=== PATIENT | female | born 1930 | race Caucasian/White ===

== ENCOUNTER 2017-09-25 23:25 | Inpatient (IN) | payer MEDICARE, OTHER ==
[~2017-09-25] VITALS: Ht 172.7 cm; Wt 57.3 kg
[~2017-09-25 23:25] MED LIST: MULT-246 PO; PROP60CA8 PO
[2017-09-26 00:50] LABS: BASO % 1 % (0-3); EOS # 0.1 x10^3/uL (0.0-0.7); EOS % 2 % (0-3); HEMATOCRIT 37.6 % (36.0-47.0); HEMOGLOBIN 12.7 g/dL (12.0-15.5); LYMPH % 31 % (24-48); MEAN CORPUSCULAR HEMOGLOBIN 33 pg (25-35); MEAN CORPUSCULAR HGB CONC 34 g/dL (31-37); MEAN CORPUSCULAR VOLUME 99 fL (79-100); MONO # 0.6 x10^3/uL (0.0-1.1); MONO % 18 % (0-9); NEUT # 1.6 x10^3uL (1.8-7.7); NEUT % 48 % (31-73); PLATELET COUNT 86 x10^3/uL (140-400); RED BLOOD COUNT 3.81 x10^6/uL (3.50-5.40); RED CELL DISTRIBUTION WIDTH 14.5 % (11.5-14.5); WHITE BLOOD COUNT 3.3 x10^3/uL (4.0-11.0)
[2017-09-26 00:53] LABS: CALCIUM 8.8 mg/dL (8.5-10.1); CREATININE 1.3 mg/dL (0.6-1.0); GFR 38.9
[2017-09-26 00:57] LABS: CLARITY,URINE CLEAR; COLOR,URINE YELLOW
[2017-09-26] MEDS ORDERED: ALPRAZolam 0.25 MG TABLET ONE (00:57)
[2017-09-26 00:58] LABS: BACTERIA,URINE FEW /HPF (0-FEW); BILIRUBIN,URINE NEG (NEG); GLUCOSE,URINE NEG (NEG); NITRITE,URINE NEG (NEG); RBC,URINE 0 /HPF (0-2); SQUAMOUS EPITHELIAL CELL,UR FEW /LPF; UROBILINOGEN,URINE 0.2 mg/dL (0.2 mg/dL)
[2017-09-26] MEDS ORDERED: ALPRAZolam 0.25 MG TABLET PO ONE (01:30)
[2017-09-26] MEDS ORDERED: CEPHALEXIN 250 MG CAPSULE PO ONE (01:30)
--- NOTE | 2017-09-26 01:34 | PHYS DOC ---
Past History Past Medical History: Dementia, Hypertension Past Surgical History: Appendectomy, Cholecystectomy, Hip Replacement, Hysterectomy Smoking: Non-smoker Alcohol Use: None Drug Use: None Adult General Chief Complaint Chief Complaint: PSYCH EVALUATION HPI HPI 86-year-old female with a history of dementia and hypertension now sent to the emergency department for evaluation and medical clearance for psychiatric evaluation after exhibiting aggressive behaviors at [place] [facility]. Patient has not had any physical complaints or recent illness. Apparently she's been behaviorally difficult so she was referred to the emergency department for evaluation anticipating admission if possible to [facility] Review of Systems Review of Systems Constitutional: Denies fever or chills [] Eyes: Denies change in visual acuity, redness, or eye pain [] HENT: Denies nasal congestion or sore throat [] Respiratory: Denies cough or shortness of breath [] Cardiovascular: No additional information not addressed in HPI [] GI: Denies abdominal pain, nausea, vomiting, bloody stools or diarrhea [] : Denies dysuria or hematuria [] Musculoskeletal: Denies back pain or joint pain [] Integument: Denies rash or skin lesions [] Neurologic: Denies headache, focal weakness or sensory changes [] Endocrine: Denies polyuria or polydipsia [] All other systems were reviewed and found to be within normal limits, except as documented in this note. Current Medications Current Medications Current Medications Medications (Trade) Dose Ordered Sig/Aimee Start Time Stop Time Status Last Admin Dose Admin Alprazolam (Xanax) 0.25 mg STK-MED ONCE 09/26/17 00:57 09/26/17 00:58 DC Allergies Allergies Allergies Coded Allergies Type Severity Reaction Last Updated Verified Penicillins Allergy Intermediate rash 11/24/13 No Physical Exam Physical Exam Constitutional: Well developed, well nourished, no acute distress, non-toxic appearance. [] HENT: Normocephalic, atraumatic, bilateral external ears normal, oropharynx moist, no oral exudates, nose normal. [] Eyes: PERRLA, EOMI, conjunctiva normal, no discharge. [] Neck: Normal range of motion, no tenderness, supple, no stridor. [] Cardiovascular:Heart rate regular rhythm, no murmur [] Lungs & Thorax: Bilateral breath sounds clear to auscultation [] Abdomen: Bowel sounds normal, soft, no tenderness, no masses, no pulsatile masses. [] Skin: Warm, dry, no erythema, no rash. [] Back: No tenderness, no CVA tenderness. [] Extremities: No tenderness, no cyanosis, no clubbing, ROM intact, no edema. [] Neurologic: Alert and oriented X 3, normal motor function, normal sensory function, no focal deficits noted. [] Psychologic: Affect normal, judgement normal, mood normal. [] Current Patient Data Vital Signs Vital Signs Date Time Temp Pulse Resp B/P (MAP) Pulse Ox O2 Delivery O2 Flow Rate FiO2 09/25/17 23:50 98.3 67 16 96 Room Air Lab Results Laboratory Tests Test 09/26/17 00:14 09/26/17 00:22 Urine Collection Type Unknown Urine Color Yellow Urine Clarity Clear Urine pH 5.0 Urine Specific [place] 1.025 Urine Protein 100 mg/dl (NEG-TRACE) Urine Glucose (UA) Neg mg/dL (NEG) Urine Ketones (Stick) 15 mg/dL (NEG) Urine Blood Neg (NEG) Urine Nitrite Neg (NEG) Urine Bilirubin Neg (NEG) Urine Urobilinogen Dipstick 0.2 mg/dL (0.2 mg/dL) Urine Leukocyte Esterase Small (NEG) Urine RBC 0 /HPF (0-2) Urine WBC 11-20 /HPF (0-4) Urine Squamous Epithelial Cells Few /LPF Urine Bacteria Few /HPF (0-FEW) White Blood Count 3.3 x10^3/uL (4.0-11.0) L Red Blood Count 3.81 x10^6/uL (3.50-5.40) Hemoglobin 12.7 g/dL (12.0-15.5) Hematocrit 37.6 % (36.0-47.0) Mean Corpuscular Volume 99 fL (79-100) Mean Corpuscular Hemoglobin 33 pg (25-35) Mean Corpuscular Hemoglobin Concent 34 g/dL (31-37) Red Cell Distribution Width 14.5 % (11.5-14.5) Platelet Count 86 x10^3/uL (140-400) L Neutrophils (%) (Auto) 48 % (31-73) Lymphocytes (%) (Auto) 31 % (24-48) Monocytes (%) (Auto) 18 % (0-9) H Eosinophils (%) (Auto) 2 % (0-3) Basophils (%) (Auto) 1 % (0-3) Neutrophils # (Auto) 1.6 x10^3uL (1.8-7.7) L Lymphocytes # (Auto) 1.0 x10^3/uL (1.0-4.8) Monocytes # (Auto) 0.6 x10^3/uL (0.0-1.1) Eosinophils # (Auto) 0.1 x10^3/uL (0.0-0.7) Basophils # (Auto) 0.0 x10^3/uL (0.0-0.2) Sodium Level 142 mmol/L (136-145) Potassium Level 4.0 mmol/L (3.5-5.1) Chloride Level 105 mmol/L (98-107) Carbon Dioxide Level 28 mmol/L (21-32) Anion Gap 9 (6-14) Blood Urea Nitrogen 21 mg/dL (7-20) H Creatinine 1.3 mg/dL (0.6-1.0) H Estimated GFR (Cockcroft-Gault) 38.9 Glucose Level 85 mg/dL (70-99) Calcium Level 8.8 mg/dL (8.5-10.1) Magnesium Level 2.2 mg/dL (1.8-2.4) Troponin I Quantitative < 0.017 ng/mL (0-0.055) EKG EKG [] Radiology/Procedures Radiology/Procedures [] Course & Med Decision Making Course & Med Decision Making Pertinent Labs and Imaging studies reviewed. (See chart for details) Patient sent for evaluation of behavioral difficulties. Full workup shows urinalysis consistent with UTI. Treatment initiated and should be continued with antibiotic for10 days. Patient stable and medically cleared for psychiatric evaluation [] Dragon Disclaimer Dragon Disclaimer This electronic medical record was generated, in whole or in part, using a voice recognition dictation system. Departure Departure: Impression: Primary Impression: Dementia Additional Impressions: UTI (urinary tract infection) Aggressive behavior Disposition: ADMITTED INPATIENT Condition: STABLE Referrals: JORDAN RODRIGUEZ (PCP) Problem Qualifiers HIRAM BARBOUR MD September 26, 2017 01:34
[2017-09-26] MEDS ORDERED: METHYL SALICYLATE/MENTHOL TOPICAL OINTMENT 29GM TUBE. TP PRN (03:45)
[2017-09-26] MEDS ORDERED: MAGNESIUM HYDROXIDE 2,400 MG/30 ML ORAL.SUSP. PO PRN (03:45)
[2017-09-26] MEDS ORDERED: ACETAMINOPHEN 325 MG TABLET PO PRN (03:45)
[2017-09-26] MEDS ORDERED: MAG HYDROX/AL HYDROX/SIMETH 30 ML ORAL.SUSP PO PRN (03:45)
--- NOTE | 2017-09-26 03:46 | EKG ---
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
[2017-09-26 03:55] VITALS: BP 116/90
[2017-09-26 04:55] LABS: ALBUMIN 3.4 g/dL (3.4-5.0); TOTAL BILIRUBIN 0.3 mg/dL (0.2-1.0)
[2017-09-26 05:16] LABS: DIRECT BILIRUBIN 0.1 mg/dL (0.0-0.2); TOTAL PROTEIN 6.6 g/dL (6.4-8.2)
[2017-09-26] MEDS ORDERED: CYAN10002 IM (05:22)
[2017-09-26] MEDS ORDERED: POLY17PO5 PO (05:22)
[2017-09-26] MEDS ORDERED: ASPI-612 PO (05:22)
[2017-09-26] MEDS ORDERED: ERGO500027 PO (05:22)
[2017-09-26] MEDS ORDERED: MELA3TAB43 PO (05:22)
[2017-09-26] MEDS ORDERED: HYDR-2762 PO (05:22)
[2017-09-26] MEDS ORDERED: LORA10TA3 PO (05:22)
[2017-09-26] MEDS ORDERED: FLUT9.9S NS (13:06)
[2017-09-26] MEDS ORDERED: LEVE500T56 PO ×2 (13:08→13:09)
[2017-09-26] MEDS ORDERED: PROP40TA PO (13:13)
[2017-09-26] MEDS ORDERED: CYCL1DRO EACHEYE (13:14)
[2017-09-26 14:31] LABS: THYROID STIM HORMONE (TSH) 5.014 uIU/mL (0.358-3.740)
[2017-09-26] MEDS ORDERED: MELATONIN 3 MG TABLET PO PRN (16:15)
[2017-09-26] MEDS ORDERED: HYDROcodone/APAP 7.5/325MG 1 TAB TABLET PO PRN (16:15)
[2017-09-26 16:40] VITALS: BP 123/81
[2017-09-26 19:10] LABS: T3 TOTAL 85 ng/dL (71-180); THYROXINE 7.7 ug/dL (4.5-12.0)
[2017-09-26] MEDS: levETIRAcetam 250 MG TABLET PO SCH (19:58)
[2017-09-26] MEDS: ASPIRIN ENTERIC COATED 81 MG TABLET.DR. PO SCH (19:58)
[2017-09-26] MEDS: PROPRANOLOL 20 MG TABLET. PO SCH (19:58)
[2017-09-26] MEDS: cycloSPORINE 0.05% OPTH 1 DROP DROPERETTE OU SCH (19:59)
--- NOTE | 2017-09-26 20:49 | PDOC ---
Exam Note: Jorden Note: Please also refer to the separate dictated note~for this date of service dictated separately.~Patient seen individually. Discussed the patient with Nursing staff reviewed the chart.~Reviewed interim history and current functioning. Reviewed vital signs,~Labs/ Radiology~and current medications noted below. Continue current treatment with the changes noted in the dictated addendum note Assessment: Vital Signs: Vital Signs Date Time Temp Pulse Resp B/P (MAP) Pulse Ox O2 Delivery O2 Flow Rate FiO2 09/26/17 19:58 93 123/81 09/26/17 16:40 96.3 19 96 09/26/17 01:47 Room Air Labs: Laboratory Tests Test 09/26/17 00:14 09/26/17 00:22 Urine Collection Type Unknown Urine Color Yellow Urine Clarity Clear Urine pH 5.0 Urine Specific [place] 1.025 Urine Protein 100 mg/dl (NEG-TRACE) Urine Glucose (UA) Neg mg/dL (NEG) Urine Ketones (Stick) 15 mg/dL (NEG) Urine Blood Neg (NEG) Urine Nitrite Neg (NEG) Urine Bilirubin Neg (NEG) Urine Urobilinogen Dipstick 0.2 mg/dL (0.2 mg/dL) Urine Leukocyte Esterase Small (NEG) Urine RBC 0 /HPF (0-2) Urine WBC 11-20 /HPF (0-4) Urine Squamous Epithelial Cells Few /LPF Urine Bacteria Few /HPF (0-FEW) White Blood Count 3.3 x10^3/uL (4.0-11.0) L Red Blood Count 3.81 x10^6/uL (3.50-5.40) Hemoglobin 12.7 g/dL (12.0-15.5) Hematocrit 37.6 % (36.0-47.0) Mean Corpuscular Volume 99 fL (79-100) Mean Corpuscular Hemoglobin 33 pg (25-35) Mean Corpuscular Hemoglobin Concent 34 g/dL (31-37) Red Cell Distribution Width 14.5 % (11.5-14.5) Platelet Count 86 x10^3/uL (140-400) L Neutrophils (%) (Auto) 48 % (31-73) Lymphocytes (%) (Auto) 31 % (24-48) Monocytes (%) (Auto) 18 % (0-9) H Eosinophils (%) (Auto) 2 % (0-3) Basophils (%) (Auto) 1 % (0-3) Neutrophils # (Auto) 1.6 x10^3uL (1.8-7.7) L Lymphocytes # (Auto) 1.0 x10^3/uL (1.0-4.8) Monocytes # (Auto) 0.6 x10^3/uL (0.0-1.1) Eosinophils # (Auto) 0.1 x10^3/uL (0.0-0.7) Basophils # (Auto) 0.0 x10^3/uL (0.0-0.2) Sodium Level 142 mmol/L (136-145) Potassium Level 4.0 mmol/L (3.5-5.1) Chloride Level 105 mmol/L (98-107) Carbon Dioxide Level 28 mmol/L (21-32) Anion Gap 9 (6-14) Blood Urea Nitrogen 21 mg/dL (7-20) H Creatinine 1.3 mg/dL (0.6-1.0) H Estimated GFR (Cockcroft-Gault) 38.9 Glucose Level 85 mg/dL (70-99) Calcium Level 8.8 mg/dL (8.5-10.1) Magnesium Level 2.2 mg/dL (1.8-2.4) Iron Level 49 ug/dL (50-170) L Total Iron Binding Capacity 257 ug/dL (250-450) Iron Saturation 19 % (15-34) Total Bilirubin 0.3 mg/dL (0.2-1.0) Direct Bilirubin 0.1 mg/dL (0.0-0.2) Aspartate Amino Transferase (AST) 26 U/L (15-37) Alanine Aminotransferase (ALT) 26 U/L (14-59) Alkaline Phosphatase 152 U/L (46-116) H Troponin I Quantitative < 0.017 ng/mL (0-0.055) Total Protein 6.6 g/dL (6.4-8.2) Albumin 3.4 g/dL (3.4-5.0) Triglycerides Level 59 mg/dL (0-150) Cholesterol Level 153 mg/dL (0-200) LDL Cholesterol, Calculated 67 mg/dL (0-100) VLDL Cholesterol, Calculated 11 mg/dL (0-40) Non-HDL Cholesterol Calculated 78 mg/dL (0-129) HDL Cholesterol 75 mg/dL (40-60) H Cholesterol/HDL Ratio 2.0 Vitamin B12 Level 653 pg/mL (247-911) 25-Hydroxy Vitamin D Total 66.5 ng/mL (30-100) Thyroid Stimulating Hormone (TSH) 5.014 uIU/mL (0.358-3.740) Thyroxine (T4) 7.7 ug/dL (4.5-12.0) Total Triiodothyronine (TT3) 85 ng/dL (71-180) Rapid Plasma Reagin Pending Current Medications: Meds: Current Medications Alprazolam (Xanax) 0.5 mg 1X ONCE PO Last administered on 09/26/17at 01:35; Start 09/26/17 at 01:30; Stop 09/26/17 at 01:31; Status DC Alprazolam (Xanax) 0.25 mg STK-MED ONCE .ROUTE ; Start 09/26/17 at 00:57; Stop 09/26/17 at 00:58; Status DC Cephalexin HCl (Keflex) 500 mg 1X ONCE PO Last administered on 09/26/17at 01:34 ; Start 09/26/17 at 01:30; Stop 09/26/17 at 01:37; Status DC Acetaminophen (Tylenol) 650 mg PRN Q6HRS PRN PO PAIN / TEMP; Start 09/26/17 at 03:45 Multi-Ingredient Ointment (Analgesic Stuart) 1 axel PRN QID PRN TP MUSCLE PAIN; Start 09/26/17 at 03:45 Al Hydroxide/Mg Hydroxide (Mylanta Plus Xs) 15 ml PRN AFTMEALHC PRN PO DYSPEPSIA; Start 09/26/17 at 03:45 Magnesium Hydroxide (Milk Of Magnesia) 2,400 mg PRN QHS PRN PO CONSTIPATION; Start 09/26/17 at 03:45 Olanzapine (ZyPREXA ZYDIS) 2.5 mg PRN Q2HR PRN PO PSYCHOSIS Last administered on 09/26/17at 06:00; Start 09/26/17 at 04:00 Cyanocobalamin (Vitamin B-12) 1,000 mcg QMONTH IM ; Start 10/26/17 at 09:00 Cyclosporine (Restasis) 1 drop BID OU Last administered on 09/26/17at 19:59; Start 09/26/17 at 21:00 Acetaminophen/ Hydrocodone Bitart (Lortab 7.5/325) 1 tab PRN Q6HRS PRN PO PAIN ; Start 09/26/17 at 16:15 Propranolol HCl (Inderal La) 60 mg DAILY PO ; Start 09/27/17 at 09:00; Stop 05/05 at 09:00; Status DC Aspirin (Aspirin Enteric Coated) 81 mg BID PO Last administered on 09/26/17at 19 :58; Start 09/26/17 at 21:00 Vitamin D (Vitamin D3) 50,000 unit WEEKLY PO ; Start 10/03/17 at 09:00 Fluticasone Propionate (Flonase) 2 spray DAILY NS Last administered on 19:59; Start 09/27/17 at 09:00 Levetiracetam (Keppra) 250 mg BID PO Last administered on 09/26/17 19:58; Start 09/26/17 at 21:00 Cetirizine HCl (ZyrTEC) 10 mg DAILY PO ; Start 09/27/17 at 09:00 Melatonin 3 mg PRN QHS PRN PO INSOMNIA; Start 09/26/17 at 16:15 Polyethylene Glycol (miraLAX) 17 gm DAILY PO ; Start 09/27/17 at 09:00 Propranolol HCl (Inderal) 40 mg QHS PO Last administered on 09/26/17 19:58; Start 09/26/17 at 21:00 Propranolol HCl (Inderal) 20 mg DAILY PO ; Start 09/27/17 at 09:00 Mirtazapine (Remeron) 7.5 mg QHS PO ; Start 09/26/17 at 21:00; Status UNV Active Scripts Active Reported Restasis (Cyclosporine) 1 Each Droperette 1 Drop EACHEYE BID Propranolol Hcl 40 Mg Tablet 1 Tab PO QHS Keppra (Levetiracetam) 500 Mg Tablet 250 Tab PO QHS Keppra (Levetiracetam) 500 Mg Tablet 0.5 Tab PO DAILY08 Flonase Allergy Relief (Fluticasone Propionate) 9.9 Ml Portia.susp 2 Sprays NS DAILY Miralax (Polyethylene Glycol 3350) 17 Gm Powd.pack 17 Gm PO DAILY Melatonin 3 Mg Tab.rapdis 3 Mg PO QHS Loratadine 10 Mg Tablet 10 Mg PO DAILY Hydrocodone-Apap 7.5-325 (Hydrocodone Bit/Acetaminophen) 1 Each Tablet 1 Tab PO PRN Q6HRS PRN Vitamin D2 (Ergocalciferol (Vitamin D2)) 50,000 Unit Capsule 50,000 Unit PO [id number] Cyanocobalamin Injection (Cyanocobalamin (Vitamin B-12)) 1,000 Mcg/1 Ml Vial 1, 000 Mcg IM QMONTH Aspirin Ec (Aspirin) 81 Mg Tablet.dr 81 Mg PO BID Inderal La (Propranolol Hcl) 60 Mg Cap.sa.24h 20 Mg PO QAM I have reviewed the current psychotropics carefully including drug interactions. Risk benefit ratio favors no change other than as noted in my dictated progress note. Diagnosis: Problems: (1) Dementia (2) UTI (urinary tract infection) (3) Aggressive behavior LEYDA WHITLOCK MD September 26, 2017 20:49
[2017-09-26] MEDS: MIRTAZAPINE 7.5 MG TABLET. PO SCH (21:00)
[2017-09-27 00:11] LABS: HEMOGLOBIN A1C 4.6 % (4.8-5.6)
[2017-09-27 06:20] VITALS: BP 150/82
--- NOTE | 2017-09-27 08:58 | RAD ---
CT brain without contrast. HISTORY: Increased confusion, weakness CT scan of brain without without contrast. Comparison is made to study from November 2013. There is an old right occipital CVA which is more prominent than the old study but still appears old. There are old bilateral white matter CVAs in the posterior parietal lobes also noted on the prior study. There is diffuse decreased density in the white matter from chronic microvascular changes. There is an old CVA in the posterior frontal lobe on the right which is new compared to the prior study but the encephalomalacia suggests a chronic finding. Ventricles are mildly dilated probably from atrophy. There is no hemorrhage or mass or shift of the midline. MRI is more sensitive for an acute CVA. IMPRESSION: 1. 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 2. No intracranial hemorrhage. 3. MRI could be of benefit. PQRS Compliance Statement: One or more of the following individualized dose reduction techniques were utilized for this examination: 1. Automated exposure control 2. Adjustment of the mA and/or kV according to patient size 3. Use of iterative reconstruction technique Electronically signed by: Levi Patton MD (09/27/2017 8:55 AM) [facility]
[2017-09-27] MEDS ORDERED: FLUTICASONE 50MCG/NASAL SPRAY 16GM BOTTLE. NS SCH (09:00)
[2017-09-27] MEDS ORDERED: CETIRIZINE HCL 10 MG TABLET PO SCH (09:00)
[2017-09-27] MEDS ORDERED: PROPRANOLOL ER 60 MG CAP.SA.24H. PO SCH (09:00)
[2017-09-27] MEDS ORDERED: PROPRANOLOL 20 MG TABLET. PO SCH (09:00)
[2017-09-27] MEDS ORDERED: POLYETHYLENE GLYCOL 3350 17 GM PACKET. PO SCH (09:00)
--- NOTE | 2017-09-27 09:03 | CONS ---
DATE OF CONSULTATION: 09/26/2017 REASON FOR CONSULTATION: Medical management. HISTORY OF PRESENT ILLNESS: The patient is an 86-year-old female patient who was admitted with increased agitation, delusion about her spouse who has , convinced that he is cheating on her. All this in a background of dementia with delusions and behavioral disturbances. The patient was actually fell and underwent hip replacement about 8 weeks ago. She was discharged from [facility] only about a week ago. She lives currently with her daughter. PAST MEDICAL HISTORY: Significant for hypertension, seizure disorder, recurrent falls, claustrophobia. She has also osteoarthritis, osteoporosis, and thrombocytopenia as well as chronic kidney disease. PAST SURGICAL HISTORY: Significant for left total hip arthroplasty. ALLERGIES: She is allergic to PENICILLIN. MEDICATIONS: She is currently on following medications: She is on loratadine 10 mg once a day, propranolol 20 mg twice a day, aspirin 81 mg once a day, hydrocodone/APAP7.5/325 one tablet every 6 hours, Levetiracetam 250 mg twice a day, Flonase 2 sprays to each nostril once a day, cyclosporine or Restasis 1 drop to both eyes twice a day, polyethylene glycol 17 grams p.o. daily, cyanocobalamin 1000 mcg intramuscular once a month, ergocalciferol, vitamin D2 50,000 units every 2 weeks, melatonin 3 mg at bedtime for insomnia. REVIEW OF SYSTEMS: As per history of present illness. FAMILY HISTORY: Unremarkable. SOCIAL HISTORY: She is , lives with her daughter. She does not smoke, drink alcohol or recreational drugs. 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 PHYSICAL EXAMINATION: GENERAL: When I examined her, she looked well and was clearly in no apparent respiratory distress. She was pale, somewhat cachectic, but no jaundice, cyanosis, or thyromegaly. No jugular venous distension. No limb edema. VITAL SIGNS: Her heart rate was 67, blood pressure was 130/77, temperature was 98.3, respiratory rate was 16, and oxygen saturation was 96% on room air. HEAD, EYES, EARS, NOSE, AND THROAT: Showed she is normocephalic, atraumatic. NECK: Supple. HEART: Showed normal first and second heart sounds with no gallop, rub or murmur. CHEST: Clear to auscultation. No crepitation or rhonchi. ABDOMEN: Distended, soft, nontender. No guarding or rigidity. No organomegaly. Hernial orifice intact. Bowel sounds normal. NEUROLOGIC: She is demented, but without any lateralizing sign. All her cranial nerves intact. EXTREMITIES: She moves extremities without difficulty. She ambulates with a walker without assistance. LABORATORY DATA: On admission showed a white cell count of 3300, hemoglobin 12.7, hematocrit 37.6, MCV 99 and platelet count of 186,000 with normal manual differential. Her chemistry showed a serum sodium 142, potassium 4, chloride 105, bicarbonate 28, anion gap of 9. Her BUN 21, creatinine 1.3, estimated GFR was 39 mL per minute. Her glucose was 85 and calcium was 8.8. Her magnesium was 2.2. Her total bilirubin, AST, ALT, alkaline phosphatase were normal. Her total protein was 6.6, albumin was 3.4. Urinalysis showed the urine was yellow, clear with a pH of 5, specific gravity of 1.025. There is small amount of protein, negative for glucose, trace of ketones, negative for blood, nitrite there is a amount of leukocyte esterase with 0 rbc's, 11-20 wbc's and very few bacteria. IMPRESSION AND PLAN: In summary, this is an 86-year-old female patient who was admitted with increased agitation, delusions about her spouse fidelity. He is , but she thinks that he is cheating on her. All this in a background of dementia with delusions and behavioral disturbances. Medically, she is known to have hypertension, seizure disorder, osteoarthritis, osteoporosis, chronic kidney disease and thrombocytopenia. She has recently had undergone left total hip arthroplasty and was discharged from [facility] only about a week ago. All in all, the patient seems to be medically stable. All her vital signs are within acceptable range. Her lab work showed that she has mild thrombocytopenia as well as chronic kidney disease. I do not have anything to compare with her. We will obviously continue to monitor her lab work, in particular her platelet count. For the time being, she is not on any medication that might interfere with her platelet function. She is on a small dose of as aspirin 81 mg. Thank you, Dr. Marie for allowing me to participate in the care of this patient. DIANA CARTAGENA MD DR: QUENTIN/nato JOB#: [id number] / [id number]
[2017-09-27] MEDS: ASPIRIN ENTERIC COATED 81 MG TABLET.DR. PO SCH ×2 (09:26→19:42)
[2017-09-27] MEDS: cycloSPORINE 0.05% OPTH 1 DROP DROPERETTE OU SCH ×2 (09:26→19:42)
[2017-09-27] MEDS: levETIRAcetam 250 MG TABLET PO SCH ×2 (09:29→19:42)
[2017-09-27 16:08] VITALS: BP 130/81
[2017-09-27] MEDS: HYDROcodone/APAP 7.5/325MG 1 TAB TABLET PO SCH (17:31)
[2017-09-27] MEDS: MIRTAZAPINE 7.5 MG TABLET. PO SCH (19:42)
[2017-09-27] MEDS: PROPRANOLOL 20 MG TABLET. PO SCH (19:43)
--- NOTE | 2017-09-27 21:10 | HP ---
ADMIT DATE: 09/26/2017 PSYCHIATRIC ADMISSION HISTORY AND EVALUATION IDENTIFYING DATA: The patient is an 86-year-old female, who lives at home with her daughter, and the daughter brought her to the Emergency Room on account of increased agitation, delusions about her spouse cheating on her. In fact, the spouse is . She was recently at [facility] and was discharged home with her daughter. She has been fighting with the daughter, trying to elope from the Emergency Room after the emergency medical services brought her there. She has failed outpatient psychiatric interventions. Behaviors are deemed dangerous, unmanageable, referred for inpatient psychiatric stabilization. CHIEF COMPLAINT: "I don't know." The patient is quite confused. HISTORY OF PRESENT ILLNESS: The patient has a history of dementia, Alzheimer, vascular type. She has been living at home with her daughter, who is the power of naval aircrewman tactical helicopter and initiated this referral. Recently, the patient has been increasingly agitated, delusional as noted above, quite erratic in her sleep and appetite. She had a hip fracture about 8 weeks back and as noted above was at nursing home facility in [place], returned home back at the facility and then referred via the ER to us. No clear history of bipolar disorder or suicidal or homicidal ideation. Confusion has been even worse lately. PAST PSYCHIATRIC HISTORY: As above. PAST MEDICAL HISTORY: Hypertension, seizure disorder, frequent falls, status post hip replacement 8 weeks ago. In the ER on 09/26/2017, UA was positive. She was given a dosage of Keflex, and I will defer the rest of Dr. Patricio/Dr. Kaminski. DIET: Regular. DRUG ALLERGIES: PENICILLIN. CODE STATUS: She is a full code. Ambulates with walker. CURRENT PSYCHOTROPICS: At admission, Zyprexa was initiated for psychosis and agitation p.r.n. FAMILY HISTORY: Noncontributory. SOCIAL HISTORY: No alcohol, drug abuse, physical, sexual or elder abuse history is noted. She is not known to be a perpetrator. REACTION TO HOSPITALIZATION: The patient oblivious of this. ASSETS: Supportive family. REVIEW OF SYSTEMS: No CV, , pulmonary, eye, ENT system symptoms on review. Reliability poor. MENTAL STATUS EXAMINATION: Oriented to herself. Insight, judgment, recent and remote memory, attention, concentration, fund of knowledge poor, consistent with her diagnosis. No active suicidal or homicidal ideation. LABORATORY DATA: Reviewed. IMPRESSION: Major neurocognitive disorder, Alzheimer, vascular with depression, delusion, behavioral disturbance; anxiety disorder, unspecified; impulse control disorder, unspecified. Rest of the diagnoses as noted above. PLAN: Admit to Geropsychiatry Unit at [facility]. I will see the patient daily individually from a psychiatric standpoint. Medical followup per Dr. Patricio/Dr. Kaminski. We will also start the patient on Remeron 7.5 mg p.o. at bedtime to help with the insomnia and check a CT head if one has not been done recently. Estimated length of stay 10-12 days. DISPOSITION: Would be back perhaps either to home or [facility]. MAN Cornelius WHITLOCK MD DR: CRISTINA/nato JOB#: [id number] / [id number]
--- NOTE | 2017-09-27 22:52 | PDOC ---
Exam Note: Jorden Note: Please also refer to the separate dictated note~for this date of service dictated separately.~Patient seen individually. Discussed the patient with Nursing staff reviewed the chart.~Reviewed interim history and current functioning. Reviewed vital signs,~Labs/ Radiology~and current medications noted below. Continue current treatment with the changes noted in the dictated addendum note Assessment: Vital Signs: Vital Signs Date Time Temp Pulse Resp B/P (MAP) Pulse Ox O2 Delivery O2 Flow Rate FiO2 09/27/17 19:43 98 130/81 09/27/17 18:41 18 09/27/17 16:08 98.1 98 09/26/17 01:47 Room Air I&O Intake and Output 09/27/17 07:00 Intake Total 720 ml Balance 720 ml Intake Oral 720 ml Current Medications: Meds: Current Medications Alprazolam (Xanax) 0.5 mg 1X ONCE PO Last administered on 09/26/17at 01:35; Start 09/26/17 at 01:30; Stop 09/26/17 at 01:31; Status DC Alprazolam (Xanax) 0.25 mg STK-MED ONCE .ROUTE ; Start 09/26/17 at 00:57; Stop 09/26/17 at 00:58; Status DC Cephalexin HCl (Keflex) 500 mg 1X ONCE PO Last administered on 09/26/17at 01:34 ; Start 09/26/17 at 01:30; Stop 09/26/17 at 01:37; Status DC Acetaminophen (Tylenol) 650 mg PRN Q6HRS PRN PO PAIN / TEMP; Start 09/26/17 at 03:45 Multi-Ingredient Ointment (Analgesic Alloy) 1 axel PRN QID PRN TP MUSCLE PAIN; Start 09/26/17 at 03:45 Al Hydroxide/Mg Hydroxide (Mylanta Plus Xs) 15 ml PRN AFTMEALHC PRN PO DYSPEPSIA; Start 09/26/17 at 03:45 Magnesium Hydroxide (Milk Of Magnesia) 2,400 mg PRN QHS PRN PO CONSTIPATION; Start 09/26/17 at 03:45 Olanzapine (ZyPREXA ZYDIS) 2.5 mg PRN Q2HR PRN PO PSYCHOSIS Last administered on 09/26/17at 06:00; Start 09/26/17 at 04:00 Cyanocobalamin (Vitamin B-12) 1,000 mcg QMONTH IM ; Start 10/26/17 at 09:00 Cyclosporine (Restasis) 1 drop BID OU Last administered on 09/27/17 19:42; Start 09/26/17 at 21:00 Acetaminophen/ Hydrocodone Bitart (Lortab 7.5/325) 1 tab PRN Q6HRS PRN PO PAIN ; Start 09/26/17 at 16:15; Stop 09/27/17 at 17:10; Status DC Propranolol HCl (Inderal La) 60 mg DAILY PO ; Start 09/27/17 at 09:00; Stop 05/05 at 09:00; Status DC Aspirin (Aspirin Enteric Coated) 81 mg BID PO Last administered on 09/27/17 19 :42; Start 09/26/17 at 21:00 Vitamin D (Vitamin D3) 50,000 unit WEEKLY PO ; Start 10/03/17 at 09:00 Fluticasone Propionate (Flonase) 2 spray DAILY NS Last administered on 19:59; Start 09/27/17 at 09:00 Levetiracetam (Keppra) 250 mg BID PO Last administered on 09/27/17 19:42; Start 09/26/17 at 21:00 Cetirizine HCl (ZyrTEC) 10 mg DAILY PO Last administered on 09/27/17 09:29; Start 09/27/17 at 09:00 Melatonin 3 mg PRN QHS PRN PO INSOMNIA; Start 09/26/17 at 16:15 Polyethylene Glycol (miraLAX) 17 gm DAILY PO Last administered on 09/27/17 09: 29; Start 09/27/17 at 09:00 Propranolol HCl (Inderal) 40 mg QHS PO Last administered on 09/27/17 19:43; Start 09/26/17 at 21:00 Propranolol HCl (Inderal) 20 mg DAILY PO Last administered on 09/27/17 09:29; Start 09/27/17 at 09:00 Mirtazapine (Remeron) 7.5 mg QHS PO Last administered on 09/27/17 19:42; Start 09/26/17 at 21:00 Acetaminophen/ Hydrocodone Bitart (Lortab 7.5/325) 1 tab Q6HRS PO Last administered on 09/27/17at 17:31; Start 09/27/17 at 18:00 Duloxetine HCl (Cymbalta) 30 mg DAILY PO ; Start 09/28/17 at 09:00 Active Scripts Active Reported Restasis (Cyclosporine) 1 Each Droperette 1 Drop EACHEYE BID Propranolol Hcl 40 Mg Tablet 1 Tab PO QHS Keppra (Levetiracetam) 500 Mg Tablet 250 Tab PO QHS Keppra (Levetiracetam) 500 Mg Tablet 0.5 Tab PO DAILY08 Flonase Allergy Relief (Fluticasone Propionate) 9.9 Ml [place].susp 2 Sprays NS DAILY Miralax (Polyethylene Glycol 3350) 17 Gm Powd.pack 17 Gm PO DAILY Melatonin 3 Mg Tab.rapdis 3 Mg PO QHS Loratadine 10 Mg Tablet 10 Mg PO DAILY Hydrocodone-Apap 7.5-325 (Hydrocodone Bit/Acetaminophen) 1 Each Tablet 1 Tab PO PRN Q6HRS PRN Vitamin D2 (Ergocalciferol (Vitamin D2)) 50,000 Unit Capsule 50,000 Unit PO [id number] Cyanocobalamin Injection (Cyanocobalamin (Vitamin B-12)) 1,000 Mcg/1 Ml Vial 1, 000 Mcg IM QMONTH Aspirin Ec (Aspirin) 81 Mg Tablet.dr 81 Mg PO BID Inderal La (Propranolol Hcl) 60 Mg Cap.sa.24h 20 Mg PO QAM I have reviewed the current psychotropics carefully including drug interactions. Risk benefit ratio favors no change other than as noted in my dictated progress note. Diagnosis: Problems: (1) Dementia (2) Aggressive behavior LEYDA WHITLOCK MD September 27, 2017 22:52
[2017-09-28] MEDS: HYDROcodone/APAP 7.5/325MG 1 TAB TABLET PO SCH ×2 (00:21→06:00)
[2017-09-28 05:38] VITALS: BP 120/62
--- NOTE | 2017-09-28 07:26 | PN ---
DATE: 09/27/2017 PSYCHIATRIC PROGRESS NOTE This note covers elements not covered in my initial note 09/27/2017. SUBJECTIVE: The patient was seen evening of 09/27/2017. She slept 7-3/4 hours previous evening, received a dosage of Keflex in the ER, but preliminary growth is negative. She is quite confused the previous night, moving slowly, very obsessive, pulling her rope on and off repetitively. She was then smoothing out of bed repeatedly, quite fixated on minute details. She does have chronic back pain, on Lortab. Quite paranoid, delusional, believes her is cheating on her. REVIEW OF SYSTEMS: No CV, , pulmonary, eye, ENT system symptoms on review. Does complain of back pain. MENTAL STATUS EXAM: Oriented to herself. Insight, judgment, recent and remote memory, attention, concentration, fund of knowledge poor, consistent with her diagnosis mentioned in my initial note. IMPRESSION: Major neurocognitive disorder, Alzheimer, vascular with depression, delusion, behavioral disturbance. Rest unchanged; anxiety disorder, unspecified; impulse control disorder, unspecified, chronic back pain. PLAN: Continue Zyprexa p.r.n., Remeron 7.5 mg at bedtime, start Cymbalta 30 mg a day as an antidepressant and antianxiety agent should help with the back pain as well. MAN Cornelius WHITLOCK MD DR: CRISTINA/nato JOB#: [id number] / [id number]
[2017-09-28 08:05] VITALS: BP 120/64
[2017-09-28 08:20] VITALS: BP 125/65
[2017-09-28] MEDS ORDERED: ACETAMINOPHEN 650 MG SUPP.RECT. PR ONE ×2 (08:30)
[2017-09-28 08:38] LABS: BASO % 0 % (0-3); EOS % 0 % (0-3); HEMATOCRIT 35.8 % (36.0-47.0); LYMPH # 0.9 x10^3/uL (1.0-4.8); LYMPH % 9 % (24-48); MEAN CORPUSCULAR HEMOGLOBIN 33 pg (25-35); MEAN CORPUSCULAR HGB CONC 34 g/dL (31-37); MEAN CORPUSCULAR VOLUME 98 fL (79-100); MONO # 0.9 x10^3/uL (0.0-1.1); MONO % 9 % (0-9); NEUT # 7.7 x10^3uL (1.8-7.7); NEUT % 81 % (31-73); PLATELET COUNT 84 x10^3/uL (140-400); RED BLOOD COUNT 3.64 x10^6/uL (3.50-5.40); RED CELL DISTRIBUTION WIDTH 14.3 % (11.5-14.5); WHITE BLOOD COUNT 9.5 x10^3/uL (4.0-11.0)
[2017-09-28 08:50] LABS: ALBUMIN 2.7 g/dL (3.4-5.0); ALBUMIN/GLOBULIN RATIO 0.9 (1.0-1.7); CALCIUM 7.6 mg/dL (8.5-10.1); CREATININE 0.9 mg/dL (0.6-1.0); GFR 59.5; MAGNESIUM 1.8 mg/dL (1.8-2.4); POTASSIUM 3.5 mmol/L (3.5-5.1); TOTAL BILIRUBIN 0.7 mg/dL (0.2-1.0); TOTAL PROTEIN 5.7 g/dL (6.4-8.2)
[2017-09-28] MEDS ORDERED: DULoxetine HCL 30 MG CAPSULE.DR PO SCH (09:00)
--- NOTE | 2017-09-28 09:36 | RAD ---
AP chest. HISTORY: Cough and fever Portable AP view was taken of the chest. Heart is normal in size. Right lung is clear. Retrocardiac lung is poorly evaluated. An infiltrate or atelectasis is possible. A lateral view could be of benefit. IMPRESSION: 1. Possible retrocardiac atelectasis or infiltrate follow-up view or lateral view would be of benefit. Electronically signed by: Levi Patton MD (09/28/2017 9:33 AM) [facility] [place]
--- NOTE | 2017-09-28 18:49 | PDOC ---
Exam Note: Jorden Note: Please also refer to the separate dictated note~for this date of service dictated separately.~Patient seen individually. Discussed the patient with Nursing staff reviewed the chart.~Reviewed interim history and current functioning. Reviewed vital signs,~Labs/ Radiology~and current medications noted below. Continue current treatment with the changes noted in the dictated addendum note Assessment: Vital Signs: Vital Signs Date Time Temp Pulse Resp B/P (MAP) Pulse Ox O2 Delivery O2 Flow Rate FiO2 09/28/17 08:20 86 125/65 (85) 95 NonRebreather Mask 15.0 09/28/17 08:05 103.7 26 I&O Intake and Output 09/28/17 07:00 Intake Total 720 ml Balance 720 ml Intake Oral 720 ml Labs: Laboratory Tests Test 09/28/17 08:07 09/28/17 08:20 Glucose (Fingerstick) 108 mg/dL (70-99) H White Blood Count 9.5 x10^3/uL (4.0-11.0) # Red Blood Count 3.64 x10^6/uL (3.50-5.40) Hemoglobin 12.0 g/dL (12.0-15.5) Hematocrit 35.8 % (36.0-47.0) L Mean Corpuscular Volume 98 fL (79-100) Mean Corpuscular Hemoglobin 33 pg (25-35) Mean Corpuscular Hemoglobin Concent 34 g/dL (31-37) Red Cell Distribution Width 14.3 % (11.5-14.5) Platelet Count 84 x10^3/uL (140-400) L Neutrophils (%) (Auto) 81 % (31-73) H Lymphocytes (%) (Auto) 9 % (24-48) L Monocytes (%) (Auto) 9 % (0-9) Eosinophils (%) (Auto) 0 % (0-3) Basophils (%) (Auto) 0 % (0-3) Neutrophils # (Auto) 7.7 x10^3uL (1.8-7.7) Lymphocytes # (Auto) 0.9 x10^3/uL (1.0-4.8) L Monocytes # (Auto) 0.9 x10^3/uL (0.0-1.1) Eosinophils # (Auto) 0.0 x10^3/uL (0.0-0.7) Basophils # (Auto) 0.0 x10^3/uL (0.0-0.2) Sodium Level 140 mmol/L (136-145) Potassium Level 3.5 mmol/L (3.5-5.1) Chloride Level 104 mmol/L (98-107) Carbon Dioxide Level 26 mmol/L (21-32) Anion Gap 10 (6-14) Blood Urea Nitrogen 16 mg/dL (7-20) Creatinine 0.9 mg/dL (0.6-1.0) Estimated GFR (Cockcroft-Gault) 59.5 BUN/Creatinine Ratio 18 (6-20) Glucose Level 108 mg/dL (70-99) H Lactic Acid Level 1.1 mmol/L (0.4-2.0) Calcium Level 7.6 mg/dL (8.5-10.1) L Magnesium Level 1.8 mg/dL (1.8-2.4) Total Bilirubin 0.7 mg/dL (0.2-1.0) Aspartate Amino Transferase (AST) 24 U/L (15-37) Alanine Aminotransferase (ALT) 23 U/L (14-59) Alkaline Phosphatase 124 U/L (46-116) H Total Protein 5.7 g/dL (6.4-8.2) L Albumin 2.7 g/dL (3.4-5.0) L Albumin/Globulin Ratio 0.9 (1.0-1.7) L Current Medications: Meds: Current Medications Alprazolam (Xanax) 0.5 mg 1X ONCE PO Last administered on 09/26/17at 01:35; Start 09/26/17 at 01:30; Stop 09/26/17 at 01:31; Status DC Alprazolam (Xanax) 0.25 mg STK-MED ONCE .ROUTE ; Start 09/26/17 at 00:57; Stop 09/26/17 at 00:58; Status DC Cephalexin HCl (Keflex) 500 mg 1X ONCE PO Last administered on 09/26/17at 01:34 ; Start 09/26/17 at 01:30; Stop 09/26/17 at 01:37; Status DC Acetaminophen (Tylenol) 650 mg PRN Q6HRS PRN PO PAIN / TEMP; Start 09/26/17 at 03:45; Stop 09/28/17 at 09:50; Status DC Multi-Ingredient Ointment (Analgesic [place]) 1 axel PRN QID PRN TP MUSCLE PAIN; Start 09/26/17 at 03:45; Stop 09/28/17 at 09:50; Status DC Al Hydroxide/Mg Hydroxide (Mylanta Plus Xs) 15 ml PRN AFTMEALHC PRN PO DYSPEPSIA; Start 09/26/17 at 03:45; Stop 09/28/17 at 09:50; Status DC Magnesium Hydroxide (Milk Of Magnesia) 2,400 mg PRN QHS PRN PO CONSTIPATION; Start 09/26/17 at 03:45; Stop 09/28/17 at 09:50; Status DC Olanzapine (ZyPREXA ZYDIS) 2.5 mg PRN Q2HR PRN PO PSYCHOSIS Last administered on 09/26/17at 06:00; Start 09/26/17 at 04:00; Stop 09/28/17 at 09:50; Status DC Cyanocobalamin (Vitamin B-12) 1,000 mcg QMONTH IM ; Start 10/26/17 at 09:00; Stop 10/26/17 at 09:00; Status DC Cyclosporine (Restasis) 1 drop BID OU Last administered on 09/27/17at 19:42; Start 09/26/17 at 21:00; Stop 09/28/17 at 09:50; Status DC Acetaminophen/ Hydrocodone Bitart (Lortab 7.5/325) 1 tab PRN Q6HRS PRN PO PAIN ; Start 09/26/17 at 16:15; Stop 09/27/17 at 17:10; Status DC Propranolol HCl (Inderal La) 60 mg DAILY PO ; Start 09/27/17 at 09:00; Stop 05/05 at 09:00; Status DC Aspirin (Aspirin Enteric Coated) 81 mg BID PO Last administered on 09/27/17at 19 :42; Start 09/26/17 at 21:00; Stop 09/28/17 at 09:50; Status DC Vitamin D (Vitamin D3) 50,000 unit WEEKLY PO ; Start 10/03/17 at 09:00; Stop at 09:00; Status DC Fluticasone Propionate (Flonase) 2 spray DAILY NS Last administered on 19:59; Start 09/27/17 at 09:00; Stop 09/28/17 at 09:50; Status DC Levetiracetam (Keppra) 250 mg BID PO Last administered on 09/27/17 19:42; Start 09/26/17 at 21:00; Stop 09/28/17 at 09:50; Status DC Cetirizine HCl (ZyrTEC) 10 mg DAILY PO Last administered on 09/27/17at 09:29; Start 09/27/17 at 09:00; Stop 09/28/17 at 09:50; Status DC Melatonin 3 mg PRN QHS PRN PO INSOMNIA Last administered on 09/28/17at 00:23; Start 09/26/17 at 16:15; Stop 09/28/17 at 09:50; Status DC Polyethylene Glycol (miraLAX) 17 gm DAILY PO Last administered on 09/27/17 09: 29; Start 09/27/17 at 09:00; Stop 09/28/17 at 09:50; Status DC Propranolol HCl (Inderal) 40 mg QHS PO Last administered on 09/27/17 19:43; Start 09/26/17 at 21:00; Stop 09/28/17 at 09:50; Status DC Propranolol HCl (Inderal) 20 mg DAILY PO Last administered on 09/27/17 09:29; Start 09/27/17 at 09:00; Stop 09/28/17 at 09:50; Status DC Mirtazapine (Remeron) 7.5 mg QHS PO Last administered on 09/27/17 19:42; Start 09/26/17 at 21:00; Stop 09/28/17 at 09:50; Status DC Acetaminophen/ Hydrocodone Bitart (Lortab 7.5/325) 1 tab Q6HRS PO Last administered on 09/28/17at 00:21; Start 09/27/17 at 18:00; Stop 09/28/17 at 09:50 ; Status DC Duloxetine HCl (Cymbalta) 30 mg DAILY PO ; Start 09/28/17 at 09:00; Stop at 09:50; Status DC Acetaminophen (Tylenol) 1,000 mg 1X ONCE KS ; Start 09/28/17 at 08:30; Stop at 08:32; Status DC Acetaminophen (Tylenol) 650 mg 1X ONCE [place] Last administered on 09/28/17at 08:35 ; Start 09/28/17 at 08:30; Stop 09/28/17 at 08:31; Status DC Active Scripts Active Reported Restasis (Cyclosporine) 1 Each Droperette 1 Drop EACHEYE BID Propranolol Hcl 40 Mg Tablet 1 Tab PO QHS Keppra (Levetiracetam) 500 Mg Tablet 250 Tab PO BID Flonase Allergy Relief (Fluticasone Propionate) 9.9 Ml [place].susp 2 Sprays NS DAILY Miralax (Polyethylene Glycol 3350) 17 Gm Powd.pack 17 Gm PO DAILY Melatonin 3 Mg Tab.rapdis 3 Mg PO HS PRN Loratadine 10 Mg Tablet 10 Mg PO DAILY Hydrocodone-Apap 7.5-325 (Hydrocodone Bit/Acetaminophen) 1 Each Tablet 1 Tab PO Q6HRS Vitamin D2 (Ergocalciferol (Vitamin D2)) 50,000 Unit Capsule 50,000 Unit PO WEEKLY Cyanocobalamin Injection (Cyanocobalamin (Vitamin B-12)) 1,000 Mcg/1 Ml Vial 1, 000 Mcg IM QMONTH Aspirin Ec (Aspirin) 81 Mg Tablet.dr 81 Mg PO BID Inderal La (Propranolol Hcl) 60 Mg Cap.sa.24h 20 Mg PO QAM I have reviewed the current psychotropics carefully including drug interactions. Risk benefit ratio favors no change other than as noted in my dictated progress note. Diagnosis: Problems: (1) Anxiety disorder (2) Dementia in Alzheimer's disease with delusions (3) Dementia in Alzheimer's disease with depression (4) Dementia, vascular, with delusions (5) Dementia, vascular, with depression (6) Impulse control disorder LEYDA WHITLOCK MD September 28, 2017 18:49
--- NOTE | 2017-09-28 19:05 | DS ---
DATE OF DISCHARGE: 09/28/2017 This note covers the elements not covered in my initial note, 09/28/2017. REASON FOR ADMISSION: Please refer to the admission history for details. Briefly, the patient is an 86-year-old female who normally resides at home with her daughter and was admitted via the Emergency Room after the daughter brought her in on account of increased agitation, delusions about her spouse cheating on her. In fact, the spouse is . She was quite psychotic, agitated, unmanageable at home, potentially dangerous thus resulting in this inpatient stabilization. SIGNIFICANT FINDINGS AND CLINICAL COURSE: Following admission, the patient was seen daily individually by myself, followed medically per Dr. Patricio/Dr. Kaminski. She is quite confused, intermittently anxious, agitated, and psychotic. Adjustments were made in her psychotropics and from a psychiatric standpoint, she was started on Cymbalta 30 mg a day, Remeron 7.5 mg p.o. at bedtime and was on Zyprexa p.r.n. She is quite obsessive, repetitive. Additionally, she had chronic back pain for which we felt the Cymbalta would help as well. On 09/28/2017, a rapid response was called on her because of acute respiratory failure and she was transferred to the ICU per Dr. Kaminski. REVIEW OF SYSTEMS: Ambulation impaired with walker, shortness of breath. No CV, , GI system symptoms on review. MENTAL STATUS EXAM: Oriented to herself. Insight, judgment, recent and remote memory, attention, concentration, fund of knowledge poor, consistent with her diagnosis. FINAL DIAGNOSES: Major neurocognitive disorder, Alzheimer, vascular with delusion, depression, behavioral disturbance; anxiety disorder, unspecified; impulse control disorder, unspecified; acute respiratory failure. Rest unchanged from admission. DISCHARGE MEDICATIONS: Please refer to MRAD. DISCHARGE INSTRUCTIONS: We will reassess her if she needs to be readmitted to our unit once she is medically stable. MAN Cornelius WHITLOCK MD DR: CRISTINA/nato JOB#: [id number] / [id number]
[2017-09-28] MEDS ORDERED: BRIM5DRO3 OU (19:47)
[2017-10-03] MEDS ORDERED: CHOLECALCIFEROL (VITAMIN D3) 50,000 UNIT CAPSULE PO SCH (09:00)
[2017-10-26] MEDS ORDERED: CYANOCOBALAMIN (VITAMIN B-12) 1,000 MCG/ML VIAL IM SCH (09:00)
== END 2017-09-28 09:49 | disposition short-term general hospital (02) | DRG 56 ==
LOC: ER 23:25 → GEROPSY 09-26 03:17
PROVIDERS: ADMIT Psychiatry & Neurology Psychiatry; ATTEND Psychiatry & Neurology Psychiatry
DX: G30.9 Alzheimer's disease, unspecified (principal); J96.00 Acute respiratory failure, unspecified whether with hypoxia or hypercapnia; F01.51 Vascular dementia, unspecified severity, with behavioral disturbance; F02.81 Dementia in other diseases classified elsewhere, unspecified severity, with behavioral disturbance; N39.0 Urinary tract infection, site not specified; D69.6 Thrombocytopenia, unspecified; G40.909 Epilepsy, unspecified, not intractable, without status epilepticus; N18.9 Chronic kidney disease, unspecified; I12.9 Hypertensive chronic kidney disease with stage 1 through stage 4 chronic kidney disease, or unspecified chronic kidney disease; F32.9 Major depressive disorder, single episode, unspecified; F40.240 Claustrophobia; F63.9 Impulse disorder, unspecified; G89.29 Other chronic pain; M19.90 Unspecified osteoarthritis, unspecified site; M81.0 Age-related osteoporosis without current pathological fracture; Z96.642 Presence of left artificial hip joint; Z79.82 Long term (current) use of aspirin; Z90.49 Acquired absence of other specified parts of digestive tract; Z90.710 Acquired absence of both cervix and uterus; Z88.0 Allergy status to penicillin; Z79.899 Other long term (current) drug therapy
CPT/HCPCS: 36415; 70450; 71045; 80048; 80053; 80061; 80076; 81001; 82306; 82607; 82947; 83036; 83540; 83550; 83605; 83735; 84436; 84443; 84480; 84484; 85025; 86593; 87086; 93005; 99285-25

== ENCOUNTER 2017-09-28 08:48 | Inpatient (IN) | payer MEDICARE, OTHER ==
[~2017-09-28] VITALS: Ht 172.7 cm; Wt 60.0 kg
[2017-09-28] VITALS (13 sets, daily range): BP systolic 94–162; BP diastolic 50–80
[~2017-09-28 08:48] MED LIST changes: +ASPI-612 PO; +CYAN10002 IM; +CYCL1DRO EACHEYE; +ERGO500027 PO; +FLUT9.9S NS; +HYDR-2762 PO; +LEVE500T56 PO; +LORA10TA3 PO; +MELA3TAB43 PO; +POLY17PO5 PO; +PROP40TA PO
[2017-09-28] MEDS: IV NORMAL SALINE 1,000ML 1,000 ML IV SCH ×2 (11:42→21:04)
[2017-09-28] MEDS: HYDROcodone/APAP 7.5/325MG 1 TAB TABLET PO SCH ×3 (11:42→23:22)
[2017-09-28] MEDS ORDERED: VANCOMYCIN 1.5 GM in IV NORMAL SALINE 500ML 500 ML IV ONE (12:15)
[2017-09-28] MEDS: levETIRAcetam 250 MG TABLET PO SCH ×2 (12:22→21:01)
[2017-09-28] MEDS: MEROPENEM 1 GM in IV NORMAL SALINE 100ML 100 ML IV SCH ×2 (12:22→23:22)
[2017-09-28] MEDS ORDERED: diphenhydrAMINE HCL 25 MG CAPSULE PO PRN (12:30)
[2017-09-28] MEDS ORDERED: ELECTROLYTE (NON-ICU) PROTOCOL MC PRN (12:30)
[2017-09-28] MEDS ORDERED: 0.9 % SODIUM CHLORIDE 10 ML DISP.SYRIN. IV PRN (12:30)
[2017-09-28] MEDS ORDERED: CALCIUM CARBONATE 500 MG TAB.CHEW PO PRN (12:30)
[2017-09-28] MEDS ORDERED: PROCHLORPERAZINE 10 MG/2 ML VIAL. IV PRN (12:30)
[2017-09-28] MEDS ORDERED: diphenhydrAMINE 50 MG/ML VIAL IV PRN (12:30)
[2017-09-28] MEDS ORDERED: ALPRAZolam 0.25 MG TABLET PO PRN (12:30)
[2017-09-28] MEDS ORDERED: ONDANSETRON PF 4 MG/2 ML VIAL. IV PRN (12:30)
--- NOTE | 2017-09-28 12:58 | PDOC1 ---
History of Present Illness Reason for Visit: Fever, hypoxia History of Present Illness Pt is a pleasant 86 yo woman who just was discharged from [facility] on Friday. She had been there for 6 weeks after having a hip fracture and having surgery. She had broken her left hip. Her daughter says that Karina and her moved in with her in December, and Karina's a month later. She states pt's dementia has been getting progressively worse since then. In addition, pt sees a neurologist because she had a seizure last fall, and has had one since then. evening, her daughter brought her to [facility] due to her behaviors and pt was admitted to the [facility] unit. Her daughter reports that pt has been having a cough for a few days prior to presenting here in the hospital, and thought it was getting worse yesterday, but each time pt was evaluated, her lungs were clear. This morning, pt had a rapid response called because she was lethargic, tachypneic, and had an O2 sat of 79% on RA and a temperature of 103.9. She is currently much more alert and breathing normally. She says her only complaint is that her low back hurts (which is chronic). She denies vomiting, choking, diarrhea, abd pain, rash, dizziness, [place], vision changes. Pt's daughter says she had some leg swelling last week, but now it seems better. She was concerned about possible CHF, but pt does not have a hx of that. 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 See HPI for pertinent positives and negative responses, other curtis all other systems are negative, non pertinent or non contributory Medications Current Medications Sodium Chloride 1,000 ml @ 100 mls/hr Q10H IV Last administered on 09/28/17at 11:42; Start 09/28/17 at 11:15 Vancomycin HCl (Vanco Per Pharmacy) 1 each PRN DAILY PRN MC SEE COMMENTS; Start 09/28/17 at 11:15 Meropenem 1 gm/ Sodium Chloride 100 ml @ 200 mls/hr Q12H IV Last administered on 09/28/17at 12:22; Start 09/28/17 at 12:00 Acetaminophen/ Hydrocodone Bitart (Lortab 7.5/325) 1 tab Q6HRS PO Last administered on 09/28/17at 11:42; Start 09/28/17 at 12:00 Levetiracetam (Keppra) 250 mg BID PO Last administered on 09/28/17at 12:22; Start 09/28/17 at 12:00 Lactobacillus Rhamnosus (Culturelle) 1 cap BID PO ; Start 09/28/17 at 21:00 Vancomycin HCl 1.5 gm/Sodium Chloride 500 ml @ 250 mls/hr 1X ONCE IV ; Start 09/28/17 at 12:15; Stop 09/28/17 at 14:14 Vancomycin HCl (Vancomycin Trough Level) 1 each 1X ONCE MC ; Start 09/30/17 at 12:30; Stop 09/30/17 at 12:31 Vancomycin HCl 750 mg/Sodium Chloride 250 ml @ 250 mls/hr Q24H IV ; Start 09/29 at 13:00 Sodium Chloride (Normal Saline Flush) 3 ml PRN DAILY PRN IV AFTER MEDS AND BLOOD DRAWS; Start 09/28/17 at 12:30; Status UNV Acetaminophen (Tylenol) 650 mg PRN Q6HRS PRN PO Headaches, Temp > 101.5F; Start 09/28/17 at 12:30; Status UNV Docusate Sodium (Colace) 100 mg BID PO ; Start 09/28/17 at 21:00; Status UNV Calcium Carbonate/ Glycine (Tums) 500 mg PRN Q3HRS PRN PO HEARTBURN / GAS; Start 09/28/17 at 12:30; Status UNV Info (Non-Icu Electrolyte Protocol) 1 ea CONT PRN PRN MC SEE COMMENTS; Start at 12:30; Status UNV Heparin Sodium (Porcine) (Heparin Sq) 5,000 unit Q12HR SQ ; Start 09/28/17 at 21 :00; Status UNV Prochlorperazine Edisylate (Compazine) 10 mg PRN Q4HRS PRN IV NAUSEA/VOMITING; Start 09/28/17 at 12:30; Status UNV Ondansetron HCl (Zofran) 4 mg PRN Q8HRS PRN IV NAUSEA/VOMITING; Start 09/28/17 at 12:30; Status UNV Diphenhydramine HCl (Benadryl) 25 mg PRN Q6HRS PRN PO SEE COMMENTS; Start 09/28 at 12:30; Status UNV Diphenhydramine HCl (Benadryl) 25 mg PRN Q6HRS PRN IV SEE COMMENTS; Start 09/28 at 12:30; Status UNV Potassium Chloride (KCl Oral Soln) 40 meq 1X ONCE FT ; Start 09/28/17 at 12:30 ; Stop 09/28/17 at 12:31; Status UNV Cyanocobalamin (Vitamin B-12) 1,000 mcg QMONTH IM ; Start 10/28/17 at 09:00; Status UNV Cyclosporine (Restasis) 1 drop BID OU ; Start 09/28/17 at 21:00; Status UNV Propranolol HCl (Inderal La) 20 mg DAILY PO ; Start 09/29/17 at 09:00; Status UNV Non-Formulary Medication (Aspirin (Aspirin Ec)) 81 mg BID PO ; Start 09/28/17 at 21:00; Status UNV Non-Formulary Medication (Ergocalciferol (Vitamin D2) (Vitamin D2)) 50,000 unit WEEKLY PO ; Start 10/05/17 at 09:00; Status UNV Non-Formulary Medication (Fluticasone Propionate (Flonase Allergy Relief)) 2 sprays DAILY NS ; Start 09/29/17 at 09:00; Status UNV Non-Formulary Medication (Loratadine ) 10 mg DAILY PO ; Start 09/29/17 at 09:00 ; Status UNV Non-Formulary Medication (Melatonin ) 3 mg HS PRN PO INSOMNIA; Start 09/28/17 at 12:30; Status UNV Non-Formulary Medication (Polyethylene Glycol 3350 (Miralax)) 17 gm DAILY PO ; Start 09/29/17 at 09:00; Status UNV Alprazolam (Xanax) 0.125 mg PRN QHS PRN PO ANXIETY / AGITATION; Start 09/28/17 at 12:30; Status UNV Active Scripts Active Reported Restasis (Cyclosporine) 1 Each Droperette 1 Drop EACHEYE BID Propranolol Hcl 40 Mg Tablet 1 Tab PO QHS Keppra (Levetiracetam) 500 Mg Tablet 250 Tab PO BID Flonase Allergy Relief (Fluticasone Propionate) 9.9 Ml [place].susp 2 Sprays NS DAILY Miralax (Polyethylene Glycol 3350) 17 Gm Powd.pack 17 Gm PO DAILY Melatonin 3 Mg Tab.rapdis 3 Mg PO HS PRN Loratadine 10 Mg Tablet 10 Mg PO DAILY Hydrocodone-Apap 7.5-325 (Hydrocodone Bit/Acetaminophen) 1 Each Tablet 1 Tab PO Q6HRS Vitamin D2 (Ergocalciferol (Vitamin D2)) 50,000 Unit Capsule 50,000 Unit PO WEEKLY Cyanocobalamin Injection (Cyanocobalamin (Vitamin B-12)) 1,000 Mcg/1 Ml Vial 1, 000 Mcg IM QMONTH Aspirin Ec (Aspirin) 81 Mg Tablet.dr 81 Mg PO BID Inderal La (Propranolol Hcl) 60 Mg Cap.sa.24h 20 Mg PO QAM Exam Vital Signs Vital Signs Date Time Temp Pulse Resp B/P (MAP) Pulse Ox O2 Delivery O2 Flow Rate FiO2 09/28/17 11:42 24 92 NonRebreather Mask 10.0 09/28/17 10:35 76 124/72 (89) 09/28/17 09:35 99.3 General Appearance: Alert, Cooperative, No acute distress, Other (Oriented x 2 (person, place)) HEENT: Atraumatic, PERRLA, EOMI, Mucous membr. moist/pink, Other (Neck supple, full ROM, no JVD, no LAD) Respiratory: Other (Crackles LLL, non-labored, otherwise CTAB) Heart: Regular rate, Normal S1, Normal S2, No murmurs Abdominal: Normal bowel sounds, Soft, No tenderness, No hepatospenomegaly, No masses Extremities: No cyanosis, Normal pulses, No tenderness/swelling, Other (Trace BLE edema, Andrés's negative bilaterally) Skin: No rashes, No breakdown Neuro: Normal speech, Strength at 5/5 X4 ext, Normal tone, Cranial nerves 3-12 NL Psych/Mental Status: Mood NL, Other (Pt's mental status is at baseline per her family) Assessment/Plan Assessment/Plan 1. HCAP, organism unknown: Merrem and Vancomycin. Monitor CBC. O2 to keep sats >92%. Aspiration precautions. RATE. Consider CT if CXR continues to yield nonspecific results, or if pt worsens. Tylenol PRN for fever. Pt down from NRB to 4 liters already, resting comfortably. Lactate and WBC are normal. Pt does meet SIRS criteria, but no sign of overt sepsis. 2. CKD, stage 2: Creat is 1.0, which is baseline. Continue to monitor, avoid nephrotoxic medications. Will give small bolus as a precaution. 3. Seizure d/o: Keppra restarted. Seizure precautions. 4. Thrombocytopenia: Monitor. Stable now. 5. Dementia w/ behaviors: Consult Dr. Marie. Her daughter states she takes Xanax 0.25 mg 1/2 tab at bedtime PRN, I have ordered this. 6. HTN: BP stable, continue home meds. 7. Cough: Pt's cough is more upper airway. I will give a dysphagia diet in case there is a component of aspiration, but there is no evidence of that at this point, and staff have witnessed pt swallowing meds with no difficulty. 8. DVT proph: Heparin. 9. Acute hypoxic respiratory failure: Due to #1, see above. 10. Disp: Expect minimum 2 MN stay to treat this condition. ICU status for now. COURSE Allergies Coded Allergies Type Severity Reaction Last Updated Verified Penicillins Allergy Intermediate rash 11/24/13 No Current Medications Medications (Trade) Dose Ordered Sig/Aimee Route PRN Reason Start Time Stop Time Status Last Admin Dose Admin Sodium Chloride 1,000 ml @ 100 mls/hr Q10H IV 09/28/17 11:15 09/28/17 11:42 Vancomycin HCl (Vanco Per Pharmacy) 1 each PRN DAILY PRN MC SEE COMMENTS 09/28/17 11:15 Meropenem 1 gm/ Sodium Chloride 100 ml @ 200 mls/hr Q12H IV 09/28/17 12:00 09/28/17 12:22 Acetaminophen/ Hydrocodone Bitart (Lortab 7.5/325) 1 tab Q6HRS PO 09/28/17 12:00 09/28/17 11:42 Levetiracetam (Keppra) 250 mg BID PO 09/28/17 12:00 09/28/17 12:22 Lactobacillus Rhamnosus (Culturelle) 1 cap BID PO 09/28/17 21:00 Vancomycin HCl 1.5 gm/Sodium Chloride 500 ml @ 250 mls/hr 1X ONCE IV 09/28/17 12:15 09/28/17 14:14 Vancomycin HCl (Vancomycin Trough Level) 1 each 1X ONCE MC 09/30/17 12:30 09/30/17 12:31 Vancomycin HCl 750 mg/Sodium Chloride 250 ml @ 250 mls/hr Q24H IV 09/29/17 13:00 Sodium Chloride (Normal Saline Flush) 3 ml PRN DAILY PRN IV AFTER MEDS AND BLOOD DRAWS 09/28/17 12:30 UNV Acetaminophen (Tylenol) 650 mg PRN Q6HRS PRN PO Headaches, Temp > 101.5F 09/28/17 12:30 UNV Docusate Sodium (Colace) 100 mg BID PO 09/28/17 21:00 UNV Calcium Carbonate/ Glycine (Tums) 500 mg PRN Q3HRS PRN PO HEARTBURN / GAS 09/28/17 12:30 UNV Info (Non-Icu Electrolyte Protocol) 1 ea CONT PRN PRN MC SEE COMMENTS 09/28/17 12:30 UNV Heparin Sodium (Porcine) (Heparin Sq) 5,000 unit Q12HR SQ 09/28/17 21:00 UNV Prochlorperazine Edisylate (Compazine) 10 mg PRN Q4HRS PRN IV NAUSEA/VOMITING 09/28/17 12:30 UNV Ondansetron HCl (Zofran) 4 mg PRN Q8HRS PRN IV NAUSEA/VOMITING 09/28/17 12:30 UNV Diphenhydramine HCl (Benadryl) 25 mg PRN Q6HRS PRN PO SEE COMMENTS 09/28/17 12:30 UNV Diphenhydramine HCl (Benadryl) 25 mg PRN Q6HRS PRN IV SEE COMMENTS 09/28/17 12:30 UNV Potassium Chloride (KCl Oral Soln) 40 meq 1X ONCE FT 09/28/17 12:30 09/28/17 12:31 UNV Cyanocobalamin (Vitamin B-12) 1,000 mcg QMONTH IM 10/28/17 09:00 UNV Cyclosporine (Restasis) 1 drop BID OU 09/28/17 21:00 UNV Propranolol HCl (Inderal La) 20 mg DAILY PO 09/29/17 09:00 UNV Non-Formulary Medication (Aspirin (Aspirin Ec)) 81 mg BID PO 09/28/17 21:00 UNV Non-Formulary Medication (Ergocalciferol (Vitamin D2) (Vitamin D2)) 50,000 unit WEEKLY PO 10/05/17 09:00 UNV Non-Formulary Medication (Fluticasone Propionate (Flonase Allergy Relief)) 2 sprays DAILY NS 09/29/17 09:00 UNV Non-Formulary Medication (Loratadine ) 10 mg DAILY PO 09/29/17 09:00 UNV Non-Formulary Medication (Melatonin ) 3 mg HS PRN PO INSOMNIA 09/28/17 12:30 UNV Non-Formulary Medication (Polyethylene Glycol 3350 (Miralax)) 17 gm DAILY PO 09/29/17 09:00 UNV Alprazolam (Xanax) 0.125 mg PRN QHS PRN PO ANXIETY / AGITATION 09/28/17 12:30 UNV Vital Signs Date Time Temp Pulse Resp B/P (MAP) Pulse Ox O2 Delivery O2 Flow Rate FiO2 09/28/17 11:42 24 92 NonRebreather Mask 10.0 09/28/17 10:35 76 124/72 (89) 09/28/17 09:35 99.3 AP chest. HISTORY: Cough and fever Portable AP view was taken of the chest. Heart is normal in size. Right lung is clear. Retrocardiac lung is poorly evaluated. An infiltrate or atelectasis is possible. A lateral view could be of benefit. IMPRESSION: 1. Possible retrocardiac atelectasis or infiltrate follow-up view or lateral view would be of benefit. CT brain without contrast. HISTORY: Increased confusion, weakness CT scan of brain without without contrast. Comparison is made to study from November 2013. There is an old right occipital CVA which is more prominent than the old study but still appears old. There are old bilateral white matter CVAs in the posterior parietal lobes also noted on the prior study. There is diffuse decreased density in the white matter from chronic microvascular changes. There is an old CVA in the posterior frontal lobe on the right which is new compared to the prior study but the encephalomalacia suggests a chronic finding. Ventricles are mildly dilated probably from atrophy. There is no hemorrhage or mass or shift of the midline. MRI is more sensitive for an acute CVA. IMPRESSION: 1. 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 2. No intracranial hemorrhage. 3. MRI could be of benefit. PAMELA GANDHI MD September 28, 2017 12:58
[2017-09-28] MEDS ORDERED: POTASSIUM CHLORIDE 20 MEQ/15 ML ORAL LIQUID. FT ONE (13:00)
[2017-09-28] MEDS: VANCOMYCIN PER PHARMACY MC PRN (14:08)
[2017-09-28 14:35] LABS: BILIRUBIN,URINE NEG (NEG); CLARITY,URINE HAZY; COLOR,URINE AMBER; GLUCOSE,URINE NEG (NEG)
[2017-09-28 14:36] LABS: NITRITE,URINE NEG (NEG); UROBILINOGEN,URINE 0.2 mg/dL (0.2 mg/dL)
[2017-09-28 14:37] LABS: AMORPHOUS SEDIMENT,UR PRESENT /HPF; BACTERIA,URINE FEW /HPF (0-FEW); GRANULAR CASTS,URINE OCC /HPF; HYALINE CASTS, URINE OCC /HPF; RBC,URINE 0 /HPF (0-2); SQUAMOUS EPITHELIAL CELL,UR FEW /LPF
[2017-09-28] MEDS ORDERED: BRIM5DRO3 OU (19:47)
[2017-09-28] MEDS: cycloSPORINE 0.05% OPTH 1 DROP DROPERETTE OU SCH (21:00)
[2017-09-28] MEDS: ACETAMINOPHEN 325 MG TABLET PO PRN (21:00)
[2017-09-28] MEDS: DOCUSATE SODIUM 100 MG CAPSULE PO SCH (21:00)
[2017-09-28] MEDS: MELATONIN 3 MG TABLET PO PRN (21:00)
[2017-09-28] MEDS: LACTOBACILLUS RHAMNOSUS GG 1 CAPSULE. PO SCH (21:01)
[2017-09-28] MEDS: ASPIRIN ENTERIC COATED 81 MG TABLET.DR. PO SCH (21:01)
[2017-09-28] MEDS: HEPARIN PF for SUB-Q USE 5,000 UNIT/0.5 ML VIAL. SQ SCH (21:02)
[2017-09-29] VITALS (15 sets, daily range): BP systolic 93–144; BP diastolic 50–81
[2017-09-29 00:23] LABS: BASO % 0 % (0-3); EOS % 0 % (0-3); HEMATOCRIT 34.9 % (36.0-47.0); HEMOGLOBIN 11.7 g/dL (12.0-15.5); LYMPH # 0.6 x10^3/uL (1.0-4.8); LYMPH % 11 % (24-48); MEAN CORPUSCULAR HEMOGLOBIN 33 pg (25-35); MEAN CORPUSCULAR HGB CONC 34 g/dL (31-37); MEAN CORPUSCULAR VOLUME 99 fL (79-100); MONO # 0.3 x10^3/uL (0.0-1.1); MONO % 6 % (0-9); NEUT # 4.2 x10^3uL (1.8-7.7); NEUT % 82 % (31-73); PLATELET COUNT 66 x10^3/uL (140-400); RED BLOOD COUNT 3.52 x10^6/uL (3.50-5.40); RED CELL DISTRIBUTION WIDTH 14.3 % (11.5-14.5); WHITE BLOOD COUNT 5.1 x10^3/uL (4.0-11.0)
[2017-09-29 00:37] LABS: ALBUMIN 2.3 g/dL (3.4-5.0); ALBUMIN/GLOBULIN RATIO 0.7 (1.0-1.7); CALCIUM 7.8 mg/dL (8.5-10.1); CREATININE 1.1 mg/dL (0.6-1.0); GFR 47.2; POTASSIUM 4.3 mmol/L (3.5-5.1); TOTAL BILIRUBIN 0.8 mg/dL (0.2-1.0); TOTAL PROTEIN 5.4 g/dL (6.4-8.2)
[2017-09-29 00:51] LABS: % BANDS 47 % (0-9); % LYMPHS 13 % (24-48); % MONOS 7 % (0-10)
[2017-09-29 00:54] LABS: PLT ESTIMATE DECREASED (ADEQUATE)
[2017-09-29] MEDS: HYDROcodone/APAP 7.5/325MG 1 TAB TABLET PO SCH ×4 (05:50→23:08)
[2017-09-29] MEDS: IV NORMAL SALINE 1,000ML 1,000 ML IV SCH ×2 (07:15→15:34)
[2017-09-29] MEDS: POLYETHYLENE GLYCOL 3350 17 GM PACKET. PO SCH (07:42)
[2017-09-29] MEDS: DOCUSATE SODIUM 100 MG CAPSULE PO SCH ×2 (07:42→20:03)
--- NOTE | 2017-09-29 08:05 | RAD ---
Portable chest, 09/29/2017: HISTORY: Shortness of breath, pneumonia Comparison is made to yesterday's study. The heart size and pulmonary vascularity are normal. There is calcific plaquing of the aorta. The retrocardiac left basilar opacity has worsened with obscuration of the left hemidiaphragm. The appearance suggests infiltrate and possible pleural fluid. No right lung infiltrate is seen. IMPRESSION: Increasing left basilar infiltrate compatible with pneumonia. Electronically signed by: Kunal Austin MD (09/29/2017 8:02 AM) [facility]
[2017-09-29] MEDS: FLUTICASONE 50MCG/NASAL SPRAY 16GM BOTTLE. NS SCH (08:22)
[2017-09-29] MEDS: PROPRANOLOL 20 MG TABLET. PO SCH (08:22)
[2017-09-29] MEDS: levETIRAcetam 250 MG TABLET PO SCH ×2 (08:22→20:04)
[2017-09-29] MEDS: cycloSPORINE 0.05% OPTH 1 DROP DROPERETTE OU SCH ×2 (08:22→20:04)
[2017-09-29] MEDS: LACTOBACILLUS RHAMNOSUS GG 1 CAPSULE. PO SCH ×2 (08:23→20:04)
[2017-09-29] MEDS: ASPIRIN ENTERIC COATED 81 MG TABLET.DR. PO SCH ×2 (08:23→20:04)
[2017-09-29] MEDS: ACETAMINOPHEN 325 MG TABLET PO PRN (08:23)
[2017-09-29] MEDS: CETIRIZINE HCL 10 MG TABLET PO SCH (08:23)
[2017-09-29] MEDS: HEPARIN PF for SUB-Q USE 5,000 UNIT/0.5 ML VIAL. SQ SCH ×2 (08:24→20:10)
[2017-09-29] MEDS: MEROPENEM 1 GM in IV NORMAL SALINE 100ML 100 ML IV SCH ×2 (12:18→23:08)
[2017-09-29] MEDS ORDERED: IOHEXOL 300 MG/ML 75 ML VIAL. IV ONE (12:30)
[2017-09-29 12:36] LABS: HEMATOCRIT 37.1 % (36.0-47.0); HEMOGLOBIN 12.3 g/dL (12.0-15.5); RED BLOOD COUNT 3.74 x10^6/uL (3.50-5.40); RED CELL DISTRIBUTION WIDTH 14.5 % (11.5-14.5); WHITE BLOOD COUNT 6.7 x10^3/uL (4.0-11.0)
[2017-09-29 12:51] LABS: ALBUMIN 2.4 g/dL (3.4-5.0); ALBUMIN/GLOBULIN RATIO 0.7 (1.0-1.7); CALCIUM 8.4 mg/dL (8.5-10.1); CREATININE 1.3 mg/dL (0.6-1.0); GFR 38.9; POTASSIUM 4.2 mmol/L (3.5-5.1); TOTAL BILIRUBIN 0.7 mg/dL (0.2-1.0); TOTAL PROTEIN 5.8 g/dL (6.4-8.2)
[2017-09-29] MEDS: VANCOMYCIN 750 MG in IV NORMAL SALINE 250ML 250 ML IV SCH (13:35)
--- NOTE | 2017-09-29 13:38 | RAD ---
CTA chest with contrast Indication: hypoxia, short of breath, reduced dose given creat 1.1 gfr 46 . Comparison: No comparison is available. Technique: After bolus of intravenous contrast, CT imaging was performed of the chest. MIP reconstructions were obtained. Exposure: One or more of the following individualized dose reduction techniques were utilized for this examination: 1. Automated exposure control 2. Adjustment of the mA and/or kV according to patient size 3. Use of iterative reconstruction technique. Findings: Pulmonary arteries:No evidence of pulmonary embolism. Thoracic aorta: Mild pulsatility artifact at the ascending aorta. Ascending aorta is mildly ectatic. No evidence of aortic aneurysm or dissection. Great vessel origins:Patent Thyroid gland:Visualized aspect is unremarkable. Lymph nodes:No significant enlargement Heart: No significant pericadial effusion. Pleural spaces: No significant effusion Lungs: Large area of consolidation involving the left lower lobe. Milder consolidation or infiltrate in the right lower lobe. The trachea and central airways are patent. There is bronchial wall thickening. Bones: No destructive process Upper abdomen: Slices were obtained through the upper abdomen, but are of limited usefulness due to technique.No obvious acute findings. Impression: 1. Area of dense infiltrate or consolidation in the left lower lobe and to a lesser extent right lower lobe. Findings may represent pneumonia. However, recommend short-term CT chest follow-up to document resolution. 2. Negative for pulmonary embolism. Electronically signed by: Deonte Clarke MD (09/29/2017 1:35 PM) [id number]
[2017-09-29] MEDS: ALPRAZolam 0.25 MG TABLET PO PRN (15:32)
--- NOTE | 2017-09-29 18:46 | PDOC ---
Exam Note: Jorden Note: Please also refer to the separate dictated note~for this date of service dictated separately.~Patient seen individually. Discussed the patient with Nursing staff reviewed the chart.~Reviewed interim history and current functioning. Reviewed vital signs,~Labs/ Radiology~and current medications noted below. Continue current treatment with the changes noted in the dictated addendum note Assessment: Vital Signs: Vital Signs Date Time Temp Pulse Resp B/P (MAP) Pulse Ox O2 Delivery O2 Flow Rate FiO2 09/29/17 18:00 97 Nasal Cannula 2.5 09/29/17 17:53 98.5 76 20 133/65 (87) I&O Intake and Output 09/29/17 07:00 Intake Total 1520 ml Output Total 1300 ml Balance 220 ml Intake Oral 920 ml IV Total 600 ml Output Urine Total 1300 ml # Bowel Movements 2 Labs: Laboratory Tests Test 09/28/17 23:55 09/29/17 12:28 White Blood Count 5.1 x10^3/uL (4.0-11.0) 6.7 x10^3/uL (4.0-11.0) Red Blood Count 3.52 x10^6/uL (3.50-5.40) 3.74 x10^6/uL (3.50-5.40) Hemoglobin 11.7 g/dL (12.0-15.5) L 12.3 g/dL (12.0-15.5) Hematocrit 34.9 % (36.0-47.0) L 37.1 % (36.0-47.0) Mean Corpuscular Volume 99 fL (79-100) 99 fL (79-100) Mean Corpuscular Hemoglobin 33 pg (25-35) 33 pg (25-35) Mean Corpuscular Hemoglobin Concent 34 g/dL (31-37) 33 g/dL (31-37) Red Cell Distribution Width 14.3 % (11.5-14.5) 14.5 % (11.5-14.5) Platelet Count 66 x10^3/uL (140-400) L 72 x10^3/uL (140-400) L Neutrophils (%) (Auto) 82 % (31-73) H Lymphocytes (%) (Auto) 11 % (24-48) L Monocytes (%) (Auto) 6 % (0-9) Eosinophils (%) (Auto) 0 % (0-3) Basophils (%) (Auto) 0 % (0-3) Neutrophils # (Auto) 4.2 x10^3uL (1.8-7.7) Lymphocytes # (Auto) 0.6 x10^3/uL (1.0-4.8) L Monocytes # (Auto) 0.3 x10^3/uL (0.0-1.1) Eosinophils # (Auto) 0.0 x10^3/uL (0.0-0.7) Basophils # (Auto) 0.0 x10^3/uL (0.0-0.2) Segmented Neutrophils % 33 % (35-66) L Band Neutrophils % 47 % (0-9) H Lymphocytes % 13 % (24-48) L Monocytes % 7 % (0-10) Platelet Estimate Decreased (ADEQUATE) Sodium Level 140 mmol/L (136-145) 140 mmol/L (136-145) Potassium Level 4.3 mmol/L (3.5-5.1) 4.2 mmol/L (3.5-5.1) Chloride Level 107 mmol/L (98-107) 105 mmol/L (98-107) Carbon Dioxide Level 22 mmol/L (21-32) 27 mmol/L (21-32) Anion Gap 11 (6-14) 8 (6-14) Blood Urea Nitrogen 20 mg/dL (7-20) 26 mg/dL (7-20) H Creatinine 1.1 mg/dL (0.6-1.0) H 1.3 mg/dL (0.6-1.0) H Estimated GFR (Cockcroft-Gault) 47.2 38.9 BUN/Creatinine Ratio 18 (6-20) 20 (6-20) Glucose Level 128 mg/dL (70-99) H 113 mg/dL (70-99) H Lactic Acid Level 1.5 mmol/L (0.4-2.0) Calcium Level 7.8 mg/dL (8.5-10.1) L 8.4 mg/dL (8.5-10.1) L Total Bilirubin 0.8 mg/dL (0.2-1.0) 0.7 mg/dL (0.2-1.0) Aspartate Amino Transferase (AST) 28 U/L (15-37) 25 U/L (15-37) Alanine Aminotransferase (ALT) 24 U/L (14-59) 25 U/L (14-59) Alkaline Phosphatase 105 U/L (46-116) 107 U/L (46-116) Total Protein 5.4 g/dL (6.4-8.2) L 5.8 g/dL (6.4-8.2) L Albumin 2.3 g/dL (3.4-5.0) L 2.4 g/dL (3.4-5.0) L Albumin/Globulin Ratio 0.7 (1.0-1.7) L 0.7 (1.0-1.7) L Current Medications: Meds: Current Medications Sodium Chloride 1,000 ml @ 100 mls/hr Q10H IV Last administered on 09/29/17 15:34; Start 09/28/17 at 11:15 Vancomycin HCl (Vanco Per Pharmacy) 1 each PRN DAILY PRN MC SEE COMMENTS Last administered on 09/28/17at 14:08; Start 09/28/17 at 11:15 Meropenem 1 gm/ Sodium Chloride 100 ml @ 200 mls/hr Q12H IV Last administered on 09/29/17 12:18; Start 09/28/17 at 12:00 Acetaminophen/ Hydrocodone Bitart (Lortab 7.5/325) 1 tab Q6HRS PO Last administered on 09/29/17at 17:00; Start 09/28/17 at 12:00 Levetiracetam (Keppra) 250 mg BID PO Last administered on 09/29/17at 08:22; Start 09/28/17 at 12:00 Lactobacillus Rhamnosus (Culturelle) 1 cap BID PO Last administered on at 08:23; Start 09/28/17 at 21:00 Vancomycin HCl 1.5 gm/Sodium Chloride 500 ml @ 250 mls/hr 1X ONCE IV Last administered on 09/28/17at 13:43; Start 09/28/17 at 12:15; Stop 09/28/17 at 14:14 ; Status DC Vancomycin HCl (Vancomycin Trough Level) 1 each 1X ONCE MC ; Start 09/30/17 at 12:30; Stop 09/30/17 at 12:31 Vancomycin HCl 750 mg/Sodium Chloride 250 ml @ 250 mls/hr Q24H IV Last administered on 09/29/17at 13:35; Start 09/29/17 at 13:00 Sodium Chloride (Normal Saline Flush) 3 ml PRN DAILY PRN IV AFTER MEDS AND BLOOD DRAWS; Start 09/28/17 at 12:30 Acetaminophen (Tylenol) 650 mg PRN Q6HRS PRN PO Headaches, Temp > 101.5F Last administered on 09/29/17at 08:23; Start 09/28/17 at 12:30 Docusate Sodium (Colace) 100 mg BID PO ; Start 09/28/17 at 21:00 Calcium Carbonate/ Glycine (Tums) 500 mg PRN Q3HRS PRN PO HEARTBURN / GAS; Start 09/28/17 at 12:30 Info (Non-Icu Electrolyte Protocol) 1 ea CONT PRN PRN MC SEE COMMENTS; Start at 12:30 Heparin Sodium (Porcine) (Heparin Sq) 5,000 unit Q12HR SQ Last administered on 09/29/17at 08:24; Start 09/28/17 at 21:00 Prochlorperazine Edisylate (Compazine) 10 mg PRN Q4HRS PRN IV NAUSEA/VOMITING; Start 09/28/17 at 12:30 Ondansetron HCl (Zofran) 4 mg PRN Q8HRS PRN IV NAUSEA/VOMITING; Start 09/28/17 at 12:30 Diphenhydramine HCl (Benadryl) 25 mg PRN Q6HRS PRN PO SEE COMMENTS; Start 09/28 at 12:30 Diphenhydramine HCl (Benadryl) 25 mg PRN Q6HRS PRN IV SEE COMMENTS; Start 09/28 at 12:30 Potassium Chloride (KCl Oral Soln) 40 meq 1X ONCE FT Last administered on 09/28at 13:43; Start 09/28/17 at 13:00; Stop 09/28/17 at 13:01; Status DC Cyanocobalamin (Vitamin B-12) 1,000 mcg QMONTH IM ; Start 10/26/17 at 09:00 Cyclosporine (Restasis) 1 drop BID OU Last administered on 09/29/17at 08:22; Start 09/28/17 at 21:00 Propranolol HCl (Inderal) 20 mg DAILY PO Last administered on 09/29/17 08:22; Start 09/29/17 at 09:00 Aspirin (Aspirin Enteric Coated) 81 mg BID PO Last administered on 09/29/17at 08 :23; Start 09/28/17 at 21:00 Vitamin D (Vitamin D3) 50,000 unit WEEKLY PO ; Start 10/03/17 at 09:00 Fluticasone Propionate (Flonase) 2 spray DAILY NS Last administered on 08:22; Start 09/29/17 at 09:00 Cetirizine HCl (ZyrTEC) 10 mg DAILY PO Last administered on 09/29/17 08:23; Start 09/29/17 at 09:00 Melatonin 3 mg PRN QHS PRN PO INSOMNIA Last administered on 09/28/17at 21:00; Start 09/28/17 at 13:00 Polyethylene Glycol (miraLAX) 17 gm DAILY PO ; Start 09/29/17 at 09:00 Alprazolam (Xanax) 0.125 mg PRN QHS PRN PO ANXIETY / AGITATION Last administered on 09/29/17at 08:23; Start 09/28/17 at 12:30; Stop 09/29/17 at 15:24 ; Status DC Iohexol (Omnipaque 300 Mg/ml) 75 ml 1X ONCE IV ; Start 09/29/17 at 12:30; Stop 09/29/17 at 12:32; Status DC Alprazolam (Xanax) 0.125 mg PRN QID PRN PO ANXIETY / AGITATION Last administered on 09/29/17at 15:32; Start 09/29/17 at 15:30 Active Scripts Active Reported Alphagan P (Brimonidine Tartrate) 5 Ml Drops 1 Drop OU BID Restasis (Cyclosporine) 1 Each Droperette 1 Drop EACHEYE BID Propranolol Hcl 40 Mg Tablet 1 Tab PO QHS Keppra (Levetiracetam) 500 Mg Tablet 250 Tab PO BID Flonase Allergy Relief (Fluticasone Propionate) 9.9 Ml [place].susp 2 Sprays NS DAILY Miralax (Polyethylene Glycol 3350) 17 Gm Powd.pack 17 Gm PO DAILY Melatonin 3 Mg Tab.rapdis 3 Mg PO HS PRN Loratadine 10 Mg Tablet 10 Mg PO DAILY Hydrocodone-Apap 7.5-325 (Hydrocodone Bit/Acetaminophen) 1 Each Tablet 1 Tab PO Q6HRS Vitamin D2 (Ergocalciferol (Vitamin D2)) 50,000 Unit Capsule 50,000 Unit PO WEEKLY Cyanocobalamin Injection (Cyanocobalamin (Vitamin B-12)) 1,000 Mcg/1 Ml Vial 1, 000 Mcg IM QMONTH Aspirin Ec (Aspirin) 81 Mg Tablet.dr 81 Mg PO BID Inderal La (Propranolol Hcl) 60 Mg Cap.sa.24h 20 Mg PO QAM I have reviewed the current psychotropics carefully including drug interactions. Risk benefit ratio favors no change other than as noted in my dictated progress note. 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
[2017-09-29] MEDS: MELATONIN 3 MG TABLET PO PRN (20:04)
--- NOTE | 2017-09-30 01:14 | PN ---
DATE: 09/29/2017 SUBJECTIVE: The patient is resting, slightly propped up in bed, in no apparent distress. She is somewhat confused; however, on questioning her further, denied any chest pain, shortness of breath, cough, phlegm or hemoptysis. She spiked apparently her temperature yesterday while at [facility]. Temperature was up to 103 and she was basically transferred to ICU with pneumonia. Her white cell count was normal, though it has risen from 3.3-9.5 and was basically started on antibiotic including vancomycin as well as meropenem together with all other medication. She did have a repeat chest x-ray, which basically confirmed the clinical suspicion that the patient has increased left basilar infiltrate compatible with pneumonia. PHYSICAL EXAMINATION: GENERAL: When I saw her today, she was resting slightly propped up in bed, in no apparent respiratory distress, pale, somewhat cachectic, but no jaundice, cyanosis or thyromegaly. No jugular venous distension. No lower limb edema. VITAL SIGNS: Her heart rate was 68, blood pressure was 105/50. Her temperature was 98.7, respiratory rate was 22 and oxygen saturation was 94% on 3 liters oxygen by nasal cannula. HEAD, EYES, EARS, NOSE AND THROAT: Showed normocephalic, atraumatic. NECK: Supple. HEART: Showed normal first and second heart sounds with no gallop, rub or murmur. CHEST: Shows central trachea, equal bilateral expansion, air entry, vesicular sounds with crepitation mostly in the left side posteriorly. I could not appreciate any rhonchi. ABDOMEN: Distended, soft, nontender. No guarding or rigidity. No organomegaly. All hernial orifice intact. Bowel sounds normal. NEUROLOGIC: She is demented, but without any obvious lateralizing sign. All her cranial nerves are intact. She moves extremities without difficulty. She has recently underwent right hip arthroplasty and was discharged only recently from [facility]. LABORATORY DATA: As of yesterday was 5100, hemoglobin 11.7, hematocrit 35, MCV 99 and platelet count of 66,000. Her chemistry showed serum sodium of 140, potassium 4.3, chloride 107, bicarbonate 22, anion gap of 11, BUN 20, creatinine 1.1. Estimated GFR was 47 mL per minute. Her glucose 128. Calcium was 7.8. Total bilirubin, AST, ALT, alkaline phosphatase were normal. Her total protein was 5.4. Albumin 2.3. Urinalysis was essentially unremarkable. IMAGING: Her chest x-ray showed that the heart size and pulmonary vascularity are normal. There is calcific plaquing of the aorta. The retrocardiac left basilar opacity has worsened with obscuration of the left hemidiaphragm. The appearance suggests infiltrate and possible pleural fluid. No right lung infiltrate is seen. PLAN: My plan is to continue with IV antibiotic in the form of vancomycin as well as meropenem. Given degree of hypoxemia, the fact that she has no leukocytosis and also recent hip replacement, possibility of DVT and pulmonary emboli is high. I will arrange for her to have a CT scan of the chest with PE protocol if her GFR ____. DIANA CARTAGENA MD DR: QUENTIN/nato JOB#: [id number] / [id number]
[2017-09-30] MEDS: HYDROcodone/APAP 7.5/325MG 1 TAB TABLET PO SCH ×3 (05:46→19:34)
[2017-09-30 06:36] VITALS: BP 142/80
[2017-09-30 06:44] LABS: BASO % 0 % (0-3); EOS % 0 % (0-3); LYMPH # 0.8 x10^3/uL (1.0-4.8); LYMPH % 11 % (24-48); MEAN CORPUSCULAR HEMOGLOBIN 33 pg (25-35); MEAN CORPUSCULAR HGB CONC 34 g/dL (31-37); MEAN CORPUSCULAR VOLUME 98 fL (79-100); MONO # 0.5 x10^3/uL (0.0-1.1); MONO % 7 % (0-9); NEUT # 5.9 x10^3uL (1.8-7.7); NEUT % 82 % (31-73); PLATELET COUNT 81 x10^3/uL (140-400); RED BLOOD COUNT 3.68 x10^6/uL (3.50-5.40); RED CELL DISTRIBUTION WIDTH 14.2 % (11.5-14.5); WHITE BLOOD COUNT 7.2 x10^3/uL (4.0-11.0)
[2017-09-30 07:04] LABS: ALBUMIN 2.2 g/dL (3.4-5.0); ALBUMIN/GLOBULIN RATIO 0.6 (1.0-1.7); CALCIUM 8.6 mg/dL (8.5-10.1); CREATININE 0.9 mg/dL (0.6-1.0); GFR 59.5; TOTAL BILIRUBIN 0.6 mg/dL (0.2-1.0); TOTAL PROTEIN 5.6 g/dL (6.4-8.2)
[2017-09-30] MEDS: DOCUSATE SODIUM 100 MG CAPSULE PO SCH (08:30)
[2017-09-30] MEDS: FLUTICASONE 50MCG/NASAL SPRAY 16GM BOTTLE. NS SCH (08:30)
[2017-09-30] MEDS: LACTOBACILLUS RHAMNOSUS GG 1 CAPSULE. PO SCH ×2 (08:30→20:54)
[2017-09-30] MEDS: ASPIRIN ENTERIC COATED 81 MG TABLET.DR. PO SCH ×2 (08:30→20:54)
[2017-09-30] MEDS: cycloSPORINE 0.05% OPTH 1 DROP DROPERETTE OU SCH ×2 (08:30→20:54)
[2017-09-30] MEDS: CETIRIZINE HCL 10 MG TABLET PO SCH (08:31)
[2017-09-30] MEDS: POLYETHYLENE GLYCOL 3350 17 GM PACKET. PO SCH (08:31)
[2017-09-30] MEDS: HEPARIN PF for SUB-Q USE 5,000 UNIT/0.5 ML VIAL. SQ SCH ×2 (08:49→21:02)
[2017-09-30 09:49] LABS: % SEGS 33 % (35-66)
[2017-09-30] MEDS: PROPRANOLOL 20 MG TABLET. PO SCH (10:09)
[2017-09-30] MEDS: levETIRAcetam 250 MG TABLET PO SCH ×2 (10:09→20:54)
[2017-09-30 12:16] VITALS: BP 115/75
--- NOTE | 2017-09-30 12:47 | PN ---
DATE: 09/29/2017 PSYCHIATRIC PROGRESS NOTE This note covers elements not covered in my initial note 09/29/2017. SUBJECTIVE: I met with the patient in the evening of 09/29/2017. I also met with the patient's daughter, discussed with nursing staff, reviewed current past records. I have been asked to follow the patient from a psychiatric standpoint in the ICU/[address] [place] [address] where she [facility] for hospital-acquired pneumonia, acute respiratory failure while she was being stabilized on the geropsychiatry service on account of increased agitation, delusions within her progressive dementia while she was living at home with her daughter. From a psychiatric standpoint, she was showing improvement, but developed respiratory problems, transferred to the medical surgical floor. She has been transferred from the ICU to [address] [place] [address]. Daughter has been concerned that the patient may try to walk at night because she is not in direct sight of the nursing staff and has recently had a hip fracture. Additionally, the patient remains quite anxious, restless. She continues to have cognitive deficits consistent with her dementia. REVIEW OF SYSTEMS: No CV, , pulmonary, eye system symptoms on review. Does admit to being tired. Reliability poor. MENTAL STATUS EXAM: Oriented to herself, at times situation. Speech moderate latency, coherent. Abstraction fair, computation impaired, language function intact. Short term memory is impaired. No suicidal or homicidal ideation. LABORATORY DATA: Reviewed. She remains intermittently delusional regarding her cheating on her, even though the is . IMPRESSION: Major neurocognitive disorder, Alzheimer vascular with delusion, depression, behavioral disturbance; anxiety disorder, unspecified; impulse control disorder, unspecified, hospital-acquired pneumonia. PLAN: From a psychiatric standpoint continue Remeron 7.5 mg at bedtime, Cymbalta 30 mg a day, Zyprexa 1.25 mg q.2 hours p.r.n. psychosis, agitation. We will reassess whether she needs to be back in the geropsychiatry unit when she is medically stable, but more than likely she could transfer to the [facility] where the daughter is making arrangements. LEYDA WHITLOCK MD DR: CRISTINA/nato JOB#: [id number] / [id number]
[2017-09-30 12:59] LABS: VANC TR 11.3 mcg/mL (10.0-20.0)
[2017-09-30] MEDS: MEROPENEM 1 GM in IV NORMAL SALINE 100ML 100 ML IV SCH (13:05)
[2017-09-30] MEDS: VANCOMYCIN PER PHARMACY MC PRN (13:20)
[2017-09-30] MEDS: VANCOMYCIN 750 MG in IV NORMAL SALINE 250ML 250 ML IV SCH ×2 (13:45→14:38)
[2017-09-30 18:16] VITALS: BP 137/75
[2017-09-30 19:35] VITALS: BP 129/54
--- NOTE | 2017-09-30 20:12 | PDOC ---
Exam Note: Jorden Note: Please also refer to the separate dictated note~for this date of service dictated separately.~Patient seen individually. Discussed the patient with Nursing staff reviewed the chart.~Reviewed interim history and current functioning. Reviewed vital signs,~Labs/ Radiology~and current medications noted below. Continue current treatment with the changes noted in the dictated addendum note Assessment: Vital Signs: Vital Signs Date Time Temp Pulse Resp B/P (MAP) Pulse Ox O2 Delivery O2 Flow Rate FiO2 09/30/17 19:35 97.5 84 16 129/54 (79) 96 Room Air 09/30/17 19:34 2.5 I&O Intake and Output 09/30/17 07:00 Intake Total 2059 ml Balance 2059 ml Intake Oral 790 ml IV Total 1269 ml # Voids 1 Labs: Laboratory Tests Test 09/30/17 06:04 09/30/17 12:30 White Blood Count 7.2 x10^3/uL (4.0-11.0) Red Blood Count 3.68 x10^6/uL (3.50-5.40) Hemoglobin 12.0 g/dL (12.0-15.5) Hematocrit 36.0 % (36.0-47.0) Mean Corpuscular Volume 98 fL (79-100) Mean Corpuscular Hemoglobin 33 pg (25-35) Mean Corpuscular Hemoglobin Concent 34 g/dL (31-37) Red Cell Distribution Width 14.2 % (11.5-14.5) Platelet Count 81 x10^3/uL (140-400) L Neutrophils (%) (Auto) 82 % (31-73) H Lymphocytes (%) (Auto) 11 % (24-48) L Monocytes (%) (Auto) 7 % (0-9) Eosinophils (%) (Auto) 0 % (0-3) Basophils (%) (Auto) 0 % (0-3) Neutrophils # (Auto) 5.9 x10^3uL (1.8-7.7) Lymphocytes # (Auto) 0.8 x10^3/uL (1.0-4.8) L Monocytes # (Auto) 0.5 x10^3/uL (0.0-1.1) Eosinophils # (Auto) 0.0 x10^3/uL (0.0-0.7) Basophils # (Auto) 0.0 x10^3/uL (0.0-0.2) Sodium Level 141 mmol/L (136-145) Potassium Level 4.0 mmol/L (3.5-5.1) Chloride Level 107 mmol/L (98-107) Carbon Dioxide Level 27 mmol/L (21-32) Anion Gap 7 (6-14) Blood Urea Nitrogen 24 mg/dL (7-20) H Creatinine 0.9 mg/dL (0.6-1.0) Estimated GFR (Cockcroft-Gault) 59.5 BUN/Creatinine Ratio 27 (6-20) H Glucose Level 83 mg/dL (70-99) Calcium Level 8.6 mg/dL (8.5-10.1) Total Bilirubin 0.6 mg/dL (0.2-1.0) Aspartate Amino Transferase (AST) 20 U/L (15-37) Alanine Aminotransferase (ALT) 23 U/L (14-59) Alkaline Phosphatase 114 U/L (46-116) Total Protein 5.6 g/dL (6.4-8.2) L Albumin 2.2 g/dL (3.4-5.0) L Albumin/Globulin Ratio 0.6 (1.0-1.7) L Vancomycin Level Trough 11.3 mcg/mL (10.0-20.0) Vancomycin Last Dose Date 09/29/17 Vancomycin Last Dose Time 1300 Current Medications: Meds: Current Medications Sodium Chloride 1,000 ml @ 100 mls/hr Q10H IV Last administered on 09/29/17at 15:34; Start 09/28/17 at 11:15; Stop 09/30/17 at 03:58; Status DC Vancomycin HCl (Vanco Per Pharmacy) 1 each PRN DAILY PRN MC SEE COMMENTS Last administered on 09/30/17at 13:20; Start 09/28/17 at 11:15 Meropenem 1 gm/ Sodium Chloride 100 ml @ 200 mls/hr Q12H IV Last administered on 09/30/17at 13:05; Start 09/28/17 at 12:00 Acetaminophen/ Hydrocodone Bitart (Lortab 7.5/325) 1 tab Q6HRS PO Last administered on 09/30/17at 19:34; Start 09/28/17 at 12:00 Levetiracetam (Keppra) 250 mg BID PO Last administered on 09/30/17at 10:09; Start 09/28/17 at 12:00 Lactobacillus Rhamnosus (Culturelle) 1 cap BID PO Last administered on at 08:30; Start 09/28/17 at 21:00 Vancomycin HCl 1.5 gm/Sodium Chloride 500 ml @ 250 mls/hr 1X ONCE IV Last administered on 09/28/17at 13:43; Start 09/28/17 at 12:15; Stop 09/28/17 at 14:14 ; Status DC Vancomycin HCl (Vancomycin Trough Level) 1 each 1X ONCE MC Last administered on 09/30/17at 12:30; Start 09/30/17 at 12:30; Stop 09/30/17 at 12:31; Status DC Vancomycin HCl 750 mg/Sodium Chloride 250 ml @ 250 mls/hr Q24H IV Last administered on 09/30/17at 14:38; Start 09/29/17 at 13:00; Stop 09/30/17 at 17:39 ; Status DC Sodium Chloride (Normal Saline Flush) 3 ml PRN DAILY PRN IV AFTER MEDS AND BLOOD DRAWS; Start 09/28/17 at 12:30 Acetaminophen (Tylenol) 650 mg PRN Q6HRS PRN PO Headaches, Temp > 101.5F Last administered on 09/29/17at 08:23; Start 09/28/17 at 12:30 Docusate Sodium (Colace) 100 mg BID PO Last administered on 09/30/17at 08:30; Start 09/28/17 at 21:00; Stop 09/30/17 at 17:52; Status DC Calcium Carbonate/ Glycine (Tums) 500 mg PRN Q3HRS PRN PO HEARTBURN / GAS; Start 09/28/17 at 12:30 Info (Non-Icu Electrolyte Protocol) 1 ea CONT PRN PRN MC SEE COMMENTS; Start at 12:30 Heparin Sodium (Porcine) (Heparin Sq) 5,000 unit Q12HR SQ Last administered on 09/30/17at 08:49; Start 09/28/17 at 21:00 Prochlorperazine Edisylate (Compazine) 10 mg PRN Q4HRS PRN IV NAUSEA/VOMITING; Start 09/28/17 at 12:30 Ondansetron HCl (Zofran) 4 mg PRN Q8HRS PRN IV NAUSEA/VOMITING; Start 09/28/17 at 12:30 Diphenhydramine HCl (Benadryl) 25 mg PRN Q6HRS PRN PO SEE COMMENTS; Start 09/28 at 12:30 Diphenhydramine HCl (Benadryl) 25 mg PRN Q6HRS PRN IV SEE COMMENTS Last administered on 09/29/17at 21:52; Start 09/28/17 at 12:30 Potassium Chloride (KCl Oral Soln) 40 meq 1X ONCE FT Last administered on 09/28at 13:43; Start 09/28/17 at 13:00; Stop 09/28/17 at 13:01; Status DC Cyanocobalamin (Vitamin B-12) 1,000 mcg QMONTH IM ; Start 10/26/17 at 09:00 Cyclosporine (Restasis) 1 drop BID OU Last administered on 09/30/17 08:30; Start 09/28/17 at 21:00 Propranolol HCl (Inderal) 20 mg DAILY PO Last administered on 09/30/17 10:09; Start 09/29/17 at 09:00 Aspirin (Aspirin Enteric Coated) 81 mg BID PO Last administered on 09/30/17 08 :30; Start 09/28/17 at 21:00 Vitamin D (Vitamin D3) 50,000 unit WEEKLY PO ; Start 10/03/17 at 09:00 Fluticasone Propionate (Flonase) 2 spray DAILY NS Last administered on 08:30; Start 09/29/17 at 09:00 Cetirizine HCl (ZyrTEC) 10 mg DAILY PO Last administered on 09/30/17 08:31; Start 09/29/17 at 09:00 Melatonin 3 mg PRN QHS PRN PO INSOMNIA Last administered on 09/29/17 20:04; Start 09/28/17 at 13:00 Polyethylene Glycol (miraLAX) 17 gm DAILY PO Last administered on 09/30/17 08: 31; Start 09/29/17 at 09:00; Stop 09/30/17 at 17:52; Status DC Alprazolam (Xanax) 0.125 mg PRN QHS PRN PO ANXIETY / AGITATION Last administered on 09/29/17at 08:23; Start 09/28/17 at 12:30; Stop 09/29/17 at 15:24 ; Status DC Iohexol (Omnipaque 300 Mg/ml) 75 ml 1X ONCE IV ; Start 09/29/17 at 12:30; Stop 09/29/17 at 12:32; Status DC Alprazolam (Xanax) 0.125 mg PRN QID PRN PO ANXIETY / AGITATION Last administered on 09/29/17at 15:32; Start 09/29/17 at 15:30 Olanzapine (ZyPREXA ZYDIS) 1.25 mg PRN Q2HR PRN PO agitation/PSYCHOSIS Last administered on 09/29/17at 20:03; Start 09/29/17 at 19:45 Vancomycin HCl (Vancomycin Trough Level) 1 each 1X ONCE MC ; Start 10/02/17 at 12:30; Stop 10/02/17 at 12:30; Status DC Active Scripts Active Reported Alphagan P (Brimonidine Tartrate) 5 Ml Drops 1 Drop OU BID Restasis (Cyclosporine) 1 Each Droperette 1 Drop EACHEYE BID Propranolol Hcl 40 Mg Tablet 1 Tab PO QHS Keppra (Levetiracetam) 500 Mg Tablet 250 Tab PO BID Flonase Allergy Relief (Fluticasone Propionate) 9.9 Ml Milmine.susp 2 Sprays NS DAILY Miralax (Polyethylene Glycol 3350) 17 Gm Powd.pack 17 Gm PO DAILY Melatonin 3 Mg Tab.rapdis 3 Mg PO HS PRN Loratadine 10 Mg Tablet 10 Mg PO DAILY Hydrocodone-Apap 7.5-325 (Hydrocodone Bit/Acetaminophen) 1 Each Tablet 1 Tab PO Q6HRS Vitamin D2 (Ergocalciferol (Vitamin D2)) 50,000 Unit Capsule 50,000 Unit PO WEEKLY Cyanocobalamin Injection (Cyanocobalamin (Vitamin B-12)) 1,000 Mcg/1 Ml Vial 1, 000 Mcg IM QMONTH Aspirin Ec (Aspirin) 81 Mg Tablet.dr 81 Mg PO BID Inderal La (Propranolol Hcl) 60 Mg Cap.sa.24h 20 Mg PO QAM I have reviewed the current psychotropics carefully including drug interactions. Risk benefit ratio favors no change other than as noted in my dictated progress note. Diagnosis: Problems: (1) Anxiety disorder (2) Impulse control disorder (3) Dementia, vascular, with depression (4) Dementia, vascular, with delusions (5) HAP (hospital-acquired pneumonia) (6) Dementia in Alzheimer's disease with depression (7) Dementia in Alzheimer's disease with delusions LEYDA WHITLOCK MD September 30, 2017 20:12
--- NOTE | 2017-09-30 20:47 | PN ---
DATE: 09/30/2017 SUBJECTIVE: The patient is sitting comfortably in her chair, eating her supper. Her daughter is assisting her with that. Apparently, she has been complaining of her mid back and lower back and also right thigh pain. She has also recurrent bouts of diarrhea and stool was sent for C. diff. She continued to have cough that seem to be productive. PHYSICAL EXAMINATION: GENERAL: When I examined her, she looked well and was clearly in no apparent respiratory distress, pale, somewhat cachectic, but no jaundice, cyanosis or thyromegaly. No jugular venous distension. No lower limb edema. VITAL SIGNS: Her heart rate was 68, blood pressure was 115/75, temperature was 96, respiratory rate was 22 and oxygen saturation was 96% on 2.5 liters of oxygen. HEAD, EYES, EARS, NOSE AND THROAT: Showed normocephalic, atraumatic. NECK: Supple. HEART: Showed normal first and second heart sounds. No gallop, rub or murmur. CHEST: Clear to auscultation. No crepitation or rhonchi. ABDOMEN: Distended, soft, nontender. No guarding or rigidity. No organomegaly. Hernial orifice intact. Bowel sounds are normal. NEUROLOGIC: She was awake, alert, responding appropriately. Her daughter said that she has no more evidence of hallucination and delusions. All her cranial nerves are intact. She moves extremities without difficulty. She is able to ambulate with a walker and did walk with physical therapy today, although she complained that she is weak. She has been walking upstairs with a walker unassisted. Her intake over the last 24 hours was 1500, output 1300. LABORATORY DATA: This morning showed a serum sodium 141, potassium 4, chloride 107, bicarbonate 27, anion gap of 7, BUN 24, creatinine 0.9. Estimated GFR was 59 mL per minute. Her glucose was 83. Calcium was 8.6. Total bilirubin, AST, ALT, alkaline phosphatase were normal. Total protein was 5.6. Albumin 2.2. White cell count was 7200, hemoglobin 12, hematocrit 36, MCV 98 and platelet count of 81,000. Her blood cultures are so far negative after 2 days. ASSESSMENT: 1. Healthcare-associated pneumonia. She is currently on meropenem and vancomycin. Her blood culture has been negative after 48 hours and I discontinued her vancomycin. We will continue with meropenem. 2. Chronic kidney disease, [id number] kidney injuries are improving. 3. Seizure disorder, on Keppra. 4. Thrombocytopenia, chronic, stable. 5. Hypertension, well-controlled. 6. Acute hypoxic respiratory failure. She is currently on 2 liters of oxygen. PLAN: To continue with IV meropenem. Await the result of the stool for C. diff. I will discontinue all her laxatives and I will arrange for her to have a CT scan of the thoracic and lumbar spine and decide the further management accordingly. DIANA CARTAGENA MD DR: QUENTIN/nato JOB#: [id number] / [id number]
[2017-09-30] MEDS: MELATONIN 3 MG TABLET PO PRN (20:54)
[2017-09-30 23:10] VITALS: BP 101/48
[2017-10-01] VITALS (16 sets, daily range): BP systolic 73–160; BP diastolic 53–84
[2017-10-01] MEDS: MEROPENEM 1 GM in IV NORMAL SALINE 100ML 100 ML IV SCH ×2 (00:02→11:54)
[2017-10-01] MEDS: HYDROcodone/APAP 7.5/325MG 1 TAB TABLET PO SCH ×4 (00:04→17:55)
[2017-10-01 06:55] LABS: ALBUMIN 1.8 g/dL (3.4-5.0); ALBUMIN/GLOBULIN RATIO 0.6 (1.0-1.7); CALCIUM 7.9 mg/dL (8.5-10.1); CREATININE 0.8 mg/dL (0.6-1.0); GFR 68.2; POTASSIUM 3.5 mmol/L (3.5-5.1); TOTAL BILIRUBIN 0.5 mg/dL (0.2-1.0)
[2017-10-01 06:58] LABS: BASO % 1 % (0-3); EOS # 0.1 x10^3/uL (0.0-0.7); EOS % 1 % (0-3); HEMATOCRIT 32.7 % (36.0-47.0); HEMOGLOBIN 11.1 g/dL (12.0-15.5); LYMPH # 0.8 x10^3/uL (1.0-4.8); LYMPH % 15 % (24-48); MEAN CORPUSCULAR HEMOGLOBIN 33 pg (25-35); MEAN CORPUSCULAR HGB CONC 34 g/dL (31-37); MEAN CORPUSCULAR VOLUME 98 fL (79-100); MONO # 0.5 x10^3/uL (0.0-1.1); MONO % 10 % (0-9); NEUT # 3.7 x10^3uL (1.8-7.7); NEUT % 73 % (31-73); PLATELET COUNT 101 x10^3/uL (140-400); RED BLOOD COUNT 3.33 x10^6/uL (3.50-5.40); RED CELL DISTRIBUTION WIDTH 14.3 % (11.5-14.5); WHITE BLOOD COUNT 5.1 x10^3/uL (4.0-11.0)
[2017-10-01] MEDS: ASPIRIN ENTERIC COATED 81 MG TABLET.DR. PO SCH ×2 (08:18→20:55)
[2017-10-01] MEDS: LACTOBACILLUS RHAMNOSUS GG 1 CAPSULE. PO SCH ×2 (08:18→20:55)
[2017-10-01] MEDS: levETIRAcetam 250 MG TABLET PO SCH ×2 (08:19→21:08)
[2017-10-01] MEDS: PROPRANOLOL 20 MG TABLET. PO SCH (08:19)
[2017-10-01] MEDS: CETIRIZINE HCL 10 MG TABLET PO SCH (08:19)
[2017-10-01] MEDS: FLUTICASONE 50MCG/NASAL SPRAY 16GM BOTTLE. NS SCH (08:20)
[2017-10-01] MEDS: HEPARIN PF for SUB-Q USE 5,000 UNIT/0.5 ML VIAL. SQ SCH ×2 (08:32→21:09)
[2017-10-01] MEDS ORDERED: ESMOLOL 2500MG/250ML PREMIX 250 ML IV PRN (08:45)
--- NOTE | 2017-10-01 09:35 | PDOC2 ---
CONSULT Date of Admission DATE: 10/01/17 TIME: 09:27 Reason for Consult: atrial fibrillation with RVR History of Present Illness Ms Donaldson is an 86 year old female initially admitted to [facility] for increasing dementia and behaviors. She had apparently had a cough for a few days and on she became lethargic, tachypneic with an o2 sat of 79%. She was transferred to the ICU and treated pneumonia. This am she was doing better and on the medical floor when she was noted to be in atrial fibrillation with rapid ventricular response so consult was called. Currently she is resting comfortably. Monitor reveals atrial fibrillation with ventricular response 115- 130bpm. She denies palpitations. She denies dyspnea, chest discomfort or lightheadedness. She is a poor historian so most history is obtained from the chart. She did have a fall and hip fracture about 6 weeks ago but this is reportedly an isolated incident. 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) Past Surgical History Past Surgical History: Other (Left hip total arthroplasty), hysterectomy, stomach surgery Family History non contributory secondary to age Social History Smoke: No Alcohol: none Drugs: None Lives: with Family Current Medications Current Medications Sodium Chloride 1,000 ml @ 100 mls/hr Q10H IV Last administered on 09/29/17at 15:34; Start 09/28/17 at 11:15; Stop 09/30/17 at 03:58; Status DC Vancomycin HCl (Vanco Per Pharmacy) 1 each PRN DAILY PRN MC SEE COMMENTS Last administered on 09/30/17at 13:20; Start 09/28/17 at 11:15; Stop 10/01/17 at 07:55 ; Status DC Meropenem 1 gm/ Sodium Chloride 100 ml @ 200 mls/hr Q12H IV Last administered on 10/01/17at 00:02; Start 09/28/17 at 12:00 Acetaminophen/ Hydrocodone Bitart (Lortab 7.5/325) 1 tab Q6HRS PO Last administered on 10/01/17at 06:06; Start 09/28/17 at 12:00 Levetiracetam (Keppra) 250 mg BID PO Last administered on 10/01/17at 08:19; Start 09/28/17 at 12:00 Lactobacillus Rhamnosus (Culturelle) 1 cap BID PO Last administered on 08:18; Start 09/28/17 at 21:00 Vancomycin HCl 1.5 gm/Sodium Chloride 500 ml @ 250 mls/hr 1X ONCE IV Last administered on 09/28/17at 13:43; Start 09/28/17 at 12:15; Stop 09/28/17 at 14:14 ; Status DC Vancomycin HCl (Vancomycin Trough Level) 1 each 1X ONCE MC Last administered on 09/30/17at 12:30; Start 09/30/17 at 12:30; Stop 09/30/17 at 12:31; Status DC Vancomycin HCl 750 mg/Sodium Chloride 250 ml @ 250 mls/hr Q24H IV Last administered on 09/30/17at 14:38; Start 09/29/17 at 13:00; Stop 09/30/17 at 17:39 ; Status DC Sodium Chloride (Normal Saline Flush) 3 ml PRN DAILY PRN IV AFTER MEDS AND BLOOD DRAWS; Start 09/28/17 at 12:30 Acetaminophen (Tylenol) 650 mg PRN Q6HRS PRN PO Headaches, Temp > 101.5F Last administered on 09/29/17at 08:23; Start 09/28/17 at 12:30 Docusate Sodium (Colace) 100 mg BID PO Last administered on 09/30/17at 08:30; Start 09/28/17 at 21:00; Stop 09/30/17 at 17:52; Status DC Calcium Carbonate/ Glycine (Tums) 500 mg PRN Q3HRS PRN PO HEARTBURN / GAS; Start 09/28/17 at 12:30 Info (Non-Icu Electrolyte Protocol) 1 ea CONT PRN PRN MC SEE COMMENTS; Start at 12:30 Heparin Sodium (Porcine) (Heparin Sq) 5,000 unit Q12HR SQ Last administered on 10/01/17at 08:32; Start 09/28/17 at 21:00 Prochlorperazine Edisylate (Compazine) 10 mg PRN Q4HRS PRN IV NAUSEA/VOMITING; Start 09/28/17 at 12:30 Ondansetron HCl (Zofran) 4 mg PRN Q8HRS PRN IV NAUSEA/VOMITING; Start 09/28/17 at 12:30 Diphenhydramine HCl (Benadryl) 25 mg PRN Q6HRS PRN PO SEE COMMENTS; Start 09/28 at 12:30 Diphenhydramine HCl (Benadryl) 25 mg PRN Q6HRS PRN IV SEE COMMENTS Last administered on 09/29/17at 21:52; Start 09/28/17 at 12:30 Potassium Chloride (KCl Oral Soln) 40 meq 1X ONCE FT Last administered on 09/28at 13:43; Start 09/28/17 at 13:00; Stop 09/28/17 at 13:01; Status DC Cyanocobalamin (Vitamin B-12) 1,000 mcg QMONTH IM ; Start 10/26/17 at 09:00 Cyclosporine (Restasis) 1 drop BID OU Last administered on 09/30/17 20:54; Start 09/28/17 at 21:00 Propranolol HCl (Inderal) 20 mg DAILY PO Last administered on 10/01/17 08:19; Start 09/29/17 at 09:00 Aspirin (Aspirin Enteric Coated) 81 mg BID PO Last administered on 10/01/17 08 :18; Start 09/28/17 at 21:00 Vitamin D (Vitamin D3) 50,000 unit WEEKLY PO ; Start 10/03/17 at 09:00 Fluticasone Propionate (Flonase) 2 spray DAILY NS Last administered on 08:20; Start 09/29/17 at 09:00 Cetirizine HCl (ZyrTEC) 10 mg DAILY PO Last administered on 10/01/17 08:19; Start 09/29/17 at 09:00 Melatonin 3 mg PRN QHS PRN PO INSOMNIA Last administered on 09/30/17 20:54; Start 09/28/17 at 13:00 Polyethylene Glycol (miraLAX) 17 gm DAILY PO Last administered on 09/30/17 08: 31; Start 09/29/17 at 09:00; Stop 09/30/17 at 17:52; Status DC Alprazolam (Xanax) 0.125 mg PRN QHS PRN PO ANXIETY / AGITATION Last administered on 09/29/17at 08:23; Start 09/28/17 at 12:30; Stop 09/29/17 at 15:24 ; Status DC Iohexol (Omnipaque 300 Mg/ml) 75 ml 1X ONCE IV ; Start 09/29/17 at 12:30; Stop 09/29/17 at 12:32; Status DC Alprazolam (Xanax) 0.125 mg PRN QID PRN PO ANXIETY / AGITATION Last administered on 09/29/17at 15:32; Start 09/29/17 at 15:30 Olanzapine (ZyPREXA ZYDIS) 1.25 mg PRN Q2HR PRN PO agitation/PSYCHOSIS Last administered on 09/30/17at 20:54; Start 09/29/17 at 19:45 Vancomycin HCl (Vancomycin Trough Level) 1 each 1X ONCE MC ; Start 10/02/17 at 12:30; Stop 10/02/17 at 12:30; Status DC Esmolol HCl 250 ml @ 0 mls/hr CONT PRN IV SEE I/O RECORD; Start 10/01/17 at 08: 45 Active Scripts Active Reported Alphagan P (Brimonidine Tartrate) 5 Ml Drops 1 Drop OU BID Restasis (Cyclosporine) 1 Each Droperette 1 Drop EACHEYE BID Propranolol Hcl 40 Mg Tablet 1 Tab PO QHS Keppra (Levetiracetam) 500 Mg Tablet 250 Tab PO BID Flonase Allergy Relief (Fluticasone Propionate) 9.9 Ml [place].susp 2 Sprays NS DAILY Miralax (Polyethylene Glycol 3350) 17 Gm Powd.pack 17 Gm PO DAILY Melatonin 3 Mg Tab.rapdis 3 Mg PO HS PRN Loratadine 10 Mg Tablet 10 Mg PO DAILY Hydrocodone-Apap 7.5-325 (Hydrocodone Bit/Acetaminophen) 1 Each Tablet 1 Tab PO Q6HRS Vitamin D2 (Ergocalciferol (Vitamin D2)) 50,000 Unit Capsule 50,000 Unit PO WEEKLY Cyanocobalamin Injection (Cyanocobalamin (Vitamin B-12)) 1,000 Mcg/1 Ml Vial 1, 000 Mcg IM QMONTH Aspirin Ec (Aspirin) 81 Mg Tablet.dr 81 Mg PO BID Inderal La (Propranolol Hcl) 60 Mg Cap.sa.24h 20 Mg PO QAM Allergies: Coded Allergies: Penicillins (Unverified Allergy, Intermediate, rash, 11/24/13) Review of System as per HPI or negative General: Alert, Cooperative, No acute distress HEENT: Atraumatic, EOMI Lungs: Other (decreased bases with few scattered crackles) Heart: Other (irregular rate and rhythm, no gallops) Abdomen: Normal bowel sounds, Soft Extremities: No cyanosis, Normal pulses Neuro: Normal speech Psych/Mental Status: Mood NL VITALS Vital Signs Date Time Temp Pulse Resp B/P (MAP) Pulse Ox O2 Delivery O2 Flow Rate FiO2 10/01/17 08:19 130 160/81 10/01/17 06:06 20 97 Nasal Cannula 2.0 09/30/17 19:35 97.5 Labs Laboratory Tests Test 09/29/17 12:28 09/30/17 06:04 09/30/17 12:30 09/30/17 14:05 White Blood Count 6.7 x10^3/uL (4.0-11.0) 7.2 x10^3/uL (4.0-11.0) Red Blood Count 3.74 x10^6/uL (3.50-5.40) 3.68 x10^6/uL (3.50-5.40) Hemoglobin 12.3 g/dL (12.0-15.5) 12.0 g/dL (12.0-15.5) Hematocrit 37.1 % (36.0-47.0) 36.0 % (36.0-47.0) Mean Corpuscular Volume 99 fL (79-100) 98 fL (79-100) Mean Corpuscular Hemoglobin 33 pg (25-35) 33 pg (25-35) Mean Corpuscular Hemoglobin Concent 33 g/dL (31-37) 34 g/dL (31-37) Red Cell Distribution Width 14.5 % (11.5-14.5) 14.2 % (11.5-14.5) Platelet Count 72 x10^3/uL (140-400) 81 x10^3/uL (140-400) Sodium Level 140 mmol/L (136-145) 141 mmol/L (136-145) Potassium Level 4.2 mmol/L (3.5-5.1) 4.0 mmol/L (3.5-5.1) Chloride Level 105 mmol/L (98-107) 107 mmol/L (98-107) Carbon Dioxide Level 27 mmol/L (21-32) 27 mmol/L (21-32) Anion Gap 8 (6-14) 7 (6-14) Blood Urea Nitrogen 26 mg/dL (7-20) 24 mg/dL (7-20) Creatinine 1.3 mg/dL (0.6-1.0) 0.9 mg/dL (0.6-1.0) Estimated GFR (Cockcroft-Gault) 38.9 59.5 BUN/Creatinine Ratio 20 (6-20) 27 (6-20) Glucose Level 113 mg/dL (70-99) 83 mg/dL (70-99) Calcium Level 8.4 mg/dL (8.5-10.1) 8.6 mg/dL (8.5-10.1) Total Bilirubin 0.7 mg/dL (0.2-1.0) 0.6 mg/dL (0.2-1.0) Aspartate Amino Transf (AST/SGOT) 25 U/L (15-37) 20 U/L (15-37) Alanine Aminotransferase (ALT/SGPT) 25 U/L (14-59) 23 U/L (14-59) Alkaline Phosphatase 107 U/L (46-116) 114 U/L (46-116) Total Protein 5.8 g/dL (6.4-8.2) 5.6 g/dL (6.4-8.2) Albumin 2.4 g/dL (3.4-5.0) 2.2 g/dL (3.4-5.0) Albumin/Globulin Ratio 0.7 (1.0-1.7) 0.6 (1.0-1.7) Neutrophils (%) (Auto) 82 % (31-73) Lymphocytes (%) (Auto) 11 % (24-48) Monocytes (%) (Auto) 7 % (0-9) Eosinophils (%) (Auto) 0 % (0-3) Basophils (%) (Auto) 0 % (0-3) Neutrophils # (Auto) 5.9 x10^3uL (1.8-7.7) Lymphocytes # (Auto) 0.8 x10^3/uL (1.0-4.8) Monocytes # (Auto) 0.5 x10^3/uL (0.0-1.1) Eosinophils # (Auto) 0.0 x10^3/uL (0.0-0.7) Basophils # (Auto) 0.0 x10^3/uL (0.0-0.2) Vancomycin Level Trough 11.3 mcg/mL (10.0-20.0) Vancomycin Last Dose Date 09/29/17 Vancomycin Last Dose Time 1300 Clostridium difficile Toxin (PCR) Negative (Negative) Test 10/01/17 06:00 White Blood Count 5.1 x10^3/uL (4.0-11.0) Red Blood Count 3.33 x10^6/uL (3.50-5.40) Hemoglobin 11.1 g/dL (12.0-15.5) Hematocrit 32.7 % (36.0-47.0) Mean Corpuscular Volume 98 fL (79-100) Mean Corpuscular Hemoglobin 33 pg (25-35) Mean Corpuscular Hemoglobin Concent 34 g/dL (31-37) Red Cell Distribution Width 14.3 % (11.5-14.5) Platelet Count 101 x10^3/uL (140-400) Neutrophils (%) (Auto) 73 % (31-73) Lymphocytes (%) (Auto) 15 % (24-48) Monocytes (%) (Auto) 10 % (0-9) Eosinophils (%) (Auto) 1 % (0-3) Basophils (%) (Auto) 1 % (0-3) Neutrophils # (Auto) 3.7 x10^3uL (1.8-7.7) Lymphocytes # (Auto) 0.8 x10^3/uL (1.0-4.8) Monocytes # (Auto) 0.5 x10^3/uL (0.0-1.1) Eosinophils # (Auto) 0.1 x10^3/uL (0.0-0.7) Basophils # (Auto) 0.0 x10^3/uL (0.0-0.2) Sodium Level 141 mmol/L (136-145) Potassium Level 3.5 mmol/L (3.5-5.1) Chloride Level 109 mmol/L (98-107) Carbon Dioxide Level 25 mmol/L (21-32) Anion Gap 7 (6-14) Blood Urea Nitrogen 18 mg/dL (7-20) Creatinine 0.8 mg/dL (0.6-1.0) Estimated GFR (Cockcroft-Gault) 68.2 BUN/Creatinine Ratio 23 (6-20) Glucose Level 90 mg/dL (70-99) Calcium Level 7.9 mg/dL (8.5-10.1) Total Bilirubin 0.5 mg/dL (0.2-1.0) Aspartate Amino Transf (AST/SGOT) 13 U/L (15-37) Alanine Aminotransferase (ALT/SGPT) 16 U/L (14-59) Alkaline Phosphatase 108 U/L (46-116) Total Protein 5.0 g/dL (6.4-8.2) Albumin 1.8 g/dL (3.4-5.0) Albumin/Globulin Ratio 0.6 (1.0-1.7) Images CXR - 09/29/17 IMPRESSION: Increasing left basilar infiltrate compatible with pneumonia. CTA chest - 09/29/17 Impression: 1. Area of dense infiltrate or consolidation in the left lower lobe and to a lesser extent right lower lobe. Findings may represent pneumonia. However, recommend short-term CT chest follow-up to document resolution. 2. Negative for pulmonary embolism. Assessment/Plan 1. atrial fibrillation with RVR, new onset - 2. acute hypoxic respiratory failure secondary to HCAP - improved, now on 2 liters nasal cannula oxygen and maintaining spo2. mgmt per PCP 3. HTN 4. CKD stage 2 5. seizure d/o Start esmolol for rate control. Change propranolol to metoprolol. Cha2ds 2 vasc = 4. Discuss with family re: stroke risk vs bleed risk with seizure d/o and falls. Currently on heparin subq. Will check echo for LV function and valvular disease. Considering age and current mental status would not recommend invasive IHD evaluation. Continue supportive care. BRIAN GOMEZ APRN October 01, 2017 09:35
[2017-10-01] MEDS: cycloSPORINE 0.05% OPTH 1 DROP DROPERETTE OU SCH ×2 (10:14→21:08)
[2017-10-01] MEDS: METOPROLOL TART IMMED RELEASE 25 MG TABLET PO SCH ×2 (11:54→17:55)
--- NOTE | 2017-10-01 15:52 | RAD ---
Indication: Right hip and femur pain, fall. Technique: Axial images and coronal and sagittal reformatted images of the right femur are provided. No comparison is available. One or more of the following individualized dose reduction techniques were utilized for this examination: 1. Automated exposure control 2. Adjustment of the mA and/or kV according to patient size 3. Use of iterative reconstruction technique Findings: The included pelvis is intact. No femur fracture is apparent. Medial femoral condyle is not entirely included. There is no osseous lesion. There is no pelvic hematoma. There are diverticula in the colon. There is no soft tissue hematoma in the right leg. IMPRESSION: No evidence of an acute fracture. If there is strong clinical suspicion for occult fracture, consider MRI. Electronically signed by: Kota Escalona MD (10/01/2017 3:49 PM) [id number]
--- NOTE | 2017-10-01 16:47 | RAD ---
CT of the lumbar spine without contrast, 10/01/2017: HISTORY: Back pain, possible fall Noncontrast scans were obtained with multiplanar reconstructions produced. No acute fracture or dislocation is identified. There is moderate degenerative disc disease at L1-2, L2-3 and to a greater degree at L5-S1. There are moderate scattered posterior spurs. There are moderate degenerative changes involving scattered facet joints bilaterally. At L2-3 there is a moderate broad-based posterior disc bulge which in conjunction with slight retrolisthesis due to facet joint arthropathy is causing mild to moderate central spinal stenosis. At L3-4 there is moderate posterior ligamentous thickening which in conjunction with mild posterior disc bulging is causing borderline central spinal stenosis. At L4-5 there is moderate broad-based posterior disc bulging which in conjunction with posterior ligamentous thickening is causing mild central spinal stenosis in a triangular configuration. At L5-S1, the disc space is severely narrowed. There are prominent posterior marginal spurs as well as prominent spurring arising from the left facet joint causing moderate left foraminal stenosis and mild right foraminal narrowing at this level. There is borderline narrowing of the central spinal canal at this level. Incidental note is made of extensive sigmoid diverticulosis. A moderate-sized parapelvic renal cyst is present on the left. IMPRESSION: 1. Moderate multilevel degenerative change as described above. 2. No acute bony abnormality is detected. CT of the thoracic spine without contrast, 10/01/2017: Noncontrast scans were obtained with multiplanar reconstructions produced. There is a minimal upper thoracic scoliosis. There are mild degenerative changes with marginal spurring at multiple levels. There are mild degenerative changes involving scattered facet joints bilaterally. No fracture or dislocation is identified. The central spinal canal is well preserved. Incidental note is made of moderate bilateral lower lobe pulmonary infiltrates with small pleural effusions, left greater the right. The pleural effusions have worsened since 09/29/2017. IMPRESSION: 1. Mild scattered degenerative changes. 2. No acute bony abnormality detected. 3. Moderate bilateral lower lobe pulmonary infiltrates with increasing small bilateral pleural effusions. PQRS Compliance Statement: One or more of the following individualized dose reduction techniques were utilized for this examination: 1. Automated exposure control 2. Adjustment of the mA and/or kV according to patient size 3. Use of iterative reconstruction technique Electronically signed by: Kunal Austin MD (10/01/2017 4:44 PM) [facility]
--- NOTE | 2017-10-01 17:12 | CARD ---
MR#: [id number] Date of Study: 10/01/2017 Ordering Physician: BRIAN GOMEZ, Referring Physician: PAMELA GANDHI, Tech: WILLAM Arango APPROVED REPORT EXAM: Two-dimensional and M-mode echocardiogram with Doppler and color Doppler. Other Information Quality : GoodHR: 100bpm INDICATION Atrial Fibrillation 2D DIMENSIONS RVDd2.9 (2.9-3.5cm)Left Atrium(2D)4.0 (1.6-4.0cm) IVSd1.0 (0.7-1.1cm)Aortic Root(2D)3.2 (2.0-3.7cm) LVDd4.2 (3.9-5.9cm)LVOT Diameter2.3 (1.8-2.4cm) PWd1.1 (0.7-1.1cm)LVDs3.1 (2.5-4.0cm) FS (%) 27.7 %SV43.6 ml LVEF(%)54.0 (>50%) Aortic Valve AoV Peak [place].102.1cm/sAoV VTI19.0cm AO Peak GR.4.2mmHgLVOT Peak [place].78.1cm/s LVOT VTI 14.49cmAO Mean GR.3mmHg KALPANA (VMAX)3.21qq2NVA (VTI)3.06cm2 AI P 1/2 [id number] Mitral Valve MV E Ixbibftj112.0cm/sMV E Peak Gr.83mmHg MV DECEL [id number] A Prrlqjxu97.8cm/s E/A Ratio3.3 Pulmonary Valve PV Peak Bhijmucq04.2cm/sPV Peak Grad.3mmHg Tricuspid Valve TR P. Qafdrofp148wc/sRAP [id number] TR Peak Gr.93lyHhIBBB38rdIc LEFT VENTRICLE The left ventricle is normal size. There is borderline concentric left ventricular hypertrophy. The l eft ventricular systolic function is normal. The ejection fraction is 50-55%. There is normal LV segm ental wall motion. Transmitral Doppler flow pattern is abnormal. RIGHT VENTRICLE The right ventricle is normal size. There is normal right ventricular wall thickness. The right ventr icular systolic function is normal. ATRIA The left atrium is borderline dilated. The right atrium is mildly dilated. The interatrial septum is intact with no evidence for an atrial septal defect or patent foramen ovale as noted on 2-D or Dopple r imaging. AORTIC VALVE The aortic valve is thickened but opens well. Doppler and Color Flow revealed mild aortic regurgitati on. There is no significant aortic valvular stenosis. There is no aortic valvular vegetation. MITRAL VALVE The mitral valve is mildly thickened. A mild mitral valve prolapse is present. There is no mitral connor ve stenosis. Doppler and Color-flow revealed moderate mitral regurgitation. TRICUSPID VALVE The tricuspid valve leaflets are thickened , but open well. Doppler and Color Flow revealed moderate tricuspid regurgitation. Doppler and Color Flow revealed mild pulmonary hypertension. The PA pressure was estimated at 38 mmHg. Tricuspid valve prolapse is borderline. There is no tricuspid valve stenos is. PULMONIC VALVE The pulmonic valve is not well visualized. Doppler and Color Flow revealed no pulmonic valvular regur gitation. There is no pulmonic valvular stenosis. GREAT VESSELS The aortic root is normal size. The aortic root displays mild sclerocalcific changes of the aortic ro ot. The IVC is dilated and collapses >50% with inspiration. PERICARDIAL EFFUSION There is no pleural effusion. There is no evidence of significant pericardial effusion. Critical Notification Critical Value: No <Conclusion> The left ventricle is normal size. The left ventricular systolic function is normal. The ejection fraction is 50-55%. There is no significant aortic valvular stenosis. Doppler and Color Flow revealed mild aortic regurgitation. Doppler and Color-flow revealed moderate mitral regurgitation. Doppler and Color Flow revealed moderate tricuspid regurgitation. Doppler and Color Flow revealed mild pulmonary hypertension. The PA pressure was estimated at 38 mmHg. Signed by : Hollis Quintana MD Electronically Approved : 10/01/2017 17:11:30
[2017-10-01] MEDS: MELATONIN 3 MG TABLET PO PRN (20:55)
[2017-10-02] VITALS (16 sets, daily range): BP systolic 97–148; BP diastolic 58–92
[2017-10-02] MEDS: METOPROLOL TART IMMED RELEASE 25 MG TABLET PO SCH ×4 (00:25→18:29)
[2017-10-02] MEDS: MEROPENEM 1 GM in IV NORMAL SALINE 100ML 100 ML IV SCH ×2 (00:25→12:31)
[2017-10-02] MEDS: HYDROcodone/APAP 7.5/325MG 1 TAB TABLET PO SCH ×4 (00:25→18:24)
--- NOTE | 2017-10-02 00:32 | PN ---
DATE: 09/30/2017 This is a late entry, 09/30/2017, covers the elements not covered in my initial note, 09/30/2017. SUBJECTIVE: I met with the patient in the evening and also met with the daughter at length. Discussed with the nursing staff. The patient had a reasonable night and was not trying to get out of the bed and did not have any fall. Daughter states patient has just mentioned the delusion about her cheating on her on two occasions as opposed to repetitive verbalization of this in the past. She sees this is an improvement. REVIEW OF SYSTEMS: Ambulation impaired. Complains of some pain in the hip area and x-ray will be repeated per Dr. Patricio. No CV, , pulmonary, eye system symptoms on review. MENTAL STATUS EXAM: Oriented to herself and situation. Speech moderate latency, often responses monosyllabic. Abstraction fair, computation impaired, language function intact. No active psychotic symptoms. LABORATORY DATA: Reviewed. IMPRESSION: Unchanged from initial note. PLAN: Continue Zyprexa as needed, no further change from a psychiatric standpoint. Daughter has arranged for the patient to be in skilled care either here at [place] or [facility] [place] after she is medically stabilized. LEYDA WHITLOCK MD DR: CRISTINA/nato JOB#: [id number] / [id number]
--- NOTE | 2017-10-02 03:21 | PN ---
DATE: 10/01/2017 SUBJECTIVE: The patient was transferred from the floor as she developed an episode of atrial fibrillation with rapid ventricular response for which she was started on IV esmolol; however, she dropped her blood pressure and the infusion was discontinued and she was started on metoprolol 12.5 mg every 6 hours as recommended by the cash van salesperson. She continued to complain of pain in her right thigh and also her back pain. We did a CT scan of the thoracic and lumbar spine as well as CT scan of the right hip and right femur. The CT scan of the right lower extremity showed no evidence of an acute fracture, no femur fracture is apparent. Medial femoral condyle is not entirely included. There is no osseous lesion. There is no ____ hematoma. There are diverticula in the colon. There was no soft tissue hematoma in the right leg. The CT scan of the lumbar spine and thoracic spine are still pending at the time of this dictation. PHYSICAL EXAMINATION: GENERAL: When I examined her, she was resting slightly propped up in bed, in no apparent respiratory distress. She was pale, cachectic, but no jaundice, cyanosis, or thyromegaly. No jugular venous distention. No limb edema. VITAL SIGNS: Her heart rate was 102, blood pressure 119/78, temperature was 97.5, respiratory rate was 16 and oxygen saturation was 94% on room air. HEAD, EYES, EARS, NOSE AND THROAT: Showed normocephalic, atraumatic. NECK: Supple. HEART: Showed normal first and second heart sounds with no gallop, rub or murmur. CHEST: Clear to auscultation. No crepitation or rhonchi. ABDOMEN: Distended, soft, nontender. NEUROLOGIC: She is awake, alert, responding appropriately. All cranial nerves intact. She moves extremities without difficulty. She continued to have episodes of confusion. Her intake over the last 24 hours was 0. No output is recorded. LABORATORY DATA: As of this morning, her serum sodium was 141, potassium 3.5, chloride 109, bicarbonate 25, anion gap of 7, BUN 18, creatinine 0.8, estimated GFR was 68 mL per minute. Her glucose was 90. Her calcium was 7.9. Total bilirubin, AST, ALT, alkaline phosphatase were normal. Total protein was 5, albumin was 1.8. Her white cell count was 5000; hemoglobin 11; hematocrit 33; MCV 98; and platelet count of 101,000. ASSESSMENT: 1. New onset of atrial fibrillation with rapid ventricular response for which she was started on IV esmolol with drop in her blood pressure that was stopped and now she is on metoprolol 12.5 mg every 6 hours. 2. Acute hypoxic respiratory failure secondary to healthcare-associated pneumonia. She was on vancomycin and Zosyn. Her vancomycin was discontinued and her blood cultures were negative after more than 48 hours. 3. Hypertension. 4. Chronic kidney disease. 5. Seizure disorder. 6. Back pain and pain in the right thigh so far the CT scan of her right hip and right femur were negative with no evidence of any fracture. CT scan of the thoracic and lumbar spine is still pending at the time of this dictation. PLAN: To continue with IV antibiotic. Continue with pain management and she is now on metoprolol 12.5 mg 4 times a day to control her heart rate. I am not sure if she is a candidate for anticoagulation given her tendency to fall. DIANA CARTAGENA MD DR: QUENTIN/nato JOB#: [id number] / [id number]
--- NOTE | 2017-10-02 06:36 | EKG ---
[address] [address] Test Date: 2017-10-02 Test Time: 05:55:21 Pat Name: VANESSA GORDILLO Department: Room: 111 A Gender: F [employer] Technician: KORTNEY : [id number] Requested By: DIANA CARTAGENA Order Number: [id number] Reading MD: Measurements Intervals [place] Rate: 105 P: 0 NM: 206 QRS: 5 QRSD: 74 T: 62 QT: 316 QTc: 421 Interpretive Statements SINUS TACHYCARDIA ATRIAL PREMATURE COMPLEX(ES) PROLONGED NM INTERVAL ABNORMAL ECG RI6.01 No previous ECG available for comparison
[2017-10-02 06:42] LABS: BASO % 1 % (0-3); EOS # 0.1 x10^3/uL (0.0-0.7); EOS % 2 % (0-3); HEMATOCRIT 34.5 % (36.0-47.0); HEMOGLOBIN 11.8 g/dL (12.0-15.5); LYMPH # 1.1 x10^3/uL (1.0-4.8); LYMPH % 30 % (24-48); MEAN CORPUSCULAR HEMOGLOBIN 33 pg (25-35); MEAN CORPUSCULAR HGB CONC 34 g/dL (31-37); MEAN CORPUSCULAR VOLUME 98 fL (79-100); MONO # 0.7 x10^3/uL (0.0-1.1); MONO % 19 % (0-9); NEUT # 1.9 x10^3uL (1.8-7.7); NEUT % 49 % (31-73); PLATELET COUNT 117 x10^3/uL (140-400); RED BLOOD COUNT 3.52 x10^6/uL (3.50-5.40); RED CELL DISTRIBUTION WIDTH 14.1 % (11.5-14.5); WHITE BLOOD COUNT 3.9 x10^3/uL (4.0-11.0)
[2017-10-02 06:55] LABS: C REACTIVE PROTEIN 93.4 mg/L (0-3.3); CALCIUM 7.8 mg/dL (8.5-10.1); CREATININE 0.8 mg/dL (0.6-1.0); GFR 68.2; MAGNESIUM 1.8 mg/dL (1.8-2.4); POTASSIUM 3.6 mmol/L (3.5-5.1)
[2017-10-02 07:49] LABS: SEDIMENTATION RATE 31 (0-25)
[2017-10-02] MEDS: FLUTICASONE 50MCG/NASAL SPRAY 16GM BOTTLE. NS SCH (09:03)
[2017-10-02] MEDS: CETIRIZINE HCL 10 MG TABLET PO SCH (09:04)
[2017-10-02] MEDS: HEPARIN PF for SUB-Q USE 5,000 UNIT/0.5 ML VIAL. SQ SCH ×2 (09:04→20:55)
[2017-10-02] MEDS: ASPIRIN ENTERIC COATED 81 MG TABLET.DR. PO SCH ×2 (09:04→20:53)
[2017-10-02] MEDS: levETIRAcetam 250 MG TABLET PO SCH ×2 (09:04→22:05)
[2017-10-02] MEDS: LACTOBACILLUS RHAMNOSUS GG 1 CAPSULE. PO SCH ×2 (09:04→20:53)
[2017-10-02] MEDS: cycloSPORINE 0.05% OPTH 1 DROP DROPERETTE OU SCH ×2 (09:04→20:54)
[2017-10-02] MEDS ORDERED: DIGOXIN IV 500 MCG/2 ML AMPUL. IV ONE (10:15)
--- NOTE | 2017-10-02 10:23 | RAD ---
Exam: AP portable chest History: Pneumonia. Comparison: September 29, 2017. Findings: Cardiac silhouette appears within normal limits for size. No pneumothorax is seen. Small, left greater than right, pleural effusions are seen. Consolidation involving both lower lobes appears mildly worse. Impression: 1. Mild worsening of bilateral lower lobe consolidation, could represent worsening pneumonia. 2. Small, left greater than right, pleural effusions. Electronically signed by: Deonte Hines MD (10/02/2017 10:20 AM) [place] [id number]
--- NOTE | 2017-10-02 11:05 | PDOC ---
PROGRESS NOTES Assessment 1. atrial fibrillation with RVR - add digoxin, repeat CXR to monitor for mild heart failure with RVR. Continue oral metoprolol. Increase as needed and as blood pressure will allow. 2. acute hypoxic respiratory failure secondary to HCAP - improved, now on 2 liters nasal cannula oxygen and maintaining spo2. mgmt per PCP 3. dysphagia - speech for swallow eval 4. HTN - mild hypotension currently 5. CKD stage 2 - cr normal today 6. seizure d/o Subjective she denies complaints Objective tele - atrial fibrillation with V response in 120s Vital Signs Date Time Temp Pulse Resp B/P (MAP) Pulse Ox O2 Delivery O2 Flow Rate FiO2 10/02/17 10:05 102 18 108/62 (77) 94 Nasal Cannula 2.0 10/02/17 07:44 98.6 Intake and Output 10/02/17 07:00 Intake Total 324.1 ml Balance 324.1 ml Intake Oral 220 ml IV Total 104.1 ml # Voids 4 # Bowel Movements 1 Abdomen: Normal bowel sounds, Soft Heart: Other (IRR, no gallops, clicks or rubs) Extremities: No cyanosis, No edema, Normal pulses General: Alert, Cooperative, No acute distress Lungs: Other (few bibasilar crackles) Neck: No JVD Psych/Mental Status: Mood NL Review of Relevant I have reviewed the following items [place] (where applicable) has been applied. Labs Laboratory Tests Test 09/30/17 12:30 09/30/17 14:05 10/01/17 06:00 10/02/17 05:35 Vancomycin Level Trough 11.3 mcg/mL (10.0-20.0) Vancomycin Last Dose Date 09/29/17 Vancomycin Last Dose Time 1300 Clostridium difficile Toxin (PCR) Negative (Negative) White Blood Count 5.1 x10^3/uL (4.0-11.0) 3.9 x10^3/uL (4.0-11.0) Red Blood Count 3.33 x10^6/uL (3.50-5.40) 3.52 x10^6/uL (3.50-5.40) Hemoglobin 11.1 g/dL (12.0-15.5) 11.8 g/dL (12.0-15.5) Hematocrit 32.7 % (36.0-47.0) 34.5 % (36.0-47.0) Mean Corpuscular Volume 98 fL (79-100) 98 fL (79-100) Mean Corpuscular Hemoglobin 33 pg (25-35) 33 pg (25-35) Mean Corpuscular Hemoglobin Concent 34 g/dL (31-37) 34 g/dL (31-37) Red Cell Distribution Width 14.3 % (11.5-14.5) 14.1 % (11.5-14.5) Platelet Count 101 x10^3/uL (140-400) 117 x10^3/uL (140-400) Neutrophils (%) (Auto) 73 % (31-73) 49 % (31-73) Lymphocytes (%) (Auto) 15 % (24-48) 30 % (24-48) Monocytes (%) (Auto) 10 % (0-9) 19 % (0-9) Eosinophils (%) (Auto) 1 % (0-3) 2 % (0-3) Basophils (%) (Auto) 1 % (0-3) 1 % (0-3) Neutrophils # (Auto) 3.7 x10^3uL (1.8-7.7) 1.9 x10^3uL (1.8-7.7) Lymphocytes # (Auto) 0.8 x10^3/uL (1.0-4.8) 1.1 x10^3/uL (1.0-4.8) Monocytes # (Auto) 0.5 x10^3/uL (0.0-1.1) 0.7 x10^3/uL (0.0-1.1) Eosinophils # (Auto) 0.1 x10^3/uL (0.0-0.7) 0.1 x10^3/uL (0.0-0.7) Basophils # (Auto) 0.0 x10^3/uL (0.0-0.2) 0.0 x10^3/uL (0.0-0.2) Sodium Level 141 mmol/L (136-145) 141 mmol/L (136-145) Potassium Level 3.5 mmol/L (3.5-5.1) 3.6 mmol/L (3.5-5.1) Chloride Level 109 mmol/L (98-107) 108 mmol/L (98-107) Carbon Dioxide Level 25 mmol/L (21-32) 27 mmol/L (21-32) Anion Gap 7 (6-14) 6 (6-14) Blood Urea Nitrogen 18 mg/dL (7-20) 14 mg/dL (7-20) Creatinine 0.8 mg/dL (0.6-1.0) 0.8 mg/dL (0.6-1.0) Estimated GFR (Cockcroft-Gault) 68.2 68.2 BUN/Creatinine Ratio 23 (6-20) Glucose Level 90 mg/dL (70-99) 82 mg/dL (70-99) Calcium Level 7.9 mg/dL (8.5-10.1) 7.8 mg/dL (8.5-10.1) Total Bilirubin 0.5 mg/dL (0.2-1.0) Aspartate Amino Transf (AST/SGOT) 13 U/L (15-37) Alanine Aminotransferase (ALT/SGPT) 16 U/L (14-59) Alkaline Phosphatase 108 U/L (46-116) Total Protein 5.0 g/dL (6.4-8.2) Albumin 1.8 g/dL (3.4-5.0) Albumin/Globulin Ratio 0.6 (1.0-1.7) Erythrocyte Sedimentation Rate 31 (0-25) Magnesium Level 1.8 mg/dL (1.8-2.4) C-Reactive Protein 93.4 mg/L (0-3.3) Microbiology 09/28/17 Blood Culture - Preliminary, Resulted NO GROWTH AFTER 3 DAYS 09/28/17 Urine Culture - Final, Complete 09/28/17 Urine Culture Result 1 (JAQUI) - Final, Complete Medications Current Medications Sodium Chloride 1,000 ml @ 100 mls/hr Q10H IV Last administered on 09/29/17at 15:34; Start 09/28/17 at 11:15; Stop 09/30/17 at 03:58; Status DC Vancomycin HCl (Vanco Per Pharmacy) 1 each PRN DAILY PRN MC SEE COMMENTS Last administered on 09/30/17at 13:20; Start 09/28/17 at 11:15; Stop 10/01/17 at 07:55 ; Status DC Meropenem 1 gm/ Sodium Chloride 100 ml @ 200 mls/hr Q12H IV Last administered on 10/02/17at 00:25; Start 09/28/17 at 12:00 Acetaminophen/ Hydrocodone Bitart (Lortab 7.5/325) 1 tab Q6HRS PO Last administered on 10/02/17at 06:26; Start 09/28/17 at 12:00 Levetiracetam (Keppra) 250 mg BID PO Last administered on 10/02/17at 09:04; Start 09/28/17 at 12:00 Lactobacillus Rhamnosus (Culturelle) 1 cap BID PO Last administered on at 09:04; Start 09/28/17 at 21:00 Vancomycin HCl 1.5 gm/Sodium Chloride 500 ml @ 250 mls/hr 1X ONCE IV Last administered on 09/28/17at 13:43; Start 09/28/17 at 12:15; Stop 09/28/17 at 14:14 ; Status DC Vancomycin HCl (Vancomycin Trough Level) 1 each 1X ONCE MC Last administered on 09/30/17at 12:30; Start 09/30/17 at 12:30; Stop 09/30/17 at 12:31; Status DC Vancomycin HCl 750 mg/Sodium Chloride 250 ml @ 250 mls/hr Q24H IV Last administered on 09/30/17at 14:38; Start 09/29/17 at 13:00; Stop 09/30/17 at 17:39 ; Status DC Sodium Chloride (Normal Saline Flush) 3 ml PRN DAILY PRN IV AFTER MEDS AND BLOOD DRAWS; Start 09/28/17 at 12:30 Acetaminophen (Tylenol) 650 mg PRN Q6HRS PRN PO Headaches, Temp > 101.5F Last administered on 09/29/17at 08:23; Start 09/28/17 at 12:30 Docusate Sodium (Colace) 100 mg BID PO Last administered on 09/30/17at 08:30; Start 09/28/17 at 21:00; Stop 09/30/17 at 17:52; Status DC Calcium Carbonate/ Glycine (Tums) 500 mg PRN Q3HRS PRN PO HEARTBURN / GAS; Start 09/28/17 at 12:30 Info (Non-Icu Electrolyte Protocol) 1 ea CONT PRN PRN MC SEE COMMENTS; Start at 12:30 Heparin Sodium (Porcine) (Heparin Sq) 5,000 unit Q12HR SQ Last administered on 10/02/17at 09:04; Start 09/28/17 at 21:00 Prochlorperazine Edisylate (Compazine) 10 mg PRN Q4HRS PRN IV NAUSEA/VOMITING; Start 09/28/17 at 12:30 Ondansetron HCl (Zofran) 4 mg PRN Q8HRS PRN IV NAUSEA/VOMITING; Start 09/28/17 at 12:30 Diphenhydramine HCl (Benadryl) 25 mg PRN Q6HRS PRN PO SEE COMMENTS; Start 09/28 at 12:30 Diphenhydramine HCl (Benadryl) 25 mg PRN Q6HRS PRN IV SEE COMMENTS Last administered on 09/29/17at 21:52; Start 09/28/17 at 12:30 Potassium Chloride (KCl Oral Soln) 40 meq 1X ONCE FT Last administered on 09/28at 13:43; Start 09/28/17 at 13:00; Stop 09/28/17 at 13:01; Status DC Cyanocobalamin (Vitamin B-12) 1,000 mcg QMONTH IM ; Start 10/26/17 at 09:00 Cyclosporine (Restasis) 1 drop BID OU Last administered on 10/02/17at 09:04; Start 09/28/17 at 21:00 Propranolol HCl (Inderal) 20 mg DAILY PO Last administered on 10/01/17at 08:19; Start 09/29/17 at 09:00; Stop 10/01/17 at 10:04; Status DC Aspirin (Aspirin Enteric Coated) 81 mg BID PO Last administered on 10/02/17at 09 :04; Start 09/28/17 at 21:00 Vitamin D (Vitamin D3) 50,000 unit WEEKLY PO ; Start 10/03/17 at 09:00 Fluticasone Propionate (Flonase) 2 spray DAILY NS Last administered on at 09:03; Start 09/29/17 at 09:00 Cetirizine HCl (ZyrTEC) 10 mg DAILY PO Last administered on 10/02/17at 09:04; Start 09/29/17 at 09:00 Melatonin 3 mg PRN QHS PRN PO INSOMNIA Last administered on 10/01/17at 20:55; Start 09/28/17 at 13:00 Polyethylene Glycol (miraLAX) 17 gm DAILY PO Last administered on 09/30/17at 08: 31; Start 09/29/17 at 09:00; Stop 09/30/17 at 17:52; Status DC Alprazolam (Xanax) 0.125 mg PRN QHS PRN PO ANXIETY / AGITATION Last administered on 09/29/17at 08:23; Start 09/28/17 at 12:30; Stop 09/29/17 at 15:24 ; Status DC Iohexol (Omnipaque 300 Mg/ml) 75 ml 1X ONCE IV ; Start 09/29/17 at 12:30; Stop 09/29/17 at 12:32; Status DC Alprazolam (Xanax) 0.125 mg PRN QID PRN PO ANXIETY / AGITATION Last administered on 09/29/17at 15:32; Start 09/29/17 at 15:30 Olanzapine (ZyPREXA ZYDIS) 1.25 mg PRN Q2HR PRN PO agitation/PSYCHOSIS Last administered on 09/30/17at 20:54; Start 09/29/17 at 19:45 Vancomycin HCl (Vancomycin Trough Level) 1 each 1X ONCE MC ; Start 10/02/17 at 12:30; Stop 10/02/17 at 12:30; Status DC Esmolol HCl 250 ml @ 0 mls/hr CONT PRN IV SEE I/O RECORD Last administered on at 09:40; Start 10/01/17 at 08:45 Metoprolol Tartrate (Lopressor) 12.5 mg Q6HRS PO Last administered on at 06:26; Start 10/01/17 at 12:00 Digoxin (Lanoxin) 500 mcg 1X ONCE IV ; Start 10/02/17 at 10:15; Stop 10/02/17 at 10:16; Status DC Active Scripts Active Reported Alphagan P (Brimonidine Tartrate) 5 Ml Drops 1 Drop OU BID Restasis (Cyclosporine) 1 Each Droperette 1 Drop EACHEYE BID Propranolol Hcl 40 Mg Tablet 1 Tab PO QHS Keppra (Levetiracetam) 500 Mg Tablet 250 Tab PO BID Flonase Allergy Relief (Fluticasone Propionate) 9.9 Ml [place].susp 2 Sprays NS DAILY Miralax (Polyethylene Glycol 3350) 17 Gm Powd.pack 17 Gm PO DAILY Melatonin 3 Mg Tab.rapdis 3 Mg PO HS PRN Loratadine 10 Mg Tablet 10 Mg PO DAILY Hydrocodone-Apap 7.5-325 (Hydrocodone Bit/Acetaminophen) 1 Each Tablet 1 Tab PO Q6HRS Vitamin D2 (Ergocalciferol (Vitamin D2)) 50,000 Unit Capsule 50,000 Unit PO WEEKLY Cyanocobalamin Injection (Cyanocobalamin (Vitamin B-12)) 1,000 Mcg/1 Ml Vial 1, 000 Mcg IM QMONTH Aspirin Ec (Aspirin) 81 Mg Tablet.dr 81 Mg PO BID Inderal La (Propranolol Hcl) 60 Mg Cap.sa.24h 20 Mg PO QAM Vitals/I & O Vital Sign - Last 24 Hours 10/01/17 10/01/17 10/01/17 10/01/17 11:26 11:54 12:13 12:17 Pulse 96 102 100 Resp 22 B/P (MAP) 102/53 (69) 102/69 115/74 (88) Pulse Ox 92 98 O2 Delivery Nasal Cannula Nasal Cannula Nasal Cannula O2 Flow Rate 2.0 2.0 2.0 10/01/17 10/01/17 10/01/17 10/01/17 13:09 14:39 16:06 16:08 Pulse 107 102 108 Resp 14 32 17 B/P (MAP) 119/78 (92) 132/80 (97) Pulse Ox 94 O2 Delivery Nasal Cannula Nasal Cannula Nasal Cannula O2 Flow Rate 2.0 2.0 2.0 10/01/17 10/01/17 10/01/17 10/01/17 17:32 17:55 19:18 19:45 Temp 98.6 Pulse 98 98 95 Resp 16 13 B/P (MAP) 132/80 143/84 (103) Pulse Ox 96 98 O2 Delivery Nasal Cannula Nasal Cannula Nasal Cannula O2 Flow Rate 2.5 2.0 2.0 10/01/17 10/01/17 10/01/17 10/01/17 20:00 21:00 22:00 23:00 Temp 98.2 Pulse 102 98 106 102 Resp 18 18 18 B/P (MAP) 100/70 (80) 127/75 (92) 116/69 (85) 104/64 (77) Pulse Ox 98 94 95 97 O2 Delivery Nasal Cannula Nasal Cannula Nasal Cannula Nasal Cannula O2 Flow Rate 2.0 2.0 2.0 2.0 10/01/18 5//18 5/17/18 5//18 23:59 23:59 00:01 00:25 Pulse 108 Resp 18 16 B/P (MAP) 108/71 (83) Pulse Ox 97 97 O2 Delivery Nasal Cannula Nasal Cannula Nasal Cannula Nasal Cannula O2 Flow Rate 2.0 2.0 2.0 2.0 10/02/18 5//18 5/17/18 5//18 00:25 01:25 02:00 03:00 Pulse 102 108 92 Resp 18 16 16 B/P (MAP) 104/64 108/71 (83) 97/61 (73) Pulse Ox 96 97 94 O2 Delivery Nasal Cannula Nasal Cannula Nasal Cannula O2 Flow Rate 2.0 2.0 2.0 18 10/02/18 5//18 10/02/18 04:00 05:00 06:00 06:26 Pulse 98 104 99 Resp 18 18 18 18 B/P (MAP) 126/61 (82) 128/74 (92) 134/74 (94) Pulse Ox 97 96 98 97 O2 Delivery Nasal Cannula Nasal Cannula Nasal Cannula Nasal Cannula O2 Flow Rate 2.0 2.0 2.0 2.0 10/02/18 //18 5//18 5//18 06:26 07:44 08:00 09:00 Temp 98.6 Pulse 99 107 108 Resp 18 20 B/P (MAP) 134/74 136/79 (98) 99/58 (72) Pulse Ox 98 97 O2 Delivery Nasal Cannula Nasal Cannula Nasal Cannula O2 Flow Rate 2.0 2.0 2.0 18 10:05 Pulse 102 Resp 18 B/P (MAP) 108/62 (77) Pulse Ox 94 O2 Delivery Nasal Cannula O2 Flow Rate 2.0 Intake and Output 18 10/01/18 10/02/18 15:00 23:00 07:00 Intake Total 204.1 ml 60 ml 60 ml Balance 204.1 ml 60 ml 60 ml BRIAN GOMEZ NURSE MONITORING October 02, 2017 11:05
--- NOTE | 2017-10-02 18:24 | PDOC ---
Exam Note: Jorden Note: Please also refer to the separate dictated note~for this date of service dictated separately.~Patient seen individually. Discussed the patient with Nursing staff reviewed the chart.~Reviewed interim history and current functioning. Reviewed vital signs,~Labs/ Radiology~and current medications noted below. Continue current treatment with the changes noted in the dictated addendum note Assessment: Vital Signs: Vital Signs Date Time Temp Pulse Resp B/P (MAP) Pulse Ox O2 Delivery O2 Flow Rate FiO2 10/02/17 16:01 98 20 98/65 (76) 99 Nasal Cannula 2.0 10/02/17 11:33 98.6 I&O Intake and Output 10/02/17 07:00 Intake Total 324.1 ml Balance 324.1 ml Intake Oral 220 ml IV Total 104.1 ml # Voids 4 # Bowel Movements 1 Labs: Laboratory Tests Test 10/02/17 05:35 White Blood Count 3.9 x10^3/uL (4.0-11.0) L Red Blood Count 3.52 x10^6/uL (3.50-5.40) Hemoglobin 11.8 g/dL (12.0-15.5) L Hematocrit 34.5 % (36.0-47.0) L Mean Corpuscular Volume 98 fL (79-100) Mean Corpuscular Hemoglobin 33 pg (25-35) Mean Corpuscular Hemoglobin Concent 34 g/dL (31-37) Red Cell Distribution Width 14.1 % (11.5-14.5) Platelet Count 117 x10^3/uL (140-400) L Neutrophils (%) (Auto) 49 % (31-73) Lymphocytes (%) (Auto) 30 % (24-48) Monocytes (%) (Auto) 19 % (0-9) H Eosinophils (%) (Auto) 2 % (0-3) Basophils (%) (Auto) 1 % (0-3) Neutrophils # (Auto) 1.9 x10^3uL (1.8-7.7) Lymphocytes # (Auto) 1.1 x10^3/uL (1.0-4.8) Monocytes # (Auto) 0.7 x10^3/uL (0.0-1.1) Eosinophils # (Auto) 0.1 x10^3/uL (0.0-0.7) Basophils # (Auto) 0.0 x10^3/uL (0.0-0.2) Erythrocyte Sedimentation Rate 31 (0-25) H Sodium Level 141 mmol/L (136-145) Potassium Level 3.6 mmol/L (3.5-5.1) Chloride Level 108 mmol/L (98-107) H Carbon Dioxide Level 27 mmol/L (21-32) Anion Gap 6 (6-14) Blood Urea Nitrogen 14 mg/dL (7-20) Creatinine 0.8 mg/dL (0.6-1.0) Estimated GFR (Cockcroft-Gault) 68.2 Glucose Level 82 mg/dL (70-99) Calcium Level 7.8 mg/dL (8.5-10.1) L Magnesium Level 1.8 mg/dL (1.8-2.4) C-Reactive Protein 93.4 mg/L (0-3.3) H Thyroid Stimulating Hormone (TSH) 2.056 uIU/mL (0.358-3.740) Current Medications: Meds: Current Medications Sodium Chloride 1,000 ml @ 100 mls/hr Q10H IV Last administered on 09/29/17 15:34; Start 09/28/17 at 11:15; Stop 09/30/17 at 03:58; Status DC Vancomycin HCl (Vanco Per Pharmacy) 1 each PRN DAILY PRN MC SEE COMMENTS Last administered on 09/30/17at 13:20; Start 09/28/17 at 11:15; Stop 10/01/17 at 07:55 ; Status DC Meropenem 1 gm/ Sodium Chloride 100 ml @ 200 mls/hr Q12H IV Last administered on 10/02/17at 12:31; Start 09/28/17 at 12:00 Acetaminophen/ Hydrocodone Bitart (Lortab 7.5/325) 1 tab Q6HRS PO Last administered on 10/02/17 12:31; Start 09/28/17 at 12:00 Levetiracetam (Keppra) 250 mg BID PO Last administered on 10/02/17 09:04; Start 09/28/17 at 12:00 Lactobacillus Rhamnosus (Culturelle) 1 cap BID PO Last administered on at 09:04; Start 09/28/17 at 21:00 Vancomycin HCl 1.5 gm/Sodium Chloride 500 ml @ 250 mls/hr 1X ONCE IV Last administered on 09/28/17at 13:43; Start 09/28/17 at 12:15; Stop 09/28/17 at 14:14 ; Status DC Vancomycin HCl (Vancomycin Trough Level) 1 each 1X ONCE MC Last administered on 09/30/17at 12:30; Start 09/30/17 at 12:30; Stop 09/30/17 at 12:31; Status DC Vancomycin HCl 750 mg/Sodium Chloride 250 ml @ 250 mls/hr Q24H IV Last administered on 09/30/17at 14:38; Start 09/29/17 at 13:00; Stop 09/30/17 at 17:39 ; Status DC Sodium Chloride (Normal Saline Flush) 3 ml PRN DAILY PRN IV AFTER MEDS AND BLOOD DRAWS; Start 09/28/17 at 12:30 Acetaminophen (Tylenol) 650 mg PRN Q6HRS PRN PO Headaches, Temp > 101.5F Last administered on 09/29/17at 08:23; Start 09/28/17 at 12:30 Docusate Sodium (Colace) 100 mg BID PO Last administered on 09/30/17at 08:30; Start 09/28/17 at 21:00; Stop 09/30/17 at 17:52; Status DC Calcium Carbonate/ Glycine (Tums) 500 mg PRN Q3HRS PRN PO HEARTBURN / GAS; Start 09/28/17 at 12:30 Info (Non-Icu Electrolyte Protocol) 1 ea CONT PRN PRN MC SEE COMMENTS; Start at 12:30 Heparin Sodium (Porcine) (Heparin Sq) 5,000 unit Q12HR SQ Last administered on 10/02/17at 09:04; Start 09/28/17 at 21:00 Prochlorperazine Edisylate (Compazine) 10 mg PRN Q4HRS PRN IV NAUSEA/VOMITING; Start 09/28/17 at 12:30 Ondansetron HCl (Zofran) 4 mg PRN Q8HRS PRN IV NAUSEA/VOMITING; Start 09/28/17 at 12:30 Diphenhydramine HCl (Benadryl) 25 mg PRN Q6HRS PRN PO SEE COMMENTS; Start 09/28 at 12:30 Diphenhydramine HCl (Benadryl) 25 mg PRN Q6HRS PRN IV SEE COMMENTS Last administered on 09/29/17at 21:52; Start 09/28/17 at 12:30 Potassium Chloride (KCl Oral Soln) 40 meq 1X ONCE FT Last administered on 09/28at 13:43; Start 09/28/17 at 13:00; Stop 09/28/17 at 13:01; Status DC Cyanocobalamin (Vitamin B-12) 1,000 mcg QMONTH IM ; Start 10/26/17 at 09:00 Cyclosporine (Restasis) 1 drop BID OU Last administered on 10/02/17 09:04; Start 09/28/17 at 21:00 Propranolol HCl (Inderal) 20 mg DAILY PO Last administered on 10/01/17at 08:19; Start 09/29/17 at 09:00; Stop 10/01/17 at 10:04; Status DC Aspirin (Aspirin Enteric Coated) 81 mg BID PO Last administered on 10/02/17at 09 :04; Start 09/28/17 at 21:00 Vitamin D (Vitamin D3) 50,000 unit WEEKLY PO ; Start 10/03/17 at 09:00 Fluticasone Propionate (Flonase) 2 spray DAILY NS Last administered on at 09:03; Start 09/29/17 at 09:00 Cetirizine HCl (ZyrTEC) 10 mg DAILY PO Last administered on 10/02/17at 09:04; Start 09/29/17 at 09:00 Melatonin 3 mg PRN QHS PRN PO INSOMNIA Last administered on 10/01/17at 20:55; Start 09/28/17 at 13:00 Polyethylene Glycol (miraLAX) 17 gm DAILY PO Last administered on 09/30/17at 08: 31; Start 09/29/17 at 09:00; Stop 09/30/17 at 17:52; Status DC Alprazolam (Xanax) 0.125 mg PRN QHS PRN PO ANXIETY / AGITATION Last administered on 09/29/17at 08:23; Start 09/28/17 at 12:30; Stop 09/29/17 at 15:24 ; Status DC Iohexol (Omnipaque 300 Mg/ml) 75 ml 1X ONCE IV ; Start 09/29/17 at 12:30; Stop 09/29/17 at 12:32; Status DC Alprazolam (Xanax) 0.125 mg PRN QID PRN PO ANXIETY / AGITATION Last administered on 09/29/17at 15:32; Start 09/29/17 at 15:30 Olanzapine (ZyPREXA ZYDIS) 1.25 mg PRN Q2HR PRN PO agitation/PSYCHOSIS Last administered on 09/30/17at 20:54; Start 09/29/17 at 19:45 Vancomycin HCl (Vancomycin Trough Level) 1 each 1X ONCE MC ; Start 10/02/17 at 12:30; Stop 10/02/17 at 12:30; Status DC Esmolol HCl 250 ml @ 0 mls/hr CONT PRN IV SEE I/O RECORD Last administered on at 09:40; Start 10/01/17 at 08:45 Metoprolol Tartrate (Lopressor) 12.5 mg Q6HRS PO Last administered on at 12:32; Start 10/01/17 at 12:00 Digoxin (Lanoxin) 500 mcg 1X ONCE IV Last administered on 10/02/17at 12:31; Start 10/02/17 at 10:15; Stop 10/02/17 at 10:16; Status DC Lidocaine (Xylocaine) 2 axel DAILY TP ; Start 10/03/17 at 09:00 Active Scripts Active Reported Alphagan P (Brimonidine Tartrate) 5 Ml Drops 1 Drop OU BID Restasis (Cyclosporine) 1 Each Droperette 1 Drop EACHEYE BID Propranolol Hcl 40 Mg Tablet 1 Tab PO QHS Keppra (Levetiracetam) 500 Mg Tablet 250 Tab PO BID Flonase Allergy Relief (Fluticasone Propionate) 9.9 Ml [place].susp 2 Sprays NS DAILY Miralax (Polyethylene Glycol 3350) 17 Gm Powd.pack 17 Gm PO DAILY Melatonin 3 Mg Tab.rapdis 3 Mg PO HS PRN Loratadine 10 Mg Tablet 10 Mg PO DAILY Hydrocodone-Apap 7.5-325 (Hydrocodone Bit/Acetaminophen) 1 Each Tablet 1 Tab PO Q6HRS Vitamin D2 (Ergocalciferol (Vitamin D2)) 50,000 Unit Capsule 50,000 Unit PO WEEKLY Cyanocobalamin Injection (Cyanocobalamin (Vitamin B-12)) 1,000 Mcg/1 Ml Vial 1, 000 Mcg IM QMONTH Aspirin Ec (Aspirin) 81 Mg Tablet.dr 81 Mg PO BID Inderal La (Propranolol Hcl) 60 Mg Cap.sa.24h 20 Mg PO QAM I have reviewed the current psychotropics carefully including drug interactions. Risk benefit ratio favors no change other than as noted in my dictated progress note. 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
[2017-10-02] MEDS: ALPRAZolam 0.25 MG TABLET PO PRN (20:54)
[2017-10-02] MEDS: MELATONIN 3 MG TABLET PO PRN (20:54)
--- NOTE | 2017-10-02 21:28 | PN ---
DATE: 10/02/2017 SUBJECTIVE: The patient is resting slightly propped up in bed, no apparent distress. The only complaint she has is having diarrhea, seems that the pain in her right thigh and her back is much less today. She has been up and about, walked about [address] scan of the thoracic and lumbar spine showed no evidence of any compression fracture and a chest x-ray today showed that she has mild worsening of bilateral lower lobe consolidation, could represent worsening pneumonia. She has small left greater than right pleural effusion. However, clinically, she is afebrile. Her white cell count is normal. OBJECTIVE: GENERAL: On examining her, she looked pale, cachectic, but no jaundice, cyanosis, or thyromegaly. No jugular venous distension. No limb edema. VITAL SIGNS: Her heart rate was 73, blood pressure 119/78, temperature was 98.6, respiratory rate was 20, and oxygen saturation was 99% on 2 liters of oxygen. HEAD, EYES, EARS, NOSE, AND THROAT: Showed normocephalic, atraumatic. NECK: Supple. HEART: Showed normal first and second heart sounds. No gallop, rub, or murmur. CHEST: Clear to auscultation. No crepitation or rhonchi. Has bilateral crackles mostly posteriorly bilaterally. ABDOMEN: distended, soft, nontender. NEUROLOGIC: She is awake, alert, responding appropriately. Her cranial nerves intact. She moves extremities without difficulty. She ambulates with a walker. Her intake was 1100. No output was recorded. LABORATORY DATA: As of this morning showed a white cell count of 3900, hemoglobin 11.8, hematocrit 34.5, MCV 98, and platelet count of 117,000. Her sedimentation rate was 31 mm/hour. Her chemistry showed a serum sodium 141, potassium 3.6, chloride 108, bicarbonate 27, anion gap of 6, BUN 14, creatinine 0.8, estimated GFR was 68 mL per minute. Her glucose was 82, calcium was 7.8, magnesium was 1.8. C-reactive protein was 93.4 mg/dL. Her TSH was 2.056. ASSESSMENT: 1. New onset atrial fibrillation, rate much better controlled, now on metoprolol and digoxin. 2. Acute hypoxic respiratory failure secondary to healthcare-associated pneumonia. I discontinued vancomycin and she now continues to be on Zosyn. 3. Hypertension. 4. Chronic kidney disease. 5. Seizure disorder. 6. Back pain, pain in her right thigh; however, CT scan of the thoracic, lumbar spine, the right lower extremity showed no evidence of fracture. 7. The patient continued to have diarrhea; however, her Clostridium difficile was negative and her nasal screen for MRSA by PCR was negative. PLAN: To continue with the metoprolol and digoxin for rate control. I am not sure if she is a candidate for anticoagulation. Meanwhile, continue with meropenem and continue with physical and occupational therapy. Await the result of the video swallowing evaluation. DIANA CARTAGENA MD DR: QUENTIN/nato JOB#: [id number] / [id number]
[2017-10-03] VITALS (14 sets, daily range): BP systolic 101–150; BP diastolic 64–79
[2017-10-03] MEDS: MEROPENEM 1 GM in IV NORMAL SALINE 100ML 100 ML IV SCH ×2 (00:22→12:07)
[2017-10-03] MEDS: METOPROLOL TART IMMED RELEASE 25 MG TABLET PO SCH ×4 (00:23→20:02)
[2017-10-03] MEDS: HYDROcodone/APAP 7.5/325MG 1 TAB TABLET PO SCH ×4 (00:23→20:00)
[2017-10-03 06:07] LABS: BASO % 1 % (0-3); EOS # 0.1 x10^3/uL (0.0-0.7); EOS % 2 % (0-3); HEMATOCRIT 34.9 % (36.0-47.0); HEMOGLOBIN 11.8 g/dL (12.0-15.5); LYMPH # 1.2 x10^3/uL (1.0-4.8); LYMPH % 31 % (24-48); MEAN CORPUSCULAR HEMOGLOBIN 33 pg (25-35); MEAN CORPUSCULAR HGB CONC 34 g/dL (31-37); MEAN CORPUSCULAR VOLUME 97 fL (79-100); MONO # 0.7 x10^3/uL (0.0-1.1); MONO % 18 % (0-9); NEUT # 1.9 x10^3uL (1.8-7.7); NEUT % 49 % (31-73); PLATELET COUNT 126 x10^3/uL (140-400); RED BLOOD COUNT 3.59 x10^6/uL (3.50-5.40); RED CELL DISTRIBUTION WIDTH 14.2 % (11.5-14.5)
[2017-10-03 06:30] LABS: ALBUMIN 1.7 g/dL (3.4-5.0); ALBUMIN/GLOBULIN RATIO 0.5 (1.0-1.7); CALCIUM 7.6 mg/dL (8.5-10.1); CREATININE 0.8 mg/dL (0.6-1.0); GFR 68.2; POTASSIUM 3.4 mmol/L (3.5-5.1); TOTAL BILIRUBIN 0.4 mg/dL (0.2-1.0); TOTAL PROTEIN 5.1 g/dL (6.4-8.2)
[2017-10-03] MEDS: FLUTICASONE 50MCG/NASAL SPRAY 16GM BOTTLE. NS SCH (08:52)
[2017-10-03] MEDS: ASPIRIN ENTERIC COATED 81 MG TABLET.DR. PO SCH ×2 (08:52→20:40)
[2017-10-03] MEDS: LACTOBACILLUS RHAMNOSUS GG 1 CAPSULE. PO SCH ×2 (08:52→20:40)
[2017-10-03] MEDS: levETIRAcetam 250 MG TABLET PO SCH ×2 (08:53→20:40)
[2017-10-03] MEDS: CETIRIZINE HCL 10 MG TABLET PO SCH (08:53)
[2017-10-03] MEDS: cycloSPORINE 0.05% OPTH 1 DROP DROPERETTE OU SCH ×2 (08:54→20:40)
[2017-10-03] MEDS: LIDOCAINE 5% TOPICAL OINTMENT 35GM TUBE. TP SCH (09:00)
[2017-10-03] MEDS ORDERED: CHOLECALCIFEROL (VITAMIN D3) 50,000 UNIT CAPSULE PO SCH (09:00)
[2017-10-03] MEDS: HEPARIN PF for SUB-Q USE 5,000 UNIT/0.5 ML VIAL. SQ SCH ×2 (09:18→20:41)
--- NOTE | 2017-10-03 09:46 | PDOC ---
PROGRESS NOTES Assessment Assessment 1. atrial fibrillation with RVR - improved rate control after dig yesterday and on metoprolol. vasc score would indicate need for anticoagulation. Currently on subq heparin. Likely poor candidate for oral anticoagulation due to dementia and recent fall with traumatic injury. Discuss with caregivers. 2. acute hypoxic respiratory failure secondary to HCAP - on 2 liters nasal cannula oxygen and maintaining spo2. CXR yesterday possibly mildly increased infiltrates but afebrile and no leukocytosis. mgmt per PCP 3. dysphagia - on thickened liquids. consider video swallow 4. HTN - controlled 5. CKD stage 2 - cr remains normal 6. seizure d/o Subjective complains of some lightheadedness. no chest pain, no palpitations, breathing easy Objective Vital Signs Date Time Temp Pulse Resp B/P (MAP) Pulse Ox O2 Delivery O2 Flow Rate FiO2 10/03/17 06:15 75 101/67 10/03/17 06:15 16 96 Nasal Cannula 2.0 10/02/17 20:00 97.9 Intake and Output 10/03/17 07:00 Intake Total 340 ml Balance 340 ml Intake Oral 240 ml IV Total 100 ml # Voids 4 # Bowel Movements 2 Abdomen: Normal bowel sounds, Soft Heart: Other (IRR, no gallops, clicks or rubs) Extremities: No cyanosis, Normal pulses, Other (1+edema) General: Alert, Cooperative, No acute distress HEENT: Atraumatic, EOMI, Mucous membr. moist/pink Lungs: Other (few basilar crackles) Neuro: Normal speech Psych/Mental Status: Mood NL Review of Relevant I have reviewed the following items [place] (where applicable) has been applied. Labs Laboratory Tests Test 10/02/17 05:35 10/03/17 05:45 White Blood Count 3.9 x10^3/uL (4.0-11.0) 4.0 x10^3/uL (4.0-11.0) Red Blood Count 3.52 x10^6/uL (3.50-5.40) 3.59 x10^6/uL (3.50-5.40) Hemoglobin 11.8 g/dL (12.0-15.5) 11.8 g/dL (12.0-15.5) Hematocrit 34.5 % (36.0-47.0) 34.9 % (36.0-47.0) Mean Corpuscular Volume 98 fL (79-100) 97 fL (79-100) Mean Corpuscular Hemoglobin 33 pg (25-35) 33 pg (25-35) Mean Corpuscular Hemoglobin Concent 34 g/dL (31-37) 34 g/dL (31-37) Red Cell Distribution Width 14.1 % (11.5-14.5) 14.2 % (11.5-14.5) Platelet Count 117 x10^3/uL (140-400) 126 x10^3/uL (140-400) Neutrophils (%) (Auto) 49 % (31-73) 49 % (31-73) Lymphocytes (%) (Auto) 30 % (24-48) 31 % (24-48) Monocytes (%) (Auto) 19 % (0-9) 18 % (0-9) Eosinophils (%) (Auto) 2 % (0-3) 2 % (0-3) Basophils (%) (Auto) 1 % (0-3) 1 % (0-3) Neutrophils # (Auto) 1.9 x10^3uL (1.8-7.7) 1.9 x10^3uL (1.8-7.7) Lymphocytes # (Auto) 1.1 x10^3/uL (1.0-4.8) 1.2 x10^3/uL (1.0-4.8) Monocytes # (Auto) 0.7 x10^3/uL (0.0-1.1) 0.7 x10^3/uL (0.0-1.1) Eosinophils # (Auto) 0.1 x10^3/uL (0.0-0.7) 0.1 x10^3/uL (0.0-0.7) Basophils # (Auto) 0.0 x10^3/uL (0.0-0.2) 0.0 x10^3/uL (0.0-0.2) Erythrocyte Sedimentation Rate 31 (0-25) Sodium Level 141 mmol/L (136-145) 141 mmol/L (136-145) Potassium Level 3.6 mmol/L (3.5-5.1) 3.4 mmol/L (3.5-5.1) Chloride Level 108 mmol/L (98-107) 109 mmol/L (98-107) Carbon Dioxide Level 27 mmol/L (21-32) 29 mmol/L (21-32) Anion Gap 6 (6-14) 3 (6-14) Blood Urea Nitrogen 14 mg/dL (7-20) 14 mg/dL (7-20) Creatinine 0.8 mg/dL (0.6-1.0) 0.8 mg/dL (0.6-1.0) Estimated GFR (Cockcroft-Gault) 68.2 68.2 Glucose Level 82 mg/dL (70-99) 84 mg/dL (70-99) Calcium Level 7.8 mg/dL (8.5-10.1) 7.6 mg/dL (8.5-10.1) Magnesium Level 1.8 mg/dL (1.8-2.4) C-Reactive Protein 93.4 mg/L (0-3.3) Thyroid Stimulating Hormone (TSH) 2.056 uIU/mL (0.358-3.740) BUN/Creatinine Ratio 18 (6-20) Total Bilirubin 0.4 mg/dL (0.2-1.0) Aspartate Amino Transf (AST/SGOT) 10 U/L (15-37) Alanine Aminotransferase (ALT/SGPT) 12 U/L (14-59) Alkaline Phosphatase 102 U/L (46-116) Total Protein 5.1 g/dL (6.4-8.2) Albumin 1.7 g/dL (3.4-5.0) Albumin/Globulin Ratio 0.5 (1.0-1.7) Microbiology 09/28/17 Blood Culture - Preliminary, Resulted NO GROWTH AFTER 4 DAYS 09/28/17 Urine Culture - Final, Complete 09/28/17 Urine Culture Result 1 (JAQUI) - Final, Complete Medications Current Medications Sodium Chloride 1,000 ml @ 100 mls/hr Q10H IV Last administered on 09/29/17at 15:34; Start 09/28/17 at 11:15; Stop 09/30/17 at 03:58; Status DC Vancomycin HCl (Vanco Per Pharmacy) 1 each PRN DAILY PRN MC SEE COMMENTS Last administered on 09/30/17at 13:20; Start 09/28/17 at 11:15; Stop 10/01/17 at 07:55 ; Status DC Meropenem 1 gm/ Sodium Chloride 100 ml @ 200 mls/hr Q12H IV Last administered on 10/03/17at 00:22; Start 09/28/17 at 12:00 Acetaminophen/ Hydrocodone Bitart (Lortab 7.5/325) 1 tab Q6HRS PO Last administered on 10/03/17at 06:15; Start 09/28/17 at 12:00 Levetiracetam (Keppra) 250 mg BID PO Last administered on 10/02/17at 22:05; Start 09/28/17 at 12:00 Lactobacillus Rhamnosus (Culturelle) 1 cap BID PO Last administered on at 20:53; Start 09/28/17 at 21:00 Vancomycin HCl 1.5 gm/Sodium Chloride 500 ml @ 250 mls/hr 1X ONCE IV Last administered on 09/28/17at 13:43; Start 09/28/17 at 12:15; Stop 09/28/17 at 14:14 ; Status DC Vancomycin HCl (Vancomycin Trough Level) 1 each 1X ONCE MC Last administered on 09/30/17at 12:30; Start 09/30/17 at 12:30; Stop 09/30/17 at 12:31; Status DC Vancomycin HCl 750 mg/Sodium Chloride 250 ml @ 250 mls/hr Q24H IV Last administered on 09/30/17at 14:38; Start 09/29/17 at 13:00; Stop 09/30/17 at 17:39 ; Status DC Sodium Chloride (Normal Saline Flush) 3 ml PRN DAILY PRN IV AFTER MEDS AND BLOOD DRAWS; Start 09/28/17 at 12:30 Acetaminophen (Tylenol) 650 mg PRN Q6HRS PRN PO Headaches, Temp > 101.5F Last administered on 09/29/17at 08:23; Start 09/28/17 at 12:30 Docusate Sodium (Colace) 100 mg BID PO Last administered on 09/30/17at 08:30; Start 09/28/17 at 21:00; Stop 09/30/17 at 17:52; Status DC Calcium Carbonate/ Glycine (Tums) 500 mg PRN Q3HRS PRN PO HEARTBURN / GAS; Start 09/28/17 at 12:30 Info (Non-Icu Electrolyte Protocol) 1 ea CONT PRN PRN MC SEE COMMENTS; Start at 12:30 Heparin Sodium (Porcine) (Heparin Sq) 5,000 unit Q12HR SQ Last administered on 10/02/17at 20:55; Start 09/28/17 at 21:00 Prochlorperazine Edisylate (Compazine) 10 mg PRN Q4HRS PRN IV NAUSEA/VOMITING; Start 09/28/17 at 12:30 Ondansetron HCl (Zofran) 4 mg PRN Q8HRS PRN IV NAUSEA/VOMITING; Start 09/28/17 at 12:30 Diphenhydramine HCl (Benadryl) 25 mg PRN Q6HRS PRN PO SEE COMMENTS; Start 09/28 at 12:30 Diphenhydramine HCl (Benadryl) 25 mg PRN Q6HRS PRN IV SEE COMMENTS Last administered on 09/29/17at 21:52; Start 09/28/17 at 12:30 Potassium Chloride (KCl Oral Soln) 40 meq 1X ONCE FT Last administered on 09/28at 13:43; Start 09/28/17 at 13:00; Stop 09/28/17 at 13:01; Status DC Cyanocobalamin (Vitamin B-12) 1,000 mcg QMONTH IM ; Start 10/26/17 at 09:00 Cyclosporine (Restasis) 1 drop BID OU Last administered on 10/02/17at 20:54; Start 09/28/17 at 21:00 Propranolol HCl (Inderal) 20 mg DAILY PO Last administered on 10/01/17at 08:19; Start 09/29/17 at 09:00; Stop 10/01/17 at 10:04; Status DC Aspirin (Aspirin Enteric Coated) 81 mg BID PO Last administered on 10/02/17at 20 :53; Start 09/28/17 at 21:00 Vitamin D (Vitamin D3) 50,000 unit WEEKLY PO ; Start 10/03/17 at 09:00 Fluticasone Propionate (Flonase) 2 spray DAILY NS Last administered on at 09:03; Start 09/29/17 at 09:00 Cetirizine HCl (ZyrTEC) 10 mg DAILY PO Last administered on 10/02/17at 09:04; Start 09/29/17 at 09:00 Melatonin 3 mg PRN QHS PRN PO INSOMNIA Last administered on 10/02/17at 20:54; Start 09/28/17 at 13:00 Polyethylene Glycol (miraLAX) 17 gm DAILY PO Last administered on 09/30/17at 08: 31; Start 09/29/17 at 09:00; Stop 09/30/17 at 17:52; Status DC Alprazolam (Xanax) 0.125 mg PRN QHS PRN PO ANXIETY / AGITATION Last administered on 09/29/17at 08:23; Start 09/28/17 at 12:30; Stop 09/29/17 at 15:24 ; Status DC Iohexol (Omnipaque 300 Mg/ml) 75 ml 1X ONCE IV ; Start 09/29/17 at 12:30; Stop 09/29/17 at 12:32; Status DC Alprazolam (Xanax) 0.125 mg PRN QID PRN PO ANXIETY / AGITATION Last administered on 10/02/17at 20:54; Start 09/29/17 at 15:30 Olanzapine (ZyPREXA ZYDIS) 1.25 mg PRN Q2HR PRN PO agitation/PSYCHOSIS Last administered on 09/30/17at 20:54; Start 09/29/17 at 19:45 Vancomycin HCl (Vancomycin Trough Level) 1 each 1X ONCE MC ; Start 10/02/17 at 12:30; Stop 10/02/17 at 12:30; Status DC Esmolol HCl 250 ml @ 0 mls/hr CONT PRN IV SEE I/O RECORD Last administered on at 09:40; Start 10/01/17 at 08:45 Metoprolol Tartrate (Lopressor) 12.5 mg Q6HRS PO Last administered on at 06:15; Start 10/01/17 at 12:00 Digoxin (Lanoxin) 500 mcg 1X ONCE IV Last administered on 10/02/17at 12:31; Start 10/02/17 at 10:15; Stop 10/02/17 at 10:16; Status DC Lidocaine (Xylocaine) 2 axel DAILY TP ; Start 10/03/17 at 09:00 Active Scripts Active Reported Alphagan P (Brimonidine Tartrate) 5 Ml Drops 1 Drop OU BID Restasis (Cyclosporine) 1 Each Droperette 1 Drop EACHEYE BID Propranolol Hcl 40 Mg Tablet 1 Tab PO QHS Keppra (Levetiracetam) 500 Mg Tablet 250 Tab PO BID Flonase Allergy Relief (Fluticasone Propionate) 9.9 Ml [place].susp 2 Sprays NS DAILY Miralax (Polyethylene Glycol 3350) 17 Gm Powd.pack 17 Gm PO DAILY Melatonin 3 Mg Tab.rapdis 3 Mg PO HS PRN Loratadine 10 Mg Tablet 10 Mg PO DAILY Hydrocodone-Apap 7.5-325 (Hydrocodone Bit/Acetaminophen) 1 Each Tablet 1 Tab PO Q6HRS Vitamin D2 (Ergocalciferol (Vitamin D2)) 50,000 Unit Capsule 50,000 Unit PO WEEKLY Cyanocobalamin Injection (Cyanocobalamin (Vitamin B-12)) 1,000 Mcg/1 Ml Vial 1, 000 Mcg IM QMONTH Aspirin Ec (Aspirin) 81 Mg Tablet.dr 81 Mg PO BID Inderal La (Propranolol Hcl) 60 Mg Cap.sa.24h 20 Mg PO QAM Vitals/I & O Vital Sign - Last 24 Hours 10/02/17 10/02/17 10/02/17 10/02/17 10:05 11:33 12:00 12:31 Temp 98.6 Pulse 102 104 104 Resp 18 20 B/P (MAP) 108/62 (77) 119/78 (92) 119/78 Pulse Ox 94 99 O2 Delivery Nasal Cannula Nasal Cannula Nasal Cannula O2 Flow Rate 2.0 2.0 2.0 10/02/17 10/02/17 10/02/17 10/02/17 12:32 13:45 16:00 16:01 Pulse 104 98 98 Resp 20 20 B/P (MAP) 119/78 116/78 (91) 98/65 (76) Pulse Ox 99 99 O2 Delivery Nasal Cannula Nasal Cannula Nasal Cannula O2 Flow Rate 2.0 2.0 2.0 10/02/17 10/02/17 10/02/17 10/02/17 18:29 18:31 19:45 20:00 Temp 97.5 97.9 Pulse 77 96 98 Resp 20 18 B/P (MAP) 148/75 148/75 (99) 117/70 (86) Pulse Ox 95 96 O2 Delivery Nasal Cannula Nasal Cannula Nasal Cannula O2 Flow Rate 2.0 2.0 2.0 10/02/17 10/02/17 10/03/17 10/03/17 21:00 22:00 00:00 00:23 Pulse 103 92 90 Resp 18 16 16 16 B/P (MAP) 119/84 (96) 131/92 (105) 104/64 (77) Pulse Ox 98 96 97 97 O2 Delivery Nasal Cannula Nasal Cannula Nasal Cannula Nasal Cannula O2 Flow Rate 2.0 2.0 2.0 2.0 10/03/17 10/03/17 10/03/17 10/03/17 00:23 01:23 04:00 06:15 Pulse 92 75 Resp 16 16 16 B/P (MAP) 131/92 101/67 (78) Pulse Ox 96 95 96 O2 Delivery Nasal Cannula Nasal Cannula Nasal Cannula O2 Flow Rate 2.0 2.0 2.0 10/03/17 06:15 Pulse 75 B/P (MAP) 101/67 Intake and Output 10/02/17 10/02/17 10/03/17 15:00 23:00 07:00 Intake Total 120 ml 60 ml 160 ml Balance 120 ml 60 ml 160 ml BRIAN GOMEZ [employer] October 03, 2017 09:46
--- NOTE | 2017-10-03 19:25 | PDOC ---
Exam Note: Jorden Note: Please also refer to the separate dictated note~for this date of service dictated separately.~Patient seen individually. Discussed the patient with Nursing staff reviewed the chart.~Reviewed interim history and current functioning. Reviewed vital signs,~Labs/ Radiology~and current medications noted below. Continue current treatment with the changes noted in the dictated addendum note Assessment: Vital Signs: Vital Signs Date Time Temp Pulse Resp B/P (MAP) Pulse Ox O2 Delivery O2 Flow Rate FiO2 10/03/17 16:52 83 20 122/73 (89) 98 Nasal Cannula 2.0 10/02/17 20:00 97.9 I&O Intake and Output 10/03/17 07:00 Intake Total 340 ml Balance 340 ml Intake Oral 240 ml IV Total 100 ml # Voids 4 # Bowel Movements 2 Labs: Laboratory Tests Test 10/03/17 05:45 White Blood Count 4.0 x10^3/uL (4.0-11.0) Red Blood Count 3.59 x10^6/uL (3.50-5.40) Hemoglobin 11.8 g/dL (12.0-15.5) L Hematocrit 34.9 % (36.0-47.0) L Mean Corpuscular Volume 97 fL (79-100) Mean Corpuscular Hemoglobin 33 pg (25-35) Mean Corpuscular Hemoglobin Concent 34 g/dL (31-37) Red Cell Distribution Width 14.2 % (11.5-14.5) Platelet Count 126 x10^3/uL (140-400) L Neutrophils (%) (Auto) 49 % (31-73) Lymphocytes (%) (Auto) 31 % (24-48) Monocytes (%) (Auto) 18 % (0-9) H Eosinophils (%) (Auto) 2 % (0-3) Basophils (%) (Auto) 1 % (0-3) Neutrophils # (Auto) 1.9 x10^3uL (1.8-7.7) Lymphocytes # (Auto) 1.2 x10^3/uL (1.0-4.8) Monocytes # (Auto) 0.7 x10^3/uL (0.0-1.1) Eosinophils # (Auto) 0.1 x10^3/uL (0.0-0.7) Basophils # (Auto) 0.0 x10^3/uL (0.0-0.2) Sodium Level 141 mmol/L (136-145) Potassium Level 3.4 mmol/L (3.5-5.1) L Chloride Level 109 mmol/L (98-107) H Carbon Dioxide Level 29 mmol/L (21-32) Anion Gap 3 (6-14) L Blood Urea Nitrogen 14 mg/dL (7-20) Creatinine 0.8 mg/dL (0.6-1.0) Estimated GFR (Cockcroft-Gault) 68.2 BUN/Creatinine Ratio 18 (6-20) Glucose Level 84 mg/dL (70-99) Calcium Level 7.6 mg/dL (8.5-10.1) L Total Bilirubin 0.4 mg/dL (0.2-1.0) Aspartate Amino Transferase (AST) 10 U/L (15-37) L Alanine Aminotransferase (ALT) 12 U/L (14-59) L Alkaline Phosphatase 102 U/L (46-116) Total Protein 5.1 g/dL (6.4-8.2) L Albumin 1.7 g/dL (3.4-5.0) L Albumin/Globulin Ratio 0.5 (1.0-1.7) L Current Medications: Meds: Current Medications Sodium Chloride 1,000 ml @ 100 mls/hr Q10H IV Last administered on 09/29/17at 15:34; Start 09/28/17 at 11:15; Stop 09/30/17 at 03:58; Status DC Vancomycin HCl (Vanco Per Pharmacy) 1 each PRN DAILY PRN MC SEE COMMENTS Last administered on 09/30/17at 13:20; Start 09/28/17 at 11:15; Stop 10/01/17 at 07:55 ; Status DC Meropenem 1 gm/ Sodium Chloride 100 ml @ 200 mls/hr Q12H IV Last administered on 10/03/17 12:07; Start 09/28/17 at 12:00 Acetaminophen/ Hydrocodone Bitart (Lortab 7.5/325) 1 tab Q6HRS PO Last administered on 10/03/17 12:17; Start 09/28/17 at 12:00 Levetiracetam (Keppra) 250 mg BID PO Last administered on 5/18/18at 08:53; Start 09/28/17 at 12:00 Lactobacillus Rhamnosus (Culturelle) 1 cap BID PO Last administered on 08:52; Start 09/28/17 at 21:00 Vancomycin HCl 1.5 gm/Sodium Chloride 500 ml @ 250 mls/hr 1X ONCE IV Last administered on 09/28/17at 13:43; Start 09/28/17 at 12:15; Stop 09/28/17 at 14:14 ; Status DC Vancomycin HCl (Vancomycin Trough Level) 1 each 1X ONCE MC Last administered on 09/30/17at 12:30; Start 09/30/17 at 12:30; Stop 09/30/17 at 12:31; Status DC Vancomycin HCl 750 mg/Sodium Chloride 250 ml @ 250 mls/hr Q24H IV Last administered on 09/30/17at 14:38; Start 09/29/17 at 13:00; Stop 09/30/17 at 17:39 ; Status DC Sodium Chloride (Normal Saline Flush) 3 ml PRN DAILY PRN IV AFTER MEDS AND BLOOD DRAWS; Start 09/28/17 at 12:30 Acetaminophen (Tylenol) 650 mg PRN Q6HRS PRN PO Headaches, Temp > 101.5F Last administered on 09/29/17at 08:23; Start 09/28/17 at 12:30 Docusate Sodium (Colace) 100 mg BID PO Last administered on 09/30/17at 08:30; Start 09/28/17 at 21:00; Stop 09/30/17 at 17:52; Status DC Calcium Carbonate/ Glycine (Tums) 500 mg PRN Q3HRS PRN PO HEARTBURN / GAS; Start 09/28/17 at 12:30 Info (Non-Icu Electrolyte Protocol) 1 ea CONT PRN PRN MC SEE COMMENTS; Start at 12:30 Heparin Sodium (Porcine) (Heparin Sq) 5,000 unit Q12HR SQ Last administered on 10/03/17at 09:18; Start 09/28/17 at 21:00 Prochlorperazine Edisylate (Compazine) 10 mg PRN Q4HRS PRN IV NAUSEA/VOMITING; Start 09/28/17 at 12:30 Ondansetron HCl (Zofran) 4 mg PRN Q8HRS PRN IV NAUSEA/VOMITING; Start 09/28/17 at 12:30 Diphenhydramine HCl (Benadryl) 25 mg PRN Q6HRS PRN PO SEE COMMENTS; Start 09/28 at 12:30 Diphenhydramine HCl (Benadryl) 25 mg PRN Q6HRS PRN IV SEE COMMENTS Last administered on 09/29/17at 21:52; Start 09/28/17 at 12:30 Potassium Chloride (KCl Oral Soln) 40 meq 1X ONCE FT Last administered on 09/28at 13:43; Start 09/28/17 at 13:00; Stop 09/28/17 at 13:01; Status DC Cyanocobalamin (Vitamin B-12) 1,000 mcg QMONTH IM ; Start 10/26/17 at 09:00 Cyclosporine (Restasis) 1 drop BID OU Last administered on 10/03/17 08:54; Start 09/28/17 at 21:00 Propranolol HCl (Inderal) 20 mg DAILY PO Last administered on 10/01/17 08:19; Start 09/29/17 at 09:00; Stop 10/01/17 at 10:04; Status DC Aspirin (Aspirin Enteric Coated) 81 mg BID PO Last administered on 10/03/17 08 :52; Start 09/28/17 at 21:00 Vitamin D (Vitamin D3) 50,000 unit WEEKLY PO Last administered on 10/03/17 09: 21; Start 10/03/17 at 09:00 Fluticasone Propionate (Flonase) 2 spray DAILY NS Last administered on 08:52; Start 09/29/17 at 09:00 Cetirizine HCl (ZyrTEC) 10 mg DAILY PO Last administered on 10/03/17 08:53; Start 09/29/17 at 09:00 Melatonin 3 mg PRN QHS PRN PO INSOMNIA Last administered on 10/02/17 20:54; Start 09/28/17 at 13:00 Polyethylene Glycol (miraLAX) 17 gm DAILY PO Last administered on 09/30/17at 08: 31; Start 09/29/17 at 09:00; Stop 09/30/17 at 17:52; Status DC Alprazolam (Xanax) 0.125 mg PRN QHS PRN PO ANXIETY / AGITATION Last administered on 09/29/17 08:23; Start 09/28/17 at 12:30; Stop 09/29/17 at 15:24 ; Status DC Iohexol (Omnipaque 300 Mg/ml) 75 ml 1X ONCE IV ; Start 09/29/17 at 12:30; Stop 09/29/17 at 12:32; Status DC Alprazolam (Xanax) 0.125 mg PRN QID PRN PO ANXIETY / AGITATION Last administered on 10/02/17at 20:54; Start 09/29/17 at 15:30 Olanzapine (ZyPREXA ZYDIS) 1.25 mg PRN Q2HR PRN PO agitation/PSYCHOSIS Last administered on 09/30/17at 20:54; Start 09/29/17 at 19:45 Vancomycin HCl (Vancomycin Trough Level) 1 each 1X ONCE MC ; Start 10/02/17 at 12:30; Stop 10/02/17 at 12:30; Status DC Esmolol HCl 250 ml @ 0 mls/hr CONT PRN IV SEE I/O RECORD Last administered on at 09:40; Start 10/01/17 at 08:45 Metoprolol Tartrate (Lopressor) 12.5 mg Q6HRS PO Last administered on at 12:16; Start 10/01/17 at 12:00 Digoxin (Lanoxin) 500 mcg 1X ONCE IV Last administered on 10/02/17at 12:31; Start 10/02/17 at 10:15; Stop 10/02/17 at 10:16; Status DC Lidocaine (Xylocaine) 2 axel DAILY TP Last administered on 10/03/17at 09:00; Start 10/03/17 at 09:00 Active Scripts Active Reported Alphagan P (Brimonidine Tartrate) 5 Ml Drops 1 Drop OU BID Restasis (Cyclosporine) 1 Each Droperette 1 Drop EACHEYE BID Propranolol Hcl 40 Mg Tablet 1 Tab PO QHS Keppra (Levetiracetam) 500 Mg Tablet 250 Tab PO BID Flonase Allergy Relief (Fluticasone Propionate) 9.9 Ml [place].susp 2 Sprays NS DAILY Miralax (Polyethylene Glycol 3350) 17 Gm Powd.pack 17 Gm PO DAILY Melatonin 3 Mg Tab.rapdis 3 Mg PO HS PRN Loratadine 10 Mg Tablet 10 Mg PO DAILY Hydrocodone-Apap 7.5-325 (Hydrocodone Bit/Acetaminophen) 1 Each Tablet 1 Tab PO Q6HRS Vitamin D2 (Ergocalciferol (Vitamin D2)) 50,000 Unit Capsule 50,000 Unit PO WEEKLY Cyanocobalamin Injection (Cyanocobalamin (Vitamin B-12)) 1,000 Mcg/1 Ml Vial 1, 000 Mcg IM QMONTH Aspirin Ec (Aspirin) 81 Mg Tablet.dr 81 Mg PO BID Inderal La (Propranolol Hcl) 60 Mg Cap.sa.24h 20 Mg PO QAM I have reviewed the current psychotropics carefully including drug interactions. Risk benefit ratio favors no change other than as noted in my dictated progress note. 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
[2017-10-03] MEDS: MELATONIN 3 MG TABLET PO PRN (20:40)
[2017-10-04] VITALS (7 sets, daily range): BP systolic 109–153; BP diastolic 67–99
[2017-10-04] MEDS: MEROPENEM 1 GM in IV NORMAL SALINE 100ML 100 ML IV SCH ×2 (00:15→12:57)
--- NOTE | 2017-10-04 01:41 | PN ---
DATE: 10/03/2017 SUBJECTIVE: The patient is resting slightly propped up in bed, complaining of being weak and congested. The nursing staff stated that she has been coughing whole day and this morning slight thickening of her liquid. She was seen by the speech therapist and bedside swallow evaluation showed that she is to aspirate thin liquid. PHYSICAL EXAMINATION: GENERAL: When I examined her, she looked pale, cachectic, but no jaundice, cyanosis or thyromegaly. No jugular venous distension. No lower limb edema. VITAL SIGNS: Her heart rate was 75, blood pressure was 132/73, temperature was 98, respiratory rate was 20 and oxygen saturation was 96% on 2 liters of oxygen. HEAD, EYES, EARS, NOSE AND THROAT: Showed normocephalic, atraumatic. NECK: Supple. HEART: Showed normal first and second heart sounds with no gallop, rub or murmur. CHEST: Showed central trachea, equally reduced expansion, reduced air entry, vesicular sounds with bilateral crepitation posteriorly. I could not appreciate any rhonchi. ABDOMEN: Slightly distended, soft, nontender. No guarding or rigidity. No organomegaly. Hernial orifice intact. Bowel sounds normal. NEUROLOGIC: She was awake, alert, responding appropriately. Cranial nerves are intact. She moves extremities without difficulty. She is mostly bedbound and chair bound. Her intake was 340 and no output was recorded. LABORATORY DATA: As of this morning, her white cell count was 4000, hemoglobin 12, hematocrit 35, MCV 97 and platelet count of 126,000. Her chemistry showed a serum sodium 141, potassium 3.4, chloride 109, bicarbonate 29, anion gap of 3, BUN 14, creatinine 0.8. Estimated GFR was 68 mL per minute. Her glucose was 84. Calcium was 7.6. Total bilirubin, AST, ALT, alkaline phosphatase were normal. Total protein was 5.1. Albumin was 1.7. ASSESSMENT: 1. New onset atrial fibrillation, rate much better controlled, now on metoprolol and digoxin. 2. Acute hypoxic respiratory failure secondary to healthcare-associated pneumonia. Her blood cultures are negative, so vancomycin was discontinued. She continues to be on Zosyn. 3. Dysphagia what seems to be recurrent aspiration. 4. Hypertension. 5. Chronic kidney disease. 6. Seizure disorder. 7. Back pain, pain in the right thigh; however, CT scan of the thoracic, lumbar spine and right lower extremity showed no evidence of fracture. 8. The patient continued to have diarrhea; however, her Clostridium difficile toxins were negative. Her nasal screen for MRSA by PCR was negative. PLAN: To continue with metoprolol and digoxin. She is not a candidate for anticoagulation. We will continue with meropenem for the time being, continue with physical and occupational therapy. DIANA CARTAGENA MD DR: QUENTIN/nato JOB#: [id number] / [id number]
--- NOTE | 2017-10-04 03:56 | PN ---
DATE: 10/02/2017 PSYCHIATRIC PROGRESS NOTE This is late entry, date of service, 10/02/2017 covers elements not covered in my initial note 10/02/2017. SUBJECTIVE: I met with the patient in the ICU bed 1 and with her daughter as well. The night before the patient is quite psychotic, but this was with the owning and she is doing better during the day on 10/02/2017 per nursing report. REVIEW OF SYSTEMS: Ambulation impaired. No CV, , pulmonary, eye system symptoms on review. MENTAL STATUS EXAM: Oriented to herself and situation. Speech has some latency of responses monosyllabic. Abstraction fair, computation impaired, language function intact. Mood and affect showing improvement, less anxious, less labile. IMPRESSION: Unchanged from initial note. PLAN: No change from psychotropics from initial note. MAN Cornelius WHITLOCK MD DR: CRISTINA/nato JOB#: [id number] / [id number]
[2017-10-04] MEDS: METOPROLOL TART IMMED RELEASE 25 MG TABLET PO SCH ×4 (05:12→18:16)
[2017-10-04] MEDS: HYDROcodone/APAP 7.5/325MG 1 TAB TABLET PO SCH ×4 (05:12→18:01)
[2017-10-04] MEDS: LACTOBACILLUS RHAMNOSUS GG 1 CAPSULE. PO SCH ×2 (08:55→21:25)
[2017-10-04] MEDS: cycloSPORINE 0.05% OPTH 1 DROP DROPERETTE OU SCH ×2 (08:55→21:20)
[2017-10-04] MEDS: FLUTICASONE 50MCG/NASAL SPRAY 16GM BOTTLE. NS SCH (08:55)
[2017-10-04] MEDS: ASPIRIN ENTERIC COATED 81 MG TABLET.DR. PO SCH ×2 (08:55→21:25)
[2017-10-04] MEDS: CETIRIZINE HCL 10 MG TABLET PO SCH (08:55)
[2017-10-04] MEDS: levETIRAcetam 250 MG TABLET PO SCH ×2 (08:56→21:21)
[2017-10-04] MEDS: HEPARIN PF for SUB-Q USE 5,000 UNIT/0.5 ML VIAL. SQ SCH ×2 (08:57→21:26)
[2017-10-04] MEDS: LIDOCAINE 5% TOPICAL OINTMENT 35GM TUBE. TP SCH (08:58)
[2017-10-04] MEDS ORDERED: ONDANSETRON ODT 4 MG TAB.RAPDIS PO PRN (09:15)
--- NOTE | 2017-10-04 18:53 | PDOC ---
Exam Note: Jorden Note: Please also refer to the separate dictated note~for this date of service dictated separately.~Patient seen individually. Discussed the patient with Nursing staff reviewed the chart.~Reviewed interim history and current functioning. Reviewed vital signs,~Labs/ Radiology~and current medications noted below. Continue current treatment with the changes noted in the dictated addendum note Assessment: Vital Signs: Vital Signs Date Time Temp Pulse Resp B/P (MAP) Pulse Ox O2 Delivery O2 Flow Rate FiO2 10/04/17 18:16 102 144/84 10/04/17 18:01 16 93 Room Air 10/04/17 16:26 97.9 10/04/17 13:57 2.0 I&O Intake and Output 10/04/17 07:00 Intake Total 790 ml Balance 790 ml Intake Oral 790 ml # Voids 5 # Bowel Movements 4 Current Medications: Meds: Current Medications Sodium Chloride 1,000 ml @ 100 mls/hr Q10H IV Last administered on 09/29/17at 15:34; Start 09/28/17 at 11:15; Stop 09/30/17 at 03:58; Status DC Vancomycin HCl (Vanco Per Pharmacy) 1 each PRN DAILY PRN MC SEE COMMENTS Last administered on 09/30/17at 13:20; Start 09/28/17 at 11:15; Stop 10/01/17 at 07:55 ; Status DC Meropenem 1 gm/ Sodium Chloride 100 ml @ 200 mls/hr Q12H IV Last administered on 10/04/17at 12:57; Start 09/28/17 at 12:00 Acetaminophen/ Hydrocodone Bitart (Lortab 7.5/325) 1 tab Q6HRS PO Last administered on 10/04/17at 18:01; Start 09/28/17 at 12:00 Levetiracetam (Keppra) 250 mg BID PO Last administered on 10/04/17at 08:56; Start 09/28/17 at 12:00 Lactobacillus Rhamnosus (Culturelle) 1 cap BID PO Last administered on at 08:55; Start 09/28/17 at 21:00 Vancomycin HCl 1.5 gm/Sodium Chloride 500 ml @ 250 mls/hr 1X ONCE IV Last administered on 09/28/17at 13:43; Start 09/28/17 at 12:15; Stop 09/28/17 at 14:14 ; Status DC Vancomycin HCl (Vancomycin Trough Level) 1 each 1X ONCE MC Last administered on 09/30/17at 12:30; Start 09/30/17 at 12:30; Stop 09/30/17 at 12:31; Status DC Vancomycin HCl 750 mg/Sodium Chloride 250 ml @ 250 mls/hr Q24H IV Last administered on 09/30/17at 14:38; Start 09/29/17 at 13:00; Stop 09/30/17 at 17:39 ; Status DC Sodium Chloride (Normal Saline Flush) 3 ml PRN DAILY PRN IV AFTER MEDS AND BLOOD DRAWS; Start 09/28/17 at 12:30 Acetaminophen (Tylenol) 650 mg PRN Q6HRS PRN PO Headaches, Temp > 101.5F Last administered on 09/29/17at 08:23; Start 09/28/17 at 12:30 Docusate Sodium (Colace) 100 mg BID PO Last administered on 09/30/17at 08:30; Start 09/28/17 at 21:00; Stop 09/30/17 at 17:52; Status DC Calcium Carbonate/ Glycine (Tums) 500 mg PRN Q3HRS PRN PO HEARTBURN / GAS; Start 09/28/17 at 12:30 Info (Non-Icu Electrolyte Protocol) 1 ea CONT PRN PRN MC SEE COMMENTS; Start at 12:30 Heparin Sodium (Porcine) (Heparin Sq) 5,000 unit Q12HR SQ Last administered on 10/04/17at 08:57; Start 09/28/17 at 21:00 Prochlorperazine Edisylate (Compazine) 10 mg PRN Q4HRS PRN IV NAUSEA/VOMITING; Start 09/28/17 at 12:30 Ondansetron HCl (Zofran) 4 mg PRN Q8HRS PRN IV NAUSEA/VOMITING; Start 09/28/17 at 12:30; Stop 10/04/17 at 09:11; Status DC Diphenhydramine HCl (Benadryl) 25 mg PRN Q6HRS PRN PO SEE COMMENTS; Start 09/28 at 12:30 Diphenhydramine HCl (Benadryl) 25 mg PRN Q6HRS PRN IV SEE COMMENTS Last administered on 09/29/17at 21:52; Start 09/28/17 at 12:30 Potassium Chloride (KCl Oral Soln) 40 meq 1X ONCE FT Last administered on 09/28at 13:43; Start 09/28/17 at 13:00; Stop 09/28/17 at 13:01; Status DC Cyanocobalamin (Vitamin B-12) 1,000 mcg QMONTH IM ; Start 10/26/17 at 09:00 Cyclosporine (Restasis) 1 drop BID OU Last administered on 10/04/17at 08:55; Start 09/28/17 at 21:00 Propranolol HCl (Inderal) 20 mg DAILY PO Last administered on 10/01/17 08:19; Start 09/29/17 at 09:00; Stop 10/01/17 at 10:04; Status DC Aspirin (Aspirin Enteric Coated) 81 mg BID PO Last administered on 10/04/17at 08 :55; Start 09/28/17 at 21:00 Vitamin D (Vitamin D3) 50,000 unit WEEKLY PO Last administered on 10/03/17at 09: 21; Start 10/03/17 at 09:00 Fluticasone Propionate (Flonase) 2 spray DAILY NS Last administered on 08:55; Start 09/29/17 at 09:00 Cetirizine HCl (ZyrTEC) 10 mg DAILY PO Last administered on 10/04/17at 08:55; Start 09/29/17 at 09:00 Melatonin 3 mg PRN QHS PRN PO INSOMNIA Last administered on 10/03/17at 20:40; Start 09/28/17 at 13:00 Polyethylene Glycol (miraLAX) 17 gm DAILY PO Last administered on 09/30/17at 08: 31; Start 09/29/17 at 09:00; Stop 09/30/17 at 17:52; Status DC Alprazolam (Xanax) 0.125 mg PRN QHS PRN PO ANXIETY / AGITATION Last administered on 09/29/17at 08:23; Start 09/28/17 at 12:30; Stop 09/29/17 at 15:24 ; Status DC Iohexol (Omnipaque 300 Mg/ml) 75 ml 1X ONCE IV ; Start 09/29/17 at 12:30; Stop 09/29/17 at 12:32; Status DC Alprazolam (Xanax) 0.125 mg PRN QID PRN PO ANXIETY / AGITATION Last administered on 10/02/17at 20:54; Start 09/29/17 at 15:30 Olanzapine (ZyPREXA ZYDIS) 1.25 mg PRN Q2HR PRN PO agitation/PSYCHOSIS Last administered on 09/30/17at 20:54; Start 09/29/17 at 19:45 Vancomycin HCl (Vancomycin Trough Level) 1 each 1X ONCE MC ; Start 10/02/17 at 12:30; Stop 10/02/17 at 12:30; Status DC Esmolol HCl 250 ml @ 0 mls/hr CONT PRN IV SEE I/O RECORD Last administered on at 09:40; Start 10/01/17 at 08:45 Metoprolol Tartrate (Lopressor) 12.5 mg Q6HRS PO Last administered on at 18:16; Start 10/01/17 at 12:00 Digoxin (Lanoxin) 500 mcg 1X ONCE IV Last administered on 10/02/17at 12:31; Start 10/02/17 at 10:15; Stop 10/02/17 at 10:16; Status DC Lidocaine (Xylocaine) 2 axel DAILY TP Last administered on 10/04/17at 08:58; Start 10/03/17 at 09:00 Ondansetron HCl (Zofran Odt) 4 mg PRN Q8HRS PRN PO NAUSEA/VOMITING; Start 10/04 at 09:15 Active Scripts Active Reported Alphagan P (Brimonidine Tartrate) 5 Ml Drops 1 Drop OU BID Restasis (Cyclosporine) 1 Each Droperette 1 Drop EACHEYE BID Propranolol Hcl 40 Mg Tablet 1 Tab PO QHS Keppra (Levetiracetam) 500 Mg Tablet 250 Tab PO BID Flonase Allergy Relief (Fluticasone Propionate) 9.9 Ml [place].susp 2 Sprays NS DAILY Miralax (Polyethylene Glycol 3350) 17 Gm Powd.pack 17 Gm PO DAILY Melatonin 3 Mg Tab.rapdis 3 Mg PO HS PRN Loratadine 10 Mg Tablet 10 Mg PO DAILY Hydrocodone-Apap 7.5-325 (Hydrocodone Bit/Acetaminophen) 1 Each Tablet 1 Tab PO Q6HRS Vitamin D2 (Ergocalciferol (Vitamin D2)) 50,000 Unit Capsule 50,000 Unit PO WEEKLY Cyanocobalamin Injection (Cyanocobalamin (Vitamin B-12)) 1,000 Mcg/1 Ml Vial 1, 000 Mcg IM QMONTH Aspirin Ec (Aspirin) 81 Mg Tablet.dr 81 Mg PO BID Inderal La (Propranolol Hcl) 60 Mg Cap.sa.24h 20 Mg PO QAM I have reviewed the current psychotropics carefully including drug interactions. Risk benefit ratio favors no change other than as noted in my dictated progress note. 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
[2017-10-04] MEDS: MELATONIN 3 MG TABLET PO PRN (21:25)
[2017-10-05] MEDS: MEROPENEM 1 GM in IV NORMAL SALINE 100ML 100 ML IV SCH ×2 (00:22→11:35)
[2017-10-05] MEDS: HYDROcodone/APAP 7.5/325MG 1 TAB TABLET PO SCH ×4 (00:33→17:56)
[2017-10-05 04:02] VITALS: BP 141/73
[2017-10-05] MEDS: METOPROLOL TART IMMED RELEASE 25 MG TABLET PO SCH ×4 (06:00→17:56)
[2017-10-05 06:41] VITALS: BP 131/84
[2017-10-05 08:31] LABS: HEMOGLOBIN 11.3 g/dL (12.0-15.5); RED BLOOD COUNT 3.48 x10^6/uL (3.50-5.40); RED CELL DISTRIBUTION WIDTH 14.1 % (11.5-14.5); WHITE BLOOD COUNT 4.5 x10^3/uL (4.0-11.0)
[2017-10-05 08:45] LABS: ALBUMIN 1.9 g/dL (3.4-5.0); ALBUMIN/GLOBULIN RATIO 0.5 (1.0-1.7); CALCIUM 8.1 mg/dL (8.5-10.1); CREATININE 0.8 mg/dL (0.6-1.0); GFR 68.2; POTASSIUM 3.9 mmol/L (3.5-5.1); TOTAL BILIRUBIN 0.3 mg/dL (0.2-1.0); TOTAL PROTEIN 5.5 g/dL (6.4-8.2)
[2017-10-05] MEDS: LIDOCAINE 5% TOPICAL OINTMENT 35GM TUBE. TP SCH (09:00)
[2017-10-05] MEDS: ASPIRIN ENTERIC COATED 81 MG TABLET.DR. PO SCH (09:11)
[2017-10-05] MEDS: LACTOBACILLUS RHAMNOSUS GG 1 CAPSULE. PO SCH ×2 (09:11→21:59)
[2017-10-05] MEDS: FLUTICASONE 50MCG/NASAL SPRAY 16GM BOTTLE. NS SCH (09:11)
[2017-10-05] MEDS: CETIRIZINE HCL 10 MG TABLET PO SCH (09:11)
[2017-10-05] MEDS: cycloSPORINE 0.05% OPTH 1 DROP DROPERETTE OU SCH ×2 (09:11→21:59)
[2017-10-05] MEDS: levETIRAcetam 250 MG TABLET PO SCH ×2 (09:11→21:59)
[2017-10-05] MEDS: HEPARIN PF for SUB-Q USE 5,000 UNIT/0.5 ML VIAL. SQ SCH (09:18)
[2017-10-05 11:43] VITALS: BP 131/76
--- NOTE | 2017-10-05 12:49 | PN ---
DATE: 10/04/2017 SUBJECTIVE: The patient is resting, slightly propped up, sleeping comfortably, in no apparent distress. She is maintaining her oxygen saturation at 92-95% on room air. She apparently has walked with the physical therapist, sat in a chair most of the morning, ate about 50% of her breakfast and only 25% of her lunch. No reported choking on these 2 occasions. PHYSICAL EXAMINATION: GENERAL: When I examined her; she looked well and was clearly in no apparent respiratory distress, pale, cachectic, but no jaundice or cyanosis. No lymphadenopathy, no thyromegaly. No jugular venous distension. No lower limb edema. VITAL SIGNS: Heart rate is 101, blood pressure 125/75, temperature was 97.9, respiratory rate was 18 and oxygen saturation was 95% on 2 liters of oxygen. HEAD, EYES, EARS, NOSE AND THROAT: Showed normocephalic, atraumatic. NECK: Supple. HEART: Showed normal first and second heart sounds with no gallop, rub or murmur. CHEST: Central trachea, equal bilateral chest expansion, air entry, sounds with crepitation bilaterally posteriorly. ABDOMEN: Slightly distended, soft, nontender. NEUROLOGIC: She is hard of hearing. Otherwise, her cranial nerves intact. She moves extremities without difficulty. She ambulates with a walker. Her intake over the last 24 hours was 719, no output was recorded. LABORATORY DATA: Her lab work this morning showed a white cell count of 4000, hemoglobin 12, hematocrit 35, MCV 97, platelet count of 126,000. Her chemistry showed serum sodium of 41, potassium 3.4, chloride 109, bicarbonate 29, anion gap of 3, BUN 14, creatinine 0.8, estimated GFR was 68 mL per minute. Her glucose was 77.6. Total bilirubin, AST, ALT, alkaline phosphatase were normal. Total protein was 5.1, albumin was 1.7. TSH was normal. ASSESSMENT: 1. New onset atrial fibrillation, rate much better controlled, now on metoprolol and digoxin. 2. Acute hypoxic respiratory failure secondary to healthcare-associated pneumonia, resolving. Her blood cultures are negative, so we did discontinue her vancomycin. She continues to be on Zosyn. In fact, she is now maintaining her oxygen saturation at 92% on room air while asleep. 3. Dysphagia. This seems to be recurrent with recurrent aspiration. 4. Hypertension, seems to be well controlled; chronic kidney disease, stable. 5. Seizure disorder, on Keppra. None documented while here back pain, pain in her right thigh; however, CT scan of the thoracic, lumbar spine as well right lower extremity showed no evidence of fracture. The patient continued to have diarrhea; however, her Clostridium difficile toxins are negative. PLAN: To continue with metoprolol and digoxin. She is obviously not a candidate for anticoagulation. We will continue with meropenem for the time being, continue with physical and occupational therapy and if she remains stable we can switch her to oral Augmentin and hopefully she can be discharged to a alf facility on Friday. DIANA CARTAGENA MD DR: QUENTIN/nato JOB#: [id number] / [id number]
[2017-10-05 16:21] VITALS: BP 142/81
[2017-10-05 19:15] VITALS: BP 142/93
--- NOTE | 2017-10-05 20:02 | PDOC ---
Exam Note: Jorden Note: Please also refer to the separate dictated note~for this date of service dictated separately.~Patient seen individually. Discussed the patient with Nursing staff reviewed the chart.~Reviewed interim history and current functioning. Reviewed vital signs,~Labs/ Radiology~and current medications noted below. Continue current treatment with the changes noted in the dictated addendum note Assessment: Vital Signs: Vital Signs Date Time Temp Pulse Resp B/P (MAP) Pulse Ox O2 Delivery O2 Flow Rate FiO2 10/05/17 17:56 88 142/81 10/05/17 17:56 16 96 Room Air 10/05/17 16:21 97.4 10/05/17 04:02 2.0 I&O Intake and Output 10/05/17 07:00 Intake Total 930 ml Balance 930 ml Intake Oral 730 ml IV Total 200 ml # Voids 5 # Bowel Movements 4 Labs: Laboratory Tests Test 10/05/17 08:18 White Blood Count 4.5 x10^3/uL (4.0-11.0) Red Blood Count 3.48 x10^6/uL (3.50-5.40) L Hemoglobin 11.3 g/dL (12.0-15.5) L Hematocrit 34.0 % (36.0-47.0) L Mean Corpuscular Volume 98 fL (79-100) Mean Corpuscular Hemoglobin 33 pg (25-35) Mean Corpuscular Hemoglobin Concent 33 g/dL (31-37) Red Cell Distribution Width 14.1 % (11.5-14.5) Platelet Count 165 x10^3/uL (140-400) Sodium Level 144 mmol/L (136-145) Potassium Level 3.9 mmol/L (3.5-5.1) Chloride Level 109 mmol/L (98-107) H Carbon Dioxide Level 28 mmol/L (21-32) Anion Gap 7 (6-14) Blood Urea Nitrogen 12 mg/dL (7-20) Creatinine 0.8 mg/dL (0.6-1.0) Estimated GFR (Cockcroft-Gault) 68.2 BUN/Creatinine Ratio 15 (6-20) Glucose Level 88 mg/dL (70-99) Calcium Level 8.1 mg/dL (8.5-10.1) L Total Bilirubin 0.3 mg/dL (0.2-1.0) Aspartate Amino Transferase (AST) 9 U/L (15-37) L Alanine Aminotransferase (ALT) 12 U/L (14-59) L Alkaline Phosphatase 110 U/L (46-116) Total Protein 5.5 g/dL (6.4-8.2) L Albumin 1.9 g/dL (3.4-5.0) L Albumin/Globulin Ratio 0.5 (1.0-1.7) L Current Medications: Meds: Current Medications Sodium Chloride 1,000 ml @ 100 mls/hr Q10H IV Last administered on 09/29/17 15:34; Start 09/28/17 at 11:15; Stop 09/30/17 at 03:58; Status DC Vancomycin HCl (Vanco Per Pharmacy) 1 each PRN DAILY PRN MC SEE COMMENTS Last administered on 09/30/17at 13:20; Start 09/28/17 at 11:15; Stop 10/01/17 at 07:55 ; Status DC Meropenem 1 gm/ Sodium Chloride 100 ml @ 200 mls/hr Q12H IV Last administered on 10/05/17at 11:35; Start 09/28/17 at 12:00; Stop 10/05/17 at 14:34; Status DC Acetaminophen/ Hydrocodone Bitart (Lortab 7.5/325) 1 tab Q6HRS PO Last administered on 10/05/17at 17:56; Start 09/28/17 at 12:00 Levetiracetam (Keppra) 250 mg BID PO Last administered on 10/05/17at 09:11; Start 09/28/17 at 12:00 Lactobacillus Rhamnosus (Culturelle) 1 cap BID PO Last administered on at 09:11; Start 09/28/17 at 21:00 Vancomycin HCl 1.5 gm/Sodium Chloride 500 ml @ 250 mls/hr 1X ONCE IV Last administered on 09/28/17at 13:43; Start 09/28/17 at 12:15; Stop 09/28/17 at 14:14 ; Status DC Vancomycin HCl (Vancomycin Trough Level) 1 each 1X ONCE MC Last administered on 09/30/17at 12:30; Start 09/30/17 at 12:30; Stop 09/30/17 at 12:31; Status DC Vancomycin HCl 750 mg/Sodium Chloride 250 ml @ 250 mls/hr Q24H IV Last administered on 09/30/17at 14:38; Start 09/29/17 at 13:00; Stop 09/30/17 at 17:39 ; Status DC Sodium Chloride (Normal Saline Flush) 3 ml PRN DAILY PRN IV AFTER MEDS AND BLOOD DRAWS; Start 09/28/17 at 12:30 Acetaminophen (Tylenol) 650 mg PRN Q6HRS PRN PO Headaches, Temp > 101.5F Last administered on 09/29/17at 08:23; Start 09/28/17 at 12:30 Docusate Sodium (Colace) 100 mg BID PO Last administered on 09/30/17at 08:30; Start 09/28/17 at 21:00; Stop 09/30/17 at 17:52; Status DC Calcium Carbonate/ Glycine (Tums) 500 mg PRN Q3HRS PRN PO HEARTBURN / GAS; Start 09/28/17 at 12:30 Info (Non-Icu Electrolyte Protocol) 1 ea CONT PRN PRN MC SEE COMMENTS; Start at 12:30 Heparin Sodium (Porcine) (Heparin Sq) 5,000 unit Q12HR SQ Last administered on 10/05/17at 09:18; Start 09/28/17 at 21:00; Stop 10/05/17 at 14:30; Status DC Prochlorperazine Edisylate (Compazine) 10 mg PRN Q4HRS PRN IV NAUSEA/VOMITING; Start 09/28/17 at 12:30 Ondansetron HCl (Zofran) 4 mg PRN Q8HRS PRN IV NAUSEA/VOMITING; Start 09/28/17 at 12:30; Stop 10/04/17 at 09:11; Status DC Diphenhydramine HCl (Benadryl) 25 mg PRN Q6HRS PRN PO SEE COMMENTS Last administered on 10/04/17at 21:26; Start 09/28/17 at 12:30 Diphenhydramine HCl (Benadryl) 25 mg PRN Q6HRS PRN IV SEE COMMENTS Last administered on 09/29/17at 21:52; Start 09/28/17 at 12:30 Potassium Chloride (KCl Oral Soln) 40 meq 1X ONCE FT Last administered on 09/28at 13:43; Start 09/28/17 at 13:00; Stop 09/28/17 at 13:01; Status DC Cyanocobalamin (Vitamin B-12) 1,000 mcg QMONTH IM ; Start 10/26/17 at 09:00 Cyclosporine (Restasis) 1 drop BID OU Last administered on 10/05/17at 09:11; Start 09/28/17 at 21:00 Propranolol HCl (Inderal) 20 mg DAILY PO Last administered on 10/01/17at 08:19; Start 09/29/17 at 09:00; Stop 10/01/17 at 10:04; Status DC Aspirin (Aspirin Enteric Coated) 81 mg BID PO Last administered on 10/05/17 09 :11; Start 09/28/17 at 21:00; Stop 10/05/17 at 14:30; Status DC Vitamin D (Vitamin D3) 50,000 unit WEEKLY PO Last administered on 10/03/17at 09: 21; Start 10/03/17 at 09:00 Fluticasone Propionate (Flonase) 2 spray DAILY NS Last administered on 09:11; Start 09/29/17 at 09:00 Cetirizine HCl (ZyrTEC) 10 mg DAILY PO Last administered on 10/05/17 09:11; Start 09/29/17 at 09:00 Melatonin 3 mg PRN QHS PRN PO INSOMNIA Last administered on 10/04/17at 21:25; Start 09/28/17 at 13:00 Polyethylene Glycol (miraLAX) 17 gm DAILY PO Last administered on 09/30/17at 08: 31; Start 09/29/17 at 09:00; Stop 09/30/17 at 17:52; Status DC Alprazolam (Xanax) 0.125 mg PRN QHS PRN PO ANXIETY / AGITATION Last administered on 09/29/17at 08:23; Start 09/28/17 at 12:30; Stop 09/29/17 at 15:24 ; Status DC Iohexol (Omnipaque 300 Mg/ml) 75 ml 1X ONCE IV ; Start 09/29/17 at 12:30; Stop 09/29/17 at 12:32; Status DC Alprazolam (Xanax) 0.125 mg PRN QID PRN PO ANXIETY / AGITATION Last administered on 10/02/17at 20:54; Start 09/29/17 at 15:30 Olanzapine (ZyPREXA ZYDIS) 1.25 mg PRN Q2HR PRN PO agitation/PSYCHOSIS Last administered on 09/30/17at 20:54; Start 09/29/17 at 19:45 Vancomycin HCl (Vancomycin Trough Level) 1 each 1X ONCE MC ; Start 10/02/17 at 12:30; Stop 10/02/17 at 12:30; Status DC Esmolol HCl 250 ml @ 0 mls/hr CONT PRN IV SEE I/O RECORD Last administered on at 09:40; Start 10/01/17 at 08:45 Metoprolol Tartrate (Lopressor) 12.5 mg Q6HRS PO Last administered on at 17:56; Start 10/01/17 at 12:00 Digoxin (Lanoxin) 500 mcg 1X ONCE IV Last administered on 10/02/17at 12:31; Start 10/02/17 at 10:15; Stop 10/02/17 at 10:16; Status DC Lidocaine (Xylocaine) 2 axel DAILY TP Last administered on 10/05/17at 09:00; Start 10/03/17 at 09:00 Ondansetron HCl (Zofran Odt) 4 mg PRN Q8HRS PRN PO NAUSEA/VOMITING; Start 10/04 at 09:15 Doxycycline Hyclate (Vibra-Tab) 100 mg BID PO ; Start 10/05/17 at 21:00 Active Scripts Active Reported Alphagan P (Brimonidine Tartrate) 5 Ml Drops 1 Drop OU BID Restasis (Cyclosporine) 1 Each Droperette 1 Drop EACHEYE BID Propranolol Hcl 40 Mg Tablet 1 Tab PO QHS Keppra (Levetiracetam) 500 Mg Tablet 250 Tab PO BID Flonase Allergy Relief (Fluticasone Propionate) 9.9 Ml [place].susp 2 Sprays NS DAILY Miralax (Polyethylene Glycol 3350) 17 Gm Powd.pack 17 Gm PO DAILY Melatonin 3 Mg Tab.rapdis 3 Mg PO HS PRN Loratadine 10 Mg Tablet 10 Mg PO DAILY Hydrocodone-Apap 7.5-325 (Hydrocodone Bit/Acetaminophen) 1 Each Tablet 1 Tab PO Q6HRS Vitamin D2 (Ergocalciferol (Vitamin D2)) 50,000 Unit Capsule 50,000 Unit PO WEEKLY Cyanocobalamin Injection (Cyanocobalamin (Vitamin B-12)) 1,000 Mcg/1 Ml Vial 1, 000 Mcg IM QMONTH Aspirin Ec (Aspirin) 81 Mg Tablet.dr 81 Mg PO BID Inderal La (Propranolol Hcl) 60 Mg Cap.sa.24h 20 Mg PO QAM I have reviewed the current psychotropics carefully including drug interactions. Risk benefit ratio favors no change other than as noted in my dictated progress note. 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
[2017-10-05] MEDS: DOXYCYCLINE HYCLATE 100 MG TABLET PO SCH (21:59)
[2017-10-06] MEDS: METOPROLOL TART IMMED RELEASE 25 MG TABLET PO SCH ×3 (00:14→11:28)
[2017-10-06] MEDS: HYDROcodone/APAP 7.5/325MG 1 TAB TABLET PO SCH ×3 (00:14→11:27)
[2017-10-06 02:15] VITALS: BP 164/85
--- NOTE | 2017-10-06 05:25 | PN ---
DATE: 10/05/2017 SUBJECTIVE: The patient is resting slightly propped up in her recliner, in no apparent respiratory distress. She unfortunately developed epistaxis from the left nostril. Her heparin was held; however, she was on aspirin twice a day; for that, we have discontinued. Unfortunately, she continued to keep picking at her nose and the bleeding restarts again. I advised her not to touch her nose anymore and hopefully by stopping heparin and aspirin, the bleeding stops. The nursing staff said that she did well in the mornings, eating her breakfast; however, she did well in her lunch and has been up and about because of that nosebleed. Her heart rate continued to be reasonably controlled. When I examined her, she looked well and was clearly in no apparent respiratory distress, pale, jaundice, cyanosis, or thyromegaly. No jugular venous distension. No lower limb edema. PHYSICAL EXAMINATION: VITAL SIGNS: Her heart rate was 96, blood pressure 131/76, temperature was 98, respiratory rate was 16, and oxygen saturation was 95% on room air. HEAD, EYES, EARS, NOSE AND THROAT: Normocephalic, atraumatic. NECK: Supple. HEART: Showed normal first and second heart sounds with no gallop, rub or murmur. CHEST: Clear to auscultation. No crepitation or rhonchi. ABDOMEN: Distended, soft, and nontender. NEUROLOGIC: She is awake, alert, continued to be confused at times. All her cranial nerves are intact. She moves all her extremities without difficulty. She ambulates with a walker. Her intake over the last 24 hours was 819, no output was recorded. LABORATORY DATA: As of this morning showed a white cell count 4500, hemoglobin 11, hematocrit 34, MCV 98, and platelet count of 165,000. Her chemistry showed a serum sodium 144, potassium 3.9, chloride 109, bicarbonate 28, anion gap of 7, BUN 12, creatinine 0.8, estimated GFR was 68 mL per minute. Her glucose 88, calcium was 8.1. Total bilirubin, AST, ALT, alkaline phosphatase were normal. Total protein was 5.5, albumin was 1.9. Her TSH is normal. ASSESSMENT: 1. New onset atrial fibrillation, rate much better controlled, now on metoprolol and digoxin. She is not a candidate for anticoagulation. 2. Acute hypoxic respiratory failure secondary to healthcare-associated pneumonia, resolving. Her blood culture is so far negative. I discontinued both vancomycin and meropenem. She is now on doxycycline 100 mg twice a day. Her oxygen saturation was 94% on room air. 3. Dysphagia, for which she is now on a mechanically soft diet with nectar thickened liquid. 4. Hypertension, seems to be well controlled. 5. Chronic kidney disease, stable. 6. Seizure disorder, on Keppra. 7. The patient did complain of back pain, pain in her right thigh; however, CT scan of the thoracic and lumbar spine as well as right lower extremity showed no evidence of any fracture. PLAN: To continue to hold her aspirin and heparin. I discontinued meropenem and start her on doxycycline and I am hoping that we can discharge her back to [facility] tomorrow. DIANA CARTAGENA MD DR: QUENTIN/nato JOB#: [id number] / [id number]
--- NOTE | 2017-10-06 06:37 | PN ---
DATE: 10/03/2017 This late entry 10/03/2017 covers elements not covered in my initial note 10/03/2017. SUBJECTIVE: The patient was seen on rounds evening of 10/03/2017. Overall, per nursing report, the patient continues to have some intermittent hallucinations, especially in the evening, but much improved. She has been less delusional regarding her having an affair. Clinically, medically, she seems to be improving gradually. REVIEW OF SYSTEMS: Shortness of breath. No CV, , GI, eye system symptoms on review. Reliability poor. MENTAL STATUS EXAM: Oriented to herself. Insight, judgment, recent and remote memory, attention, concentration, fund of knowledge poor, consistent with her diagnosis mentioned in my initial note. PLAN: No change from a psychiatric standpoint. We will minimize use of atypical antipsychotics. MAN Cornelius WHITLOCK MD DR: CRISTINA/nato JOB#: [id number] / [id number]
--- NOTE | 2017-10-06 06:41 | PN ---
DATE: 10/04/2017 This late entry 10/04/2017 covers elements not covered in my initial note 10/04/2017. Met with the patient in the evening. Per nursing report, the patient has intermittent psychotic symptoms, but again these are mainly in the evening. Did not seem to interfere much with her functioning. She is somewhat short of breath. REVIEW OF SYSTEMS: No CV, , GI system symptoms on review. MENTAL STATUS EXAM: Oriented to herself and at times situation. Insight, judgment, recent and remote memory, attention, concentration, fund of knowledge poor, consistent with her diagnosis mentioned in my initial note. PLAN: No change from a psychiatric standpoint. MAN Cornelius WHITLOCK MD DR: CRISTINA/nato JOB#: [id number] / [id number]
[2017-10-06 06:56] LABS: HEMATOCRIT 31.4 % (36.0-47.0); HEMOGLOBIN 10.8 g/dL (12.0-15.5); RED BLOOD COUNT 3.26 x10^6/uL (3.50-5.40); RED CELL DISTRIBUTION WIDTH 14.3 % (11.5-14.5); WHITE BLOOD COUNT 4.8 x10^3/uL (4.0-11.0)
[2017-10-06 07:12] LABS: CALCIUM 8.1 mg/dL (8.5-10.1); CREATININE 0.8 mg/dL (0.6-1.0); GFR 68.2; POTASSIUM 3.8 mmol/L (3.5-5.1)
[2017-10-06] MEDS: FLUTICASONE 50MCG/NASAL SPRAY 16GM BOTTLE. NS SCH (08:05)
[2017-10-06] MEDS: DOXYCYCLINE HYCLATE 100 MG TABLET PO SCH (08:06)
[2017-10-06] MEDS: cycloSPORINE 0.05% OPTH 1 DROP DROPERETTE OU SCH (08:06)
[2017-10-06] MEDS: levETIRAcetam 250 MG TABLET PO SCH (08:06)
[2017-10-06] MEDS: CETIRIZINE HCL 10 MG TABLET PO SCH (08:06)
[2017-10-06] MEDS: LACTOBACILLUS RHAMNOSUS GG 1 CAPSULE. PO SCH (08:06)
[2017-10-06] MEDS: LIDOCAINE 5% TOPICAL OINTMENT 35GM TUBE. TP SCH (08:07)
[2017-10-06 11:28] VITALS: BP 135/84
--- NOTE | 2017-10-06 11:53 | EKG ---
[address] [address] Test Date: 2017-10-01 Test Time: 08:28:57 Pat Name: VANESSA GORDILLO Department: Room: [facility] 1 Gender: F [employer]: : [id number] Requested By: PAMELA GANDHI Order Number: [id number] Reading MD: Measurements Intervals [place] Rate: P: IN: QRS: QRSD: T: QT: QTc: Interpretive Statements
--- NOTE | 2017-10-06 13:58 | PN ---
DATE: 10/05/2017 PSYCHIATRIC PROGRESS NOTE This note covers elements not covered in my initial note 10/05/2017. SUBJECTIVE: I met with the patient in the evening. Per nursing report, the patient had a difficult night last night. She was trying to climb over the bed rails, stating her was having an affair, quite confused, but this was much of it was at . REVIEW OF SYSTEMS: Ambulation impaired, some shortness of breath. No CV, , GI system symptoms on review. MENTAL STATUS EXAM: Oriented to herself. Insight, judgment, recent and remote memory, attention, concentration, fund of knowledge poor, consistent with her diagnoses. She is somewhat sedated. LABORATORY DATA: Reviewed. IMPRESSION: Major neurocognitive disorder, Alzheimer, vascular with delusion, depression. Rest unchanged. PLAN: Continue current psychotropics. Use Zyprexa p.r.n. rather than Xanax. We will reassess if Zyprexa needs to be on a scheduled basis. LEYDA WHITLOCK MD DR: CRISTINA/nato JOB#: [id number] / [id number]
--- NOTE | 2017-10-06 21:41 | DS ---
DATE OF DISCHARGE: 10/06/2017 HOSPITAL COURSE: The patient is an 86-year-old female patient who was basically transferred through [facility]. She continued to be confused. Her dementia is getting progressively worse and then in addition the patient sees a neurologist because she has a seizure last fall. She started having a cough for a few days prior to presentation to the house and while upstairs, she developed fever up to 103.9 and also became more lethargic, tachypneic, hypoxic, and therefore she was admitted to [address] [place] [address] and started on triple antibiotics for healthcare-associated pneumonia. She was doing well and then she developed a new onset of atrial fibrillation for which she was transferred to the ICU and was started on esmolol drip and eventually started on metoprolol and digoxin. Her heart rate became much better controlled. Her cultures remained negative, so we discontinued initially vancomycin and eventually the meropenem as she is allergic to PENICILLIN and eventually she was started on doxycycline 100 mg twice a day. PHYSICAL EXAMINATION: GENERAL: When I saw her today, she looked well and was clearly she has also episodes of epistaxis while in the ICU when we stopped her aspirin and Lovenox. When I examined her today, she looked well and was clearly in no apparent respiratory distress, pale, but no jaundice, cyanosis or thyromegaly. No jugular venous distention. No limb edema. VITAL SIGNS: Her heart rate was 103, blood pressure was 135/84, temperature was 98.6, respiratory rate was 18, and oxygen saturation was 94% on room air. HEAD, EYES, EARS, NOSE, AND THROAT: Showed normocephalic, atraumatic. NECK: Supple. HEART: Showed normal first and second heart sounds. No gallop, rub, or murmur. CHEST: Clear to auscultation. No crepitation or rhonchi. ABDOMEN: Distended, soft, nontender. NEUROLOGIC: She was demented, at times confused, but all the cranial nerves are intact. She moves extremities without difficulty. She ambulates with a walker. Her intake over the last 24 hours was 913, no output was recorded. Her lab work this morning showed that her white cell count was 4800, hemoglobin 11, hematocrit 31, MCV 96, and platelet count 258,000. Her chemistry showed a serum sodium 143, potassium 3.8, chloride 108, bicarbonate 29, anion gap of 6, BUN 12, creatinine 0.8, estimated GFR was 68 mL per minute. Her glucose 83, calcium was 8.1, magnesium 2. Total bilirubin, AST, ALT, alkaline phosphatase were normal. Total protein was 5.5, albumin was 1.9. TSH was normal at 2.056. Her blood culture and urine culture showed no growth after 5 days. DISCHARGE MEDICATIONS: She was discharged to [facility] to continue with cyanocobalamin 1000 mcg intramuscular once a month, doxycycline 100 mg twice a day for 3 days, Zofran 8 mg every 8 hours as needed, Lidoderm 2 patches to her back topically on for 12 hours and off for 12 hours, vitamin D 50,000 international units once a week, metoprolol tartrate 12.5 mg every 6 hours, olanzapine 1.25 mg every 2 hours, alprazolam 0.125 mg 4 times a day, cetirizine 10 mg once a day, Flonase 2 sprays to each nostril once a day, cyclosporine for Restasis 1 drop to both eyes twice a day, lactobacillus rhamnosus 1 capsule twice a day, melatonin 3 mg at bedtime, diphenhydramine 25 mg every 6 hours, calcium carbonate 500 mg every 4 hours, Tylenol 650 mg every 6 hours, Keppra 250 mg twice a day, and hydrocodone/APAP 7.5/325 one tablet every 6 hours. FINAL DISCHARGE DIAGNOSES: 1. New onset atrial fibrillation, rate much better controlled, now on metoprolol and digoxin. She is not a candidate for anticoagulation. 2. Acute hypoxic respiratory failure, much improved. She is now maintaining her oxygen saturation at 94% on room air. 3. Healthcare-associated pneumonia, treated with IV vancomycin and Zosyn, in fact IV meropenem and she is now to finish the course of treatment with doxycycline. 4. Dysphagia for which she is now on mechanically soft diet with nectar thickened liquid. 5. Hypertension, seemed to be well controlled. 6. Chronic kidney disease, stable. 7. Seizure disorder, on Keppra. 8. The patient did complain of back pain, pain in her right thigh; however, CT scan of the thoracic and lumbar spine as well as right lower extremity showed no evidence of any fracture. 9. Epistaxis, resolved. We stopped her Lovenox and aspirin. DIANA CARTAGENA MD DR: Tonya JOB#: [id number] / [id number]
[2017-10-26] MEDS ORDERED: CYANOCOBALAMIN (VITAMIN B-12) 1,000 MCG/ML VIAL IM SCH (09:00)
== END 2017-10-06 15:06 | DRG 871 ==
LOC: ICU 08:48 → 1 SOUTH 09-29 18:44 → ICU 10-01 09:48
PROVIDERS: ADMIT Family Medicine; ATTEND Family Medicine
DX: A41.9 Sepsis, unspecified organism (principal); J18.9 Pneumonia, unspecified organism; J96.01 Acute respiratory failure with hypoxia; J90 Pleural effusion, not elsewhere classified; I95.9 Hypotension, unspecified; D69.6 Thrombocytopenia, unspecified; I48.91 Unspecified atrial fibrillation; G93.89 Other specified disorders of brain; F05 Delirium due to known physiological condition; G30.9 Alzheimer's disease, unspecified; R13.10 Dysphagia, unspecified; G40.909 Epilepsy, unspecified, not intractable, without status epilepticus; F01.50 Vascular dementia, unspecified severity, without behavioral disturbance, psychotic disturbance, mood disturbance, and anxiety; F02.80 Dementia in other diseases classified elsewhere, unspecified severity, without behavioral disturbance, psychotic disturbance, mood disturbance, and anxiety; F32.9 Major depressive disorder, single episode, unspecified; Z88.0 Allergy status to penicillin; F41.9 Anxiety disorder, unspecified; M19.90 Unspecified osteoarthritis, unspecified site; M54.9 Dorsalgia, unspecified; F63.9 Impulse disorder, unspecified; I12.9 Hypertensive chronic kidney disease with stage 1 through stage 4 chronic kidney disease, or unspecified chronic kidney disease; N18.2 Chronic kidney disease, stage 2 (mild); R04.0 Epistaxis; Z96.642 Presence of left artificial hip joint; Y95 Nosocomial condition; Z86.73 Personal history of transient ischemic attack (TIA), and cerebral infarction without residual deficits; Z90.710 Acquired absence of both cervix and uterus; Z87.81 Personal history of (healed) traumatic fracture
CPT/HCPCS: 36415; 71045; 71275; 72128; 72131; 73700; 80048; 80053; 80202; 81001; 83605; 83735; 84443; 85007; 85025; 85027; 85651; 86140; 87040; 87086; 87324; 87641; 93005; 93306; J1160; J1200; J2185; J3370; J3490; J7040; J7050; Q0163; 92610; 97116; 97530; J7030

== ENCOUNTER 2017-12-16 18:40 | Inpatient (IN) | payer MEDICARE, OTHER ==
[~2017-12-16] VITALS: Ht 152.4 cm; Wt 56.7 kg
[~2017-12-16 18:40] MED LIST changes: +BRIM5DRO3 OU
--- NOTE | 2017-12-16 18:46 | ED.ADGEN ---
Past History Past Medical History: CVA, Dementia, Hypertension, Seizure, Other Past Surgical History: Appendectomy, Cholecystectomy, Hip Replacement, Hysterectomy Smoking: Non-smoker Alcohol Use: None Drug Use: None Adult General Chief Complaint Chief Complaint .." I am here.. I am okay..." HPI HPI Patient is a age year old 87 who presents with female with above hx and complaints. Patient sent to the emergency department for evaluation medically prior to [facility] admission and evaluation for mental status change, agitation, behavior changes, and insomnia. Patient a resident of [place]. Patient last labs per computer records show blood work on 10/25/17. Patient did have history of pneumonia with previous [facility] admission for dementia and agitation issues. Pt. has been a resident of [place] since 10/04-, then 08/05/2017 to present. Pt. had extensive medical history with decline in status since hip fracture and repair this past year. Pt. normally follows with Dr. Gifford. Patient previously admitted to [facility] for similar type agitation concerns. See Dr. Patricio dictation for last admission to hospital- 10/06/2017. Review of Systems Review of Systems Constitutional: Denies fever or chills [] Eyes: Denies change in visual acuity, redness, or eye pain [] HENT: Denies nasal congestion or sore throat [] Respiratory: Denies cough or shortness of breath [] Cardiovascular: No additional information not addressed in HPI [] GI: Denies abdominal pain, nausea, vomiting, bloody stools or diarrhea [] : Denies dysuria or hematuria [] Musculoskeletal: Complaints of leg pain- chronic Integument: Denies rash or skin lesions [] Neurologic: Denies headache, focal weakness or sensory changes [] Endocrine: Denies polyuria or polydipsia [] All other systems were reviewed and found to be within normal limits, except as documented in this note. Family History Family History Noncontributory Current Medications Current Medications Current Medications Medications (Trade) Dose Ordered Sig/Aimee Start Time Stop Time Status Last Admin Dose Admin Furosemide (Lasix) 40 mg 1X ONCE 12/16/17 20:00 12/16/17 20:01 DC 12/16/17 20:04 40 MG See nursing for home medications Allergies Allergies Allergies Coded Allergies Type Severity Reaction Last Updated Verified Penicillins Allergy Intermediate rash 11/24/13 No aspirin Allergy Intermediate 12/16/17 Yes ibuprofen Allergy Intermediate 12/16/17 Yes Physical Exam Physical Exam Constitutional: , no acute distress, non-toxic appearance. [] HENT: Normocephalic, atraumatic, bilateral external ears normal, oropharynx moist, no oral exudates, nose normal. [] Eyes: PERRLA, EOMI, conjunctiva normal, no discharge. [] Neck: Normal range of motion, no tenderness, supple, no stridor. [] Cardiovascular: Tachycardia Heart , regular rate regular rhythm, no murmur , PMI to the left Lungs & Thorax: Bilateral breath sounds crackles auscultation [] Abdomen: Bowel sounds normal, soft, no tenderness, no masses, no pulsatile masses. [] Skin: Warm, dry, no erythema, no rash. Poor turgor Back: No tenderness, no CVA tenderness. [] Extremities: No tenderness, no cyanosis, no clubbing, ROM intact, no edema. [] Left hip and leg scar Neurologic: Alert and oriented X 3, no gross motor or sensory function changes from base line per daughter at bedside, no gross focal deficits from baseline. Psychologic: Affect anxious, judgement limited. confused, mood depressed. Current Patient Data Vital Signs Vital Signs Date Time Temp Pulse Resp B/P (MAP) Pulse Ox O2 Delivery O2 Flow Rate FiO2 12/16/17 20:09 99 18 114/80 (91) 100 Room Air 12/16/17 18:54 98.3 Lab Results Laboratory Tests Test 12/16/17 19:01 12/16/17 19:58 White Blood Count 5.0 x10^3/uL (4.0-11.0) Red Blood Count 3.10 x10^6/uL (3.50-5.40) L Hemoglobin 10.1 g/dL (12.0-15.5) L Hematocrit 30.9 % (36.0-47.0) L Mean Corpuscular Volume 100 fL (79-100) Mean Corpuscular Hemoglobin 33 pg (25-35) Mean Corpuscular Hemoglobin Concent 33 g/dL (31-37) Red Cell Distribution Width 16.0 % (11.5-14.5) H Platelet Count 163 x10^3/uL (140-400) Neutrophils (%) (Auto) 62 % (31-73) Lymphocytes (%) (Auto) 26 % (24-48) Monocytes (%) (Auto) 10 % (0-9) H Eosinophils (%) (Auto) 2 % (0-3) Basophils (%) (Auto) 1 % (0-3) Neutrophils # (Auto) 3.1 x10^3uL (1.8-7.7) Lymphocytes # (Auto) 1.3 x10^3/uL (1.0-4.8) Monocytes # (Auto) 0.5 x10^3/uL (0.0-1.1) Eosinophils # (Auto) 0.1 x10^3/uL (0.0-0.7) Basophils # (Auto) 0.0 x10^3/uL (0.0-0.2) Erythrocyte Sedimentation Rate 21 (0-25) Prothrombin Time 11.5 SEC (9.4-11.4) H Prothrombin Time INR 1.1 (0.9-1.1) PTT 25 SEC (23-33) Sodium Level 140 mmol/L (136-145) Potassium Level 4.7 mmol/L (3.5-5.1) Chloride Level 108 mmol/L (98-107) H Carbon Dioxide Level 23 mmol/L (21-32) Anion Gap 9 (6-14) Blood Urea Nitrogen 21 mg/dL (7-20) H Creatinine 1.3 mg/dL (0.6-1.0) H Estimated GFR (Cockcroft-Gault) 38.8 Glucose Level 127 mg/dL (70-99) H Calcium Level 8.8 mg/dL (8.5-10.1) Magnesium Level 1.9 mg/dL (1.8-2.4) Creatine Kinase 61 U/L (26-192) Creatine Kinase MB (Mass) 1.3 ng/mL (0.0-3.6) Creatine Kinase MB Relative Index 2.1 % (0-4) Troponin I Quantitative < 0.017 ng/mL (0-0.055) NH-Hfs-W-Type Natriuretic Peptide 4284 pg/mL (0-449) H Urine Collection Type U cath Urine Color Yellow Urine Clarity Clear Urine pH 5.5 Urine Specific [place] >=1.030 Urine Protein 30 mg/dl (NEG-TRACE) Urine Glucose (UA) Neg mg/dL (NEG) Urine Ketones (Stick) Neg mg/dL (NEG) Urine Blood Neg (NEG) Urine Nitrite Neg (NEG) Urine Bilirubin Neg (NEG) Urine Urobilinogen Dipstick 0.2 mg/dL (0.2 mg/dL) Urine Leukocyte Esterase Neg (NEG) Urine RBC 0 /HPF (0-2) Urine WBC Rare /HPF (0-4) Urine Squamous Epithelial Cells None /LPF Urine Amorphous Sediment Present /HPF Urine Bacteria 0 /HPF (0-FEW) Urine Hyaline Casts Occ /HPF Urine Mucus Slight /LPF Urine Opiates Screen Pos (NEG) Urine Methadone Screen Neg (NEG) Urine Barbiturates Neg (NEG) Urine Phencyclidine Screen Neg (NEG) Urine Amphetamine/Methamphetamine Neg (NEG) Urine Benzodiazepines Screen Pos (NEG) Urine Cocaine Screen Neg (NEG) Urine Cannabinoids Screen Pos (NEG) Urine Ethyl Alcohol Neg (NEG) EKG EKG My interpretation of EKG shows a ventricular rhythm without 105. He is eating regular rhythm. Consistent with A. fib.[] Radiology/Procedures Radiology/Procedures My interpretation of chest x-ray shows[] cardiomegaly. Moderate cephalization. Bilateral pleural effusions and blunting of the closed phrenic angle. Degenerative joint changes. Clips upper abdomen . I interpretation CT of head shows findings of multiple old CVAs. No obvious shift, mass, edema, bleed, or fracture. Similar to prior CT of head on 2017. Course & Med Decision Making Course & Med Decision Making Pertinent Labs and Imaging studies reviewed. (See chart for details) Discussed presentation, testing and treatment plan with Dr. Patricio- for medical issues. Will follow on [facility]. Pt. admitted to Dr. Marie [] Final Impression Final Impression 1. Mental Status changes 2. Dementia[] 3. History of A. fib 4. History of healthcare associated pneumonia 5. History of dysphagia 6. History of chronic renal insufficiency/disease 7. History of seizure disorder-on Keppra 8. History of chronic pain back and hips 9. History of epistaxis on Lovenox and aspirin 10. Dragon Disclaimer Dragon Disclaimer This electronic medical record was generated, in whole or in part, using a voice recognition dictation system. WILLARD POLLARD MD Dec 16, 2017 18:46
[2017-12-16 19:19] LABS: BASO % 1 % (0-3); EOS # 0.1 x10^3/uL (0.0-0.7); EOS % 2 % (0-3); HEMATOCRIT 30.9 % (36.0-47.0); HEMOGLOBIN 10.1 g/dL (12.0-15.5); LYMPH # 1.3 x10^3/uL (1.0-4.8); LYMPH % 26 % (24-48); MEAN CORPUSCULAR HEMOGLOBIN 33 pg (25-35); MEAN CORPUSCULAR HGB CONC 33 g/dL (31-37); MEAN CORPUSCULAR VOLUME 100 fL (79-100); MONO # 0.5 x10^3/uL (0.0-1.1); MONO % 10 % (0-9); NEUT # 3.1 x10^3uL (1.8-7.7); NEUT % 62 % (31-73); PLATELET COUNT 163 x10^3/uL (140-400)
[2017-12-16 19:37] LABS: CALCIUM 8.8 mg/dL (8.5-10.1); CREATININE 1.3 mg/dL (0.6-1.0); GFR 38.8; MAGNESIUM 1.9 mg/dL (1.8-2.4); POTASSIUM 4.7 mmol/L (3.5-5.1)
--- NOTE | 2017-12-16 19:56 | RAD ---
EXAM: CT HEAD WITHOUT CONTRAST. HISTORY: Altered mental status. TECHNIQUE: Computed tomography of the head was performed without intravenous contrast. COMPARISON: September 27, 2017. FINDINGS: There is no intracranial hemorrhage. There are multiple chronic infarcts within the right occipital lobe, both cerebellar hemispheres, the left parietal lobe, and right frontal lobe. There is moderate to severe chronic microangiopathic white matter change elsewhere. Prominence of the lateral ventricles and hemispheric sulci indicates moderate atrophy. The visualized paranasal sinuses appear clear. There are changes of bilateral cataract surgery. 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 The temporal bones are unremarkable. The calvarium reveals no suspicious lesions. IMPRESSION: 1. No acute intracranial findings. 2. Multiple chronic infarcts and moderate to severe chronic microangiopathic white matter change. Moderate atrophy. *One or more of the following individualized dose reduction techniques were utilized for this examination: 1. Automated exposure control. 2. Adjustment of the mA and/or kV according to patient size. 3. Use of iterative reconstruction technique. Electronically signed by: Salvador Garcia MD (12/16/2017 7:52 PM) [facility]
[2017-12-16] MEDS ORDERED: FUROSEMIDE 40 MG TABLET PO ONE (20:00)
[2017-12-16 20:20] LABS: BARBITURATES NEG (NEG); BENZODIAZEPINES POS (NEG); CANNABINOIDS POS (NEG); COCAINE NEG (NEG); METHADONE NEG (NEG); OPIATES POS (NEG); PHENCYCLIDINE NEG (NEG)
[2017-12-16 20:21] LABS: AMPHETAMINE/METHAMPHETAMINE NEG (NEG)
[2017-12-16 20:22] LABS: SEDIMENTATION RATE 21 (0-25)
[2017-12-16 20:23] LABS: CLARITY,URINE CLEAR; COLOR,URINE YELLOW; GLUCOSE,URINE NEG (NEG)
[2017-12-16 20:24] LABS: AMORPHOUS SEDIMENT,UR PRESENT /HPF; BACTERIA,URINE 0 /HPF (0-FEW); BILIRUBIN,URINE NEG (NEG); HYALINE CASTS, URINE OCC /HPF; NITRITE,URINE NEG (NEG); RBC,URINE 0 /HPF (0-2); UROBILINOGEN,URINE 0.2 mg/dL (0.2 mg/dL); WBC,URINE RARE /HPF (0-4)
[2017-12-16] MEDS ORDERED: ACETAMINOPHEN 325 MG TABLET PO PRN (21:00)
[2017-12-16] MEDS ORDERED: METHYL SALICYLATE/MENTHOL TOPICAL OINTMENT 29GM TUBE. TP PRN (21:00)
[2017-12-16] MEDS ORDERED: MAGNESIUM HYDROXIDE 2,400 MG/30 ML ORAL.SUSP. PO PRN (21:00)
[2017-12-16] MEDS ORDERED: MAG HYDROX/AL HYDROX/SIMETH 30 ML ORAL.SUSP PO PRN (21:00)
[2017-12-16 21:20] LABS: ALBUMIN 2.8 g/dL (3.4-5.0); DIRECT BILIRUBIN 0.2 mg/dL (0.0-0.2); TOTAL BILIRUBIN 0.4 mg/dL (0.2-1.0); TOTAL PROTEIN 6.4 g/dL (6.4-8.2)
--- NOTE | 2017-12-16 22:27 | RAD ---
EXAM: CHEST 2 VIEWS. HISTORY: Weakness, pneumonia. COMPARISON: October 02, 2017. FINDINGS: Frontal and lateral views of the chest are obtained. Hyperinflation is consistent with chronic obstructive pulmonary disease. There are small bilateral pleural effusions with associated atelectasis or infiltrate. There is no pneumothorax. The heart is moderately enlarged. There are calcifications of the mitral valve annulus. Cholecystectomy clips are noted. IMPRESSION: 1. Small bilateral pleural effusions with associated atelectasis or infiltrate. 2. Chronic obstructive pulmonary disease. 3. Moderate cardiomegaly. Electronically signed by: Salvador Garcia MD (12/16/2017 10:24 PM) [facility]
[2017-12-16 23:29] VITALS: BP 122/68
[2017-12-17] MEDS ORDERED: LIDO700A39 TP (00:29)
[2017-12-17] MEDS ORDERED: METO25TA4 PO (00:29)
[2017-12-17] MEDS ORDERED: VIT1CAPS12 PO (00:29)
[2017-12-17] MEDS ORDERED: ACET325T9 PO (00:29)
[2017-12-17] MEDS ORDERED: ALPR0.25 PO (00:29)
[2017-12-17] MEDS ORDERED: CALC200T3 PO (00:29)
[2017-12-17] MEDS ORDERED: DIPH25CA58 PO (00:29)
[2017-12-17] MEDS ORDERED: MIRT15TA PO (00:29)
[2017-12-17] MEDS ORDERED: DEXT15DR5 EACHEYE (00:29)
[2017-12-17] MEDS ORDERED: QUET25TA5 PO (00:29)
[2017-12-17] MEDS ORDERED: ONDA4TAB12 PO (00:29)
[2017-12-17] MEDS ORDERED: ACETAMINOPHEN 325 MG TABLET PO PRN ×2 (00:30)
[2017-12-17] MEDS ORDERED: POLYVINYL ALCOHOL 1.4% OPHTH SOLUTION 15ML BOTTLE. OU PRN (00:30)
[2017-12-17] MEDS ORDERED: CALCIUM CARBONATE 500 MG TAB.CHEW PO PRN (00:30)
[2017-12-17] MEDS ORDERED: ONDANSETRON ODT 4 MG TAB.RAPDIS PO PRN (00:30)
[2017-12-17] MEDS ORDERED: diphenhydrAMINE HCL 25 MG CAPSULE PO PRN (00:30)
[2017-12-17] MEDS ORDERED: ALPRAZolam 0.25 MG TABLET PO PRN (00:30)
[2017-12-17] MEDS: FUROSEMIDE 40 MG TABLET PO SCH (05:34)
[2017-12-17] MEDS: HYDROcodone/APAP 7.5/325MG 1 TAB TABLET PO SCH ×4 (05:34→23:55)
[2017-12-17 05:45] VITALS: BP 120/76
--- NOTE | 2017-12-17 06:37 | EKG ---
[address] [address] Test Date: 2017-12-16 Test Time: 19:14:24 Pat Name: VANESSA GORDILLO Department: Room: Gender: F Webbing Weaver: : 1930 Requested By: WILLARD POLLARD Order Number: [id number] Reading MD: Measurements Intervals [place] Rate: 105 P: MN: QRS: 0 QRSD: 74 T: 8 QT: 322 QTc: 429 Interpretive Statements IRREGULAR RHYTHM, NO P-WAVE FOUND LEFTWARD AXIS NO SPECIFIC ECG ABNORMALITIES RI6.01 Unconfirmed report No previous ECG available for comparison
[2017-12-17 07:16] LABS: BASO % 1 % (0-3); EOS # 0.1 x10^3/uL (0.0-0.7); EOS % 2 % (0-3); HEMATOCRIT 33.1 % (36.0-47.0); HEMOGLOBIN 10.9 g/dL (12.0-15.5); LYMPH # 1.3 x10^3/uL (1.0-4.8); LYMPH % 22 % (24-48); MEAN CORPUSCULAR HEMOGLOBIN 33 pg (25-35); MEAN CORPUSCULAR HGB CONC 33 g/dL (31-37); MEAN CORPUSCULAR VOLUME 99 fL (79-100); MONO # 0.7 x10^3/uL (0.0-1.1); MONO % 11 % (0-9); NEUT # 3.8 x10^3uL (1.8-7.7); NEUT % 64 % (31-73); PLATELET COUNT 178 x10^3/uL (140-400); RED BLOOD COUNT 3.33 x10^6/uL (3.50-5.40); WHITE BLOOD COUNT 5.9 x10^3/uL (4.0-11.0)
[2017-12-17 07:23] LABS: CREATININE 1.2 mg/dL (0.6-1.0); GFR 42.6; POTASSIUM 4.3 mmol/L (3.5-5.1)
[2017-12-17] MEDS ORDERED: MELATONIN 3 MG TABLET PO PRN (07:45)
[2017-12-17] MEDS ORDERED: CYANOCOBALAMIN (VITAMIN B-12) 1,000 MCG/ML VIAL IM SCH (09:00)
[2017-12-17] MEDS: POLYETHYLENE GLYCOL 3350 17 GM PACKET. PO SCH (09:26)
[2017-12-17] MEDS: QUEtiapine 25 MG TABLET. PO SCH ×2 (09:27→20:17)
[2017-12-17] MEDS: levETIRAcetam 250 MG TABLET PO SCH ×2 (09:27→20:16)
[2017-12-17] MEDS: MULTIVITAMIN I-VITE TABLET. PO SCH ×2 (09:27→20:16)
[2017-12-17] MEDS: LIDOCAINE (700MG/PATCH) PATCH. TD SCH (09:27)
[2017-12-17] MEDS: METOPROLOL TART IMMED RELEASE 25 MG TABLET PO SCH ×4 (09:28→20:17)
[2017-12-17] MEDS: cycloSPORINE 0.05% OPTH 1 DROP DROPERETTE OU SCH ×2 (09:29→20:16)
[2017-12-17] MEDS: CHOLECALCIFEROL (VITAMIN D3) 50,000 UNIT CAPSULE PO SCH (09:29)
[2017-12-17 11:54] VITALS: BP 111/78
[2017-12-17 14:52] LABS: THYROID STIM HORMONE (TSH) 1.993 uIU/mL (0.358-3.740)
[2017-12-17 15:54] VITALS: BP 92/64
[2017-12-17] MEDS: MIRTAZAPINE 7.5 MG TABLET. PO SCH (20:18)
--- NOTE | 2017-12-17 20:54 | PDOC ---
Exam Note: Jorden Note: Please also refer to the separate dictated note~for this date of service dictated separately.~Patient seen individually. Discussed the patient with Nursing staff reviewed the chart.~Reviewed interim history and current functioning. Reviewed vital signs,~Labs/ Radiology~and current medications noted below. Continue current treatment with the changes noted in the dictated addendum note Assessment: Vital Signs: Vital Signs Date Time Temp Pulse Resp B/P (MAP) Pulse Ox O2 Delivery O2 Flow Rate FiO2 12/17/17 20:17 63 92/64 12/17/17 15:54 97.2 18 94 12/16/17 23:29 Room Air I&O Intake and Output 12/17/17 07:00 Intake Total 0 ml Balance 0 ml Intake Oral 0 ml Labs: Laboratory Tests Test 12/17/17 06:57 White Blood Count 5.9 x10^3/uL (4.0-11.0) Red Blood Count 3.33 x10^6/uL (3.50-5.40) L Hemoglobin 10.9 g/dL (12.0-15.5) L Hematocrit 33.1 % (36.0-47.0) L Mean Corpuscular Volume 99 fL (79-100) Mean Corpuscular Hemoglobin 33 pg (25-35) Mean Corpuscular Hemoglobin Concent 33 g/dL (31-37) Red Cell Distribution Width 16.0 % (11.5-14.5) H Platelet Count 178 x10^3/uL (140-400) Neutrophils (%) (Auto) 64 % (31-73) Lymphocytes (%) (Auto) 22 % (24-48) L Monocytes (%) (Auto) 11 % (0-9) H Eosinophils (%) (Auto) 2 % (0-3) Basophils (%) (Auto) 1 % (0-3) Neutrophils # (Auto) 3.8 x10^3uL (1.8-7.7) Lymphocytes # (Auto) 1.3 x10^3/uL (1.0-4.8) Monocytes # (Auto) 0.7 x10^3/uL (0.0-1.1) Eosinophils # (Auto) 0.1 x10^3/uL (0.0-0.7) Basophils # (Auto) 0.0 x10^3/uL (0.0-0.2) Sodium Level 139 mmol/L (136-145) Potassium Level 4.3 mmol/L (3.5-5.1) Chloride Level 105 mmol/L (98-107) Carbon Dioxide Level 27 mmol/L (21-32) Anion Gap 7 (6-14) Blood Urea Nitrogen 20 mg/dL (7-20) Creatinine 1.2 mg/dL (0.6-1.0) H Estimated GFR (Cockcroft-Gault) 42.6 Glucose Level 90 mg/dL (70-99) Calcium Level 9.0 mg/dL (8.5-10.1) Current Medications: Meds: Current Medications Furosemide (Lasix) 40 mg 1X ONCE PO Last administered on 12/16/17at 20:04; Start 12/16/17 at 20:00; Stop 12/16/17 at 20:01; Status DC Furosemide (Lasix) 40 mg DAILY06 PO Last administered on 12/17/17at 05:34; Start 12/17/17 at 06:00 Acetaminophen (Tylenol) 650 mg PRN Q6HRS PRN PO PAIN / TEMP; Start 12/16/17 at 21:00; Status Cancel Multi-Ingredient Ointment (Analgesic [place]) 1 axel PRN QID PRN TP MUSCLE PAIN; Start 12/16/17 at 21:00 Al Hydroxide/Mg Hydroxide (Mylanta Plus Xs) 15 ml PRN AFTMEALHC PRN PO DYSPEPSIA; Start 12/16/17 at 21:00 Magnesium Hydroxide (Milk Of Magnesia) 2,400 mg PRN QHS PRN PO CONSTIPATION; Start 12/16/17 at 21:00 Cyanocobalamin (Vitamin B-12) 1,000 mcg QMONTH IM Last administered on at 09:29; Start 12/17/17 at 09:00 Cyclosporine (Restasis) 1 drop BID OU Last administered on 12/17/17 20:16; Start 12/17/17 at 09:00 Acetaminophen/ Hydrocodone Bitart (Lortab 7.5/325) 1 tab Q6HRS PO Last administered on 12/17/17at 18:48; Start 12/17/17 at 06:00 Vitamin D (Vitamin D3) 50,000 unit WEEKLY PO Last administered on 12/17/17at 09: 29; Start 12/17/17 at 09:00 Levetiracetam (Keppra) 250 mg BID PO Last administered on 12/17/17 20:16; Start 12/17/17 at 09:00 Melatonin 3 mg PRN QHS PRN PO INSOMNIA; Start 12/17/17 at 07:45 Polyethylene Glycol (miraLAX) 17 gm DAILY PO Last administered on 12/17/17 09: 26; Start 12/17/17 at 09:00 Acetaminophen (Tylenol) 325 mg PRN Q6HRS PRN PO PAIN Last administered on at 16:39; Start 12/17/17 at 00:30 Acetaminophen (Tylenol) 650 mg PRN Q6HRS PRN PO PAIN; Start 12/17/17 at 00:30 Calcium Carbonate/ Glycine (Tums) 500 mg PRN Q3HRS PRN PO HEARTBURN / GAS; Start 12/17/17 at 00:30 Diphenhydramine HCl (Benadryl) 25 mg PRN Q6HRS PRN PO EXTRAPYRAMIDAL SIDE EFFECTS; Start 12/17/17 at 00:30; Stop 12/17/17 at 17:03; Status DC Metoprolol Tartrate (Lopressor) 12.5 mg QID PO Last administered on 12/17/17at 16 :41; Start 12/17/17 at 09:00 Ondansetron HCl (Zofran Odt) 4 mg PRN Q8HRS PRN PO NAUSEA; Start 12/17/17 at 00: 30 Alprazolam (Xanax) 0.25 mg PRN Q4HRS PRN PO ANXIETY / AGITATION; Start 12/17/17 at 00:30 Artificial Tears (Artificial Tears) 1 drop PRN QID PRN OU dry eyes ; Start 12/17 at 00:30 Lidocaine (Lidoderm) 2 patch DAILY TD Last administered on 12/17/17at 09:27; Start 12/17/17 at 09:00 Mirtazapine (Remeron) 7.5 mg QHS PO Last administered on 12/17/17 20:18; Start 12/17/17 at 21:00 Quetiapine Fumarate (SEROquel) 12.5 mg BID PO Last administered on 8/1/18at 20: 17; Start 12/17/17 at 09:00 Multivitamins/ Minerals (I-Sandra) 1 tab BID PO Last administered on 12/17/17at 20: 16; Start 12/17/17 at 09:00 Sertraline HCl (Zoloft) 25 mg DAILY PO ; Start 12/18/17 at 09:00 Active Scripts Active Reported Xanax (Alprazolam) 0.25 Mg Tablet 0.25 Mg PO PRN Q4HRS PRN Artificial Tears Eye Drops (Dextran 70/Hypromellose) 15 Ml Drops 1 Drop EACHEYE PRN QID PRN Remeron (Mirtazapine) 15 Mg Tablet 7.5 Mg PO HS Seroquel (Quetiapine Fumarate) 25 Mg Tablet 12.5 Mg PO BID Metoprolol Tartrate 25 Mg Tablet 12.5 Mg PO QID Preservision Areds Softgel (Vit A/Vit C/Vit E/Zinc/Copper) 1 Each Capsule 1 Each PO BID Ondansetron Odt (Ondansetron) 4 Mg Tab.rapdis 4 Mg PO PRN Q8HRS PRN Tylenol (Acetaminophen) 325 Mg Tablet 325 Mg PO PRN Q6HRS PRN Tums (Calcium Carbonate) 200 Mg Tab.chew 500 Mg PO PRN Q3HRS PRN Benadryl (Diphenhydramine Hcl) 25 Mg Capsule 25 Mg PO PRN Q6HRS PRN Lidocaine 1 Each Adh..patch 2 Each TP DAILY two patches: one to thoracic region one to lower back. Remove after 12 hours. Tylenol (Acetaminophen) 325 Mg Tablet 650 Mg PO PRN Q6HRS PRN Restasis (Cyclosporine) 1 Each Droperette 1 Drop EACHEYE BID Keppra (Levetiracetam) 500 Mg Tablet 250 Tab PO BID Miralax (Polyethylene Glycol 3350) 17 Gm Powd.pack 17 Gm PO DAILY Melatonin 3 Mg Tab.rapdis 3 Mg PO HS PRN Hydrocodone-Apap 7.5-325 (Hydrocodone Bit/Acetaminophen) 1 Each Tablet 1 Tab PO Q6HRS Vitamin D2 (Ergocalciferol (Vitamin D2)) 50,000 Unit Capsule 50,000 Unit PO WEEKLY Cyanocobalamin Injection (Cyanocobalamin (Vitamin B-12)) 1,000 Mcg/1 Ml Vial 1, 000 Mcg IM QMONTH I have reviewed the current psychotropics carefully including drug interactions. Risk benefit ratio favors no change other than as noted in my dictated progress note. Diagnosis: Problems: (1) Anxiety disorder (2) Impulse control disorder (3) Dementia, vascular, with depression (4) Dementia, vascular, with delusions (5) HAP (hospital-acquired pneumonia) (6) Dementia in Alzheimer's disease with depression (7) Dementia in Alzheimer's disease with delusions (8) Acute and chronic respiratory failure with hypoxia (9) Aspiration pneumonia (10) Altered mental status LEYDA WHITLOCK MD Dec 17, 2017 20:54
[2017-12-17 21:08] LABS: THYROXINE 5.5 ug/dL (4.5-12.0)
--- NOTE | 2017-12-18 03:29 | CONS ---
DATE OF CONSULTATION: 12/17/2017 REASON FOR CONSULTATION: Medical management. HISTORY OF PRESENT ILLNESS: The patient is an 87-year-old female patient, resident at [facility] who was brought to the Emergency Room and subsequently admitted to [facility] on account of increasing restlessness, agitation. The patient has been exit seeking, demanding to go home, refusing to eat and her behavior has been escalating recently such that we did consult Dr. Marie, who recommended to admit her to [facility] for inpatient psychiatric stabilization. PAST MEDICAL HISTORY: Significant for hypertension, chronic renal failure, osteoarthritis, thrombocytopenia. PAST SURGICAL HISTORY: Significant for left total hip arthroplasty, hysterectomy, gastric surgery. FAMILY HISTORY: Noncontributory. SOCIAL HISTORY: She currently resides at [facility]. She does not smoke, drink alcohol or use recreational drugs. Her daughter is her DPOA. ALLERGIES: She is allergic to PENICILLIN, ASPIRIN AND IBUPROFEN. MEDICATIONS: She is currently on following medications: She is on diphenhydramine 25 mg at 0600 hours, metoprolol tartrate 12.5 mg 4 times a day, hydrocodone/APAP 7.5/325 one tablet every 6 hours, Tylenol 650 mg every 6 hours, Keppra 250 mg p.o. b.i.d., mirtazapine 7.5 mg at bedtime, Seroquel 12.5 mg twice a day, alprazolam 0.25 mg every 4 hours as needed, cyclosporine or Restasis 1 drop to both eyes twice a day, artificial tears 1 drop to both eyes 4 times a day, calcium carbonate 500 mg every 3 hours as needed, polyethylene glycol 17 grams daily p.r.n. for constipation, ondansetron 4 mg every 8 hours as needed for nausea and vomiting, Lidoderm patch 2 patches applied topically to lower back, cyanocobalamin 1000 mcg/mL intramuscularly once a month, ergocalciferol 50,000 international units once a week, she is on melatonin 3 mg at bedtime, PreserVision AREDS soft gel one twice a day. REVIEW OF SYSTEMS: As per history of present illness. PHYSICAL EXAMINATION GENERAL: When I saw her, she was pale, cachectic, but no jaundice or cyanosis. No lymphadenopathy, no thyromegaly. No jugular venous distension. No lower limb edema. VITAL SIGNS: Her heart rate was 100, blood pressure was 111/78, temperature was 97, respiratory rate 20, and oxygen saturation was 100% on room air. HEAD, EYES, EARS, NOSE, AND THROAT: Showed normocephalic, atraumatic. NECK: Supple. HEART: Showed normal first and second heart sounds with no gallop, rub or murmur. CHEST: Clear to auscultation. No crepitation or rhonchi. ABDOMEN: Distended, soft, nontender. NEUROLOGIC: She is demented, waiting for the bus to go home; however, all her cranial nerves are intact. She moves extremities without difficulty. She ambulates with a walker. She did complain of pain in her left hip and requested to be wheeled in her wheelchair down to the dining room. LABORATORY DATA: Showed a white cell count of 5900, hemoglobin 11, hematocrit 33, MCV 99, and platelet count of 178,000 with normal manual differential. Her serum sodium was 139, potassium 4.3, chloride 105, bicarbonate 27, anion gap of 7, BUN 20, creatinine 1.2. Her estimated GFR was 42 mL per minute. Her glucose was 90, calcium was 9. Her total protein was 6.4, albumin 2.8. Total bilirubin, AST, ALT, alkaline phosphatase were normal. Her beta natriuretic peptide was 4284. Her prothrombin time was 11.5, INR 1.1, APTT was 25. Her urine was yellow, clear with a pH of 5.5, specific gravity of 1.030. There was moderate amount of proteinuria. The urine, however, was negative for glucose, ketones, blood, nitrite and leukocyte esterase. There were 0 rbc's, very rare wbc's, and no bacteria. Her toxic screen showed that urine was positive for opiates, benzodiazepine, and cannabinoids. Her CT scan of the head showed that there is no acute intracranial finding, multiple chronic infarcts and moderate to severe chronic microangiopathic white matter changes with moderate cerebral atrophy. Her chest x-ray showed that she has small bilateral pleural effusions with associated atelectasis or infiltrate. She has chronic obstructive pulmonary disease, moderate cardiomegaly. In summary, this is an 87-year-old female patient who was admitted on account of increasing restlessness, agitation, exit seeking, demanding to go home, refusing care and medication, refusing to eat. This behavior has escalated recently and was admitted for inpatient psychiatric stabilization. The patient has multiple medical problems to include hypertension, seizure disorder, osteoarthritis, osteoporosis, thrombocytopenia, chronic kidney disease, atrial fibrillation with rapid ventricular response. She did have also what seems to be congestive heart failure. Her most recent echocardiogram showed that her left ventricular size was normal, left ventricular systolic function was normal, ejection fraction was 50-55%. There was no significant aortic valve stenosis, mild aortic regurgitation, moderate mitral regurgitation, moderate tricuspid regurgitation. Her pulmonary artery pressure was estimated at 38 mmHg. My plan is to obviously continue with all her current medications including her metoprolol 12.5 mg 4 times a day to control the heart rate, which is still suboptimally controlled. Continue with Keppra for seizure disorder, furosemide 40 mg daily with potassium supplement for her heart failure. All her lab works and vital signs seem to be stable and all in all, she seemed to be medically stable. Thank you, Dr. Marie, for allowing me to participate in the care of this patient. DIANA CARTAGENA MD DR: QUENTIN/nato JOB#: [id number] / [id number]
[2017-12-18] MEDS: FUROSEMIDE 40 MG TABLET PO SCH ×2 (06:00→06:09)
[2017-12-18] MEDS: HYDROcodone/APAP 7.5/325MG 1 TAB TABLET PO SCH ×5 (06:10→17:55)
[2017-12-18 06:13] VITALS: BP 103/71
[2017-12-18] MEDS: METOPROLOL TART IMMED RELEASE 25 MG TABLET PO SCH ×4 (08:29→19:30)
[2017-12-18] MEDS: MULTIVITAMIN I-VITE TABLET. PO SCH ×2 (10:03→19:28)
[2017-12-18] MEDS: cycloSPORINE 0.05% OPTH 1 DROP DROPERETTE OU SCH ×2 (10:03→19:29)
[2017-12-18] MEDS: POLYETHYLENE GLYCOL 3350 17 GM PACKET. PO SCH (10:03)
[2017-12-18] MEDS: levETIRAcetam 250 MG TABLET PO SCH ×2 (10:03→19:28)
[2017-12-18] MEDS: QUEtiapine 25 MG TABLET. PO SCH ×2 (10:04→19:29)
[2017-12-18] MEDS: LIDOCAINE (700MG/PATCH) PATCH. TD SCH (10:04)
[2017-12-18] MEDS: SERTRALINE 25 MG TABLET. PO SCH (10:05)
[2017-12-18 13:53] VITALS: BP 93/66
[2017-12-18 15:56] VITALS: BP 104/68
[2017-12-18] MEDS: MIRTAZAPINE 7.5 MG TABLET. PO SCH (19:28)
--- NOTE | 2017-12-18 20:53 | PDOC ---
Exam Note: Jorden Note: Please also refer to the separate dictated note~for this date of service dictated separately.~Patient seen individually. Discussed the patient with Nursing staff reviewed the chart.~Reviewed interim history and current functioning. Reviewed vital signs,~Labs/ Radiology~and current medications noted below. Continue current treatment with the changes noted in the dictated addendum note Assessment: Vital Signs: Vital Signs Date Time Temp Pulse Resp B/P (MAP) Pulse Ox O2 Delivery O2 Flow Rate FiO2 12/18/17 19:30 98 104/68 12/18/17 18:55 95 12/18/17 15:56 98.2 18 12/17/17 23:55 Room Air I&O Intake and Output 12/18/17 07:00 Intake Total 60 ml Balance 60 ml Intake Oral 60 ml Current Medications: Meds: Current Medications Furosemide (Lasix) 40 mg 1X ONCE PO Last administered on 12/16/17at 20:04; Start 12/16/17 at 20:00; Stop 12/16/17 at 20:01; Status DC Furosemide (Lasix) 40 mg DAILY06 PO Last administered on 12/17/17at 05:34; Start 12/17/17 at 06:00 Acetaminophen (Tylenol) 650 mg PRN Q6HRS PRN PO PAIN / TEMP; Start 12/16/17 at 21:00; Status Cancel Multi-Ingredient Ointment (Analgesic [place]) 1 axel PRN QID PRN TP MUSCLE PAIN; Start 12/16/17 at 21:00 Al Hydroxide/Mg Hydroxide (Mylanta Plus Xs) 15 ml PRN AFTMEALHC PRN PO DYSPEPSIA; Start 12/16/17 at 21:00 Magnesium Hydroxide (Milk Of Magnesia) 2,400 mg PRN QHS PRN PO CONSTIPATION; Start 12/16/17 at 21:00 Cyanocobalamin (Vitamin B-12) 1,000 mcg QMONTH IM Last administered on at 09:29; Start 12/17/17 at 09:00 Cyclosporine (Restasis) 1 drop BID OU Last administered on 12/18/17at 10:03; Start 12/17/17 at 09:00 Acetaminophen/ Hydrocodone Bitart (Lortab 7.5/325) 1 tab Q6HRS PO Last administered on 12/18/17at 17:55; Start 12/17/17 at 06:00 Vitamin D (Vitamin D3) 50,000 unit WEEKLY PO Last administered on 12/17/17at 09: 29; Start 12/17/17 at 09:00 Levetiracetam (Keppra) 250 mg BID PO Last administered on 12/18/17at 19:28; Start 12/17/17 at 09:00 Melatonin 3 mg PRN QHS PRN PO INSOMNIA; Start 12/17/17 at 07:45 Polyethylene Glycol (miraLAX) 17 gm DAILY PO Last administered on 12/18/17at 10: 03; Start 12/17/17 at 09:00 Acetaminophen (Tylenol) 325 mg PRN Q6HRS PRN PO PAIN Last administered on at 16:39; Start 12/17/17 at 00:30 Acetaminophen (Tylenol) 650 mg PRN Q6HRS PRN PO PAIN; Start 12/17/17 at 00:30 Calcium Carbonate/ Glycine (Tums) 500 mg PRN Q3HRS PRN PO HEARTBURN / GAS; Start 12/17/17 at 00:30 Diphenhydramine HCl (Benadryl) 25 mg PRN Q6HRS PRN PO EXTRAPYRAMIDAL SIDE EFFECTS; Start 12/17/17 at 00:30; Stop 12/17/17 at 17:03; Status DC Metoprolol Tartrate (Lopressor) 12.5 mg QID PO Last administered on 12/18/17at 19 :30; Start 12/17/17 at 09:00 Ondansetron HCl (Zofran Odt) 4 mg PRN Q8HRS PRN PO NAUSEA; Start 12/17/17 at 00: 30 Alprazolam (Xanax) 0.25 mg PRN Q4HRS PRN PO ANXIETY / AGITATION Last administered on 12/17/17at 22:16; Start 12/17/17 at 00:30; Stop 12/18/17 at 13:22; Status DC Artificial Tears (Artificial Tears) 1 drop PRN QID PRN OU dry eyes ; Start 12/17 at 00:30 Lidocaine (Lidoderm) 2 patch DAILY TD Last administered on 12/18/17at 10:04; Start 12/17/17 at 09:00 Mirtazapine (Remeron) 7.5 mg QHS PO Last administered on 12/18/17 19:28; Start 12/17/17 at 21:00 Quetiapine Fumarate (SEROquel) 12.5 mg BID PO Last administered on 12/18/17at 19: 29; Start 12/17/17 at 09:00 Multivitamins/ Minerals (I-Sandra) 1 tab BID PO Last administered on 12/18/17 19: 28; Start 12/17/17 at 09:00 Sertraline HCl (Zoloft) 25 mg DAILY PO Last administered on 12/18/17at 10:05; Start 12/18/17 at 09:00 Olanzapine (ZyPREXA ZYDIS) 1.25 mg PRN Q2HR PRN PO PSYCHOSIS Last administered on 12/18/17at 20:40; Start 12/18/17 at 20:15 Active Scripts Active Reported Xanax (Alprazolam) 0.25 Mg Tablet 0.25 Mg PO PRN Q4HRS PRN Artificial Tears Eye Drops (Dextran 70/Hypromellose) 15 Ml Drops 1 Drop EACHEYE PRN QID PRN Remeron (Mirtazapine) 15 Mg Tablet 7.5 Mg PO HS Seroquel (Quetiapine Fumarate) 25 Mg Tablet 12.5 Mg PO BID Metoprolol Tartrate 25 Mg Tablet 12.5 Mg PO QID Preservision Areds Softgel (Vit A/Vit C/Vit E/Zinc/Copper) 1 Each Capsule 1 Each PO BID Ondansetron Odt (Ondansetron) 4 Mg Tab.rapdis 4 Mg PO PRN Q8HRS PRN Tylenol (Acetaminophen) 325 Mg Tablet 325 Mg PO PRN Q6HRS PRN Tums (Calcium Carbonate) 200 Mg Tab.chew 500 Mg PO PRN Q3HRS PRN Benadryl (Diphenhydramine Hcl) 25 Mg Capsule 25 Mg PO PRN Q6HRS PRN Lidocaine 1 Each Adh..patch 2 Each TP DAILY two patches: one to thoracic region one to lower back. Remove after 12 hours. Tylenol (Acetaminophen) 325 Mg Tablet 650 Mg PO PRN Q6HRS PRN Restasis (Cyclosporine) 1 Each Droperette 1 Drop EACHEYE BID Keppra (Levetiracetam) 500 Mg Tablet 250 Tab PO BID Miralax (Polyethylene Glycol 3350) 17 Gm Powd.pack 17 Gm PO DAILY Melatonin 3 Mg Tab.rapdis 3 Mg PO HS PRN Hydrocodone-Apap 7.5-325 (Hydrocodone Bit/Acetaminophen) 1 Each Tablet 1 Tab PO Q6HRS Vitamin D2 (Ergocalciferol (Vitamin D2)) 50,000 Unit Capsule 50,000 Unit PO WEEKLY Cyanocobalamin Injection (Cyanocobalamin (Vitamin B-12)) 1,000 Mcg/1 Ml Vial 1, 000 Mcg IM QMONTH I have reviewed the current psychotropics carefully including drug interactions. Risk benefit ratio favors no change other than as noted in my dictated progress note. 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
[2017-12-19] MEDS: FUROSEMIDE 40 MG TABLET PO SCH (05:43)
[2017-12-19] MEDS: HYDROcodone/APAP 7.5/325MG 1 TAB TABLET PO SCH ×4 (05:43→16:51)
[2017-12-19 05:58] VITALS: BP 113/71
[2017-12-19] MEDS: POLYETHYLENE GLYCOL 3350 17 GM PACKET. PO SCH (08:29)
[2017-12-19] MEDS: levETIRAcetam 250 MG TABLET PO SCH ×2 (08:29→20:29)
[2017-12-19] MEDS: QUEtiapine 25 MG TABLET. PO SCH ×2 (08:29→16:50)
[2017-12-19] MEDS: LIDOCAINE (700MG/PATCH) PATCH. TD SCH (08:29)
[2017-12-19] MEDS: MULTIVITAMIN I-VITE TABLET. PO SCH ×2 (08:29→20:28)
[2017-12-19] MEDS: SERTRALINE 25 MG TABLET. PO SCH (08:29)
[2017-12-19] MEDS: cycloSPORINE 0.05% OPTH 1 DROP DROPERETTE OU SCH ×2 (08:30→20:28)
[2017-12-19] MEDS: METOPROLOL TART IMMED RELEASE 25 MG TABLET PO SCH ×4 (09:00→20:30)
[2017-12-19 10:53] VITALS: BP 107/69
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
[2017-12-19 16:02] VITALS: BP 140/94
[2017-12-19] MEDS: MIRTAZAPINE 7.5 MG TABLET. PO SCH (20:28)
--- NOTE | 2017-12-19 20:47 | PDOC ---
Exam Note: Jorden Note: Please also refer to the separate dictated note~for this date of service dictated separately.~Patient seen individually. Discussed the patient with Nursing staff reviewed the chart.~Reviewed interim history and current functioning. Reviewed vital signs,~Labs/ Radiology~and current medications noted below. Continue current treatment with the changes noted in the dictated addendum note Assessment: Vital Signs: Vital Signs Date Time Temp Pulse Resp B/P (MAP) Pulse Ox O2 Delivery O2 Flow Rate FiO2 12/19/17 20:30 93 140/94 12/19/17 20:26 20 Room Air 12/19/17 16:51 96 12/19/17 16:02 97.5 I&O Intake and Output 12/19/17 07:00 Intake Total 320 ml Balance 320 ml Intake Oral 320 ml # Bowel Movements 1 Current Medications: Meds: Current Medications Furosemide (Lasix) 40 mg 1X ONCE PO Last administered on 12/16/17 20:04; Start 12/16/17 at 20:00; Stop 12/16/17 at 20:01; Status DC Furosemide (Lasix) 40 mg DAILY06 PO Last administered on 12/19/17at 05:43; Start 12/17/17 at 06:00 Acetaminophen (Tylenol) 650 mg PRN Q6HRS PRN PO PAIN / TEMP; Start 12/16/17 at 21:00; Status Cancel Multi-Ingredient Ointment (Analgesic [place]) 1 axel PRN QID PRN TP MUSCLE PAIN; Start 12/16/17 at 21:00 Al Hydroxide/Mg Hydroxide (Mylanta Plus Xs) 15 ml PRN AFTMEALHC PRN PO DYSPEPSIA; Start 12/16/17 at 21:00 Magnesium Hydroxide (Milk Of Magnesia) 2,400 mg PRN QHS PRN PO CONSTIPATION; Start 12/16/17 at 21:00 Cyanocobalamin (Vitamin B-12) 1,000 mcg QMONTH IM Last administered on at 09:29; Start 12/17/17 at 09:00 Cyclosporine (Restasis) 1 drop BID OU Last administered on 12/19/17at 20:28; Start 12/17/17 at 09:00 Acetaminophen/ Hydrocodone Bitart (Lortab 7.5/325) 1 tab Q6HRS PO Last administered on 12/19/17at 16:51; Start 12/17/17 at 06:00 Vitamin D (Vitamin D3) 50,000 unit WEEKLY PO Last administered on 12/17/17 09: 29; Start 12/17/17 at 09:00 Levetiracetam (Keppra) 250 mg BID PO Last administered on 12/19/17 20:29; Start 12/17/17 at 09:00 Melatonin 3 mg PRN QHS PRN PO INSOMNIA; Start 12/17/17 at 07:45 Polyethylene Glycol (miraLAX) 17 gm DAILY PO Last administered on 12/19/17 08: 29; Start 12/17/17 at 09:00 Acetaminophen (Tylenol) 325 mg PRN Q6HRS PRN PO PAIN Last administered on 16:39; Start 12/17/17 at 00:30 Acetaminophen (Tylenol) 650 mg PRN Q6HRS PRN PO PAIN; Start 12/17/17 at 00:30 Calcium Carbonate/ Glycine (Tums) 500 mg PRN Q3HRS PRN PO HEARTBURN / GAS; Start 12/17/17 at 00:30 Diphenhydramine HCl (Benadryl) 25 mg PRN Q6HRS PRN PO EXTRAPYRAMIDAL SIDE EFFECTS; Start 12/17/17 at 00:30; Stop 12/17/17 at 17:03; Status DC Metoprolol Tartrate (Lopressor) 12.5 mg QID PO Last administered on 12/19/17 20 :30; Start 12/17/17 at 09:00 Ondansetron HCl (Zofran Odt) 4 mg PRN Q8HRS PRN PO NAUSEA; Start 12/17/17 at 00: 30 Alprazolam (Xanax) 0.25 mg PRN Q4HRS PRN PO ANXIETY / AGITATION Last administered on 12/17/17 22:16; Start 12/17/17 at 00:30; Stop 12/18/17 at 13:22; Status DC Artificial Tears (Artificial Tears) 1 drop PRN QID PRN OU dry eyes ; Start 12/17 at 00:30 Lidocaine (Lidoderm) 2 patch DAILY TD Last administered on 12/19/17 08:29; Start 12/17/17 at 09:00 Mirtazapine (Remeron) 7.5 mg QHS PO Last administered on 12/19/17at 20:28; Start 12/17/17 at 21:00 Quetiapine Fumarate (SEROquel) 12.5 mg BID PO Last administered on 12/19/17at 08: 29; Start 12/17/17 at 09:00; Stop 12/19/17 at 16:21; Status DC Multivitamins/ Minerals (I-Sandra) 1 tab BID PO Last administered on 12/19/17at 20: 28; Start 12/17/17 at 09:00 Sertraline HCl (Zoloft) 25 mg DAILY PO Last administered on 12/19/17at 08:29; Start 12/18/17 at 09:00; Stop 12/19/17 at 16:21; Status DC Olanzapine (ZyPREXA ZYDIS) 1.25 mg PRN Q2HR PRN PO PSYCHOSIS Last administered on 12/18/17at 20:40; Start 12/18/17 at 20:15 Quetiapine Fumarate (SEROquel) 12.5 mg TID@0900,1300,1700 PO Last administered on 12/19/17at 16:50; Start 12/19/17 at 17:00 Sertraline HCl (Zoloft) 50 mg DAILY PO ; Start 12/20/17 at 09:00 Active Scripts Active Reported Xanax (Alprazolam) 0.25 Mg Tablet 0.25 Mg PO PRN Q4HRS PRN Artificial Tears Eye Drops (Dextran 70/Hypromellose) 15 Ml Drops 1 Drop EACHEYE PRN QID PRN Remeron (Mirtazapine) 15 Mg Tablet 7.5 Mg PO HS Seroquel (Quetiapine Fumarate) 25 Mg Tablet 12.5 Mg PO BID Metoprolol Tartrate 25 Mg Tablet 12.5 Mg PO QID Preservision Areds Softgel (Vit A/Vit C/Vit E/Zinc/Copper) 1 Each Capsule 1 Each PO BID Ondansetron Odt (Ondansetron) 4 Mg Tab.rapdis 4 Mg PO PRN Q8HRS PRN Tylenol (Acetaminophen) 325 Mg Tablet 325 Mg PO PRN Q6HRS PRN Tums (Calcium Carbonate) 200 Mg Tab.chew 500 Mg PO PRN Q3HRS PRN Benadryl (Diphenhydramine Hcl) 25 Mg Capsule 25 Mg PO PRN Q6HRS PRN Lidocaine 1 Each Adh..patch 2 Each TP DAILY two patches: one to thoracic region one to lower back. Remove after 12 hours. Tylenol (Acetaminophen) 325 Mg Tablet 650 Mg PO PRN Q6HRS PRN Restasis (Cyclosporine) 1 Each Droperette 1 Drop EACHEYE BID Keppra (Levetiracetam) 500 Mg Tablet 250 Tab PO BID Miralax (Polyethylene Glycol 3350) 17 Gm Powd.pack 17 Gm PO DAILY Melatonin 3 Mg Tab.rapdis 3 Mg PO HS PRN Hydrocodone-Apap 7.5-325 (Hydrocodone Bit/Acetaminophen) 1 Each Tablet 1 Tab PO Q6HRS Vitamin D2 (Ergocalciferol (Vitamin D2)) 50,000 Unit Capsule 50,000 Unit PO WEEKLY Cyanocobalamin Injection (Cyanocobalamin (Vitamin B-12)) 1,000 Mcg/1 Ml Vial 1, 000 Mcg IM QMONTH I have reviewed the current psychotropics carefully including drug interactions. Risk benefit ratio favors no change other than as noted in my dictated progress note. 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
--- NOTE | 2017-12-20 00:24 | PN ---
DATE: 12/17/2017 PSYCHIATRIC PROGRESS NOTE This is a late entry 12/17/2017 covers elements not covered in my initial note. SUBJECTIVE: I met with the patient in the evening. The patient remains confused, somewhat anxious, restless, hard of hearing. REVIEW OF SYSTEMS: Impaired ambulation with walker. No CV, , pulmonary, eye, ENT system symptoms on review. Reliability poor. MENTAL STATUS EXAM: Oriented to herself. Insight, judgment, recent and remote memory, attention, concentration, fund of knowledge poor, consistent with her diagnosis mentioned in my initial note. PLAN: Continue current psychotropics. We restarted Zoloft 25 mg a day. She is on Remeron 7.5 mg p.o. at bedtime, Seroquel 12.5 mg b.i.d., Keppra 250 b.i.d. for seizures, melatonin 3 mg at bedtime for insomnia, Xanax p.r.n. LEYDA WHITLOCK MD DR: CRISTINA/nato JOB#: [id number] / [id number]
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
[2017-12-20] MEDS: HYDROcodone/APAP 7.5/325MG 1 TAB TABLET PO SCH ×4 (05:31→17:52)
[2017-12-20] MEDS: FUROSEMIDE 40 MG TABLET PO SCH (05:31)
[2017-12-20 06:06] VITALS: BP 114/76
[2017-12-20] MEDS: QUEtiapine 25 MG TABLET. PO SCH ×4 (09:00→17:52)
[2017-12-20] MEDS: METOPROLOL TART IMMED RELEASE 25 MG TABLET PO SCH ×5 (09:00→20:40)
[2017-12-20] MEDS: MULTIVITAMIN I-VITE TABLET. PO SCH ×2 (10:30→20:40)
[2017-12-20] MEDS: levETIRAcetam 250 MG TABLET PO SCH ×2 (10:30→20:38)
[2017-12-20] MEDS: cycloSPORINE 0.05% OPTH 1 DROP DROPERETTE OU SCH ×3 (10:30→20:38)
[2017-12-20] MEDS: LIDOCAINE (700MG/PATCH) PATCH. TD SCH ×2 (10:30→10:32)
[2017-12-20] MEDS: POLYETHYLENE GLYCOL 3350 17 GM PACKET. PO SCH (10:31)
[2017-12-20] MEDS: SERTRALINE 50 MG TABLET. PO SCH (10:33)
[2017-12-20 16:17] VITALS: BP 124/61
[2017-12-20] MEDS: MIRTAZAPINE 7.5 MG TABLET. PO SCH (20:40)
[2017-12-21 05:56] VITALS: BP 111/73
[2017-12-21] MEDS: HYDROcodone/APAP 7.5/325MG 1 TAB TABLET PO SCH ×4 (05:59→17:37)
[2017-12-21] MEDS: FUROSEMIDE 40 MG TABLET PO SCH (05:59)
[2017-12-21] MEDS: SERTRALINE 50 MG TABLET. PO SCH (09:59)
[2017-12-21] MEDS: levETIRAcetam 250 MG TABLET PO SCH ×2 (09:59→21:06)
[2017-12-21] MEDS: MULTIVITAMIN I-VITE TABLET. PO SCH ×2 (09:59→21:05)
[2017-12-21] MEDS: METOPROLOL TART IMMED RELEASE 25 MG TABLET PO SCH ×4 (10:00→21:05)
[2017-12-21] MEDS: LIDOCAINE (700MG/PATCH) PATCH. TD SCH (10:00)
[2017-12-21] MEDS: cycloSPORINE 0.05% OPTH 1 DROP DROPERETTE OU SCH ×2 (10:00→21:06)
[2017-12-21] MEDS: POLYETHYLENE GLYCOL 3350 17 GM PACKET. PO SCH (10:00)
[2017-12-21] MEDS: QUEtiapine 25 MG TABLET. PO SCH ×3 (10:00→17:37)
[2017-12-21 16:30] VITALS: BP 106/74
--- NOTE | 2017-12-21 20:05 | PDOC ---
Exam Note: Jorden Note: Late entry for date of service December. Please also refer to the separate dictated note~for this date of service dictated separately.~Patient seen individually. Discussed the patient with Nursing staff reviewed the chart.~ Reviewed interim history and current functioning. Reviewed vital signs,~Labs/ Radiology~and current medications noted below. Continue current treatment with the changes noted in the dictated addendum note Assessment: Vital Signs: VS - Last 72 Hours, by Label Date Time Temp Pulse Resp B/P (MAP) Pulse Ox O2 Delivery O2 Flow Rate FiO2 12/21/17 17:37 89 106/74 12/21/17 17:37 18 96 Room Air 12/21/17 16:30 97.9 89 18 106/74 (85) 96 Room Air 12/21/17 15:38 18 95 Room Air 12/21/17 12:28 88 111/73 12/21/17 12:28 18 95 Room Air 12/21/17 10:00 88 111/73 12/21/17 05:59 95 12/21/17 05:56 96.5 88 18 111/73 (86) 95 12/20/17 20:40 80 124/61 12/20/17 17:52 16 94 Room Air 12/20/17 17:51 80 124/61 12/20/17 16:17 98.0 80 18 124/61 (82) 94 12/20/17 12:22 105 114/76 12/20/17 12:21 18 95 12/20/17 09:00 105 114/76 12/20/17 06:06 98.0 105 16 114/76 (89) 95 Room Air 12/20/17 05:31 96 12/20/17 00:00 18 Room Air 12/19/17 20:30 93 140/94 12/19/17 16:51 96 12/19/17 16:50 93 140/94 12/19/17 16:02 97.5 93 16 140/94 (109) 96 12/19/17 13:00 73 96/63 12/19/17 11:00 95 12/19/17 10:53 75 107/69 (82) 12/19/17 09:00 75 107/69 12/19/17 05:58 97.5 90 16 113/71 (85) 95 Vital Signs Date Time Temp Pulse Resp B/P (MAP) Pulse Ox O2 Delivery O2 Flow Rate FiO2 12/21/17 17:37 89 106/74 12/21/17 17:37 18 96 Room Air 12/21/17 16:30 97.9 I&O Intake and Output 12/21/17 07:00 Intake Total 840 ml Balance 840 ml Intake Oral 840 ml # Voids 1 Current Medications: Meds: Current Medications Furosemide (Lasix) 40 mg 1X ONCE PO Last administered on 12/16/17at 20:04; Start 12/16/17 at 20:00; Stop 12/16/17 at 20:01; Status DC Furosemide (Lasix) 40 mg DAILY06 PO Last administered on 12/21/17 05:59; Start 12/17/17 at 06:00 Acetaminophen (Tylenol) 650 mg PRN Q6HRS PRN PO PAIN / TEMP; Start 12/16/17 at 21:00; Status Cancel Multi-Ingredient Ointment (Analgesic [place]) 1 axel PRN QID PRN TP MUSCLE PAIN; Start 12/16/17 at 21:00 Al Hydroxide/Mg Hydroxide (Mylanta Plus Xs) 15 ml PRN AFTMEALHC PRN PO DYSPEPSIA; Start 12/16/17 at 21:00 Magnesium Hydroxide (Milk Of Magnesia) 2,400 mg PRN QHS PRN PO CONSTIPATION; Start 12/16/17 at 21:00 Cyanocobalamin (Vitamin B-12) 1,000 mcg QMONTH IM Last administered on at 09:29; Start 12/17/17 at 09:00 Cyclosporine (Restasis) 1 drop BID OU Last administered on 12/21/17at 10:00; Start 12/17/17 at 09:00 Acetaminophen/ Hydrocodone Bitart (Lortab 7.5/325) 1 tab Q6HRS PO Last administered on 12/21/17 17:37; Start 12/17/17 at 06:00 Vitamin D (Vitamin D3) 50,000 unit WEEKLY PO Last administered on 12/17/17at 09: 29; Start 12/17/17 at 09:00 Levetiracetam (Keppra) 250 mg BID PO Last administered on 12/21/17at 09:59; Start 12/17/17 at 09:00 Melatonin 3 mg PRN QHS PRN PO INSOMNIA; Start 12/17/17 at 07:45 Polyethylene Glycol (miraLAX) 17 gm DAILY PO Last administered on 12/21/17at 10: 00; Start 12/17/17 at 09:00 Acetaminophen (Tylenol) 325 mg PRN Q6HRS PRN PO PAIN Last administered on at 16:39; Start 12/17/17 at 00:30 Acetaminophen (Tylenol) 650 mg PRN Q6HRS PRN PO PAIN; Start 12/17/17 at 00:30 Calcium Carbonate/ Glycine (Tums) 500 mg PRN Q3HRS PRN PO HEARTBURN / GAS; Start 12/17/17 at 00:30 Diphenhydramine HCl (Benadryl) 25 mg PRN Q6HRS PRN PO EXTRAPYRAMIDAL SIDE EFFECTS; Start 12/17/17 at 00:30; Stop 12/17/17 at 17:03; Status DC Metoprolol Tartrate (Lopressor) 12.5 mg QID PO Last administered on 12/21/17at 17 :37; Start 12/17/17 at 09:00 Ondansetron HCl (Zofran Odt) 4 mg PRN Q8HRS PRN PO NAUSEA; Start 12/17/17 at 00: 30 Alprazolam (Xanax) 0.25 mg PRN Q4HRS PRN PO ANXIETY / AGITATION Last administered on 12/17/17at 22:16; Start 12/17/17 at 00:30; Stop 12/18/17 at 13:22; Status DC Artificial Tears (Artificial Tears) 1 drop PRN QID PRN OU dry eyes ; Start 12/17 at 00:30 Lidocaine (Lidoderm) 2 patch DAILY TD Last administered on 12/21/17at 10:00; Start 12/17/17 at 09:00 Mirtazapine (Remeron) 7.5 mg QHS PO Last administered on 12/20/17at 20:40; Start 12/17/17 at 21:00 Quetiapine Fumarate (SEROquel) 12.5 mg BID PO Last administered on 12/19/17at 08: 29; Start 12/17/17 at 09:00; Stop 12/19/17 at 16:21; Status DC Multivitamins/ Minerals (I-Sandra) 1 tab BID PO Last administered on 12/21/17 09: 59; Start 12/17/17 at 09:00 Sertraline HCl (Zoloft) 25 mg DAILY PO Last administered on 12/19/17 08:29; Start 12/18/17 at 09:00; Stop 12/19/17 at 16:21; Status DC Olanzapine (ZyPREXA ZYDIS) 1.25 mg PRN Q2HR PRN PO PSYCHOSIS Last administered on 12/18/17 20:40; Start 12/18/17 at 20:15 Quetiapine Fumarate (SEROquel) 12.5 mg TID@0900,1300,1700 PO Last administered on 12/21/17 17:37; Start 12/19/17 at 17:00 Sertraline HCl (Zoloft) 50 mg DAILY PO Last administered on 12/21/17 09:59; Start 12/20/17 at 09:00 Active Scripts Active Reported Xanax (Alprazolam) 0.25 Mg Tablet 0.25 Mg PO PRN Q4HRS PRN Artificial Tears Eye Drops (Dextran 70/Hypromellose) 15 Ml Drops 1 Drop EACHEYE PRN QID PRN Remeron (Mirtazapine) 15 Mg Tablet 7.5 Mg PO HS Seroquel (Quetiapine Fumarate) 25 Mg Tablet 12.5 Mg PO BID Metoprolol Tartrate 25 Mg Tablet 12.5 Mg PO QID Preservision Areds Softgel (Vit A/Vit C/Vit E/Zinc/Copper) 1 Each Capsule 1 Each PO BID Ondansetron Odt (Ondansetron) 4 Mg Tab.rapdis 4 Mg PO PRN Q8HRS PRN Tylenol (Acetaminophen) 325 Mg Tablet 325 Mg PO PRN Q6HRS PRN Tums (Calcium Carbonate) 200 Mg Tab.chew 500 Mg PO PRN Q3HRS PRN Benadryl (Diphenhydramine Hcl) 25 Mg Capsule 25 Mg PO PRN Q6HRS PRN Lidocaine 1 Each Adh..patch 2 Each TP DAILY two patches: one to thoracic region one to lower back. Remove after 12 hours. Tylenol (Acetaminophen) 325 Mg Tablet 650 Mg PO PRN Q6HRS PRN Restasis (Cyclosporine) 1 Each Droperette 1 Drop EACHEYE BID Keppra (Levetiracetam) 500 Mg Tablet 250 Tab PO BID Miralax (Polyethylene Glycol 3350) 17 Gm Powd.pack 17 Gm PO DAILY Melatonin 3 Mg Tab.rapdis 3 Mg PO HS PRN Hydrocodone-Apap 7.5-325 (Hydrocodone Bit/Acetaminophen) 1 Each Tablet 1 Tab PO Q6HRS Vitamin D2 (Ergocalciferol (Vitamin D2)) 50,000 Unit Capsule 50,000 Unit PO WEEKLY Cyanocobalamin Injection (Cyanocobalamin (Vitamin B-12)) 1,000 Mcg/1 Ml Vial 1, 000 Mcg IM QMONTH I have reviewed the current psychotropics carefully including drug interactions. Risk benefit ratio favors no change other than as noted in my dictated progress note. 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
--- NOTE | 2017-12-21 20:06 | PDOC ---
Exam Note: Jorden Note: Please also refer to the separate dictated note~for this date of service dictated separately.~Patient seen individually. Discussed the patient with Nursing staff reviewed the chart.~Reviewed interim history and current functioning. Reviewed vital signs,~Labs/ Radiology~and current medications noted below. Continue current treatment with the changes noted in the dictated addendum note Assessment: Vital Signs: Vital Signs Date Time Temp Pulse Resp B/P (MAP) Pulse Ox O2 Delivery O2 Flow Rate FiO2 12/21/17 17:37 89 106/74 12/21/17 17:37 18 96 Room Air 12/21/17 16:30 97.9 I&O Intake and Output 12/21/17 07:00 Intake Total 840 ml Balance 840 ml Intake Oral 840 ml # Voids 1 Current Medications: Meds: Current Medications Furosemide (Lasix) 40 mg 1X ONCE PO Last administered on 12/16/17at 20:04; Start 12/16/17 at 20:00; Stop 12/16/17 at 20:01; Status DC Furosemide (Lasix) 40 mg DAILY06 PO Last administered on 12/21/17at 05:59; Start 12/17/17 at 06:00 Acetaminophen (Tylenol) 650 mg PRN Q6HRS PRN PO PAIN / TEMP; Start 12/16/17 at 21:00; Status Cancel Multi-Ingredient Ointment (Analgesic [place]) 1 axel PRN QID PRN TP MUSCLE PAIN; Start 12/16/17 at 21:00 Al Hydroxide/Mg Hydroxide (Mylanta Plus Xs) 15 ml PRN AFTMEALHC PRN PO DYSPEPSIA; Start 12/16/17 at 21:00 Magnesium Hydroxide (Milk Of Magnesia) 2,400 mg PRN QHS PRN PO CONSTIPATION; Start 12/16/17 at 21:00 Cyanocobalamin (Vitamin B-12) 1,000 mcg QMONTH IM Last administered on at 09:29; Start 12/17/17 at 09:00 Cyclosporine (Restasis) 1 drop BID OU Last administered on 12/21/17at 10:00; Start 12/17/17 at 09:00 Acetaminophen/ Hydrocodone Bitart (Lortab 7.5/325) 1 tab Q6HRS PO Last administered on 12/21/17at 17:37; Start 12/17/17 at 06:00 Vitamin D (Vitamin D3) 50,000 unit WEEKLY PO Last administered on 12/17/17at 09: 29; Start 12/17/17 at 09:00 Levetiracetam (Keppra) 250 mg BID PO Last administered on 12/21/17at 09:59; Start 12/17/17 at 09:00 Melatonin 3 mg PRN QHS PRN PO INSOMNIA; Start 12/17/17 at 07:45 Polyethylene Glycol (miraLAX) 17 gm DAILY PO Last administered on 12/21/17at 10: 00; Start 12/17/17 at 09:00 Acetaminophen (Tylenol) 325 mg PRN Q6HRS PRN PO PAIN Last administered on at 16:39; Start 12/17/17 at 00:30 Acetaminophen (Tylenol) 650 mg PRN Q6HRS PRN PO PAIN; Start 12/17/17 at 00:30 Calcium Carbonate/ Glycine (Tums) 500 mg PRN Q3HRS PRN PO HEARTBURN / GAS; Start 12/17/17 at 00:30 Diphenhydramine HCl (Benadryl) 25 mg PRN Q6HRS PRN PO EXTRAPYRAMIDAL SIDE EFFECTS; Start 12/17/17 at 00:30; Stop 12/17/17 at 17:03; Status DC Metoprolol Tartrate (Lopressor) 12.5 mg QID PO Last administered on 12/21/17at 17 :37; Start 12/17/17 at 09:00 Ondansetron HCl (Zofran Odt) 4 mg PRN Q8HRS PRN PO NAUSEA; Start 12/17/17 at 00: 30 Alprazolam (Xanax) 0.25 mg PRN Q4HRS PRN PO ANXIETY / AGITATION Last administered on 12/17/17at 22:16; Start 12/17/17 at 00:30; Stop 12/18/17 at 13:22; Status DC Artificial Tears (Artificial Tears) 1 drop PRN QID PRN OU dry eyes ; Start 12/17 at 00:30 Lidocaine (Lidoderm) 2 patch DAILY TD Last administered on 12/21/17at 10:00; Start 12/17/17 at 09:00 Mirtazapine (Remeron) 7.5 mg QHS PO Last administered on 12/20/17 20:40; Start 12/17/17 at 21:00 Quetiapine Fumarate (SEROquel) 12.5 mg BID PO Last administered on 12/19/17 08: 29; Start 12/17/17 at 09:00; Stop 12/19/17 at 16:21; Status DC Multivitamins/ Minerals (I-Sandra) 1 tab BID PO Last administered on 12/21/17 09: 59; Start 12/17/17 at 09:00 Sertraline HCl (Zoloft) 25 mg DAILY PO Last administered on 12/19/17 08:29; Start 12/18/17 at 09:00; Stop 12/19/17 at 16:21; Status DC Olanzapine (ZyPREXA ZYDIS) 1.25 mg PRN Q2HR PRN PO PSYCHOSIS Last administered on 12/18/17 20:40; Start 12/18/17 at 20:15 Quetiapine Fumarate (SEROquel) 12.5 mg TID@0900,1300,1700 PO Last administered on 12/21/17 17:37; Start 12/19/17 at 17:00 Sertraline HCl (Zoloft) 50 mg DAILY PO Last administered on 12/21/17 09:59; Start 12/20/17 at 09:00 Active Scripts Active Reported Xanax (Alprazolam) 0.25 Mg Tablet 0.25 Mg PO PRN Q4HRS PRN Artificial Tears Eye Drops (Dextran 70/Hypromellose) 15 Ml Drops 1 Drop EACHEYE PRN QID PRN Remeron (Mirtazapine) 15 Mg Tablet 7.5 Mg PO HS Seroquel (Quetiapine Fumarate) 25 Mg Tablet 12.5 Mg PO BID Metoprolol Tartrate 25 Mg Tablet 12.5 Mg PO QID Preservision Areds Softgel (Vit A/Vit C/Vit E/Zinc/Copper) 1 Each Capsule 1 Each PO BID Ondansetron Odt (Ondansetron) 4 Mg Tab.rapdis 4 Mg PO PRN Q8HRS PRN Tylenol (Acetaminophen) 325 Mg Tablet 325 Mg PO PRN Q6HRS PRN Tums (Calcium Carbonate) 200 Mg Tab.chew 500 Mg PO PRN Q3HRS PRN Benadryl (Diphenhydramine Hcl) 25 Mg Capsule 25 Mg PO PRN Q6HRS PRN Lidocaine 1 Each Adh..patch 2 Each TP DAILY two patches: one to thoracic region one to lower back. Remove after 12 hours. Tylenol (Acetaminophen) 325 Mg Tablet 650 Mg PO PRN Q6HRS PRN Restasis (Cyclosporine) 1 Each Droperette 1 Drop EACHEYE BID Keppra (Levetiracetam) 500 Mg Tablet 250 Tab PO BID Miralax (Polyethylene Glycol 3350) 17 Gm Powd.pack 17 Gm PO DAILY Melatonin 3 Mg Tab.rapdis 3 Mg PO HS PRN Hydrocodone-Apap 7.5-325 (Hydrocodone Bit/Acetaminophen) 1 Each Tablet 1 Tab PO Q6HRS Vitamin D2 (Ergocalciferol (Vitamin D2)) 50,000 Unit Capsule 50,000 Unit PO WEEKLY Cyanocobalamin Injection (Cyanocobalamin (Vitamin B-12)) 1,000 Mcg/1 Ml Vial 1, 000 Mcg IM QMONTH I have reviewed the current psychotropics carefully including drug interactions. Risk benefit ratio favors no change other than as noted in my dictated progress note. 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
[2017-12-21] MEDS: MIRTAZAPINE 7.5 MG TABLET. PO SCH (21:05)
--- NOTE | 2017-12-21 23:25 | PN ---
DATE: 12/19/2017 PSYCHIATRIC PROGRESS NOTE This late entry 12/19/2017 covers elements not covered in my initial note. SUBJECTIVE: Met with the patient in the evening. The patient slept 5-3/4 hours, did very poorly the night before. Delusional, combative, agitated, wanting to hurt someone and said she would take an axe and jump off their heads or ring their neck with her hands. She slept in the quiet room, doors open, was irritable in the morning of 12/19/2017, delusional, wanting to go home. REVIEW OF SYSTEMS: No CV, , pulmonary, eye, ENT system symptoms on review. Gait is unsteady with walker, wheelchair. MENTAL STATUS EXAM: Oriented to herself. Insight, judgment, recent, remote memory, attention, concentration, fund of knowledge is poor, consistent with her diagnoses mentioned in my initial note. PLAN: Increase Zoloft to 50 mg a day, Seroquel from 12.5 b.i.d. to t.i.d. Rest unchanged from initial note. MAN Cornelius WHITLOCK MD DR: CRISTINA/nato JOB#: [id number] / [id number]
[2017-12-22] MEDS: HYDROcodone/APAP 7.5/325MG 1 TAB TABLET PO SCH ×4 (00:30→17:14)
[2017-12-22] MEDS: FUROSEMIDE 40 MG TABLET PO SCH (05:06)
[2017-12-22 06:37] VITALS: BP 111/73
[2017-12-22] MEDS: MULTIVITAMIN I-VITE TABLET. PO SCH ×2 (09:25→20:59)
[2017-12-22] MEDS: POLYETHYLENE GLYCOL 3350 17 GM PACKET. PO SCH (09:25)
[2017-12-22] MEDS: levETIRAcetam 250 MG TABLET PO SCH ×2 (09:25→20:59)
[2017-12-22] MEDS: SERTRALINE 50 MG TABLET. PO SCH (09:25)
[2017-12-22] MEDS: cycloSPORINE 0.05% OPTH 1 DROP DROPERETTE OU SCH ×2 (09:26→21:00)
[2017-12-22] MEDS: QUEtiapine 25 MG TABLET. PO SCH ×3 (09:26→17:15)
[2017-12-22] MEDS: METOPROLOL TART IMMED RELEASE 25 MG TABLET PO SCH ×4 (09:26→21:00)
[2017-12-22] MEDS: LIDOCAINE (700MG/PATCH) PATCH. TD SCH (09:27)
[2017-12-22 16:16] VITALS: BP 109/72
[2017-12-22] MEDS: MIRTAZAPINE 7.5 MG TABLET. PO SCH (20:59)
--- NOTE | 2017-12-22 21:11 | PDOC ---
Exam Note: Jorden Note: Please also refer to the separate dictated note~for this date of service dictated separately.~Patient seen individually. Discussed the patient with Nursing staff reviewed the chart.~Reviewed interim history and current functioning. Reviewed vital signs,~Labs/ Radiology~and current medications noted below. Continue current treatment with the changes noted in the dictated addendum note Assessment: Vital Signs: Vital Signs Date Time Temp Pulse Resp B/P (MAP) Pulse Ox O2 Delivery O2 Flow Rate FiO2 12/22/17 21:00 83 102/64 12/22/17 17:14 20 97 Room Air 12/22/17 16:16 97.4 I&O Intake and Output 12/22/17 07:00 Intake Total 760 ml Balance 760 ml Intake Oral 760 ml Current Medications: Meds: Current Medications Furosemide (Lasix) 40 mg 1X ONCE PO Last administered on 12/16/17at 20:04; Start 12/16/17 at 20:00; Stop 12/16/17 at 20:01; Status DC Furosemide (Lasix) 40 mg DAILY06 PO Last administered on 12/22/17at 05:06; Start 12/17/17 at 06:00 Acetaminophen (Tylenol) 650 mg PRN Q6HRS PRN PO PAIN / TEMP; Start 12/16/17 at 21:00; Status Cancel Multi-Ingredient Ointment (Analgesic [place]) 1 axel PRN QID PRN TP MUSCLE PAIN; Start 12/16/17 at 21:00 Al Hydroxide/Mg Hydroxide (Mylanta Plus Xs) 15 ml PRN AFTMEALHC PRN PO DYSPEPSIA; Start 12/16/17 at 21:00 Magnesium Hydroxide (Milk Of Magnesia) 2,400 mg PRN QHS PRN PO CONSTIPATION; Start 12/16/17 at 21:00 Cyanocobalamin (Vitamin B-12) 1,000 mcg QMONTH IM Last administered on at 09:29; Start 12/17/17 at 09:00 Cyclosporine (Restasis) 1 drop BID OU Last administered on 12/22/17at 21:00; Start 12/17/17 at 09:00 Acetaminophen/ Hydrocodone Bitart (Lortab 7.5/325) 1 tab Q6HRS PO Last administered on 12/22/17at 17:14; Start 12/17/17 at 06:00 Vitamin D (Vitamin D3) 50,000 unit WEEKLY PO Last administered on 12/17/17at 09: 29; Start 12/17/17 at 09:00 Levetiracetam (Keppra) 250 mg BID PO Last administered on 12/22/17at 20:59; Start 12/17/17 at 09:00 Melatonin 3 mg PRN QHS PRN PO INSOMNIA; Start 12/17/17 at 07:45 Polyethylene Glycol (miraLAX) 17 gm DAILY PO Last administered on 12/22/17at 09: 25; Start 12/17/17 at 09:00 Acetaminophen (Tylenol) 325 mg PRN Q6HRS PRN PO PAIN Last administered on at 16:39; Start 12/17/17 at 00:30 Acetaminophen (Tylenol) 650 mg PRN Q6HRS PRN PO PAIN; Start 12/17/17 at 00:30 Calcium Carbonate/ Glycine (Tums) 500 mg PRN Q3HRS PRN PO HEARTBURN / GAS; Start 12/17/17 at 00:30 Diphenhydramine HCl (Benadryl) 25 mg PRN Q6HRS PRN PO EXTRAPYRAMIDAL SIDE EFFECTS; Start 12/17/17 at 00:30; Stop 12/17/17 at 17:03; Status DC Metoprolol Tartrate (Lopressor) 12.5 mg QID PO Last administered on 12/22/17at 17 :14; Start 12/17/17 at 09:00 Ondansetron HCl (Zofran Odt) 4 mg PRN Q8HRS PRN PO NAUSEA; Start 12/17/17 at 00: 30 Alprazolam (Xanax) 0.25 mg PRN Q4HRS PRN PO ANXIETY / AGITATION Last administered on 12/17/17at 22:16; Start 12/17/17 at 00:30; Stop 12/18/17 at 13:22; Status DC Artificial Tears (Artificial Tears) 1 drop PRN QID PRN OU dry eyes ; Start 12/17 at 00:30 Lidocaine (Lidoderm) 2 patch DAILY TD Last administered on 12/22/17at 09:27; Start 12/17/17 at 09:00 Mirtazapine (Remeron) 7.5 mg QHS PO Last administered on 12/22/17 20:59; Start 12/17/17 at 21:00 Quetiapine Fumarate (SEROquel) 12.5 mg BID PO Last administered on 12/19/17 08: 29; Start 12/17/17 at 09:00; Stop 12/19/17 at 16:21; Status DC Multivitamins/ Minerals (I-Sandra) 1 tab BID PO Last administered on 12/22/17 20: 59; Start 12/17/17 at 09:00 Sertraline HCl (Zoloft) 25 mg DAILY PO Last administered on 12/19/17 08:29; Start 12/18/17 at 09:00; Stop 12/19/17 at 16:21; Status DC Olanzapine (ZyPREXA ZYDIS) 1.25 mg PRN Q2HR PRN PO PSYCHOSIS Last administered on 12/18/17 20:40; Start 12/18/17 at 20:15 Quetiapine Fumarate (SEROquel) 12.5 mg TID@0900,1300,1700 PO Last administered on 12/22/17 17:15; Start 12/19/17 at 17:00 Sertraline HCl (Zoloft) 50 mg DAILY PO Last administered on 12/22/17 09:25; Start 12/20/17 at 09:00 Active Scripts Active Reported Xanax (Alprazolam) 0.25 Mg Tablet 0.25 Mg PO PRN Q4HRS PRN Artificial Tears Eye Drops (Dextran 70/Hypromellose) 15 Ml Drops 1 Drop EACHEYE PRN QID PRN Remeron (Mirtazapine) 15 Mg Tablet 7.5 Mg PO HS Seroquel (Quetiapine Fumarate) 25 Mg Tablet 12.5 Mg PO BID Metoprolol Tartrate 25 Mg Tablet 12.5 Mg PO QID Preservision Areds Softgel (Vit A/Vit C/Vit E/Zinc/Copper) 1 Each Capsule 1 Each PO BID Ondansetron Odt (Ondansetron) 4 Mg Tab.rapdis 4 Mg PO PRN Q8HRS PRN Tylenol (Acetaminophen) 325 Mg Tablet 325 Mg PO PRN Q6HRS PRN Tums (Calcium Carbonate) 200 Mg Tab.chew 500 Mg PO PRN Q3HRS PRN Benadryl (Diphenhydramine Hcl) 25 Mg Capsule 25 Mg PO PRN Q6HRS PRN Lidocaine 1 Each Adh..patch 2 Each TP DAILY two patches: one to thoracic region one to lower back. Remove after 12 hours. Tylenol (Acetaminophen) 325 Mg Tablet 650 Mg PO PRN Q6HRS PRN Restasis (Cyclosporine) 1 Each Droperette 1 Drop EACHEYE BID Keppra (Levetiracetam) 500 Mg Tablet 250 Tab PO BID Miralax (Polyethylene Glycol 3350) 17 Gm Powd.pack 17 Gm PO DAILY Melatonin 3 Mg Tab.rapdis 3 Mg PO HS PRN Hydrocodone-Apap 7.5-325 (Hydrocodone Bit/Acetaminophen) 1 Each Tablet 1 Tab PO Q6HRS Vitamin D2 (Ergocalciferol (Vitamin D2)) 50,000 Unit Capsule 50,000 Unit PO WEEKLY Cyanocobalamin Injection (Cyanocobalamin (Vitamin B-12)) 1,000 Mcg/1 Ml Vial 1, 000 Mcg IM QMONTH I have reviewed the current psychotropics carefully including drug interactions. Risk benefit ratio favors no change other than as noted in my dictated progress note. 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
--- NOTE | 2017-12-22 21:54 | PN ---
DATE: 12/20/2017 This is a late entry 12/20/2017 covers elements not covered in my initial note 12/20/2017. SUBJECTIVE: I met with the patient in the evening. The patient slept 7-1/2 hours previous evening. In the morning, she was wandering, looking for her daughter Ambar, later talking about being the way she is because of old age. Daughter was concerned about the patient being in wheelchair and having some tremors, not ambulating on her own. We will consult Dr. Palmer for Neurology consult to clarify. REVIEW OF SYSTEMS: Ambulation impaired, in wheelchair. No CV, , pulmonary, eye, ENT system symptoms on review. Reliability poor. MENTAL STATUS EXAM: Oriented to herself. Insight, judgment, recent and remote memory, attention, concentration, fund of knowledge poor, consistent with her diagnosis mentioned in my initial note. PLAN: No change from initial note. MAN Cornelius WHITLOCK MD DR: CRISTINA/nato JOB#: [id number] / [id number]
--- NOTE | 2017-12-22 22:17 | PN ---
DATE: 12/21/2017 This is a late entry 12/21/2017 covers elements not covered in my initial note. SUBJECTIVE: I met with the patient in the evening of 12/21/2017. The patient slept 7 hours previous night. She is doing better, compliant with her medications. Ambulation impaired, in wheelchair, often on. REVIEW OF SYSTEMS: No CV, , pulmonary, eye, ENT system symptoms on review. Reliability poor. MENTAL STATUS EXAM: Oriented to herself. Insight, judgment, recent and remote memory, attention, concentration, fund of knowledge poor, consistent with her diagnosis mentioned in my initial note. PLAN: No change from initial note. If ambulation remains impaired, may reduce the Seroquel. LEYDA WHITLOCK MD DR: CRISTINA/nato JOB#: [id number] / [id number]
[2017-12-23] MEDS: FUROSEMIDE 40 MG TABLET PO SCH (06:43)
[2017-12-23] MEDS: HYDROcodone/APAP 7.5/325MG 1 TAB TABLET PO SCH ×4 (06:45→17:32)
[2017-12-23 06:53] VITALS: BP 126/76
[2017-12-23] MEDS: MULTIVITAMIN I-VITE TABLET. PO SCH ×2 (08:13→20:06)
[2017-12-23] MEDS: SERTRALINE 50 MG TABLET. PO SCH (08:13)
[2017-12-23] MEDS: levETIRAcetam 250 MG TABLET PO SCH ×2 (08:14→20:07)
[2017-12-23] MEDS: METOPROLOL TART IMMED RELEASE 25 MG TABLET PO SCH ×4 (08:14→20:08)
[2017-12-23] MEDS: cycloSPORINE 0.05% OPTH 1 DROP DROPERETTE OU SCH ×2 (08:14→20:06)
[2017-12-23] MEDS: QUEtiapine 25 MG TABLET. PO SCH ×3 (08:14→17:32)
[2017-12-23] MEDS: LIDOCAINE (700MG/PATCH) PATCH. TD SCH (08:15)
[2017-12-23] MEDS: POLYETHYLENE GLYCOL 3350 17 GM PACKET. PO SCH (08:15)
[2017-12-23 16:22] VITALS: BP 98/60
[2017-12-23] MEDS: MIRTAZAPINE 7.5 MG TABLET. PO SCH (20:07)
--- NOTE | 2017-12-23 20:37 | PDOC ---
Exam Note: Jorden Note: Please also refer to the separate dictated note~for this date of service dictated separately.~Patient seen individually. Discussed the patient with Nursing staff reviewed the chart.~Reviewed interim history and current functioning. Reviewed vital signs,~Labs/ Radiology~and current medications noted below. Continue current treatment with the changes noted in the dictated addendum note Assessment: Vital Signs: Vital Signs Date Time Temp Pulse Resp B/P (MAP) Pulse Ox O2 Delivery O2 Flow Rate FiO2 12/23/17 20:08 73 98/60 12/23/17 20:08 18 95 12/23/17 17:32 Room Air 12/23/17 16:22 97.4 I&O Intake and Output 12/23/17 06:59 Intake Total 960 ml Balance 960 ml Intake Oral 960 ml Current Medications: Meds: Current Medications Furosemide (Lasix) 40 mg 1X ONCE PO Last administered on 12/16/17 20:04; Start 12/16/17 at 20:00; Stop 12/16/17 at 20:01; Status DC Furosemide (Lasix) 40 mg DAILY06 PO Last administered on 12/23/17at 06:43; Start 12/17/17 at 06:00 Acetaminophen (Tylenol) 650 mg PRN Q6HRS PRN PO PAIN / TEMP; Start 12/16/17 at 21:00; Status Cancel Multi-Ingredient Ointment (Analgesic [place]) 1 axel PRN QID PRN TP MUSCLE PAIN; Start 12/16/17 at 21:00 Al Hydroxide/Mg Hydroxide (Mylanta Plus Xs) 15 ml PRN AFTMEALHC PRN PO DYSPEPSIA; Start 12/16/17 at 21:00 Magnesium Hydroxide (Milk Of Magnesia) 2,400 mg PRN QHS PRN PO CONSTIPATION; Start 12/16/17 at 21:00 Cyanocobalamin (Vitamin B-12) 1,000 mcg QMONTH IM Last administered on at 09:29; Start 12/17/17 at 09:00 Cyclosporine (Restasis) 1 drop BID OU Last administered on 12/23/17at 20:06; Start 12/17/17 at 09:00 Acetaminophen/ Hydrocodone Bitart (Lortab 7.5/325) 1 tab Q6HRS PO Last administered on 8/7/18at 17:32; Start 12/17/17 at 06:00 Vitamin D (Vitamin D3) 50,000 unit WEEKLY PO Last administered on 12/17/17at 09: 29; Start 12/17/17 at 09:00 Levetiracetam (Keppra) 250 mg BID PO Last administered on 12/23/17at 20:07; Start 12/17/17 at 09:00 Melatonin 3 mg PRN QHS PRN PO INSOMNIA; Start 12/17/17 at 07:45 Polyethylene Glycol (miraLAX) 17 gm DAILY PO Last administered on 12/23/17at 08: 15; Start 12/17/17 at 09:00 Acetaminophen (Tylenol) 325 mg PRN Q6HRS PRN PO PAIN Last administered on at 16:39; Start 12/17/17 at 00:30 Acetaminophen (Tylenol) 650 mg PRN Q6HRS PRN PO PAIN; Start 12/17/17 at 00:30 Calcium Carbonate/ Glycine (Tums) 500 mg PRN Q3HRS PRN PO HEARTBURN / GAS; Start 12/17/17 at 00:30 Diphenhydramine HCl (Benadryl) 25 mg PRN Q6HRS PRN PO EXTRAPYRAMIDAL SIDE EFFECTS; Start 12/17/17 at 00:30; Stop 12/17/17 at 17:03; Status DC Metoprolol Tartrate (Lopressor) 12.5 mg QID PO Last administered on 12/23/17at 20 :08; Start 12/17/17 at 09:00 Ondansetron HCl (Zofran Odt) 4 mg PRN Q8HRS PRN PO NAUSEA; Start 12/17/17 at 00: 30 Alprazolam (Xanax) 0.25 mg PRN Q4HRS PRN PO ANXIETY / AGITATION Last administered on 12/17/17at 22:16; Start 12/17/17 at 00:30; Stop 12/18/17 at 13:22; Status DC Artificial Tears (Artificial Tears) 1 drop PRN QID PRN OU dry eyes ; Start 12/17 at 00:30 Lidocaine (Lidoderm) 2 patch DAILY TD Last administered on 12/23/17at 08:15; Start 12/17/17 at 09:00 Mirtazapine (Remeron) 7.5 mg QHS PO Last administered on 12/23/17at 20:07; Start 12/17/17 at 21:00 Quetiapine Fumarate (SEROquel) 12.5 mg BID PO Last administered on 12/19/17 08: 29; Start 12/17/17 at 09:00; Stop 12/19/17 at 16:21; Status DC Multivitamins/ Minerals (I-Sandra) 1 tab BID PO Last administered on 12/23/17at 20: 06; Start 12/17/17 at 09:00 Sertraline HCl (Zoloft) 25 mg DAILY PO Last administered on 12/19/17at 08:29; Start 12/18/17 at 09:00; Stop 12/19/17 at 16:21; Status DC Olanzapine (ZyPREXA ZYDIS) 1.25 mg PRN Q2HR PRN PO PSYCHOSIS Last administered on 12/18/17at 20:40; Start 12/18/17 at 20:15 Quetiapine Fumarate (SEROquel) 12.5 mg TID@0900,1300,1700 PO Last administered on 12/23/17at 17:32; Start 12/19/17 at 17:00 Sertraline HCl (Zoloft) 50 mg DAILY PO Last administered on 12/23/17at 08:13; Start 12/20/17 at 09:00 Active Scripts Active Reported Xanax (Alprazolam) 0.25 Mg Tablet 0.25 Mg PO PRN Q4HRS PRN Artificial Tears Eye Drops (Dextran 70/Hypromellose) 15 Ml Drops 1 Drop EACHEYE PRN QID PRN Remeron (Mirtazapine) 15 Mg Tablet 7.5 Mg PO HS Seroquel (Quetiapine Fumarate) 25 Mg Tablet 12.5 Mg PO BID Metoprolol Tartrate 25 Mg Tablet 12.5 Mg PO QID Preservision Areds Softgel (Vit A/Vit C/Vit E/Zinc/Copper) 1 Each Capsule 1 Each PO BID Ondansetron Odt (Ondansetron) 4 Mg Tab.rapdis 4 Mg PO PRN Q8HRS PRN Tylenol (Acetaminophen) 325 Mg Tablet 325 Mg PO PRN Q6HRS PRN Tums (Calcium Carbonate) 200 Mg Tab.chew 500 Mg PO PRN Q3HRS PRN Benadryl (Diphenhydramine Hcl) 25 Mg Capsule 25 Mg PO PRN Q6HRS PRN Lidocaine 1 Each Adh..patch 2 Each TP DAILY two patches: one to thoracic region one to lower back. Remove after 12 hours. Tylenol (Acetaminophen) 325 Mg Tablet 650 Mg PO PRN Q6HRS PRN Restasis (Cyclosporine) 1 Each Droperette 1 Drop EACHEYE BID Keppra (Levetiracetam) 500 Mg Tablet 250 Tab PO BID Miralax (Polyethylene Glycol 3350) 17 Gm Powd.pack 17 Gm PO DAILY Melatonin 3 Mg Tab.rapdis 3 Mg PO HS PRN Hydrocodone-Apap 7.5-325 (Hydrocodone Bit/Acetaminophen) 1 Each Tablet 1 Tab PO Q6HRS Vitamin D2 (Ergocalciferol (Vitamin D2)) 50,000 Unit Capsule 50,000 Unit PO WEEKLY Cyanocobalamin Injection (Cyanocobalamin (Vitamin B-12)) 1,000 Mcg/1 Ml Vial 1, 000 Mcg IM QMONTH I have reviewed the current psychotropics carefully including drug interactions. Risk benefit ratio favors no change other than as noted in my dictated progress note. 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
--- NOTE | 2017-12-24 00:02 | PN ---
DATE: 12/23/2017 PSYCHIATRIC PROGRESS NOTE This is a late entry of 12/22/2017 covers elements not covered in my initial note. SUBJECTIVE: I met with the patient evening of 12/22/2017. The patient slept 6-3/4 hours previous evening, more compliant with her medications. She knew she was at [facility], less anxious, but confused. REVIEW OF SYSTEMS: No CV, , pulmonary, eye, ENT system symptoms on review. Gait unsteady with walker. MENTAL STATUS EXAM: Oriented to herself. Insight, judgment, recent and remote memory, attention, concentration, fund of knowledge poor, consistent with her diagnosis mentioned in my initial note. PLAN: No change from psychiatric standpoint from initial note. MAN Cornelius WHITLOCK MD DR: CRISTINA/nato JOB#: [id number] / [id number]
[2017-12-24] MEDS: FUROSEMIDE 40 MG TABLET PO SCH (05:21)
[2017-12-24] MEDS: HYDROcodone/APAP 7.5/325MG 1 TAB TABLET PO SCH ×4 (05:21→16:55)
[2017-12-24 05:56] VITALS: BP 129/74
[2017-12-24] MEDS: MULTIVITAMIN I-VITE TABLET. PO SCH ×2 (08:00→19:46)
[2017-12-24] MEDS: levETIRAcetam 250 MG TABLET PO SCH ×2 (08:00→19:47)
[2017-12-24] MEDS: cycloSPORINE 0.05% OPTH 1 DROP DROPERETTE OU SCH ×2 (08:00→19:46)
[2017-12-24] MEDS: METOPROLOL TART IMMED RELEASE 25 MG TABLET PO SCH ×4 (08:00→19:47)
[2017-12-24] MEDS: POLYETHYLENE GLYCOL 3350 17 GM PACKET. PO SCH (08:01)
[2017-12-24] MEDS: SERTRALINE 50 MG TABLET. PO SCH (08:01)
[2017-12-24] MEDS: CHOLECALCIFEROL (VITAMIN D3) 50,000 UNIT CAPSULE PO SCH (08:01)
[2017-12-24] MEDS: QUEtiapine 25 MG TABLET. PO SCH ×3 (08:01→16:55)
[2017-12-24] MEDS: LIDOCAINE (700MG/PATCH) PATCH. TD SCH (08:02)
[2017-12-24 16:24] VITALS: BP 123/71
[2017-12-24] MEDS: MIRTAZAPINE 7.5 MG TABLET. PO SCH (19:46)
--- NOTE | 2017-12-24 21:07 | PDOC ---
Exam Note: Jorden Note: Please also refer to the separate dictated note~for this date of service dictated separately.~Patient seen individually. Discussed the patient with Nursing staff reviewed the chart.~Reviewed interim history and current functioning. Reviewed vital signs,~Labs/ Radiology~and current medications noted below. Continue current treatment with the changes noted in the dictated addendum note Assessment: Vital Signs: Vital Signs Date Time Temp Pulse Resp B/P (MAP) Pulse Ox O2 Delivery O2 Flow Rate FiO2 12/24/17 19:47 99 123/71 12/24/17 19:11 18 97 Room Air 12/24/17 16:24 97.4 I&O Intake and Output 12/24/17 06:59 Intake Total 840 ml Balance 840 ml Intake Oral 840 ml Current Medications: Meds: Current Medications Furosemide (Lasix) 40 mg 1X ONCE PO Last administered on 12/16/17at 20:04; Start 12/16/17 at 20:00; Stop 12/16/17 at 20:01; Status DC Furosemide (Lasix) 40 mg DAILY06 PO Last administered on 12/24/17at 05:21; Start 12/17/17 at 06:00 Acetaminophen (Tylenol) 650 mg PRN Q6HRS PRN PO PAIN / TEMP; Start 12/16/17 at 21:00; Status Cancel Multi-Ingredient Ointment (Analgesic [place]) 1 axel PRN QID PRN TP MUSCLE PAIN; Start 12/16/17 at 21:00 Al Hydroxide/Mg Hydroxide (Mylanta Plus Xs) 15 ml PRN AFTMEALHC PRN PO DYSPEPSIA; Start 12/16/17 at 21:00 Magnesium Hydroxide (Milk Of Magnesia) 2,400 mg PRN QHS PRN PO CONSTIPATION; Start 12/16/17 at 21:00 Cyanocobalamin (Vitamin B-12) 1,000 mcg QMONTH IM Last administered on at 09:29; Start 12/17/17 at 09:00 Cyclosporine (Restasis) 1 drop BID OU Last administered on 12/24/17at 19:46; Start 12/17/17 at 09:00 Acetaminophen/ Hydrocodone Bitart (Lortab 7.5/325) 1 tab Q6HRS PO Last administered on 12/24/17 16:55; Start 12/17/17 at 06:00 Vitamin D (Vitamin D3) 50,000 unit WEEKLY PO Last administered on 12/24/17 08: 01; Start 12/17/17 at 09:00 Levetiracetam (Keppra) 250 mg BID PO Last administered on 12/24/17at 19:47; Start 12/17/17 at 09:00 Melatonin 3 mg PRN QHS PRN PO INSOMNIA; Start 12/17/17 at 07:45 Polyethylene Glycol (miraLAX) 17 gm DAILY PO Last administered on 12/24/17 08: 01; Start 12/17/17 at 09:00 Acetaminophen (Tylenol) 325 mg PRN Q6HRS PRN PO PAIN Last administered on at 16:39; Start 12/17/17 at 00:30 Acetaminophen (Tylenol) 650 mg PRN Q6HRS PRN PO PAIN; Start 12/17/17 at 00:30 Calcium Carbonate/ Glycine (Tums) 500 mg PRN Q3HRS PRN PO HEARTBURN / GAS; Start 12/17/17 at 00:30 Diphenhydramine HCl (Benadryl) 25 mg PRN Q6HRS PRN PO EXTRAPYRAMIDAL SIDE EFFECTS; Start 12/17/17 at 00:30; Stop 12/17/17 at 17:03; Status DC Metoprolol Tartrate (Lopressor) 12.5 mg QID PO Last administered on 12/24/17 19 :47; Start 12/17/17 at 09:00 Ondansetron HCl (Zofran Odt) 4 mg PRN Q8HRS PRN PO NAUSEA; Start 12/17/17 at 00: 30 Alprazolam (Xanax) 0.25 mg PRN Q4HRS PRN PO ANXIETY / AGITATION Last administered on 12/17/17at 22:16; Start 12/17/17 at 00:30; Stop 12/18/17 at 13:22; Status DC Artificial Tears (Artificial Tears) 1 drop PRN QID PRN OU dry eyes ; Start 12/17 at 00:30 Lidocaine (Lidoderm) 2 patch DAILY TD Last administered on 12/24/17at 08:02; Start 12/17/17 at 09:00 Mirtazapine (Remeron) 7.5 mg QHS PO Last administered on 12/24/17 19:46; Start 12/17/17 at 21:00 Quetiapine Fumarate (SEROquel) 12.5 mg BID PO Last administered on 12/19/17 08: 29; Start 12/17/17 at 09:00; Stop 12/19/17 at 16:21; Status DC Multivitamins/ Minerals (I-Sandra) 1 tab BID PO Last administered on 12/24/17 19: 46; Start 12/17/17 at 09:00 Sertraline HCl (Zoloft) 25 mg DAILY PO Last administered on 12/19/17 08:29; Start 12/18/17 at 09:00; Stop 12/19/17 at 16:21; Status DC Olanzapine (ZyPREXA ZYDIS) 1.25 mg PRN Q2HR PRN PO PSYCHOSIS Last administered on 12/18/17at 20:40; Start 12/18/17 at 20:15 Quetiapine Fumarate (SEROquel) 12.5 mg TID@0900,1300,1700 PO Last administered on 12/24/17 16:55; Start 12/19/17 at 17:00 Sertraline HCl (Zoloft) 50 mg DAILY PO Last administered on 12/24/17 08:01; Start 12/20/17 at 09:00; Stop 12/24/17 at 16:31; Status DC Sertraline HCl (Zoloft) 75 mg DAILY PO ; Start 12/25/17 at 09:00 Active Scripts Active Reported Xanax (Alprazolam) 0.25 Mg Tablet 0.25 Mg PO PRN Q4HRS PRN Artificial Tears Eye Drops (Dextran 70/Hypromellose) 15 Ml Drops 1 Drop EACHEYE PRN QID PRN Remeron (Mirtazapine) 15 Mg Tablet 7.5 Mg PO HS Seroquel (Quetiapine Fumarate) 25 Mg Tablet 12.5 Mg PO BID Metoprolol Tartrate 25 Mg Tablet 12.5 Mg PO QID Preservision Areds Softgel (Vit A/Vit C/Vit E/Zinc/Copper) 1 Each Capsule 1 Each PO BID Ondansetron Odt (Ondansetron) 4 Mg Tab.rapdis 4 Mg PO PRN Q8HRS PRN Tylenol (Acetaminophen) 325 Mg Tablet 325 Mg PO PRN Q6HRS PRN Tums (Calcium Carbonate) 200 Mg Tab.chew 500 Mg PO PRN Q3HRS PRN Benadryl (Diphenhydramine Hcl) 25 Mg Capsule 25 Mg PO PRN Q6HRS PRN Lidocaine 1 Each Adh..patch 2 Each TP DAILY two patches: one to thoracic region one to lower back. Remove after 12 hours. Tylenol (Acetaminophen) 325 Mg Tablet 650 Mg PO PRN Q6HRS PRN Restasis (Cyclosporine) 1 Each Droperette 1 Drop EACHEYE BID Keppra (Levetiracetam) 500 Mg Tablet 250 Tab PO BID Miralax (Polyethylene Glycol 3350) 17 Gm Powd.pack 17 Gm PO DAILY Melatonin 3 Mg Tab.rapdis 3 Mg PO HS PRN Hydrocodone-Apap 7.5-325 (Hydrocodone Bit/Acetaminophen) 1 Each Tablet 1 Tab PO Q6HRS Vitamin D2 (Ergocalciferol (Vitamin D2)) 50,000 Unit Capsule 50,000 Unit PO WEEKLY Cyanocobalamin Injection (Cyanocobalamin (Vitamin B-12)) 1,000 Mcg/1 Ml Vial 1, 000 Mcg IM QMONTH I have reviewed the current psychotropics carefully including drug interactions. Risk benefit ratio favors no change other than as noted in my dictated progress note. 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
--- NOTE | 2017-12-24 22:34 | PN ---
DATE: 12/23/2017 PSYCHIATRIC PROGRESS NOTE This is a late entry, 12/23, covers elements not covered in my initial note. SUBJECTIVE: I met with the patient in the evening. The patient slept 7-1/2 hours previous evening. She is confused, looking for Ade[place], her son-in-law, believe she is in [place], wandering is better. REVIEW OF SYSTEMS: Hard of hearing. No CV, , pulmonary, eye system symptoms on review. MENTAL STATUS EXAM: Oriented to herself. Insight, judgment, recent and remote memory, attention, concentration, fund of knowledge poor, consistent with her diagnosis mentioned in my initial note. PLAN: No change from initial note. LEYDA WHITLOCK MD DR: CRISTINA/nato JOB#: [id number] / [id number]
[2017-12-25] MEDS: FUROSEMIDE 40 MG TABLET PO SCH (05:49)
[2017-12-25] MEDS: HYDROcodone/APAP 7.5/325MG 1 TAB TABLET PO SCH ×4 (05:49→16:49)
[2017-12-25 06:24] VITALS: BP 116/81
[2017-12-25] MEDS: cycloSPORINE 0.05% OPTH 1 DROP DROPERETTE OU SCH ×2 (08:05→20:01)
[2017-12-25] MEDS: MULTIVITAMIN I-VITE TABLET. PO SCH ×2 (08:05→20:01)
[2017-12-25] MEDS: POLYETHYLENE GLYCOL 3350 17 GM PACKET. PO SCH (08:06)
[2017-12-25] MEDS: levETIRAcetam 250 MG TABLET PO SCH ×2 (08:06→20:03)
[2017-12-25] MEDS: METOPROLOL TART IMMED RELEASE 25 MG TABLET PO SCH ×4 (08:06→20:02)
[2017-12-25] MEDS: QUEtiapine 25 MG TABLET. PO SCH ×3 (08:07→16:49)
[2017-12-25] MEDS: LIDOCAINE (700MG/PATCH) PATCH. TD SCH (08:08)
[2017-12-25] MEDS: SERTRALINE 50 MG TABLET. PO SCH (08:08)
[2017-12-25 15:44] VITALS: BP 97/71
[2017-12-25] MEDS: MIRTAZAPINE 7.5 MG TABLET. PO SCH (20:01)
--- NOTE | 2017-12-25 20:26 | PDOC ---
Exam Note: Jorden Note: Please also refer to the separate dictated note~for this date of service dictated separately.~Patient seen individually. Discussed the patient with Nursing staff reviewed the chart.~Reviewed interim history and current functioning. Reviewed vital signs,~Labs/ Radiology~and current medications noted below. Continue current treatment with the changes noted in the dictated addendum note Assessment: Vital Signs: Vital Signs Date Time Temp Pulse Resp B/P (MAP) Pulse Ox O2 Delivery O2 Flow Rate FiO2 12/25/17 20:02 90 97/71 12/25/17 17:53 18 94 Room Air 12/25/17 15:44 97.2 I&O Intake and Output 12/25/17 07:00 Intake Total 720 ml Balance 720 ml Intake Oral 720 ml # Voids 1 Current Medications: Meds: Current Medications Furosemide (Lasix) 40 mg 1X ONCE PO Last administered on 12/16/17at 20:04; Start 12/16/17 at 20:00; Stop 12/16/17 at 20:01; Status DC Furosemide (Lasix) 40 mg DAILY06 PO Last administered on 12/25/17at 05:49; Start 12/17/17 at 06:00 Acetaminophen (Tylenol) 650 mg PRN Q6HRS PRN PO PAIN / TEMP; Start 12/16/17 at 21:00; Status Cancel Multi-Ingredient Ointment (Analgesic [place]) 1 axel PRN QID PRN TP MUSCLE PAIN; Start 12/16/17 at 21:00 Al Hydroxide/Mg Hydroxide (Mylanta Plus Xs) 15 ml PRN AFTMEALHC PRN PO DYSPEPSIA; Start 12/16/17 at 21:00 Magnesium Hydroxide (Milk Of Magnesia) 2,400 mg PRN QHS PRN PO CONSTIPATION; Start 12/16/17 at 21:00 Cyanocobalamin (Vitamin B-12) 1,000 mcg QMONTH IM Last administered on at 09:29; Start 12/17/17 at 09:00 Cyclosporine (Restasis) 1 drop BID OU Last administered on 12/25/17at 20:01; Start 12/17/17 at 09:00 Acetaminophen/ Hydrocodone Bitart (Lortab 7.5/325) 1 tab Q6HRS PO Last administered on 12/25/17at 16:49; Start 12/17/17 at 06:00 Vitamin D (Vitamin D3) 50,000 unit WEEKLY PO Last administered on 12/24/17 08: 01; Start 12/17/17 at 09:00 Levetiracetam (Keppra) 250 mg BID PO Last administered on 12/25/17at 20:03; Start 12/17/17 at 09:00 Melatonin 3 mg PRN QHS PRN PO INSOMNIA; Start 12/17/17 at 07:45 Polyethylene Glycol (miraLAX) 17 gm DAILY PO Last administered on 12/25/17at 08: 06; Start 12/17/17 at 09:00 Acetaminophen (Tylenol) 325 mg PRN Q6HRS PRN PO PAIN Last administered on at 16:39; Start 12/17/17 at 00:30 Acetaminophen (Tylenol) 650 mg PRN Q6HRS PRN PO PAIN; Start 12/17/17 at 00:30 Calcium Carbonate/ Glycine (Tums) 500 mg PRN Q3HRS PRN PO HEARTBURN / GAS; Start 12/17/17 at 00:30 Diphenhydramine HCl (Benadryl) 25 mg PRN Q6HRS PRN PO EXTRAPYRAMIDAL SIDE EFFECTS; Start 12/17/17 at 00:30; Stop 12/17/17 at 17:03; Status DC Metoprolol Tartrate (Lopressor) 12.5 mg QID PO Last administered on 12/25/17at 20 :02; Start 12/17/17 at 09:00 Ondansetron HCl (Zofran Odt) 4 mg PRN Q8HRS PRN PO NAUSEA; Start 12/17/17 at 00: 30 Alprazolam (Xanax) 0.25 mg PRN Q4HRS PRN PO ANXIETY / AGITATION Last administered on 12/17/17at 22:16; Start 12/17/17 at 00:30; Stop 12/18/17 at 13:22; Status DC Artificial Tears (Artificial Tears) 1 drop PRN QID PRN OU dry eyes ; Start 12/17 at 00:30 Lidocaine (Lidoderm) 2 patch DAILY TD Last administered on 12/25/17at 08:08; Start 12/17/17 at 09:00 Mirtazapine (Remeron) 7.5 mg QHS PO Last administered on 12/25/17 20:01; Start 12/17/17 at 21:00 Quetiapine Fumarate (SEROquel) 12.5 mg BID PO Last administered on 12/19/17 08: 29; Start 12/17/17 at 09:00; Stop 12/19/17 at 16:21; Status DC Multivitamins/ Minerals (I-Sandra) 1 tab BID PO Last administered on 12/25/17 20: 01; Start 12/17/17 at 09:00 Sertraline HCl (Zoloft) 25 mg DAILY PO Last administered on 12/19/17 08:29; Start 12/18/17 at 09:00; Stop 12/19/17 at 16:21; Status DC Olanzapine (ZyPREXA ZYDIS) 1.25 mg PRN Q2HR PRN PO PSYCHOSIS Last administered on 12/18/17at 20:40; Start 12/18/17 at 20:15 Quetiapine Fumarate (SEROquel) 12.5 mg TID@0900,1300,1700 PO Last administered on 12/25/17at 16:49; Start 12/19/17 at 17:00 Sertraline HCl (Zoloft) 50 mg DAILY PO Last administered on 12/24/17 08:01; Start 12/20/17 at 09:00; Stop 12/24/17 at 16:31; Status DC Sertraline HCl (Zoloft) 75 mg DAILY PO Last administered on 12/25/17 08:08; Start 12/25/17 at 09:00 Active Scripts Active Reported Xanax (Alprazolam) 0.25 Mg Tablet 0.25 Mg PO PRN Q4HRS PRN Artificial Tears Eye Drops (Dextran 70/Hypromellose) 15 Ml Drops 1 Drop EACHEYE PRN QID PRN Remeron (Mirtazapine) 15 Mg Tablet 7.5 Mg PO HS Seroquel (Quetiapine Fumarate) 25 Mg Tablet 12.5 Mg PO BID Metoprolol Tartrate 25 Mg Tablet 12.5 Mg PO QID Preservision Areds Softgel (Vit A/Vit C/Vit E/Zinc/Copper) 1 Each Capsule 1 Each PO BID Ondansetron Odt (Ondansetron) 4 Mg Tab.rapdis 4 Mg PO PRN Q8HRS PRN Tylenol (Acetaminophen) 325 Mg Tablet 325 Mg PO PRN Q6HRS PRN Tums (Calcium Carbonate) 200 Mg Tab.chew 500 Mg PO PRN Q3HRS PRN Benadryl (Diphenhydramine Hcl) 25 Mg Capsule 25 Mg PO PRN Q6HRS PRN Lidocaine 1 Each Adh..patch 2 Each TP DAILY two patches: one to thoracic region one to lower back. Remove after 12 hours. Tylenol (Acetaminophen) 325 Mg Tablet 650 Mg PO PRN Q6HRS PRN Restasis (Cyclosporine) 1 Each Droperette 1 Drop EACHEYE BID Keppra (Levetiracetam) 500 Mg Tablet 250 Tab PO BID Miralax (Polyethylene Glycol 3350) 17 Gm Powd.pack 17 Gm PO DAILY Melatonin 3 Mg Tab.rapdis 3 Mg PO HS PRN Hydrocodone-Apap 7.5-325 (Hydrocodone Bit/Acetaminophen) 1 Each Tablet 1 Tab PO Q6HRS Vitamin D2 (Ergocalciferol (Vitamin D2)) 50,000 Unit Capsule 50,000 Unit PO WEEKLY Cyanocobalamin Injection (Cyanocobalamin (Vitamin B-12)) 1,000 Mcg/1 Ml Vial 1, 000 Mcg IM QMONTH I have reviewed the current psychotropics carefully including drug interactions. Risk benefit ratio favors no change other than as noted in my dictated progress note. 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
[2017-12-26 06:05] VITALS: BP 130/75
[2017-12-26] MEDS: FUROSEMIDE 40 MG TABLET PO SCH (06:27)
[2017-12-26] MEDS: HYDROcodone/APAP 7.5/325MG 1 TAB TABLET PO SCH ×4 (06:28→17:05)
[2017-12-26] MEDS: LIDOCAINE (700MG/PATCH) PATCH. TD SCH (07:52)
[2017-12-26] MEDS: POLYETHYLENE GLYCOL 3350 17 GM PACKET. PO SCH (07:52)
[2017-12-26] MEDS: cycloSPORINE 0.05% OPTH 1 DROP DROPERETTE OU SCH ×2 (07:52→20:54)
[2017-12-26] MEDS: MULTIVITAMIN I-VITE TABLET. PO SCH ×2 (07:52→20:54)
[2017-12-26] MEDS: levETIRAcetam 250 MG TABLET PO SCH ×2 (07:53→20:54)
[2017-12-26] MEDS: SERTRALINE 50 MG TABLET. PO SCH (07:53)
[2017-12-26] MEDS: METOPROLOL TART IMMED RELEASE 25 MG TABLET PO SCH ×4 (07:54→20:54)
[2017-12-26] MEDS: QUEtiapine 25 MG TABLET. PO SCH ×3 (07:55→16:20)
[2017-12-26 07:57] LABS: BASO % 1 % (0-3); EOS # 0.1 x10^3/uL (0.0-0.7); EOS % 3 % (0-3); HEMATOCRIT 31.2 % (36.0-47.0); HEMOGLOBIN 10.4 g/dL (12.0-15.5); LYMPH % 28 % (24-48); MEAN CORPUSCULAR HEMOGLOBIN 33 pg (25-35); MEAN CORPUSCULAR HGB CONC 33 g/dL (31-37); MEAN CORPUSCULAR VOLUME 98 fL (79-100); MONO # 0.4 x10^3/uL (0.0-1.1); MONO % 11 % (0-9); NEUT # 1.9 x10^3uL (1.8-7.7); NEUT % 57 % (31-73); PLATELET COUNT 131 x10^3/uL (140-400); RED BLOOD COUNT 3.17 x10^6/uL (3.50-5.40); RED CELL DISTRIBUTION WIDTH 16.5 % (11.5-14.5); WHITE BLOOD COUNT 3.4 x10^3/uL (4.0-11.0)
[2017-12-26 08:13] LABS: ALBUMIN 2.6 g/dL (3.4-5.0); ALBUMIN/GLOBULIN RATIO 0.8 (1.0-1.7); CALCIUM 8.6 mg/dL (8.5-10.1); CREATININE 1.1 mg/dL (0.6-1.0); GFR 47.1; MAGNESIUM 2.1 mg/dL (1.8-2.4); POTASSIUM 4.2 mmol/L (3.5-5.1); TOTAL BILIRUBIN 0.6 mg/dL (0.2-1.0); TOTAL PROTEIN 5.7 g/dL (6.4-8.2)
[2017-12-26 16:20] VITALS: BP 116/53
[2017-12-26] MEDS ORDERED: HYDROcodone/APAP 7.5/325MG 1 TAB TABLET PO PRN (18:45)
[2017-12-26] MEDS: MIRTAZAPINE 7.5 MG TABLET. PO SCH (20:53)
--- NOTE | 2017-12-26 20:53 | PDOC ---
Exam Note: Jorden Note: Please also refer to the separate dictated note~for this date of service dictated separately.~Patient seen individually. Discussed the patient with Nursing staff reviewed the chart.~Reviewed interim history and current functioning. Reviewed vital signs,~Labs/ Radiology~and current medications noted below. Continue current treatment with the changes noted in the dictated addendum note Assessment: Vital Signs: Vital Signs Date Time Temp Pulse Resp B/P (MAP) Pulse Ox O2 Delivery O2 Flow Rate FiO2 12/26/17 17:05 22 Room Air 12/26/17 16:20 96.9 104 116/53 (74) 95 I&O Intake and Output 12/26/17 07:00 Intake Total 800 ml Balance 800 ml Intake Oral 800 ml # Voids 2 # Bowel Movements 1 Labs: Laboratory Tests Test 12/26/17 07:05 White Blood Count 3.4 x10^3/uL (4.0-11.0) L Red Blood Count 3.17 x10^6/uL (3.50-5.40) L Hemoglobin 10.4 g/dL (12.0-15.5) L Hematocrit 31.2 % (36.0-47.0) L Mean Corpuscular Volume 98 fL (79-100) Mean Corpuscular Hemoglobin 33 pg (25-35) Mean Corpuscular Hemoglobin Concent 33 g/dL (31-37) Red Cell Distribution Width 16.5 % (11.5-14.5) H Platelet Count 131 x10^3/uL (140-400) L Neutrophils (%) (Auto) 57 % (31-73) Lymphocytes (%) (Auto) 28 % (24-48) Monocytes (%) (Auto) 11 % (0-9) H Eosinophils (%) (Auto) 3 % (0-3) Basophils (%) (Auto) 1 % (0-3) Neutrophils # (Auto) 1.9 x10^3uL (1.8-7.7) Lymphocytes # (Auto) 1.0 x10^3/uL (1.0-4.8) Monocytes # (Auto) 0.4 x10^3/uL (0.0-1.1) Eosinophils # (Auto) 0.1 x10^3/uL (0.0-0.7) Basophils # (Auto) 0.0 x10^3/uL (0.0-0.2) Sodium Level 140 mmol/L (136-145) Potassium Level 4.2 mmol/L (3.5-5.1) Chloride Level 106 mmol/L (98-107) Carbon Dioxide Level 29 mmol/L (21-32) Anion Gap 5 (6-14) L Blood Urea Nitrogen 41 mg/dL (7-20) H Creatinine 1.1 mg/dL (0.6-1.0) H Estimated GFR (Cockcroft-Gault) 47.1 BUN/Creatinine Ratio 37 (6-20) H Glucose Level 87 mg/dL (70-99) Calcium Level 8.6 mg/dL (8.5-10.1) Magnesium Level 2.1 mg/dL (1.8-2.4) Total Bilirubin 0.6 mg/dL (0.2-1.0) Aspartate Amino Transferase (AST) 20 U/L (15-37) Alanine Aminotransferase (ALT) 18 U/L (14-59) Alkaline Phosphatase 108 U/L (46-116) Total Protein 5.7 g/dL (6.4-8.2) L Albumin 2.6 g/dL (3.4-5.0) L Albumin/Globulin Ratio 0.8 (1.0-1.7) L Current Medications: Meds: Current Medications Furosemide (Lasix) 40 mg 1X ONCE PO Last administered on 12/16/17at 20:04; Start 12/16/17 at 20:00; Stop 12/16/17 at 20:01; Status DC Furosemide (Lasix) 40 mg DAILY06 PO Last administered on 12/26/17at 06:27; Start 12/17/17 at 06:00 Acetaminophen (Tylenol) 650 mg PRN Q6HRS PRN PO PAIN / TEMP; Start 12/16/17 at 21:00; Status Cancel Multi-Ingredient Ointment (Analgesic [place]) 1 axel PRN QID PRN TP MUSCLE PAIN; Start 12/16/17 at 21:00 Al Hydroxide/Mg Hydroxide (Mylanta Plus Xs) 15 ml PRN AFTMEALHC PRN PO DYSPEPSIA; Start 12/16/17 at 21:00 Magnesium Hydroxide (Milk Of Magnesia) 2,400 mg PRN QHS PRN PO CONSTIPATION; Start 12/16/17 at 21:00 Cyanocobalamin (Vitamin B-12) 1,000 mcg QMONTH IM Last administered on at 09:29; Start 12/17/17 at 09:00 Cyclosporine (Restasis) 1 drop BID OU Last administered on 12/26/17at 07:52; Start 12/17/17 at 09:00 Acetaminophen/ Hydrocodone Bitart (Lortab 7.5/325) 1 tab Q6HRS PO Last administered on 12/26/17at 17:05; Start 12/17/17 at 06:00; Stop 12/26/17 at 18:44 ; Status DC Vitamin D (Vitamin D3) 50,000 unit WEEKLY PO Last administered on 12/24/17at 08: 01; Start 12/17/17 at 09:00 Levetiracetam (Keppra) 250 mg BID PO Last administered on 12/26/17at 07:53; Start 12/17/17 at 09:00 Melatonin 3 mg PRN QHS PRN PO INSOMNIA; Start 12/17/17 at 07:45 Polyethylene Glycol (miraLAX) 17 gm DAILY PO Last administered on 12/26/17at 07: 52; Start 12/17/17 at 09:00 Acetaminophen (Tylenol) 325 mg PRN Q6HRS PRN PO PAIN Last administered on at 16:39; Start 12/17/17 at 00:30 Acetaminophen (Tylenol) 650 mg PRN Q6HRS PRN PO PAIN; Start 12/17/17 at 00:30 Calcium Carbonate/ Glycine (Tums) 500 mg PRN Q3HRS PRN PO HEARTBURN / GAS; Start 12/17/17 at 00:30 Diphenhydramine HCl (Benadryl) 25 mg PRN Q6HRS PRN PO EXTRAPYRAMIDAL SIDE EFFECTS; Start 12/17/17 at 00:30; Stop 12/17/17 at 17:03; Status DC Metoprolol Tartrate (Lopressor) 12.5 mg QID PO Last administered on 12/26/17at 16:19; Start 12/17/17 at 09:00 Ondansetron HCl (Zofran Odt) 4 mg PRN Q8HRS PRN PO NAUSEA; Start 12/17/17 at 00: 30 Alprazolam (Xanax) 0.25 mg PRN Q4HRS PRN PO ANXIETY / AGITATION Last administered on 12/17/17 22:16; Start 12/17/17 at 00:30; Stop 12/18/17 at 13:22; Status DC Artificial Tears (Artificial Tears) 1 drop PRN QID PRN OU dry eyes ; Start 12/17 at 00:30 Lidocaine (Lidoderm) 2 patch DAILY TD Last administered on 12/26/17 07:52; Start 12/17/17 at 09:00 Mirtazapine (Remeron) 7.5 mg QHS PO Last administered on 12/25/17at 20:01; Start 12/17/17 at 21:00 Quetiapine Fumarate (SEROquel) 12.5 mg BID PO Last administered on 12/19/17 08: 29; Start 12/17/17 at 09:00; Stop 12/19/17 at 16:21; Status DC Multivitamins/ Minerals (I-Sandra) 1 tab BID PO Last administered on 12/26/17 07 :52; Start 12/17/17 at 09:00 Sertraline HCl (Zoloft) 25 mg DAILY PO Last administered on 12/19/17 08:29; Start 12/18/17 at 09:00; Stop 12/19/17 at 16:21; Status DC Olanzapine (ZyPREXA ZYDIS) 1.25 mg PRN Q2HR PRN PO PSYCHOSIS Last administered on 12/18/17at 20:40; Start 12/18/17 at 20:15 Quetiapine Fumarate (SEROquel) 12.5 mg TID@0900,1300,1700 PO Last administered on 12/26/17 16:20; Start 12/19/17 at 17:00 Sertraline HCl (Zoloft) 50 mg DAILY PO Last administered on 12/24/17 08:01; Start 12/20/17 at 09:00; Stop 12/24/17 at 16:31; Status DC Sertraline HCl (Zoloft) 75 mg DAILY PO Last administered on 12/26/17 07:53; Start 12/25/17 at 09:00 Acetaminophen/ Hydrocodone Bitart (Lortab 7.5/325) 1 tab 0600,1200,1800 PO ; Start 12/27/17 at 06:00 Acetaminophen/ Hydrocodone Bitart (Lortab 7.5/325) 1 tab PRN DAILY PRN PO PAIN ; Start 12/26/17 at 18:45 Active Scripts Active Reported Xanax (Alprazolam) 0.25 Mg Tablet 0.25 Mg PO PRN Q4HRS PRN Artificial Tears Eye Drops (Dextran 70/Hypromellose) 15 Ml Drops 1 Drop EACHEYE PRN QID PRN Remeron (Mirtazapine) 15 Mg Tablet 7.5 Mg PO HS Seroquel (Quetiapine Fumarate) 25 Mg Tablet 12.5 Mg PO BID Metoprolol Tartrate 25 Mg Tablet 12.5 Mg PO QID Preservision Areds Softgel (Vit A/Vit C/Vit E/Zinc/Copper) 1 Each Capsule 1 Each PO BID Ondansetron Odt (Ondansetron) 4 Mg Tab.rapdis 4 Mg PO PRN Q8HRS PRN Tylenol (Acetaminophen) 325 Mg Tablet 325 Mg PO PRN Q6HRS PRN Tums (Calcium Carbonate) 200 Mg Tab.chew 500 Mg PO PRN Q3HRS PRN Benadryl (Diphenhydramine Hcl) 25 Mg Capsule 25 Mg PO PRN Q6HRS PRN Lidocaine 1 Each Adh..patch 2 Each TP DAILY two patches: one to thoracic region one to lower back. Remove after 12 hours. Tylenol (Acetaminophen) 325 Mg Tablet 650 Mg PO PRN Q6HRS PRN Restasis (Cyclosporine) 1 Each Droperette 1 Drop EACHEYE BID Keppra (Levetiracetam) 500 Mg Tablet 250 Tab PO BID Miralax (Polyethylene Glycol 3350) 17 Gm Powd.pack 17 Gm PO DAILY Melatonin 3 Mg Tab.rapdis 3 Mg PO HS PRN Hydrocodone-Apap 7.5-325 (Hydrocodone Bit/Acetaminophen) 1 Each Tablet 1 Tab PO Q6HRS Vitamin D2 (Ergocalciferol (Vitamin D2)) 50,000 Unit Capsule 50,000 Unit PO WEEKLY Cyanocobalamin Injection (Cyanocobalamin (Vitamin B-12)) 1,000 Mcg/1 Ml Vial 1, 000 Mcg IM QMONTH I have reviewed the current psychotropics carefully including drug interactions. Risk benefit ratio favors no change other than as noted in my dictated progress note. 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
--- NOTE | 2017-12-26 20:57 | PN ---
DATE: 12/24/2017 PSYCHIATRIC PROGRESS NOTE This is a late entry for 12/24/2017, covers elements not covered in my initial note. SUBJECTIVE: I met with the patient in the evening and also with her daughter. The patient slept 7-1/2 hours, was intermittently agitated, went out to the patio. Lidoderm patch was applied on her back and she did better. REVIEW OF SYSTEMS: No CV, , pulmonary, eye, ENT system symptoms on review. Does complain of the pain. MENTAL STATUS EXAM: Oriented to herself, hard of hearing. Insight, judgment, recent and remote memory, attention, concentration, fund of knowledge poor, consistent with her diagnosis mentioned in my initial note. PLAN: Increase Zoloft from 50 mg a day to 75 mg a day. Continue rest unchanged. MAN Cornelius WHITLOCK MD DR: CRISTINA/nato JOB#: [id number] / [id number]
--- NOTE | 2017-12-26 21:01 | PN ---
DATE: 12/25/2017 PSYCHIATRIC PROGRESS NOTE This is a late entry for 12/25/2017, covers elements not covered in my initial note. SUBJECTIVE: I met with the patient in the evening. The patient was also staffed a treatment team meeting with the entire team and this was morning of 12/25/2017. She is anxious in the evening, exit seeking off and on during the day, but redirectable. I met with her daughter in the evening. REVIEW OF SYSTEMS: Hard of hearing. Impaired ambulation. No CV, , pulmonary, eye, ENT system symptoms on review. Reliability poor. MENTAL STATUS EXAM: Oriented to herself. Insight, judgment, recent and remote memory, attention, concentration, fund of knowledge poor, consistent with her diagnosis mentioned in my initial note. PLAN: No change from initial note. MAN Cornelius WHITLCOK MD DR: CRISTINA/nato JOB#: [id number] / [id number]
[2017-12-27] MEDS: HYDROcodone/APAP 7.5/325MG 1 TAB TABLET PO SCH ×3 (05:40→16:46)
[2017-12-27] MEDS: FUROSEMIDE 40 MG TABLET PO SCH (05:40)
[2017-12-27] MEDS: LIDOCAINE (700MG/PATCH) PATCH. TD SCH (05:48)
[2017-12-27 06:48] VITALS: BP 122/70
[2017-12-27] MEDS: MULTIVITAMIN I-VITE TABLET. PO SCH ×2 (07:32→20:28)
[2017-12-27] MEDS: cycloSPORINE 0.05% OPTH 1 DROP DROPERETTE OU SCH ×2 (07:32→20:28)
[2017-12-27] MEDS: POLYETHYLENE GLYCOL 3350 17 GM PACKET. PO SCH (07:33)
[2017-12-27] MEDS: levETIRAcetam 250 MG TABLET PO SCH ×2 (07:33→20:28)
[2017-12-27] MEDS: METOPROLOL TART IMMED RELEASE 25 MG TABLET PO SCH ×4 (07:33→20:28)
[2017-12-27] MEDS: QUEtiapine 25 MG TABLET. PO SCH ×3 (07:34→16:45)
[2017-12-27] MEDS: SERTRALINE 50 MG TABLET. PO SCH (07:34)
[2017-12-27 16:42] VITALS: BP 111/72
[2017-12-27] MEDS: MIRTAZAPINE 7.5 MG TABLET. PO SCH (20:28)
--- NOTE | 2017-12-27 23:10 | PDOC ---
Exam Note: Jorden Note: Please also refer to the separate dictated note~for this date of service dictated separately.~Patient seen individually. Discussed the patient with Nursing staff reviewed the chart.~Reviewed interim history and current functioning. Reviewed vital signs,~Labs/ Radiology~and current medications noted below. Continue current treatment with the changes noted in the dictated addendum note Assessment: Vital Signs: Vital Signs Date Time Temp Pulse Resp B/P (MAP) Pulse Ox O2 Delivery O2 Flow Rate FiO2 12/27/17 20:28 91 111/72 12/27/17 17:46 18 84 Room Air 12/27/17 16:42 98.1 I&O Intake and Output 12/27/17 07:00 Intake Total 360 ml Balance 360 ml Intake Oral 360 ml Current Medications: Meds: Current Medications Furosemide (Lasix) 40 mg 1X ONCE PO Last administered on 12/16/17at 20:04; Start 12/16/17 at 20:00; Stop 12/16/17 at 20:01; Status DC Furosemide (Lasix) 40 mg DAILY06 PO Last administered on 12/27/17at 05:40; Start 12/17/17 at 06:00 Acetaminophen (Tylenol) 650 mg PRN Q6HRS PRN PO PAIN / TEMP; Start 12/16/17 at 21:00; Status Cancel Multi-Ingredient Ointment (Analgesic [place]) 1 axel PRN QID PRN TP MUSCLE PAIN; Start 12/16/17 at 21:00 Al Hydroxide/Mg Hydroxide (Mylanta Plus Xs) 15 ml PRN AFTMEALHC PRN PO DYSPEPSIA; Start 12/16/17 at 21:00 Magnesium Hydroxide (Milk Of Magnesia) 2,400 mg PRN QHS PRN PO CONSTIPATION; Start 12/16/17 at 21:00 Cyanocobalamin (Vitamin B-12) 1,000 mcg QMONTH IM Last administered on at 09:29; Start 12/17/17 at 09:00 Cyclosporine (Restasis) 1 drop BID OU Last administered on 12/27/17at 20:28; Start 12/17/17 at 09:00 Acetaminophen/ Hydrocodone Bitart (Lortab 7.5/325) 1 tab Q6HRS PO Last administered on 12/26/17at 17:05; Start 12/17/17 at 06:00; Stop 12/26/17 at 18:44 ; Status DC Vitamin D (Vitamin D3) 50,000 unit WEEKLY PO Last administered on 12/24/17 08: 01; Start 12/17/17 at 09:00 Levetiracetam (Keppra) 250 mg BID PO Last administered on 12/27/17at 20:28; Start 12/17/17 at 09:00 Melatonin 3 mg PRN QHS PRN PO INSOMNIA; Start 12/17/17 at 07:45 Polyethylene Glycol (miraLAX) 17 gm DAILY PO Last administered on 12/27/17 07: 33; Start 12/17/17 at 09:00 Acetaminophen (Tylenol) 325 mg PRN Q6HRS PRN PO PAIN Last administered on at 16:39; Start 12/17/17 at 00:30 Acetaminophen (Tylenol) 650 mg PRN Q6HRS PRN PO PAIN; Start 12/17/17 at 00:30 Calcium Carbonate/ Glycine (Tums) 500 mg PRN Q3HRS PRN PO HEARTBURN / GAS; Start 12/17/17 at 00:30 Diphenhydramine HCl (Benadryl) 25 mg PRN Q6HRS PRN PO EXTRAPYRAMIDAL SIDE EFFECTS; Start 12/17/17 at 00:30; Stop 12/17/17 at 17:03; Status DC Metoprolol Tartrate (Lopressor) 12.5 mg QID PO Last administered on 12/27/17at 20:28; Start 12/17/17 at 09:00 Ondansetron HCl (Zofran Odt) 4 mg PRN Q8HRS PRN PO NAUSEA; Start 12/17/17 at 00: 30 Alprazolam (Xanax) 0.25 mg PRN Q4HRS PRN PO ANXIETY / AGITATION Last administered on 12/17/17 22:16; Start 12/17/17 at 00:30; Stop 12/18/17 at 13:22; Status DC Artificial Tears (Artificial Tears) 1 drop PRN QID PRN OU dry eyes ; Start 12/17 at 00:30 Lidocaine (Lidoderm) 2 patch DAILY TD Last administered on 12/27/17at 05:48; Start 12/17/17 at 09:00 Mirtazapine (Remeron) 7.5 mg QHS PO Last administered on 12/27/17 20:28; Start 12/17/17 at 21:00 Quetiapine Fumarate (SEROquel) 12.5 mg BID PO Last administered on 12/19/17 08: 29; Start 12/17/17 at 09:00; Stop 12/19/17 at 16:21; Status DC Multivitamins/ Minerals (I-Sandra) 1 tab BID PO Last administered on 12/27/17 20 :28; Start 12/17/17 at 09:00 Sertraline HCl (Zoloft) 25 mg DAILY PO Last administered on 12/19/17 08:29; Start 12/18/17 at 09:00; Stop 12/19/17 at 16:21; Status DC Olanzapine (ZyPREXA ZYDIS) 1.25 mg PRN Q2HR PRN PO PSYCHOSIS Last administered on 12/18/17at 20:40; Start 12/18/17 at 20:15 Quetiapine Fumarate (SEROquel) 12.5 mg TID@0900,1300,1700 PO Last administered on 12/27/17 16:45; Start 12/19/17 at 17:00 Sertraline HCl (Zoloft) 50 mg DAILY PO Last administered on 12/24/17 08:01; Start 12/20/17 at 09:00; Stop 12/24/17 at 16:31; Status DC Sertraline HCl (Zoloft) 75 mg DAILY PO Last administered on 12/27/17at 07:34; Start 12/25/17 at 09:00 Acetaminophen/ Hydrocodone Bitart (Lortab 7.5/325) 1 tab 0600,1200,1800 PO Last administered on 12/27/17at 16:46; Start 12/27/17 at 06:00 Acetaminophen/ Hydrocodone Bitart (Lortab 7.5/325) 1 tab PRN DAILY PRN PO PAIN ; Start 12/26/17 at 18:45 Active Scripts Active Reported Xanax (Alprazolam) 0.25 Mg Tablet 0.25 Mg PO PRN Q4HRS PRN Artificial Tears Eye Drops (Dextran 70/Hypromellose) 15 Ml Drops 1 Drop EACHEYE PRN QID PRN Remeron (Mirtazapine) 15 Mg Tablet 7.5 Mg PO HS Seroquel (Quetiapine Fumarate) 25 Mg Tablet 12.5 Mg PO BID Metoprolol Tartrate 25 Mg Tablet 12.5 Mg PO QID Preservision Areds Softgel (Vit A/Vit C/Vit E/Zinc/Copper) 1 Each Capsule 1 Each PO BID Ondansetron Odt (Ondansetron) 4 Mg Tab.rapdis 4 Mg PO PRN Q8HRS PRN Tylenol (Acetaminophen) 325 Mg Tablet 325 Mg PO PRN Q6HRS PRN Tums (Calcium Carbonate) 200 Mg Tab.chew 500 Mg PO PRN Q3HRS PRN Benadryl (Diphenhydramine Hcl) 25 Mg Capsule 25 Mg PO PRN Q6HRS PRN Lidocaine 1 Each Adh..patch 2 Each TP DAILY two patches: one to thoracic region one to lower back. Remove after 12 hours. Tylenol (Acetaminophen) 325 Mg Tablet 650 Mg PO PRN Q6HRS PRN Restasis (Cyclosporine) 1 Each Droperette 1 Drop EACHEYE BID Keppra (Levetiracetam) 500 Mg Tablet 250 Tab PO BID Miralax (Polyethylene Glycol 3350) 17 Gm Powd.pack 17 Gm PO DAILY Melatonin 3 Mg Tab.rapdis 3 Mg PO HS PRN Hydrocodone-Apap 7.5-325 (Hydrocodone Bit/Acetaminophen) 1 Each Tablet 1 Tab PO Q6HRS Vitamin D2 (Ergocalciferol (Vitamin D2)) 50,000 Unit Capsule 50,000 Unit PO WEEKLY Cyanocobalamin Injection (Cyanocobalamin (Vitamin B-12)) 1,000 Mcg/1 Ml Vial 1, 000 Mcg IM QMONTH I have reviewed the current psychotropics carefully including drug interactions. Risk benefit ratio favors no change other than as noted in my dictated progress note. 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
[2017-12-28] MEDS: HYDROcodone/APAP 7.5/325MG 1 TAB TABLET PO SCH ×3 (06:49→17:31)
[2017-12-28] MEDS: FUROSEMIDE 40 MG TABLET PO SCH (06:49)
[2017-12-28 07:34] VITALS: BP 108/70
[2017-12-28] MEDS: QUEtiapine 25 MG TABLET. PO SCH ×3 (07:57→17:31)
[2017-12-28] MEDS: SERTRALINE 50 MG TABLET. PO SCH (07:57)
[2017-12-28] MEDS: MULTIVITAMIN I-VITE TABLET. PO SCH ×2 (07:58→20:35)
[2017-12-28] MEDS: levETIRAcetam 250 MG TABLET PO SCH ×2 (07:58→20:35)
[2017-12-28] MEDS: cycloSPORINE 0.05% OPTH 1 DROP DROPERETTE OU SCH ×2 (07:58→20:36)
[2017-12-28] MEDS: POLYETHYLENE GLYCOL 3350 17 GM PACKET. PO SCH (07:58)
[2017-12-28] MEDS: METOPROLOL TART IMMED RELEASE 25 MG TABLET PO SCH ×4 (07:58→20:36)
[2017-12-28] MEDS: LIDOCAINE (700MG/PATCH) PATCH. TD SCH (07:59)
[2017-12-28 16:05] VITALS: BP 97/55
--- NOTE | 2017-12-28 20:10 | PDOC ---
Exam Note: Jorden Note: Please also refer to the separate dictated note~for this date of service dictated separately.~Patient seen individually. Discussed the patient with Nursing staff reviewed the chart.~Reviewed interim history and current functioning. Reviewed vital signs,~Labs/ Radiology~and current medications noted below. Continue current treatment with the changes noted in the dictated addendum note Assessment: Vital Signs: Vital Signs Date Time Temp Pulse Resp B/P (MAP) Pulse Ox O2 Delivery O2 Flow Rate FiO2 12/28/17 18:31 20 97 12/28/17 17:00 62 97/55 12/28/17 16:05 97.6 12/28/17 06:49 Room Air I&O Intake and Output 12/28/17 06:59 Intake Total 620 ml Balance 620 ml Intake Oral 620 ml Current Medications: Meds: Current Medications Furosemide (Lasix) 40 mg 1X ONCE PO Last administered on 12/16/17at 20:04; Start 12/16/17 at 20:00; Stop 12/16/17 at 20:01; Status DC Furosemide (Lasix) 40 mg DAILY06 PO Last administered on 12/28/17at 06:49; Start 12/17/17 at 06:00 Acetaminophen (Tylenol) 650 mg PRN Q6HRS PRN PO PAIN / TEMP; Start 12/16/17 at 21:00; Status Cancel Multi-Ingredient Ointment (Analgesic [place]) 1 axel PRN QID PRN TP MUSCLE PAIN; Start 12/16/17 at 21:00 Al Hydroxide/Mg Hydroxide (Mylanta Plus Xs) 15 ml PRN AFTMEALHC PRN PO DYSPEPSIA; Start 12/16/17 at 21:00 Magnesium Hydroxide (Milk Of Magnesia) 2,400 mg PRN QHS PRN PO CONSTIPATION; Start 12/16/17 at 21:00 Cyanocobalamin (Vitamin B-12) 1,000 mcg QMONTH IM Last administered on at 09:29; Start 12/17/17 at 09:00 Cyclosporine (Restasis) 1 drop BID OU Last administered on 12/28/17at 07:58; Start 12/17/17 at 09:00 Acetaminophen/ Hydrocodone Bitart (Lortab 7.5/325) 1 tab Q6HRS PO Last administered on 12/26/17at 17:05; Start 12/17/17 at 06:00; Stop 12/26/17 at 18:44 ; Status DC Vitamin D (Vitamin D3) 50,000 unit WEEKLY PO Last administered on 12/24/17at 08: 01; Start 12/17/17 at 09:00 Levetiracetam (Keppra) 250 mg BID PO Last administered on 12/28/17at 07:58; Start 12/17/17 at 09:00 Melatonin 3 mg PRN QHS PRN PO INSOMNIA; Start 12/17/17 at 07:45 Polyethylene Glycol (miraLAX) 17 gm DAILY PO Last administered on 12/28/17at 07: 58; Start 12/17/17 at 09:00 Acetaminophen (Tylenol) 325 mg PRN Q6HRS PRN PO PAIN Last administered on at 16:39; Start 12/17/17 at 00:30 Acetaminophen (Tylenol) 650 mg PRN Q6HRS PRN PO PAIN; Start 12/17/17 at 00:30 Calcium Carbonate/ Glycine (Tums) 500 mg PRN Q3HRS PRN PO HEARTBURN / GAS; Start 12/17/17 at 00:30 Diphenhydramine HCl (Benadryl) 25 mg PRN Q6HRS PRN PO EXTRAPYRAMIDAL SIDE EFFECTS; Start 12/17/17 at 00:30; Stop 12/17/17 at 17:03; Status DC Metoprolol Tartrate (Lopressor) 12.5 mg QID PO Last administered on 12/28/17at 12:22; Start 12/17/17 at 09:00 Ondansetron HCl (Zofran Odt) 4 mg PRN Q8HRS PRN PO NAUSEA; Start 12/17/17 at 00: 30 Alprazolam (Xanax) 0.25 mg PRN Q4HRS PRN PO ANXIETY / AGITATION Last administered on 12/17/17at 22:16; Start 12/17/17 at 00:30; Stop 12/18/17 at 13:22; Status DC Artificial Tears (Artificial Tears) 1 drop PRN QID PRN OU dry eyes ; Start 12/17 at 00:30 Lidocaine (Lidoderm) 2 patch DAILY TD Last administered on 12/28/17at 07:59; Start 12/17/17 at 09:00 Mirtazapine (Remeron) 7.5 mg QHS PO Last administered on 12/27/17at 20:28; Start 12/17/17 at 21:00 Quetiapine Fumarate (SEROquel) 12.5 mg BID PO Last administered on 12/19/17 08: 29; Start 12/17/17 at 09:00; Stop 12/19/17 at 16:21; Status DC Multivitamins/ Minerals (I-Sandra) 1 tab BID PO Last administered on 12/28/17at 07 :58; Start 12/17/17 at 09:00 Sertraline HCl (Zoloft) 25 mg DAILY PO Last administered on 12/19/17 08:29; Start 12/18/17 at 09:00; Stop 12/19/17 at 16:21; Status DC Olanzapine (ZyPREXA ZYDIS) 1.25 mg PRN Q2HR PRN PO PSYCHOSIS Last administered on 12/18/17at 20:40; Start 12/18/17 at 20:15 Quetiapine Fumarate (SEROquel) 12.5 mg TID@0900,1300,1700 PO Last administered on 12/28/17 17:31; Start 12/19/17 at 17:00 Sertraline HCl (Zoloft) 50 mg DAILY PO Last administered on 12/24/17 08:01; Start 12/20/17 at 09:00; Stop 12/24/17 at 16:31; Status DC Sertraline HCl (Zoloft) 75 mg DAILY PO Last administered on 12/28/17at 07:57; Start 12/25/17 at 09:00 Acetaminophen/ Hydrocodone Bitart (Lortab 7.5/325) 1 tab 0600,1200,1800 PO Last administered on 12/28/17 17:31; Start 12/27/17 at 06:00 Acetaminophen/ Hydrocodone Bitart (Lortab 7.5/325) 1 tab PRN DAILY PRN PO PAIN ; Start 12/26/17 at 18:45 Active Scripts Active Reported Xanax (Alprazolam) 0.25 Mg Tablet 0.25 Mg PO PRN Q4HRS PRN Artificial Tears Eye Drops (Dextran 70/Hypromellose) 15 Ml Drops 1 Drop EACHEYE PRN QID PRN Remeron (Mirtazapine) 15 Mg Tablet 7.5 Mg PO HS Seroquel (Quetiapine Fumarate) 25 Mg Tablet 12.5 Mg PO BID Metoprolol Tartrate 25 Mg Tablet 12.5 Mg PO QID Preservision Areds Softgel (Vit A/Vit C/Vit E/Zinc/Copper) 1 Each Capsule 1 Each PO BID Ondansetron Odt (Ondansetron) 4 Mg Tab.rapdis 4 Mg PO PRN Q8HRS PRN Tylenol (Acetaminophen) 325 Mg Tablet 325 Mg PO PRN Q6HRS PRN Tums (Calcium Carbonate) 200 Mg Tab.chew 500 Mg PO PRN Q3HRS PRN Benadryl (Diphenhydramine Hcl) 25 Mg Capsule 25 Mg PO PRN Q6HRS PRN Lidocaine 1 Each Adh..patch 2 Each TP DAILY two patches: one to thoracic region one to lower back. Remove after 12 hours. Tylenol (Acetaminophen) 325 Mg Tablet 650 Mg PO PRN Q6HRS PRN Restasis (Cyclosporine) 1 Each Droperette 1 Drop EACHEYE BID Keppra (Levetiracetam) 500 Mg Tablet 250 Tab PO BID Miralax (Polyethylene Glycol 3350) 17 Gm Powd.pack 17 Gm PO DAILY Melatonin 3 Mg Tab.rapdis 3 Mg PO HS PRN Hydrocodone-Apap 7.5-325 (Hydrocodone Bit/Acetaminophen) 1 Each Tablet 1 Tab PO Q6HRS Vitamin D2 (Ergocalciferol (Vitamin D2)) 50,000 Unit Capsule 50,000 Unit PO WEEKLY Cyanocobalamin Injection (Cyanocobalamin (Vitamin B-12)) 1,000 Mcg/1 Ml Vial 1, 000 Mcg IM QMONTH I have reviewed the current psychotropics carefully including drug interactions. Risk benefit ratio favors no change other than as noted in my dictated progress note. 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
[2017-12-28] MEDS: MIRTAZAPINE 7.5 MG TABLET. PO SCH (20:35)
--- NOTE | 2017-12-28 23:19 | PN ---
DATE: 12/26/2017 PSYCHIATRIC PROGRESS NOTE This is a late entry, 12/26, covers elements not covered in my initial note. SUBJECTIVE: I met with the patient in the evening. The patient is compliant with her medications, remains confused. REVIEW OF SYSTEMS: Positive for impaired ambulation with walker. Complains of back pain. Rest of the 14-point review of systems negative. MENTAL STATUS EXAM: Oriented to herself. Insight, judgment, recent and remote memory, attention, concentration, fund of knowledge poor, consistent with her diagnosis. She appears overall better, less paranoid, less depressed, still very confused. LABORATORY DATA: Reviewed. IMPRESSION: Unchanged from initial note. PLAN: No change from initial note. LEYDA WHITLOCK MD DR: CRISTINA/nts JOB#: [id number] / [id number]
--- NOTE | 2017-12-28 23:22 | PN ---
DATE: 12/27/2017 PSYCHIATRIC PROGRESS NOTE This is a late entry, 12/27, covers elements not covered in my initial note. SUBJECTIVE: I met with the patient in the evening. Overall, the patient is doing better, calm, compliant, certainly confused, still complains of some back pain, but less so the evening of 12/27. REVIEW OF SYSTEMS: Rest of the 14-point review of systems negative. Ambulation impaired with walker. MENTAL STATUS EXAM: Oriented to herself. Insight, judgment, recent and remote memory, attention, concentration, fund of knowledge poor, consistent with her diagnosis mentioned in my initial note. PLAN: No change from initial note. MAN Cornelius WHITLOCK MD DR: CRISTINA/nato JOB#: [id number] / [id number]
[2017-12-29] MEDS ORDERED: HYDR-2762 PO ×2 (02:03→10:39)
[2017-12-29] MEDS ORDERED: SERT50TA PO (02:04)
[2017-12-29] MEDS ORDERED: OLAN5TAB5 PO (02:05)
[2017-12-29] MEDS ORDERED: FURO-68 PO (02:06)
[2017-12-29] MEDS ORDERED: MAGN2400 PO (02:09)
[2017-12-29] MEDS ORDERED: MAG355OR17 PO (02:11)
[2017-12-29] MEDS ORDERED: METH57CR7 TP (02:13)
[2017-12-29] MEDS: FUROSEMIDE 40 MG TABLET PO SCH (05:13)
[2017-12-29] MEDS: HYDROcodone/APAP 7.5/325MG 1 TAB TABLET PO SCH ×2 (05:13→12:11)
[2017-12-29] MEDS: MULTIVITAMIN I-VITE TABLET. PO SCH (05:40)
[2017-12-29] MEDS: cycloSPORINE 0.05% OPTH 1 DROP DROPERETTE OU SCH (05:40)
[2017-12-29] MEDS: levETIRAcetam 250 MG TABLET PO SCH (05:40)
[2017-12-29] MEDS: QUEtiapine 25 MG TABLET. PO SCH ×2 (05:41→12:11)
[2017-12-29] MEDS: POLYETHYLENE GLYCOL 3350 17 GM PACKET. PO SCH (05:41)
[2017-12-29] MEDS: SERTRALINE 50 MG TABLET. PO SCH (05:41)
[2017-12-29] MEDS: METOPROLOL TART IMMED RELEASE 25 MG TABLET PO SCH ×2 (05:42→12:11)
[2017-12-29] MEDS: LIDOCAINE (700MG/PATCH) PATCH. TD SCH (05:44)
[2017-12-29 06:35] VITALS: BP 130/80
[2017-12-29] MEDS ORDERED: CHOL500050 PO (10:35)
[2017-12-29 12:11] VITALS: BP 130/80
--- NOTE | 2017-12-30 10:45 | DS ---
DATE OF DISCHARGE: 12/29/2017 DISCHARGE SUMMARY/PSYCHIATRIC PROGRESS NOTE This is a late entry for 12/29/2017, covers elements not covered in my initial note. REASON FOR ADMISSION: Please refer to the admission history for details. Briefly, the patient is an 87-year-old female, referred to us from [facility] by her primary care physician, having failed outpatient psychiatric interventions by myself. She is referred by Dr. Patricio on account of increased anxiety being delusional, looking for her parents on a train, combative with staff, hitting, when redirected yelling for help. SIGNIFICANT FINDINGS AND CLINICAL COURSE: Following admission, the patient was seen daily individually by myself from a psychiatric standpoint, medical followup per Dr. Patricio/Dr. Rocha. She was initially extremely confused, anxious, labile, restless, delusional. Adjustments were made in her psychotropics. She seemed to respond to a combination of Zoloft 75 mg a day, remained on Keppra 250 b.i.d. for her seizures, melatonin 3 mg at bedtime p.r.n. insomnia. Seroquel 12.5 mg 0900, 1300 and 1500. Remeron 7.5 mg at bedtime. Zyprexa 1.25 mg q. 2 hours p.r.n. psychosis, agitation. Gradually mood appeared to improve. She certainly remains confused, but much more redirectable, not psychotic or aggressive. CONDITION AT DISCHARGE: Improved. REVIEW OF SYSTEMS: Prior to discharge 12/29/2017, ambulation impaired, in walker. No CV, , pulmonary, eye, ENT system symptoms on review. Reliability poor. MENTAL STATUS EXAM: Oriented to herself. Insight, judgment, recent and remote memory, attention, concentration, fund of knowledge poor, consistent with her diagnosis. FINAL DIAGNOSES: Major neurocognitive disorder, Alzheimer, vascular with delusion, depression, behavioral disturbance. Anxiety disorder, unspecified. Impulse control disorder, unspecified. DISCHARGE MEDICATIONS: Please refer to [facility]. DISCHARGE INSTRUCTIONS: Outpatient psychiatric and medical followup at the snf. MAN Cornelius WHITLOCK MD DR: CRISTINA/nato JOB#: [id number] / [id number]
--- NOTE | 2017-12-30 12:25 | PN ---
DATE: 12/28/2017 PSYCHIATRIC PROGRESS NOTE This is a late entry, date of service 12/28, covers elements not covered in my initial note. SUBJECTIVE: I met with the patient in the evening. The patient slept 6 hours previous evening. The patient remains confused. REVIEW OF SYSTEMS: Ambulation impaired with walker. Complains of some back pain. No CV, , pulmonary, eye, ENT system symptoms on review. MENTAL STATUS EXAM: Oriented to herself. Insight, judgment, recent and remote memory, attention, concentration, fund of knowledge poor, consistent with her diagnosis mentioned in my initial note. PLAN: No change from initial note. MAN Cornelius WHITLOCK MD DR: CRISTINA/nato JOB#: [id number] / [id number]
== END 2017-12-29 13:10 | DRG 56 ==
LOC: ER 18:40 → GEROPSY 20:25
PROVIDERS: ADMIT Psychiatry & Neurology Psychiatry; ATTEND Psychiatry & Neurology Psychiatry
DX: G30.9 Alzheimer's disease, unspecified (principal); J69.0 Pneumonitis due to inhalation of food and vomit; J96.21 Acute and chronic respiratory failure with hypoxia; E44.0 Moderate protein-calorie malnutrition; F01.51 Vascular dementia, unspecified severity, with behavioral disturbance; F02.81 Dementia in other diseases classified elsewhere, unspecified severity, with behavioral disturbance; F32.9 Major depressive disorder, single episode, unspecified; F41.9 Anxiety disorder, unspecified; F63.9 Impulse disorder, unspecified; G40.909 Epilepsy, unspecified, not intractable, without status epilepticus; H91.90 Unspecified hearing loss, unspecified ear; D64.9 Anemia, unspecified; I48.91 Unspecified atrial fibrillation; M19.90 Unspecified osteoarthritis, unspecified site; I12.9 Hypertensive chronic kidney disease with stage 1 through stage 4 chronic kidney disease, or unspecified chronic kidney disease; Z96.642 Presence of left artificial hip joint; N18.9 Chronic kidney disease, unspecified; G47.00 Insomnia, unspecified; Y95 Nosocomial condition; Z66 Do not resuscitate; Z79.899 Other long term (current) drug therapy; Z86.73 Personal history of transient ischemic attack (TIA), and cerebral infarction without residual deficits; Z87.01 Personal history of pneumonia (recurrent); Z90.49 Acquired absence of other specified parts of digestive tract; Z90.710 Acquired absence of both cervix and uterus; Z68.24 Body mass index [BMI] 24.0-24.9, adult; Z79.01 Long term (current) use of anticoagulants; Z91.83 Wandering in diseases classified elsewhere
CPT/HCPCS: 36415; 70450; 71046; 80048; 80053; 80061; 80076; 80307; 81001; 82306; 82553; 82607; 82947; 83036; 83540; 83550; 83735; 83880; 84436; 84443; 84480; 84484; 85025; 85610; 85651; 85730; 86592; 93005; J3420; 97116; 99285-25; G0479

== ENCOUNTER 2019-04-18 09:13 | Emergency (ER) | payer MEDICARE, OTHER ==
[~2019-04-18] VITALS: Ht 152.4 cm; Wt 57.2 kg
[~2019-04-18 09:13] MED LIST changes: +ACET325T9 PO; +ALPR0.25 PO; +CALC200T3 PO; +CHOL500050 PO; +DEXT15DR5 EACHEYE; +DIPH25CA58 PO; +FURO-68 PO; -HYDR-2762 PO; +HYDR-2765 PO; +LIDO700A21 TP; +MAG355OR17 PO; +MAGN2400 PO; +METH57CR17 TP; +METO25TA4 PO; +MIRT15TA PO; +OLAN5TAB5 PO; +ONDA4TAB12 PO; +PROP60CA36 PO; -PROP60CA8 PO; +QUET25TA5 PO; +SERT50TA PO; +VIT1CAPS12 PO
--- NOTE | 2019-04-18 09:28 | EKG ---
[address] [address] Test Date: 2019-04-18 Test Time: 09:25:37 Pat Name: VANESSA GORDILLO Department: Room: Gender: F Pediatric Hospitalist: : 1930 Requested By: RASTA MCKEON Order Number: [id number] Reading MD: Measurements Intervals [place] Rate: 108 P: FL: QRS: -12 QRSD: 80 T: 19 QT: 358 QTc: 484 Interpretive Statements IRREGULAR RHYTHM, NO P-WAVE FOUND VENTRICULAR PREMATURE COMPLEX(ES) LEFTWARD AXIS ABNORMAL ECG RI6.01 No previous ECG available for comparison
--- NOTE | 2019-04-18 09:39 | PHYS DOC ---
Past History Past Medical History: A-Fib, Constipation, CVA, Dementia, Hypertension, Renal Disease, Seizure, Other Past Surgical History: Appendectomy, Cholecystectomy, Hip Replacement, Hysterectomy Smoking: Non-smoker Alcohol Use: None Drug Use: None Adult General Chief Complaint Chief Complaint: MECHANICAL FALL HPI HPI Patient is a 88-year-old female presents complaining of head pain after a fall. History is limited from the patient due to her known history of dementia. Patient was brought in by EMS from an assisted care facility. This story from the assisted care facility varies, this was either a witnessed or an unwitnessed fall. Staff on the phone calling the ER reported that it was unwitnessed. Paramedics report that it was witnessed according to the staff at the facility. Staff on the phone call giving nursing report said that the patient is on blood thinners. Also that she had unequal pupils. Paramedics say that she is not on bl ood thinners and found symmetric pupils. Patient notes that the pain is mild to moderate. Denies pain anywhere else. She does not recall the events. Both histories align in that this happened at approximately 4:00 this morning.[] Review of Systems Review of Systems Unable to obtain due to history of dementia [] All other systems were reviewed and found to be within normal limits, except as documented in this note. Allergies Allergies Allergies Coded Allergies Type Severity Reaction Last Updated Verified Penicillins Allergy Intermediate rash 11/24/13 No aspirin Allergy Intermediate 12/16/17 Yes ibuprofen Allergy Intermediate 12/16/17 Yes Physical Exam Physical Exam Constitutional: Well developed, well nourished, no acute distress, non-toxic appearance. [] HENT: Normocephalic, proximally 1.5 cm hematoma posterior midline of the head. There is no step-off, no crepitus, no Bledsoe sign, no raccoon eyes. Bilateral TMs are clear without any blood or fluid, bilateral external ears normal, oropharynx moist, no oral exudates, nose normal. [] Eyes: PERRLA, EOMI, conjunctiva normal, no discharge. [] Neck: Normal range of motion, no tenderness, supple, no stridor. No midline tenderness. No step-off. No crepitus.[] Cardiovascular:Heart rate regular rhythm, no murmur [] Lungs & Thorax: Bilateral breath sounds clear to auscultation [] Abdomen: Bowel sounds normal, soft, no tenderness, no masses, no pulsatile masses. [] Skin: Warm, dry, no erythema, no rash. [] Back: No tenderness, no CVA tenderness. [] Extremities: No tenderness, no cyanosis, no clubbing, ROM intact, no edema. [] Neurologic: Alert and oriented X to person, normal motor function, normal sensory function, no focal deficits noted. [] Psychologic: Affect normal, judgement normal, mood normal. [] Current Patient Data Vital Signs Vital Signs Date Time Temp Pulse Resp B/P (MAP) Pulse Ox O2 Delivery O2 Flow Rate FiO2 04/18/19 09:16 97.6 112 20 95 04/18/19 09:13 141/91 (108) Room Air EKG EKG [] Radiology/Procedures Radiology/Procedures PROCEDURE: PORTABLE CHEST 1V PORTABLE CHEST 1V Clinical Indication: Fall. Comparison: Two-view chest December 16, 2017. Findings: The cardiomediastinal silhouette is normal. Lungs are clear. There is no pneumothorax. Small right pleural effusion. Cannot exclude trace left pleural effusion. No acute bone abnormality. Limited sensitivity for detection of nondisplaced rib fractures. IMPRESSION: 1. Small right pleural effusion. 2. Lungs are clear. PROCEDURE: CT HEAD AND CERVICAL SPINE WO CT HEAD AND CERVICAL SPINE WO Date: 04/18/2019 9:22 AM Clinical Indication: Fall, head injury, pain Comparison: CT head 12/16/2017. Technique: 5 mm axial tomographic images were obtained of the head without contrast. These were viewed on brain and bone windows. Noncontrast CT of the cervical spine was performed. Sagittal and coronal reformats were performed and evaluated. One or more of the following dose reduction techniques were utilized: Automated exposure control (AEC), Adjustment of mA and/or kV according to patient size, Use of iterative reconstruction technique such as ASiR, CT scan done according to ALARA and image gently/image wisely HEAD FINDINGS: Moderate generalized cerebral and cerebellar volume loss. Extensive nonspecific periventricular hypoattenuation, most commonly seen with chronic small vessel ischemic disease. Small areas of right frontal, left parietal, and right occipital encephalomalacia. Chronic bilateral cerebellar lacunar infarcts. No intra- or extra-axial mass or fluid collection. No acute hemorrhage. The ventricles are normal in size, shape, and morphology. The dennis-white matter junction is normal. The basilar cisterns are patent. The visualized paranasal sinuses are normal. The visualized portions of the orbits and globes are normal. The mastoid air cells are clear. No aggressive osseous lesion or fracture. CERVICAL SPINE FINDINGS: The cervical spine is normally aligned. No acute fracture. No aggressive lytic or blastic osseous lesions. Moderate multilevel degenerative disc space height loss. Multilevel spinal canal stenosis secondary to disc protrusions and marginal osteophytes, worst and moderate to severe at C5-6. Multilevel moderate neuroforaminal narrowing secondary to uncovertebral arthrosis. Multilevel mild and moderate facet arthrosis. The thyroid gland is normal. No cervical lymphadenopathy. The visualized aerodigestive tract is normal. The visualized portions of the lungs are clear. IMPRESSION: 1. No acute intracranial process. 2. No acute cervical spine fracture. 3. Moderate cerebral volume loss. Extensive chronic small vessel ischemic disease. 4. Small areas of right frontal, left parietal, and right occipital encephalomalacia. Chronic bilateral cerebellar lacunar infarcts.[] Course & Med Decision Making Course & Med Decision Making Pertinent Labs and Imaging studies reviewed. (See chart for details) Emergency room course: Patient arrived, was placed in bed from the EMS cot, and tolerated exam well. She was transported to and from radiology with any complications. After the return of laboratory and imaging findings, these were discussed with patient and family who voiced understanding. All questions were answered. She was discharged in improved condition. Medical decision makin-year-old female with a fall. Uncertain as to whether this is a syncopal episode however, there is no elevation in her cardiac enzymes 5 hours after this event. There is no evidence of intracranial mass or bleed. She does have a known history of atrial fibrillation. She also has a history of CHF, her BNP is noted to be elevated but it is lower than her most recent previous one. There is no evidence of hypoxia. No evidence of urinary tract infection.[] Dragon Disclaimer Dragon Disclaimer This electronic medical record was generated, in whole or in part, using a voice recognition dictation system. Departure Departure: Impression: Primary Impression: Fall Additional Impression: Minor closed head injury Disposition: HOME, SELF-CARE Condition: IMPROVED Referrals: DIANA CARTAGENA MD (PCP) Follow-up in 2 days Patient Instructions: Fall Prevention and Home Safety, Head Injury, Adult Additional Instructions: Follow-up with your regular doctor in 2 days. Continue your current home medi cation. Return to the ER if increasing headache, increasing weakness, or any other concerns. Problem Qualifiers Primary Impression: Fall Encounter type: initial encounter Qualified Codes: W19.XXXA - Unspecified fall, initial encounter RASTA MCKEON DO Apr 18, 2019 09:39
[2019-04-18 09:43] LABS: BASO % 1 % (0-3); EOS # 0.1 x10^3/uL (0.0-0.7); EOS % 2 % (0-3); HEMATOCRIT 40.3 % (36.0-47.0); HEMOGLOBIN 12.9 g/dL (12.0-15.5); LYMPH # 1.3 x10^3/uL (1.0-4.8); LYMPH % 27 % (24-48); MEAN CORPUSCULAR HEMOGLOBIN 33 pg (25-35); MEAN CORPUSCULAR HGB CONC 32 g/dL (31-37); MEAN CORPUSCULAR VOLUME 104 fL (79-100); MONO # 0.4 x10^3/uL (0.0-1.1); MONO % 8 % (0-9); NEUT # 3.1 x10^3uL (1.8-7.7); NEUT % 62 % (31-73); PLATELET COUNT 129 x10^3/uL (140-400); RED BLOOD COUNT 3.89 x10^6/uL (3.50-5.40); RED CELL DISTRIBUTION WIDTH 14.7 % (11.5-14.5); WHITE BLOOD COUNT 4.9 x10^3/uL (4.0-11.0)
[2019-04-18 10:02] LABS: ALBUMIN 3.7 g/dL (3.4-5.0); ALBUMIN/GLOBULIN RATIO 1.2 (1.0-1.7); GFR 52.4; MAGNESIUM 1.9 mg/dL (1.8-2.4); POTASSIUM 4.8 mmol/L (3.5-5.1); TOTAL BILIRUBIN 0.8 mg/dL (0.2-1.0); TOTAL PROTEIN 6.7 g/dL (6.4-8.2)
[2019-04-18] MEDS ORDERED: IV NORMAL SALINE 500ML 500 ML IV ONE (10:15)
--- NOTE | 2019-04-18 10:42 | RAD ---
PORTABLE CHEST 1V Clinical Indication: Fall. Comparison: Two-view chest December 16, 2017. Findings: The cardiomediastinal silhouette is normal. Lungs are clear. There is no pneumothorax. Small right pleural effusion. Cannot exclude trace left pleural effusion. No acute bone abnormality. Limited sensitivity for detection of nondisplaced rib fractures. IMPRESSION: 1. Small right pleural effusion. 2. Lungs are clear. Electronically signed by: Moe Herman MD (04/18/2019 10:39 AM) [facility]
--- NOTE | 2019-04-18 10:43 | RAD ---
CT HEAD AND CERVICAL SPINE WO Date: 04/18/2019 9:22 AM Clinical Indication: Fall, head injury, pain Comparison: CT head 12/16/2017. Technique: 5 mm axial tomographic images were obtained of the head without contrast. These were viewed on brain and bone windows. Noncontrast CT of the cervical spine was performed. Sagittal and coronal reformats were performed and evaluated. One or more of the following dose reduction techniques were utilized: Automated exposure control (AEC), Adjustment of mA and/or kV according to patient size, Use of iterative reconstruction technique such as ASiR, CT scan done according to ALARA and image gently/image wisely HEAD FINDINGS: Moderate generalized cerebral and cerebellar volume loss. Extensive nonspecific periventricular hypoattenuation, most commonly seen with chronic small vessel ischemic disease. Small areas of right frontal, left parietal, and right occipital encephalomalacia. Chronic bilateral cerebellar lacunar infarcts. No intra- or extra-axial mass or fluid collection. No acute hemorrhage. The ventricles are normal in size, shape, and morphology. The dennis-white matter junction is normal. The basilar cisterns are patent. The visualized paranasal sinuses are normal. The visualized portions of the orbits and globes are normal. The mastoid air cells are clear. No aggressive osseous lesion or fracture. CERVICAL SPINE FINDINGS: The cervical spine is normally aligned. No acute fracture. No aggressive lytic or blastic osseous lesions. Moderate multilevel degenerative disc space height loss. Multilevel spinal canal stenosis secondary to disc protrusions and marginal osteophytes, worst and moderate to severe at C5-6. Multilevel moderate neuroforaminal narrowing secondary to uncovertebral arthrosis. Multilevel mild and moderate facet arthrosis. The thyroid gland is normal. No cervical lymphadenopathy. The visualized aerodigestive tract is normal. The visualized portions of the lungs are clear. IMPRESSION: 1. No acute intracranial process. 2. No acute cervical spine fracture. 3. Moderate cerebral volume loss. Extensive chronic small vessel ischemic disease. 4. Small areas of right frontal, left parietal, and right occipital encephalomalacia. Chronic bilateral cerebellar lacunar infarcts. Electronically signed by: Luis De Souza MD (04/18/2019 10:40 AM) [facility]
[2019-04-18 10:52] VITALS: BP 141/77
[2019-04-18 11:27] LABS: AMORPHOUS SEDIMENT,UR PRESENT /HPF; BACTERIA,URINE FEW /HPF (0-FEW); BILIRUBIN,URINE NEG (NEG); CLARITY,URINE CLEAR; COLOR,URINE YELLOW; GLUCOSE,URINE NEG (NEG); HYALINE CASTS, URINE MANY /HPF; NITRITE,URINE NEG (NEG); RBC,URINE RARE /HPF (0-2); UROBILINOGEN,URINE 0.2 mg/dL (0.2 mg/dL)
== END 2019-04-18 11:50 | disposition home or self-care (01) ==
LOC: ER 09:13
DX: S00.83XA Contusion of other part of head, initial encounter (principal); I48.91 Unspecified atrial fibrillation; F03.90 Unspecified dementia, unspecified severity, without behavioral disturbance, psychotic disturbance, mood disturbance, and anxiety; Z88.0 Allergy status to penicillin; Z88.6 Allergy status to analgesic agent; W18.39XA Other fall on same level, initial encounter; Y93.89 Activity, other specified; Y92.89 Other specified places as the place of occurrence of the external cause; Y99.8 Other external cause status
CPT/HCPCS: 36415; 51702; 70450; 71045; 72125; 80053; 81001; 83735; 83880; 84484; 85025; 85610; 85730; 93005; 99285; J7040

== ENCOUNTER 2020-08-07 19:09 | Observation (INO) | payer MEDICARE, OTHER ==
[~2020-08-07] VITALS: Ht 172.7 cm; Wt 50.2 kg
[~2020-08-07 19:09] MED LIST changes: -ASPI-612 PO; +ASPI-889 PO; -MAGN2400 PO; +MAGN24003 PO; +MIRT-37 PO; -MIRT15TA PO; -OLAN5TAB5 PO; +OLAN5TAB99 PO
--- NOTE | 2020-08-07 19:20 | PHYS DOC ---
Past History Past Medical History: A-Fib, Constipation, CVA, Dementia, Hypertension, Renal Disease, Seizure, Other Past Surgical History: Appendectomy, Cholecystectomy, Hip Replacement, Hysterectomy Smoking: Non-smoker Alcohol Use: None Drug Use: None Adult General Chief Complaint Chief Complaint: CHEST PAIN [facility] HPI Patient is an 89-year-old female presents via EMS with chief complaint of chest pain. Pain began about an hour ago (1830) and lasted for approximately 30 minutes at which time the pain resolved after x1 sublingual [facility]. The pain was left-sided and described as sharp and nonradiating. It was associated with slight shortness of breath and sweating. Given patient's history of atrial fibrillation on 81 mg aspirin daily only, decision was made for prison to transport patient to our ER for evaluation. On arrival, patient hemodynamically stable and asymptomatic. She arrives with paperwork from prison with prior advanced directive stating patient is DNR status at this time Review of Systems Review of Systems Fourteen body systems of review of systems have been reviewed. See HPI for pertinent positives and negative responses, other curtis all other systems are negative, non-pertinent or non-contributory Allergies Allergies Allergies Coded Allergies Type Severity Reaction Last Updated Verified Penicillins Allergy Intermediate rash 11/24/13 No aspirin Allergy Intermediate 12/16/17 Yes ibuprofen Allergy Intermediate 12/16/17 Yes Physical Exam Physical Exam Constitutional: Well developed, well nourished, no acute distress, non-toxic appearance. HENT: Normocephalic, atraumatic, bilateral external ears normal, oropharynx moist, no oral exudates, nose normal. Eyes: PERRLA, EOMI, conjunctiva normal, no discharge. Neck: Normal range of motion, no tenderness, supple, no stridor. Cardiovascular: Heart rate regular, sinus rhythm, no murmurs rubs or gallops Lungs & Thorax: Bilateral breath sounds clear to auscultation Abdomen: Bowel sounds normal, soft, no tenderness, no masses, no pulsatile masses. Nonsurgical abdomen, no peritoneal signs Skin: Warm, dry, no erythema, no rash. Back: No tenderness, no CVA tenderness. Extremities: No tenderness, no cyanosis, no clubbing, ROM intact, no edema. Neurologic: Alert and oriented X 3, grossly normal motor & sensory function, no focal deficits noted. Psychologic: Affect normal, judgement normal, mood normal. Current Patient Data Vital Signs Vital Signs Date Time Temp Pulse Resp B/P (MAP) Pulse Ox O2 Delivery O2 Flow Rate FiO2 08/07/20 19:09 98.1 75 18 101/69 (80) 97 Room Air Lab Results Laboratory Tests Test 08/07/20 19:20 Sodium Level 141 mmol/L Potassium Level 4.8 mmol/L Chloride Level 109 mmol/L Carbon Dioxide Level 23 mmol/L Anion Gap 9 Blood Urea Nitrogen 40 mg/dL Creatinine 1.6 mg/dL Estimated GFR (Cockcroft-Gault) 30.4 Glucose Level 73 mg/dL Calcium Level 8.3 mg/dL Troponin I Quantitative < 0.017 ng/mL Current Medications Medications (Trade) Dose Ordered Sig/Aimee Route PRN Reason Start Time Stop Time Status Last Admin Dose Admin Sodium Chloride 500 ml @ 0 mls/hr 1X ONCE IV 08/07/20 19:30 08/07/20 20:03 DC 08/07/20 19:58 EKG EKG EKG ordered and interpreted by myself at 1923 hrs. as atrial fibrillation with a ventricular rate of 78 bpm, unremarkable intervals, left axis deviation, findings consistent with LVH, no acute ischemic findings, no STEMI Radiology/Procedures Radiology/Procedures PROCEDURE: PORTABLE CHEST 1V AP chest. HISTORY: Chest pain AP view was taken of the chest. Heart is mildly enlarged. There is no pleural effusion. There are no confluent infiltrates. IMPRESSION: 1. Cardiomegaly. 2. No acute infiltrates. Electronically signed by: Levi Patton MD (08/07/2020 8:12 PM) [facility] Heart Score C/O Chest Pain: Yes HEART Score for Chest Pain: HEART Score for Chest Pain Response (Comments) Value History Moderately Suspicious 1 ECG Normal 0 Age > 65 2 Risk Factors >3 Risk Factors or Hx CAD 2 Troponin < Normal Limit 0 Total 5 Risk Factors: Risk Factors: DM, Current or recent (<one month) smoker, HTN, HLP, family history of CAD, obesity. Risk Scores: Risk Factors: DM, Current or recent (<one month) smoker, HTN, HLP, family history of CAD, obesity. Course & Med Decision Making Course & Med Decision Making Patient initially presented hypotensive otherwise hemodynamically stable with history of recent chest pain in high risk patient. Physical exam grossly unremarkable. Subsequent diagnostic ER work-up pursued and grossly unremarkable Nonetheless, patient high risk for adverse cardiac events. Daughter at bedside, case reviewed with both patient and daughter at length. Reviewed heart score and recommended cardiac observation, they agreed. I contacted hospitalist, Dr. Ramírez, and discussed case at length. He agreed need for admission and accepted patient under his care. Patient takes 81 mg aspirin daily, received subsequent 162 mg aspirin while in ER. She is otherwise on guideline directed medical therapy for A. fib, no blood thinners All questions and concerns patient and daughter had were addressed prior to ER transport to [facility] for admission Dragon Disclaimer Dragon Disclaimer This electronic medical record was generated, in whole or in part, using a voice recognition dictation system. Departure Departure: Impression: Primary Impression: Chest pain Additional Impressions: Atrial fibrillation DNR (do not resuscitate) Disposition: 09 ADMITTED INPT THIS HOSP Admitting Physician: Trevor Ramírez Condition: STABLE Referrals: DIANA CARTAGENA MD (PCP) Problem Qualifiers AURORA BROWER DO Aug 07, 2020 19:20
[2020-08-07] MEDS ORDERED: IV NORMAL SALINE 500ML 500 ML IV ONE (19:30)
--- NOTE | 2020-08-07 19:57 | EKG ---
[facility] ED [facility] [place] [address] Test Date: 2020-08-07 Test Time: 19:15:36 Pat Name: VANESSA GORDILLO Department: Room: Gender: F Chief School Finance Officer: : 1930 Requested By: AURORA BROWER Order Number: [id number] Reading MD: Measurements Intervals [place] Rate: 78 P: [place]: QRS: -17 QRSD: 86 T: 45 QT: 370 QTc: 425 Interpretive Statements IRREGULAR RHYTHM, NO P-WAVE FOUND LEFTWARD AXIS CONSIDER LEFT VENTRICULAR HYPERTROPHY QRS(T) CONTOUR ABNORMALITY CONSISTENT WITH ANTEROSEPTAL INFARCT PROBABLY OLD ABNORMAL ECG RI6.02 No previous ECG available for comparison
--- NOTE | 2020-08-07 20:15 | RAD ---
AP chest. HISTORY: Chest pain AP view was taken of the chest. Heart is mildly enlarged. There is no pleural effusion. There are no confluent infiltrates. IMPRESSION: 1. Cardiomegaly. 2. No acute infiltrates. Electronically signed by: Levi Patton MD (08/07/2020 8:12 PM) [facility]
[2020-08-07 20:17] LABS: BASO % 1 % (0-3); EOS % 1 % (0-3); HEMATOCRIT 36.6 % (36.0-47.0); HEMOGLOBIN 11.8 g/dL (12.0-15.5); LYMPH # 1.4 x10^3/uL (1.0-4.8); LYMPH % 29 % (24-48); MEAN CORPUSCULAR HEMOGLOBIN 34 pg (25-35); MEAN CORPUSCULAR HGB CONC 32 g/dL (31-37); MEAN CORPUSCULAR VOLUME 104 fL (79-100); MONO # 0.6 x10^3/uL (0.0-1.1); MONO % 14 % (0-9); NEUT # 2.5 x10^3uL (1.8-7.7); NEUT % 55 % (31-73); PLATELET COUNT 121 x10^3/uL (140-400); RED BLOOD COUNT 3.53 x10^6/uL (3.50-5.40); RED CELL DISTRIBUTION WIDTH 15.6 % (11.5-14.5); WHITE BLOOD COUNT 4.6 x10^3/uL (4.0-11.0)
[2020-08-07 20:19] LABS: CALCIUM 8.3 mg/dL (8.5-10.1); CREATININE 1.6 mg/dL (0.6-1.0); GFR 30.4; POTASSIUM 4.8 mmol/L (3.5-5.1)
[2020-08-07] MEDS ORDERED: ACETAMINOPHEN 325 MG TABLET PO PRN ×3 (21:00→22:15)
[2020-08-07 21:59] VITALS: BP 126/82
[2020-08-07] MEDS ORDERED: NITROGLYCERIN SUBLINGUAL 0.4 MG BOTTLE OF 25. SL PRN (22:15)
[2020-08-07] MEDS ORDERED: HYDROcodone/APAP 7.5/325MG 1 TAB TABLET PO PRN (22:15)
[2020-08-07] MEDS ORDERED: ONDANSETRON ODT 4 MG TAB.RAPDIS PO PRN (22:15)
[2020-08-07] MEDS ORDERED: ASPI-630 PO (22:29)
[2020-08-07] MEDS ORDERED: DICL100G18 TP (22:29)
[2020-08-07] MEDS ORDERED: LATA2.5D2 LEFTEYE (22:29)
[2020-08-07] MEDS ORDERED: BRIM5DRO3 LEFTEYE (22:29)
[2020-08-07] MEDS ORDERED: LEVE250T4 PO (22:29)
[2020-08-07] MEDS ORDERED: CALC500T30 PO (22:29)
[2020-08-07] MEDS ORDERED: SENN8.6T11 PO (22:29)
[2020-08-07] MEDS ORDERED: NITR0.4T24 SL (22:29)
[2020-08-07] MEDS ORDERED: MIRTAZAPINE 15 MG TABLET PO SCH (23:00)
[2020-08-07] MEDS ORDERED: MELATONIN 3 MG TABLET PO PRN (23:00)
[2020-08-07] MEDS ORDERED: MAGNESIUM HYDROXIDE 2,400 MG/30 ML ORAL.SUSP. PO PRN (23:00)
[2020-08-07] MEDS ORDERED: MAG HYDROX/AL HYDROX/SIMETH 30 ML ORAL.SUSP PO PRN (23:00)
[2020-08-07] MEDS: levETIRAcetam 250 MG TABLET PO SCH (23:00)
[2020-08-08 06:26] VITALS: BP 150/83
[2020-08-08 08:07] VITALS: BP 150/83
[2020-08-08] MEDS: levETIRAcetam 250 MG TABLET PO SCH (08:10)
[2020-08-08] MEDS ORDERED: ASPIRIN CHEWABLE 81 MG TABLET. PO SCH (09:00)
[2020-08-08] MEDS ORDERED: METOPROLOL TART IMMED RELEASE 25 MG TABLET. PO SCH (09:00)
[2020-08-08] MEDS ORDERED: BRIMONIDINE 0.2% OPHTH SOLUTION 5ML BOTTLE. OS SCH (09:00)
[2020-08-08] MEDS ORDERED: cycloSPORINE 0.05% OPTH 1 DROP DROPERETTE OU SCH (09:00)
[2020-08-08] MEDS ORDERED: POLYETHYLENE GLYCOL 3350 17 GM PACKET. PO SCH (09:00)
[2020-08-08] MEDS ORDERED: SERTRALINE 100 MG TABLET. PO SCH (09:00)
[2020-08-08] MEDS ORDERED: MULTIVITAMIN I-VITE TABLET. PO SCH (09:00)
[2020-08-08] MEDS ORDERED: CALCIUM CARBONATE 500 MG TABLET PO SCH (09:00)
--- NOTE | 2020-08-08 09:06 | HP ---
ADMIT DATE: 08/07/2020 ATTENDING PHYSICIAN: Dr. Sanchez. CHIEF COMPLAINT: Chest pain. HISTORY OF PRESENT ILLNESS: The patient is an 89-year-old female resident of [facility]. She has profound dementia and multiple other medical issues. She was sent here because she complained about chest pain, left sided, nonexertional relieved with 1 nitroglycerin. It lasted about 30 minutes. Her initial cardiac enzymes were negative for coronary ischemia. She is not in heart failure. EKG and chest x-ray were nondiagnostic. She has advanced directives indicating a DNR status. She has a history of atrial fibrillation. She is admitted to the hospital, then for serial cardiac enzymes and observation. Once again, she is a DNR per advanced directive. PAST MEDICAL HISTORY: Obtained from the old chart. She is profoundly demented and has no insight. She has paroxysmal atrial fibrillation, old stroke, multi-infarct dementia, essential hypertension, chronic kidney disease, idiopathic seizure disorder and chronic constipation. PAST SURGICAL HISTORY: Includes appendectomy, cholecystectomy, hip replacement and hysterectomy. ALLERGIES: PENICILLIN, IBUPROFEN. CURRENT MEDICATIONS: Reviewed. She is on multiple meds including the following; nitroglycerin p.r.n., metoprolol 12.5 mg b.i.d., aspirin daily, diclofenac gel, BenGay, hydrocodone p.r.n., regular Tylenol, Keppra 250 p.o. b.i.d., Remeron, Zoloft, Seroquel, calcium, cyclosporine, Alphagan eyedrops, Xalatan eyedrops, antacid, MiraLax, senna p.r.n., ondansetron, vitamin B12, cholecalciferol, melatonin, multivitamin with zinc. SOCIAL HISTORY: She is a nonsmoker, nondrinker. FAMILY HISTORY: Unobtainable. REVIEW OF SYSTEMS: Unobtainable. The patient is pleasantly confused, a little hard of hearing, but very cooperative. She is not agitated. PHYSICAL EXAMINATION: VITAL SIGNS: When I saw her, her initial vital signs showed a blood pressure 126/82, pulse is 69 and regular, temperature 97.6 degrees Fahrenheit, oxygen saturation 98% on room air. HEENT: Head is without trauma. Pupils are reactive. Sclerae nonicteric. Oropharynx is clear. NECK: Supple, no bruits identified. LUNGS: Otherwise clear. CARDIOVASCULAR: Showed regular heart tones. No obvious gallops. Peripheral pulses palpable and full. ABDOMEN: Soft, scaphoid, nontender, no organomegaly. Bowel sounds were hypoactive. EXTREMITIES: Show no cyanosis or edema. NEUROLOGIC: Pleasantly confused. SKIN: Warm and dry. Chest x-ray frontal view shows some mild COPD changes. The heart size of the upper limits of normal. There is no acute infiltrates or decompensation identified. PERTINENT LABORATORY STUDIES: Her first set of cardiac enzymes were negative for coronary ischemia. Hemoglobin is 11.8 g/dL with a white count of 4600. Electrolytes normal. Sodium 141 mEq, potassium 4.8, creatinine is 1.6 mg/dL. ASSESSMENT: 1. This 89-year-old female has atypical chest pain. It does not appear cardiac in nature. Symptoms have since resolved. 2. Profound dementia. 3. Paroxysmal atrial fibrillation, currently in a sinus rhythm. 4. Idiopathic seizure disorder. 5. Essential hypertension. 6. Chronic kidney disease. Creatinine is 1.6 mg percent. 7. Old stroke. 8. Chronic constipation. 9. Generalized debilitation. PLAN: 1. Admit to telemetry unit observation status. 2. Serial cardiac enzymes. 3. Continue home meds. 4. Diet as tolerated. YOEL SANCHEZ MD DR: JANIA/nato JOB#: [id number] / [id number] DIANA Ibarra MD
--- NOTE | 2020-08-08 09:30 | DS ---
DATE OF DISCHARGE: 08/08/2020 ATTENDING PHYSICIAN: Dr. Sanchez. FINAL DISCHARGE DIAGNOSES: 1. Atypical chest pain, coronary ischemia ruled out. 2. Paroxysmal atrial fibrillation. 3. Profound dementia. 4. Essential hypertension. 5. Chronic kidney disease stage 3. 6. Idiopathic seizure disorder. 7. Old cerebrovascular accident. 8. Chronic constipation. HISTORY AND PHYSICAL: The patient is a pleasantly confused 89-year-old female resident of [facility]. She had atypical chest pain, nonexertional in nature. She was sent to the ED for evaluation. First set of cardiac enzymes showed no coronary ischemia. EKG and chest x-ray were nondiagnostic. There were no signs of heart failure. She is profoundly confused. She responded to 1 nitroglycerin and the pain has since subsided. She was admitted to the hospital for observation and serial cardiac enzymes. PHYSICAL EXAMINATION: Please see my dictated note. PERTINENT LABORATORY AND X-RAY STUDIES: Electrolytes all within normal range. Potassium is 4.8 mEq per liter. Her creatinine is 1.6 mg/dL, which is her baseline. Hemoglobin was 11.8 g/dL and white count is 4600. Three sets of serial cardiac enzymes, all were negative for coronary ischemia. COURSE IN THE HOSPITAL: The patient was admitted overnight. We placed her on telemetry, she remained in a regular rhythm. Three sets of cardiac enzymes total were drawn and they were all negative for coronary ischemia. Home meds were continued. By the second hospital day in the morning when I saw her, she was pleasantly confused. She was pain free, and she was ready for discharge back to the long term. At this time, I reviewed the medications. There are no changes. She will continue her aspirin daily, Toprol 12.5 mg b.i.d., Tylenol p.r.n., Alphagan eyedrops, calcium supplement, vitamin D3, vitamin B12, Restasis eyedrops, Voltaren gel, hydrocodone p.r.n. pain., Xalatan eyedrops, Keppra 250 b.i.d., magnesium hydroxide, melatonin, BenGay, Remeron 7.5 mg at bedtime, Nitrostat p.r.n., ondansetron p.r.n., MiraLax 17 g daily, Seroquel 12.5 mg b.i.d., senna, Zoloft, and multivitamin. She remains a DNR status per advanced directives. Her prognosis is fair. She was discharged then from our hospital in stable condition back to [place] in stable condition with explicit instructions and followup care. YOEL SANCHEZ MD DR: JANIA/nato JOB#: [id number] / [id number] DIANA Ibarra MD
[2020-08-08] MEDS ORDERED: LATANOPROST 0.005% OPHTH SOLUTION 2.5ML BOTTLE. OS SCH (21:00)
== END 2020-08-08 09:55 | disposition home or self-care (01) ==
LOC: ER 19:09 → 1 SOUTH 21:03 → INTOOBSV 21:03
PROVIDERS: ADMIT Hospitalist; ATTEND Hospitalist
DX: R07.89 Other chest pain (principal); F01.50 Vascular dementia, unspecified severity, without behavioral disturbance, psychotic disturbance, mood disturbance, and anxiety; I48.0 Paroxysmal atrial fibrillation; G40.909 Epilepsy, unspecified, not intractable, without status epilepticus; I13.10 Hypertensive heart and chronic kidney disease without heart failure, with stage 1 through stage 4 chronic kidney disease, or unspecified chronic kidney disease; N18.30 Chronic kidney disease, stage 3 unspecified; K59.09 Other constipation; Z79.82 Long term (current) use of aspirin; Z66 Do not resuscitate; Z86.73 Personal history of transient ischemic attack (TIA), and cerebral infarction without residual deficits; Z90.49 Acquired absence of other specified parts of digestive tract; Z90.710 Acquired absence of both cervix and uterus; Z96.649 Presence of unspecified artificial hip joint
CPT/HCPCS: 36415; 71045; 80048; 84484; 85025; 93005; 96360; 99285; G0378; J7040; G0379

== ENCOUNTER 2021-02-19 19:42 | Emergency (ER) | payer MEDICARE, OTHER ==
[~2021-02-19] VITALS: Ht 172.7 cm; Wt 50.7 kg
[~2021-02-19 19:42] MED LIST changes: +ASPI-630 PO; +BRIM5DRO3 LEFTEYE; +CALC500T30 PO; +DICL100G18 TP; +LATA2.5D2 LEFTEYE; +LEVE250T4 PO; +NITR0.4T24 SL; +SENN8.6T11 PO
--- NOTE | 2021-02-19 20:10 | RAD ---
INDICATION: Reason: CODE STROKE, known stroke 1 day ago, ? new stroke today / Spl. Instructions: / H istory: . COMPARISON: April 2019 TECHNIQUE: Axial CT images obtained through the head. One or more of the following individualized dose reduction techniques were utilized for this examinat ion: 1. Automated exposure control; 2. Adjustment of the mA and/or kV according to patient size; 3 . Use of iterative reconstruction technique. FINDINGS: Within the left MCA territory there is a large region of low density anteriorly. Multifocal regions of low density are seen throughout the bilateral cerebral hemispheres. Encephalomalacia right occipital region is again seen and could be from prior stroke. There is also a region of encephalomalacia in the right frontal region which could be from prior stroke. Diffuse prominence of ventricles and sulci which can be seen with age-related volume loss. IMPRESSION: * Large region of low density in the anterior aspect of the left middle cerebral artery territory wh ich is new when compared to May 2020 and could be secondary to a region of edema from ischemia. N o definite hemorrhage is seen at this site. Report was called to the emergency department at 8:05 PM on date of exam. * Multifocal regions of low density within the bilateral cerebral hemispheres which can be seen with small vessel ischemic disease. There is also additional multiple foci of encephalomalacia which coul d be from prior stroke. Electronically signed by: Cole Cramer MD (02/19/2021 8:07 PM) [id number]
[2021-02-19 20:47] LABS: CALCIUM 8.6 mg/dL (8.5-10.1); CREATININE 1.1 mg/dL (0.6-1.0); GFR 46.8; POTASSIUM 4.2 mmol/L (3.5-5.1)
[2021-02-19 20:52] LABS: ALBUMIN 2.9 g/dL (3.4-5.0); ALBUMIN/GLOBULIN RATIO 0.9 (1.0-1.7); TOTAL BILIRUBIN 0.7 mg/dL (0.2-1.0); TOTAL PROTEIN 6.2 g/dL (6.4-8.2)
--- NOTE | 2021-02-19 21:25 | EKG ---
[address] [address] Test Date: 2021-02-19 Test Time: 20:22:07 Pat Name: VANESSA GORDILLO Department: Room: Gender: F Blending Technician: : [id number] Requested By: FELICITAS VALLADARES Order Number: [id number] Reading MD: Catalino Shelley Measurements Intervals [place] Rate: 97 P: CA: QRS: -8 QRSD: 82 T: 50 QT: 336 QTc: 431 Interpretive Statements ATRIAL FIBRILLATION LEFTWARD AXIS ST & T ABNORMALITY, CONSIDER ANTEROLATERAL ISCHEMIA OR LEFT VENTRICULAR STRAIN ABNORMAL ECG Electronically Signed On 02-20-2021 13:37:01 CDT by Catalino Shelley
--- NOTE | 2021-02-19 22:45 | PHYS DOC ---
Past History Past Medical History: A-Fib, Anxiety, Glaucoma, Renal Disease, TIA Past Surgical History: Hysterectomy, Lumbar Laminectomy Smoking: Non-smoker Alcohol Use: None Drug Use: None Adult General Chief Complaint Chief Complaint: NEURO SYMPTOMS/DEFICITS HPI HPI Patient is a 89 year old female who presents with mental status changes and difficulty breathing. Patient is brought here by EMS from [facility]. Initially was difficult to obtain history but I was able to discuss patient's care with both [facility]dc staff, family members later arrived and get medical history from previous facility. Patient was admitted to [facility] on February 16 for acute stroke. She was discharged just this afternoon and had arrived back at this fdc at 5 PM today. Just prior to arrival patient was found to not respond as well and pulse ox probe showed quotation [place] low oxygenation" and patient was sent to the emergency department for further evaluation. Patient herself is nonverbal and is not able to provide any history. According to the family, patient had acute stroke and because of the advanced age and dementia as well as DNR status, she was not a candidate for anticoagulation but dual platelet therapy was recommended. Patient has been prescribed aspirin and clopidogrel which is to start at the fdc tomorrow morning. Family was arrived and reported that patient is at her baseline mental status with occasional answering of questions but otherwise her baseline dementia exist. Patient is in no distress. Review of Systems Review of Systems Due to patient's dementia and recent stroke with expressive aphasia, patient not able to provide any detailed history. Patient was just discharged from [facility] after suffering a stroke. No detailed review of system cannot be obtained. Allergies Allergies Allergies Coded Allergies Type Severity Reaction Last Updated Verified Penicillins Allergy Intermediate rash 11/24/13 No ibuprofen Allergy Intermediate 12/16/17 Yes Physical Exam Physical Exam Constitutional: Patient is in no distress, afebrile and breathing comfortably. HENT: Normocephalic, atraumatic, bilateral external ears normal, oropharynx moist, no oral exudates, nose normal. Eyes: She spontaneously opens her eyes to voice, no conjunctival abnormalities and extraocular movements are intact. Neck: No neck tenderness with normal spontaneous movements. Cardiovascular:Heart rate regular rhythm, no murmur Lungs & Thorax: Bilateral breath sounds clear to auscultation Abdomen: Bowel sounds normal, soft, no tenderness, no masses, no pulsatile masses. Skin: Warm, dry, no erythema, some ecchymosis seen from various IV sites from previous hospitalizations. Back: No tenderness, no CVA tenderness. Extremities: No tenderness, no cyanosis, no clubbing, no deformity. Neurologic: She is alert and opens her eyes to verbal command. She otherwise has dementia and is not following any commands. She has expressive aphasia from stroke from 3 days ago and is not able to answer much of any questions incomprehensible language. She is spontaneously moving extremities and per family member this is her usual baseline. Current Patient Data Lab Results Laboratory Tests Test 02/19/21 20:00 02/19/21 20:34 Sodium Level 140 mmol/L (136-145) Potassium Level 4.2 mmol/L (3.5-5.1) Chloride Level 107 mmol/L (98-107) Carbon Dioxide Level 22 mmol/L (21-32) Anion Gap 11 (6-14) Blood Urea Nitrogen 23 mg/dL (7-20) H Creatinine 1.1 mg/dL (0.6-1.0) H Estimated GFR (Cockcroft-Gault) 46.8 BUN/Creatinine Ratio 21 (6-20) H Glucose Level 150 mg/dL (70-99) H Calcium Level 8.6 mg/dL (8.5-10.1) Total Bilirubin 0.7 mg/dL (0.2-1.0) Aspartate Amino Transferase (AST) 31 U/L (15-37) Alanine Aminotransferase (ALT) 35 U/L (14-59) Alkaline Phosphatase 137 U/L (46-116) H Total Protein 6.2 g/dL (6.4-8.2) L Albumin 2.9 g/dL (3.4-5.0) L Albumin/Globulin Ratio 0.9 (1.0-1.7) L Glucose (Fingerstick) 122 mg/dL (70-99) H EKG EKG Twelve-lead EKG shows heart rate of 97 bpm irregular rhythm likely to be atrial fibrillation but no significant acute ST segment elevations or depressions per my interpretation. [] Radiology/Procedures Radiology/Procedures CT scan of the head done per radiology interpretation shows large region of low- density in the anterior aspect of the left middle cerebral artery territory which is new when compared to May 2020. No definite hemorrhage can be seen. She has multifocal region of low density within bilateral cerebral hemisphere which can be seen with small vessel disease. When I compare this with medical records obtained from [facility], this seems to be consistent with acute stroke that she has suffered 3 to 4 days ago. [] Heart Score C/O Chest Pain: No Risk Factors: Risk Factors: DM, Current or recent (<one month) smoker, HTN, HLP, family history of CAD, obesity. Risk Scores: Risk Factors: DM, Current or recent (<one month) smoker, HTN, HLP, family history of CAD, obesity. Course & Med Decision Making Course & Med Decision Making Pertinent Labs and Imaging studies reviewed. (See chart for details) Patient was brought by ambulance from [facility]dc after just having arrived from [facility] from where she was discharged after suffering stroke and being admitted for 4 days. Patient was sitting upright and they were try to take a pulse ox and apparently patient's pulse ox was not registering well. Upon arrival patient was hemodynamically stable with normal vital signs and pulse oximetry on room air of 96%. On arrival she was code stroke and had immediate CT scan done which showed results as described above which later were determined to be consistent with her stroke that she is just suffered on or before February 16. Family members confirmed her to be her normal mentation. Her metabolic studies were unremarkable and since CBC initially was clotted, I discussed with family member and they did not want to repeat 1. Family members request discharge and they are going to transport her to the fdc as they have now confirmed that this is her baseline mental status. Patient was observed in the emergency department for more than 2 hours and continued to be stable with fairly normal vital signs and normal oxygenation. Nurse has called in the report to the fdc and explained her status. We are further advised no change in follow-up plan from our perspective today and fdc is to follow the discharge plan generated and by [facility] upon discharge earlier this afternoon. Dragon Disclaimer Dragon Disclaimer This electronic medical record was generated, in whole or in part, using a voice recognition dictation system. Departure Departure: Impression: Primary Impression: Acute stroke due to ischemia Additional Impression: Dementia Disposition: 03 [facility] FACILITY Condition: STABLE Referrals: DIANA CARTAGENA MD (PCP) Follow-up with your primary care doctor in the next 2 to 3 days. Patient Instructions: Dementia, Ischemic Stroke Additional Instructions: long-term to resume all plan as determined by [facility] upon discharge earlier this afternoon. No change in plan is being made from [facility] today. Problem Qualifiers FELICITAS VALLADARES MD Feb 19, 2021 22:45
[2021-02-19 23:20] VITALS: BP 136/84
== END 2021-02-19 23:30 ==
LOC: ER 19:42
DX: I63.9 Cerebral infarction, unspecified (principal); F03.90 Unspecified dementia, unspecified severity, without behavioral disturbance, psychotic disturbance, mood disturbance, and anxiety; F41.9 Anxiety disorder, unspecified; I48.91 Unspecified atrial fibrillation; Z86.73 Personal history of transient ischemic attack (TIA), and cerebral infarction without residual deficits; Z88.0 Allergy status to penicillin; Z88.6 Allergy status to analgesic agent
CPT/HCPCS: 36415; 70450; 80053; 82947; 93005; 99285-25